=== PATIENT | male | born 1980 | race Caucasian/White ===

== ENCOUNTER 2022-12-21 13:45 | Outpatient (OUT) | payer OTHER, SELFPAY ==
[2022-12-21 14:22] LABS: Basophils Absolute Auto 0.1 10^3/uL (0.0-0.1); Basophils Percent Auto 1.1 % (0.2-2.0); Eosinophils Absolute Auto 0.6 10^3/uL (0.0-0.7); Eosinophils Percent Auto 7.3 % (0.9-7.0); Hematocrit 41.2 % (42.0-54.0); Hemoglobin 13.6 g/dL (14.0-18.0); Immature Granulocytes Abs Auto 0.02 10^3/uL (0.00-0.03); Immature Granulocytes Pct Auto 0.2 % (0.0-0.5); Lymphocytes Absolute Auto 2.4 10^3/uL (1.2-3.8); Lymphocytes Percent Auto 26.9 % (20.5-60.0); Mean Corpuscular Hemoglobin 27.5 pg (25.9-34.0); Mean Corpuscular Volume 83.2 fL (80.0-94.0); Mean Platelet Volume 10.5 fL (9.5-13.5); Monocytes Absolute Auto 0.7 10^3/uL (0.3-0.8); Monocytes Percent Auto 7.4 % (1.7-12.0); Neutrophils Percent Auto 57.1 % (43.0-75.0); Platelet Count 395 10^3/uL (150-450); Red Blood Count 4.95 10^6/uL (4.70-6.10); Red Cell Distribution Width 13.3 % (11.0-15.0); White Blood Count 8.8 10^3/uL (4.0-11.0)
[2022-12-21 14:32] LABS: Alanine Aminotransferase 27 U/L (16-63); Albumin Globulin Ratio 0.9; Albumin Level 3.8 g/dL (3.4-5.0); Alkaline Phosphatase 152 U/L (46-116); Anion Gap 13.6; Aspartate Amino Transferase 16 U/L (15-37); BUN Creatinine Ratio 35.3; Bilirubin Total 0.1 mg/dL (0.2-1.0); Calcium 8.8 mg/dL (8.5-10.1); Carbon Dioxide 25.6 mmol/L (21.0-32.0); Chloride 101 mmol/L (98-107); Chol HDL Ratio 3.2; Cholesterol 225 mg/dL (<=200); Estimated GFR (African America >60 (>=60); Estimated GFR (Non-African Ame >60 (>=60); Globulin 4.3 g/dL; Glucose 138 mg/dL (74-106); HDL Cholesterol 71 mg/dL (40-60); Potassium 4.2 mmol/L (3.5-5.1); Sodium 136 mmol/L (136-145); Total Protein 8.1 g/dL (6.4-8.2); Triglycerides 127 mg/dL (<=150); VLDL CHOLESTEROL 25.4 mg/dL
== END 2022-12-21 13:46 | disposition home or self-care (01) ==
LOC: LAB 13:51
PROVIDERS: PCP Internal Medicine; Visit Provider Internal Medicine
DX: Z00.00 Encounter for general adult medical examination without abnormal findings (principal)
CPT/HCPCS: 36415; 80053; 80061; 85025

== ENCOUNTER 2023-05-20 12:50 | Outpatient (RCR) | payer OTHER, SELFPAY | END 2023-05-21 15:19 | disposition home or self-care (01) | LOC: PT 12:50 | PROVIDERS: PCP Internal Medicine; Visit Provider Internal Medicine | DX: G80.4 Ataxic cerebral palsy (principal) | CPT/HCPCS: 97162 ==

== ENCOUNTER 2023-06-04 10:03 | Outpatient (OUT) | payer OTHER, SELFPAY ==
--- NOTE | 2023-06-04 | XR_ITS ---
The [address] [address] Patient Name: JIAN MOSCOSO MRN: [id number] date: 1980 Sex: M Assigned Patient Location: Current Patient Location: Accession/Order Number: [id number] Exam Date: 06/04/2023 10:30 Report Date: 06/06/2023 07:04 At the request of: DEBBY PHAM Procedure: XR ankle CALEB min 3V 3 views each of the bilateral feet and ankles INDICATION: Pain COMPARISON: None XR/XR ankle CALEB min 3V IMPRESSION: Slightly gracile appearance of the bones bilaterally. No acute fracture or dislocation of either foot or ankle. Joint spaces are well-maintained bilaterally. The ankle mortise is congruent bilaterally. No erosions are evident bilaterally. No radiographic evidence for inflammatory arthropathy. Soft tissues are grossly unremarkable bilaterally. Electronically authenticated by: SONALI SUGGS Date: 06/06/2023 07:04
--- NOTE | 2023-06-04 | XR_ITS ---
The [address] [address] Patient Name: JIAN MOSCOSO MRN: [id number] date: 1980 Sex: M Assigned Patient Location: Current Patient Location: Accession/Order Number: [id number] Exam Date: 06/04/2023 10:30 Report Date: 06/06/2023 07:04 At the request of: DEBBY PHAM Procedure: XR foot CALEB min 3V 3 views each of the bilateral feet and ankles INDICATION: Pain COMPARISON: None XR/XR foot CALEB min 3V IMPRESSION: Slightly gracile appearance of the bones bilaterally. No acute fracture or dislocation of either foot or ankle. Joint spaces are well-maintained bilaterally. The ankle mortise is congruent bilaterally. No erosions are evident bilaterally. No radiographic evidence for inflammatory arthropathy. Soft tissues are grossly unremarkable bilaterally. Electronically authenticated by: SONALI SUGGS Date: 06/06/2023 07:04
== END 2023-06-04 10:04 | disposition home or self-care (01) ==
LOC: EC 10:03
PROVIDERS: PCP Internal Medicine; Visit Provider Podiatrist Foot & Ankle Surgery
DX: M79.671 Pain in right foot (principal); M79.672 Pain in left foot
CPT/HCPCS: 73610; 73630

== ENCOUNTER 2023-06-14 10:55 | Outpatient (RCR) | payer OTHER, SELFPAY | END 2023-06-15 11:40 | disposition home or self-care (01) | LOC: PT 10:55 | PROVIDERS: PCP Internal Medicine; Visit Provider Podiatrist Foot & Ankle Surgery | DX: M21.171 Varus deformity, not elsewhere classified, right ankle (principal) | CPT/HCPCS: 97163 ==

== ENCOUNTER 2023-12-23 11:36 | Outpatient (OUT) | payer OTHER, SELFPAY ==
[2023-12-23 12:03] LABS: Basophils Absolute Auto 0.1 10^3/uL (0.0-0.1); Basophils Percent Auto 0.8 % (0.2-2.0); Eosinophils Absolute Auto 0.6 10^3/uL (0.0-0.7); Eosinophils Percent Auto 5.9 % (0.9-7.0); Hematocrit 41.9 % (42.0-54.0); Immature Granulocytes Abs Auto 0.03 10^3/uL (0.00-0.03); Immature Granulocytes Pct Auto 0.3 % (0.0-0.5); Lymphocytes Absolute Auto 2.3 10^3/uL (1.2-3.8); Lymphocytes Percent Auto 21.9 % (20.5-60.0); Mean Corpuscular HGB Conc 33.4 g/dL (29.9-35.2); Mean Corpuscular Hemoglobin 27.6 pg (25.9-34.0); Mean Corpuscular Volume 82.5 fL (80.0-94.0); Mean Platelet Volume 10.4 fL (9.5-13.5); Monocytes Absolute Auto 0.8 10^3/uL (0.3-0.8); Monocytes Percent Auto 7.6 % (1.7-12.0); Neutrophils Absolute Auto 6.8 10^3/uL (1.4-6.5); Neutrophils Percent Auto 63.5 % (43.0-75.0); Platelet Count 389 10^3/uL (150-450); Red Blood Count 5.08 10^6/uL (4.70-6.10); Red Cell Distribution Width 12.8 % (11.0-15.0); White Blood Count 10.7 10^3/uL (4.0-11.0)
[2023-12-23 12:18] LABS: Alanine Aminotransferase 25 U/L (16-63); Albumin Level 3.8 g/dL (3.4-5.0); Alkaline Phosphatase 156 U/L (46-116); Aspartate Amino Transferase 14 U/L (15-37); BUN Creatinine Ratio 31.4; Bilirubin Total 0.3 mg/dL (0.2-1.0); Calcium 8.9 mg/dL (8.5-10.1); Carbon Dioxide 29.1 mmol/L (21.0-32.0); Chloride 100 mmol/L (98-107); Estimated GFR (African America >60 (>=60); Estimated GFR (Non-African Ame >60 (>=60); Globulin 3.9 g/dL; Glucose 80 mg/dL (74-106); Potassium 4.1 mmol/L (3.5-5.1); Sodium 138 mmol/L (136-145); Total Protein 7.7 g/dL (6.4-8.2)
== END 2023-12-23 11:37 | disposition home or self-care (01) ==
LOC: LAB 11:37
PROVIDERS: PCP Internal Medicine; Visit Provider Internal Medicine
DX: G80.4 Ataxic cerebral palsy (principal); K21.9 Gastro-esophageal reflux disease without esophagitis; I42.1 Obstructive hypertrophic cardiomyopathy
CPT/HCPCS: 36415; 80053; 85025

== ENCOUNTER 2024-06-28 15:13 | Inpatient (IN) | payer MEDICARE, MEDICAID, SELFPAY ==
[2024-06-28] VITALS (9 sets, daily range): BP systolic 100–115; BP diastolic 62–78; PULSE 79–118; TEMP 36.6–39.6; O2SAT 78–94; BMI 20.8
--- OUTSIDE RECORDS SUMMARY | 2024-06-28 15:25 | XMS_ITS | CCD ---
Author Organization [facility] Care Team Providers Care Associate Financial Representative Name Role Phone CRISPIN MENDEZ Primary Care Physician [phone] DR CRISPIN MENDEZ Admitting Unavailable ANDREA, DR FLETCHER Attending Unavailable ANDREA, DR FLETCHER Primary Care Unavailable ANDREA, DR FLETCHER Consulting Unavailable Crispin Mendez Unavailable CRISPIN MENDEZ Admitting Unavailable CRISPIN MENDEZ Attending Unavailable CRISPIN MENDEZ Referring Unavailable Kirn, Dinesh D Consulting Unavailable Kirnus, Dinesh D Consulting Unavailable Nora, Dinesh D Consulting Unavailable Crispin Mendez DO Primary Care Provider Crispin Mendez DO Unavailable [phone] Crispin Mendez DO Primary Care Provider Justyn Tobar MD Attending Provider Crispin Mendez Primary Care Unavailable Justyn Tobar Attending Justyn Leija Admitting Justyn Leija MD Unavailable [phone] RAVINDER SOLOMON Referring Unavailable CRISPIN MENDEZ Primary Care Unavailable RAVINDER SOLOMON Attending Unavailable CRISPIN MENDEZ Referring Unavailable CRISPIN MENDEZ Primary Care Unavailable RAVINDER SOLOMON Referring Unavailable CRISPIN MENDEZ Primary Care Unavailable RAVINDER SOLOMON Referring Unavailable CRISPIN MENDEZ Primary Care Unavailable RAVINDER SOLOMON Referring Unavailable CRISPIN MENDEZ Primary Care Unavailable Allergies Allergy Classification Reported Allergen(s) Allergy Type Date of Onset Reaction(s) Facility (4 sources) Streptococcus pneumoniae type 1 capsular polysaccharide antigen / Streptococcus pneumoniae type 10A capsular polysaccharide antigen / Streptococcus pneumoniae type 11A capsular polysaccharide antigen / Streptococcus pneumoniae type 12F capsular polysaccharide antigen / Streptococcus pneumoniae type 14 capsular polysaccharide antigen / Streptococcus pneumoniae type 15B capsular polysaccharide antigen / Streptococcus pneumoniae type 17F capsular polysaccharide antigen / Streptococcus pneumoniae type 18C capsular polysaccharide antigen / Streptococcus pneumoniae type 19A capsular polysaccharide antigen / Streptococcus pneumoniae type 19F capsular polysaccharide antigen / Streptococcus pneumoniae type 2 capsular polysaccharide antigen / Streptococcus pneumoniae type 20 capsular polysaccharide antigen / Streptococcus pneumoniae type 22F capsular polysaccharide antigen / Streptococcus pneumoniae type 23F capsular polysaccharide antigen / Streptococcus pneumoniae type 3 capsular polysaccharide antigen / Streptococcus pneumoniae type 33F capsular polysaccharide antigen / Streptococcus pneumoniae type 4 capsular polysaccharide antigen / Streptococcus pneumoniae type 5 capsular polysaccharide antigen / Streptococcus pneumoniae type 6B capsular polysaccharide antigen / Streptococcus pneumoniae type 7F capsular polysaccharide antigen / Streptococcus pneumoniae type 8 capsular polysaccharide antigen / Streptococcus pneumoniae type 9N capsular polysaccharide antigen / Streptococcus pneumoniae type 9V capsular polysaccharide antigen Drug Allergy rash [facility] Other (7 sources) Blueberry; Translations: [BLUEBERRY] Propensity to adverse reactions to food 01-22-20 13 Unknown [facility] (7 sources) Lactose; Translations: [LACTOSE] Drug Allergy 12-07-19 04 [facility] (7 sources) Gluten Flour; Translations: [GLUTEN FLOUR] Propensity to adverse reactions to food 01-22-20 13 Unknown [facility] (1 source) Pneumococcal vaccine Drug Allergy 03-04-20 24 [facility] Medications Current Medications Medication Drug Class(es) Dates Sig (Normalized) Sig (Original) amoxicillin 80 mg/ml oral suspension (5 sources) Penicillin-class Antibacterial Start: 05-21-2024 take 25 mL by mouth every hour amoxicillin (AMOXIL) 400 mg/5 mL suspension TAKE 25ML BY MOUTH FOR PREMED DOSE 1 HOUR PRIOR TO APPOIMTMENT *DISCARD REMAINDER* 05/21/2024 Active Start: 09-07-2017 Amoxicillin 40 0 MG/5ML 2 teaspoonful Orally every 12 hrs for 10 days August, Not-Taking betamethasone 0.5 mg/ml / clotrimazole 10 mg/ml topical cream (4 sources) Azole Antifungal, Corticosteroid Start: 12-13-2023 Clotrimazole-Betamethasone 1-0.05 % cream Active 1 APPLIC TOPICAL Twice daily as needed for rash December 12, 2023 11:00pm Calcium Carbonate (2 sources) Start: 08-10-2021 Maalox Antacid Barrier mg, Chewed, Daily, Refills(s) 0 Start Date: 08/10/21 Status: Ordered CHEWABLE MULTI VITAMIN ORAL (1 source) CHEWABLE MULTI V ITAMIN ORAL Take 1 Tablespoonful by mouth once daily. Active esomeprazole 40 mg granules for oral suspension (1 source) Proton Pump Inhibitor Start: 08-10-2021 Nexium 40 mg oral powder for reconstitution, delayed release 40 mg = 1 EA, Oral, Daily, # 30 packet(s), Refills(s) 3, Pharmacy: [facility]/pharmacy #[id number], 152, cm, 08/10/21 13:17:00 EDT, Height/Length Dosing, 47.7, kg, 08/10/21 13:17:00 EDT, Weight Dosing Start Date: 08/10/21 Status: Ordered metoprolol tartrate 25 mg oral tablet (2 sources) beta-Adrenergic Dena Start: 03-04-2024 take 1 tablet by mouth every twelve hours metoprolol tartrate, short acting, (LOPRESSOR) 25 mg tablet Take 1 tablet by mouth every 12 hours. 03/04/2024 Active Start: 03-04-2024 take 1 tablet by chelle twice daily Metoprolol Tartrate 25 mg tablet Active 25 MG PO Twice daily 180 March 04, 2024 12:00am Marcial-burch button G tube (4 sources) Start: 12-21-2020 Marcial-burch button G tube Marcial-burch button G tube, See Instructions, 1 EA, 0, G-Tube as directed 20 fr. 4 cm, Supply Start Date: 12/21/20 Status: Ordered Start: 12-20-2020 Marcial-burch button G tube Marcial-burch button G tube, See Instructions, 1 EA, 0, G-Tube As Directed 20 fr. 3.5 cm, Supply Start Date: 12/20/20 Status: Ordered MARCIAL-BURCH GASTROSTOMY TUBE (6 sources) Start: 05-25-2016 MARCIAL-BURCH GASTRO STOMY TUBE Indications: Gastrostomy tube dysfunction (HCC) 2.5 cm, 18 Fr 1 Kit 05/25/2016 Active mupirocin 0.02 mg/mg topical ointment (2 sources) RNA Synthetase Inhibitor Antibacterial Start: 01-15-2024 Mupirocin 2 % ointment Active 1 APPLIC TOPICAL Twice daily 22 January 14, 2024 11:00pm Nexium 40 mg oral powder for reconstitution, delayed release (1 source) Start: 08-10-2021 Nexium 40 mg o ral powder for reconstitution, delayed release 40 mg = 1 EA, Oral, Daily, # 30 packet(s), Refills(s) 3, Pharmacy: [facility]/pharmacy #[id number], 152, cm, 08/10/21 13:17:00 EDT, Height/Length Dosing, 47.7, kg, 08/10/21 13:17:00 EDT, Weight Dosing Start Date: 08/10/21 Status: Ordered triamcinolone acetonide 1 mg/ml topical cream (9 sources) Corticosteroid Start: 12-13-2023 Triamcinolone Acetonide 0.1 % cream Active 1 APPLIC TOPICAL Twice daily as needed for rash December 12, 2023 11:00pm Start: 10-23-2022 Triamcinolone Acetonide 0.025 % 1 application Externally twice daily as needed for 14 days Oct, Active Completed/Discontinued Medications Medication Drug Class(es) Dates Sig (Normalized) Sig (Original) albuterol 0.83 mg/ml inhalation solution (4 sources) beta2-Adrenergic Agonist Start: 09-07-2017 Albuterol Sulfate (2.5 MG/3ML) 0.083% 1 dose as directed Inhalation every 6 hrs August, Not-Taking doxycycline hyclate 100 mg oral capsule (2 sources) Tetracycline-class Drug Start: 01-15-2024 End: 03-04-2024 take 1 capsule by mouth twice daily Doxycycline Hyclate 100 mg capsule Discontinued 100 MG PO Twice daily 14 January 14, 2024 11:00pm March 04, 2024 3:21pm LORazepam 0.5 mg oral tablet (5 sources) Benzodiazepine Start: 11-27-2023 End: 12-13-2023 take 1 tablet by mouth once Lorazepam 0.5 mg tablet Discontinued 0.5 MG PO Once 1 November 26, 2023 11:00pm December 13, 2023 9:58am Give 1 hour prior to dentist appt Nebulizer Machine & Supplies (4 sources) Start: 09-07-2017 Nebulizer Machine & Supplies As directed August, Not-Taking omeprazole 40 mg delayed release oral capsule (5 sources) Proton Pump Inhibitor Start: 09-29-2018 End: 05-28-2024 take 1 capsule by mouth twice daily 30 minutes before breakfast Omeprazole 40 mg capsule Take 1 capsule by mouth twice daily. Take 30 minutes before breakfast and dinner 180 capsule 3 09/29/2018 05/28/2024 Discontinued prednisoLONE 3 mg/ml oral solution (4 sources) Corticosteroid Start: 09-07-2017 take 5 mL by mouth once daily at mealtime prednisoLONE Sodium Phosphate 15 MG/5ML 5 ml with food or milk in the morning Orally Once a day for 5 days August, Not-Taking {20 (nirmatrelvir 150 MG Oral Tablet) / 10 (ritonavir 100 MG Oral Tablet) } Pack [Paxlovid 5-Day] (4 sources) Start: 09-20-2022 take 3 tablets by mouth every twelve hours Paxlovid (300/100) 20 x 150 MG & 10 x 100MG 3 tablets Orally Twice a day for 5 days Sep, Not-Taking Problems Active Problems Problem Classification Problem Date Documented Da te Episodic/Chronic Allergic reactions (11 sources) Allergic contact dermatitis due to dyes; Translations: [Eczema] Episodic Cardiac and circulatory congenital anomalies (20 sources) Congenital subaortic stenosis; Translations: [Congenital subaortic stenosis] Onset: 6 Resolved: 0 10-24-2023 Chronic Cardiac dysrhythmias (12 sources) Multiple premature ventricular complexes; Translations: [Ventricular premature depolarization] Onset: 6 02-13-2018 Chronic Complications of surgical procedures or medical care (4 sources) Infection of gastrostomy site; Translations: [Gastrostomy infection] 01-15-2024 Episodic Deficiency and other anemia (4 sources) Anemia; Translations: [Anemia, unspecified] Episodic Developmental disorders (19 sources) Intellectual disability; Translations: [Unspecified intellectual disabilities] Chronic Esophageal disorders (10 sources) Gastroesophageal reflux disease; Translations: [Gastro-esophageal reflux disease without esophagitis] 12-12-2023 Chronic Genitourinary congenital anomalies (5 sources) Testicle in inguinal canal; Translations: [Bilateral inguinal testes] Chronic Genitourinary symptoms and ill-defined conditions (4 sources) Functional urinary incontinence; Translations: [Functional urinary incontinence] Chronic Heart valve disorders (20 sources) Rheumatic mitral valve disease, unspecified; Translations: [Mitral valve disorders] Onset: 6 10-24-2023 Chronic Immunity disorders (4 sources) Combined immunodeficiency disease ; Translations: [Combined immunodeficiency, unspecified] Chronic Mycoses (4 sources) Candidal intertrigo; Translations: [Candidiasis of skin and nail] Episodic Other bone disease and musculoskeletal deformities (4 sources) Idiopathic scoliosis AND/OR kyphoscoliosis; Translations: [Adolescent idiopathic scoliosis, thoracolumbar region] Chronic Other circulatory disease (4 sources) Raynaud's disease; Translations: [Raynaud's syndrome without gangrene] Chronic Other circulatory disease (1 source) Elevated blood-pressure reading, without diagnosis of hypertension; Translations: [Elevated blood pressure reading without diagnosis of hypertension] 03-04-2024 Episodic Other gastrointestinal disorders (1 source) Gastrostomy present; Translations: [Gastrostomy status] Onset: 2 Chronic Other gastrointestinal disorders (3 sources) Heartburn; Translations: [Heartburn] Onset: 2 Episodic Other upper respiratory infections (6 sources) Sinusitis; Translations: [Chronic sinusitis, unspecified] Onset: 0 03-08-2010 Chronic Paralysis (16 sources) Ataxic cerebral palsy; 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 Susu-; endo-; and myocarditis; cardiomyopathy (except that caused by tuberculosis or sexually transmitted disease) (16 sources) Hypertrophic obstructive cardiomyopathy; Translations: [Obstructive hypertrophic cardiomyopathy] Chronic Skin and subcutaneous tissue infections (4 sources) Cellulitis of abdominal wall ; Translations: [Cellulitis of abdominal wall] Episodic Past or Other Problems Problem Classification Problem Date Documented Da te Episodic/Chronic Esophageal disorders (5 sources) Esophageal disorders; Translations: [Gastroesophageal reflux disease with esophagitis without hemorrhage] Results Test Name Value Interpretation Reference Range Facility CBC W Auto Differential pane l (Bld)on 05-28-2024 Basophils (Bld) [#/Vol] 0.07 10*3/uL Normal <0.11 [facility] Comment on above: Order Comment: Speci men Type: BLOOD SPECIMEN Ordering Facility: [facility] Address: [address] [place] [address] Performed By: #### 5 7021-8 #### [facility] CLIA [id number] [address] [place] [address] [place] [address] [place] Basophils/100 WBC (Bld) 0.7 % Normal [facility] Comment on above: Order Comment: Speci men Type: BLOOD SPECIMEN Ordering Facility: [facility] Address: [address] [place] [address] Performed By: #### 5 7021-8 #### [facility] CLIA [id number] [address] [place] [address] [place] Differential cell count method Nom (Bld) Auto Normal [facility] Comment on above: Order Comment: Speci men Type: BLOOD SPECIMEN Ordering Facility: [facility] Address: [address] [place] [address] Performed By: #### 5 7021-8 #### [facility] CLIA [id number] [address] [place] [address] [place] Eosinophils (Bld) [#/Vol] 0.47 10*3/uL High <0.46 [facility] Comment on above: Order Comment: Speci men Type: BLOOD SPECIMEN Ordering Facility: [facility] Address: [address] [place] [address] Performed By: #### 5 7021-8 #### [facility] CLIA [id number] [address] [place] [address] [place] Eosinophils/100 WBC (Bld) 4.8 % Normal [facility] Comment on above: Order Comment: Speci men Type: BLOOD SPECIMEN Ordering Facility: [facility] Address: [address] [place] [address] Performed By: #### 5 7021-8 #### [facility] CLIA [id number] [address] [place] [address] [place] Erythrocyte distribution width (RBC) [Ratio] 13.2 % Normal 11.5-15.0 [facility] Comment on above: Order Comment: Speci men Type: BLOOD SPECIMEN Ordering Facility: [facility] Address: [address] [place] [address] Performed By: #### 5 7021-8 #### [facility] CLIA [id number] [address] [place] [address] [place] Hematocrit (Bld) [Volume fraction] 41.0 % Normal 39.0-51.0 [facility] Comment on above: Order Comment: Speci men Type: BLOOD SPECIMEN Ordering Facility: [facility] Address: [address] [place] [address] Performed By: #### 5 7021-8 #### [facility] CLIA [id number] [address] [place] [address] [place] Hemoglobin (Bld) [Mass/Vol] 13.6 g/dL Normal 13.0-17.0 [facility] Comment on above: Order Comment: Speci men Type: BLOOD SPECIMEN Ordering Facility: [facility] Address: [address] [place] [address] Performed By: #### 5 7021-8 #### [facility] CLIA [id number] [address] [place] [address] [place] Immature granulocytes (Bld) [#/Vol] 0.03 10*3/uL Normal <0.10 [facility] Comment on above: Order Comment: Speci men Type: BLOOD SPECIMEN Ordering Facility: [facility] Address: [address] [place] [address] Performed By: #### 5 7021-8 #### [facility] CLIA [id number] [address] [place] [address] [place] Immature granulocytes/100 WBC (Bld) 0.3 % Normal [facility] Comment on above: Order Comment: Speci men Type: BLOOD SPECIMEN Ordering Facility: [facility] Address: [address] [place] [address] Performed By: #### 5 7021-8 #### [facility] CLIA [id number] [address] [place] [address] [place] Lymphocytes (Bld) [#/Vol] 1.87 10*3/uL Normal 1.00-4.00 [facility] Comment on above: Order Comment: Speci men Type: BLOOD SPECIMEN Ordering Facility: [facility] Address: [address] [place] [address] Performed By: #### 5 7021-8 #### [facility] CLIA [id number] [address] [place] [address] [place] Lymphocytes/100 WBC (Bld) 18.9 % Normal [facility] Comment on above: Order Comment: Speci men Type: BLOOD SPECIMEN Ordering Facility: [facility] Address: [address] [place] [address] Performed By: #### 5 7021-8 #### [facility] CLIA [id number] [address] [place] [address] [place] MCH (RBC) [Entitic mass] 27.0 pg Normal 26.0-34.0 [facility] Comment on above: Order Comment: Speci men Type: BLOOD SPECIMEN Ordering Facility: [facility] Address: [address] [place] [address] Performed By: #### 5 7021-8 #### [facility] CLIA [id number] [address] [place] [address] [place] MCHC (RBC) [Mass/Vol] 33.2 g/dL Normal 30.5-36.0 [facility] Comment on above: Order Comment: Speci men Type: BLOOD SPECIMEN Ordering Facility: [facility] Address: [address] [place] [address] Performed By: #### 5 7021-8 #### [facility] CLIA [id number] [address] [place] [address] [place] MCV (RBC) [Entitic vol] 81.5 fL Normal 80.0-100.0 [facility] Comment on above: Order Comment: Speci men Type: BLOOD SPECIMEN Ordering Facility: [facility] Address: [address] [place] [address] Performed By: #### 5 7021-8 #### [facility] CLIA [id number] [address] [place] [address] [place] Monocytes (Bld) [#/Vol] 0.71 10*3/uL Normal <0.87 [facility] Comment on above: Order Comment: Speci men Type: BLOOD SPECIMEN Ordering Facility: [facility] Address: [address] [place] [address] Performed By: #### 5 7021-8 #### [facility] CLIA [id number] [address] [place] [address] [place] Monocytes/100 WBC (Bld) 7.2 % Normal [facility] Comment on above: Order Comment: Speci men Type: BLOOD SPECIMEN Ordering Facility: [facility] Address: [address] [place] [address] Performed By: #### 5 7021-8 #### [facility] CLIA [id number] [address] [place] [address] [place] Neutrophils (Bld) [#/Vol] 6.72 10*3/uL Normal 1.45-7.50 [facility] Comment on above: Order Comment: Speci men Type: BLOOD SPECIMEN Ordering Facility: [facility] Address: [address] [place] [address] Performed By: #### 5 7021-8 #### [facility] CLIA [id number] [address] [place] [address] [place] Neutrophils/100 WBC (Bld) 68.1 % Normal [facility] Comment on above: Order Comment: Speci men Type: BLOOD SPECIMEN Ordering Facility: [facility] Address: [address] [place] [address] Performed By: #### 5 7021-8 #### [facility] CLIA [id number] [address] [place] [address] [place] Nucleated RBC (Bld) [#/Vol] 10*3/uL Normal <0.01 [facility] Comment on above: Order Comment: Speci men Type: BLOOD SPECIMEN Ordering Facility: [facility] Address: [address] [place] [address] Performed By: #### 5 7021-8 #### [facility] CLIA [id number] [address] [place] [address] [place] Nucleated RBC/100 WBC (Bld) [Ratio] 0.0 /100 WBC Normal [facility] Comment on above: Order Comment: Speci men Type: BLOOD SPECIMEN Ordering Facility: [facility] Address: [address] [place] [address] Performed By: #### 5 7021-8 #### [facility] CLIA [id number] [address] [place] [address] [place] Platelet mean volume (Bld) [Entitic vol] 10.8 fL Normal 9.0-12.7 [facility] Comment on above: Order Comment: Speci men Type: BLOOD SPECIMEN Ordering Facility: [facility] Address: [address] [place] [address] Performed By: #### 5 7021-8 #### [facility] CLIA [id number] [address] [place] [address] [place] Platelets (Bld) [#/Vol] 418 10*3/uL High 150-400 [facility] Comment on above: Order Comment: Speci men Type: BLOOD SPECIMEN Ordering Facility: [facility] Address: [address] [place] [address] Performed By: #### 5 7021-8 #### [facility] CLIA [id number] [address] [place] [address] [place] RBC (Bld) [#/Vol] 5.03 10*6/uL Normal 4.20-6.00 [facility] Comment on above: Order Comment: Speci men Type: BLOOD SPECIMEN Ordering Facility: [facility] Address: [address] [place] [address] Performed By: #### 5 7021-8 #### [facility] CLIA [id number] [address] [place] [address] [place] WBC (Bld) [#/Vol] 9.87 10*3/uL Normal 3.70-11.00 [facility] Comment on above: Order Comment: Speci men Type: BLOOD SPECIMEN Ordering Facility: [facility] Address: [address] [place], [place] [address] [address] Performed By: #### 5 7021-8 #### [facility] CLIA [id number] [address] [place] [address] [place] CNOVon 05-28-2024 CNOV Office Visit (CARCMN ) JIAN MOSCOSO ([id number]) 1980 M [place] Date Time Provider Department 05/28/24 1:15 PM RAVINDER SOLOMON During your visit today, we recorded the following information about you: Pulse Blood pressure Weight Height 112/minute 148/97 47.6 kg 1.499 m Ravinder Solomon MD 05/29/2024 3:56 PM [facility] [place] [facility] OUTPATIENT VISIT DATE May 28, 2024 OUTPATIENT VISIT TYPE NEW PRIMARY CARE PHYSICIAN: Crispin Mendez (Stephanie) [address] [place] [address] REFERRING PHYSICIAN: Crispin Mccoy) [address] [facility] [address] Tobar for cardiology CHIEF COMPLAINT: Bicuspid AV (LCC/NCC), subaortic membrane, supravalvular stenosis CONGENITAL CARDIAC HISTORY: Shone complex: subaortic membrane, bicuspid aortic valve, and ?cleft mitral valve 1993 - subaortic membrane resection (Dr. Herring, [facility]) 09/05/1999 - excision of supravalvar aortic scar, transaortic membrane resection and removal of deep muscle wedge (Drs. Herring AND Anoop, [facility]) Developmental delay, non-verbal INTERVAL HISTORY: Mr. Moscoso is a 43 year old male from [facility] here today for cardiovascular evaluation related to congenital stenosis of aortic valve. Jian has a significant medical history of developmental delay (nonverbal), cerebral palsy, GERD, hiatal hernia, scoliosis, vitiligo. He was last saw [facility] cardiology (Dr Toribio Ortega) in late 2017. At that time he was doing well without acute complaints. Annual TTE was recommended to follow AV pathology. In late 2023, outside echo was concerning for severe AV or supravalvular stenosis with calculated ROSALIND ~0.75, indexed ROSALIND 0.46, mean gradient 35 mmHg. Historically his cardiac symptoms have included anorexia, chest clutching, sully extremities and pulmonary edema. He has never had ankle swelling. It is unclear if he has ever had sacral edema, has significant scoliosis. His mother reports that since the last visit he has had a slight weight decrease after intentionally cutting back on feeding tubes due to weight gain. She does not progressive increase in episodic heavy breathing over the past two years, particularly with eating. They have not seen any evidence of anorexia, pulmonary edema or other findings from prior HF decompensation. He was started on metoprolol a few weeks ago due to diastolic hypertension. His mom reports that after first dose his SBP dropped to 98. Occupation: n/a Diet: TF Exercise: wheelchair bound PAST MEDICAL HISTORY Diagnosis Date Aortic stenosis Developmental delay disorder PVC (premature ventricular contraction) PAST SURGICAL HISTORY Procedure Laterality Date ANES HRT PERICRD SACANDGRT VSLS W/ACCOUNT CONTACT ASSOCIATE OXTJ >1MO PO UNLISTED STOMACH SURGERY Social History Tobacco Use Smoking status: Never Smokeless tobacco: Never Vaping Use Vaping status: Never Used Substance Use Topics Alcohol use: No Drug use: No FAMILY HISTORY Problem Relation Age of Onset Cervical Cancer Mother Hypertension Mother Hyperlipidemia Mother Hyperlipidemia Father Hypertension Father Breast Cancer Maternal Grandmother Breast Cancer Maternal Aunt ALLERGIES Allergen Reactions Blueberry Unknown Gluten Flour Unknown Lactose MEDICATIONS: metoprolol tartrate, short acting, (LOPRESSOR) 25 mg tablet Take 1 tablet by mouth every 12 hours. (Patient taking differently: Take 12.5 mg by mouth every 12 hours.) amoxicillin (AMOXIL) 400 mg/5 mL suspension TAKE 25ML BY MOUTH FOR PREMED DOSE 1 HOUR PRIOR TO APPOIMTMENT *DISCARD REMAINDER* CHEWABLE MULTI VITAMIN ORAL Take 1 Tablespoonful by mouth once daily. MARCIAL-BURCH GASTROSTOMY TUBE 2.5 cm, 18 Fr REVIEW OF SYSTEMS: unable to provide directly (nonverbal), reviewed with caregiver, pertinent responses as noted above PHYSICAL EXAMINATION: BP 148/97 (BP Site: Left Arm) Pulse 112 Ht 149.9 cm (4' 11 ) Wt 47.6 kg (105 lb) SpO2 95% BMI 21.21 kg/m? General: Well appearing, in no acute distress. Syndromic facies. Skin: No clubbing, no cyanosis. Eyes: Extra ocular movements intact Neck: No jugular venous distention, carotids have a normal upstroke. Lungs: Clear to auscultation bilaterally, no wheezing or rhonchi. Severe scoliosis Heart: Regular rhythm, PMI not displaced, S1, S2 normal, no S3, no S4, no heaves, no rub. Harsh, mid-peaking 3/6 systolic murmur radiating to bilateral subclavians. Preserved A2. Abdomen: Soft, nontender. Extremities: No peripheral edema . Grade 2/4 distal pulses bilaterally. Neuro: Oriented to person, place and time, alert, cooperative, gait coordinated. CARDIOVASCULAR MEDICINE TESTING: ECG 05/28/24: I have personally reviewed the Electrocardiogram, Chest X-ray, Laboratory Testing, and Echocardio (more content not included)... Normal [facility] Comprehensive metabolic 2000 panelon 05-28-2024 Albumin [Mass/Vol] 4.5 g/dL Normal 3.9-4.9 [facility] Comment on above: Order Comment: Speci men Type: BLOOD SPECIMEN Ordering Facility: [facility] Address: [address] [place] [address] Performed By: #### 3 3762-6, 60142-5, 65699-9 #### [facility] CLIA [id number] [address] [place] [address] [place] [address] [place] ALP [Catalytic activity/Vol] 158 U/L High 38-113 [facility] Comment on above: Order Comment: Speci men Type: BLOOD SPECIMEN Ordering Facility: [facility] Address: [address] [place] [address] Performed By: #### 3 3762-6, 54604-0, 55704-3 #### [facility] CLIA [id number] [address] [place] [address] [place] ALT [Catalytic activity/Vol] 22 U/L Normal 10-54 [facility] Comment on above: Order Comment: Speci men Type: BLOOD SPECIMEN Ordering Facility: [facility] Address: [address] [place] [address] Performed By: #### 3 3762-6, 85286-5, 16294-5 #### [facility] CLIA [id number] [address] [place] [address] [place] Anion gap [Moles/Vol] 16 mmol/L High 8-15 [facility] Comment on above: Order Comment: Speci men Type: BLOOD SPECIMEN Ordering Facility: [facility] Address: [address] [place] [address] Performed By: #### 3 3762-6, 07793-3, 81070-4 #### [facility] CLIA [id number] [address] [place] [address] [place] AST [Catalytic activity/Vol] 24 U/L Normal 14-40 [facility] Comment on above: Order Comment: Speci men Type: BLOOD SPECIMEN Ordering Facility: [facility] Address: [address] [place] [address] Performed By: #### 3 3762-6, 23730-0, 90089-0 #### [facility] CLIA [id number] [address] [place] [address] [place] Bilirubin [Mass/Vol] 0.3 mg/dL Normal 0.2-1.3 [facility] Comment on above: Order Comment: Speci men Type: BLOOD SPECIMEN Ordering Facility: [facility] Address: [address] [place], [place] [address] Performed By: #### 3 3762-6, 03440-1, 47443-3 #### [facility] CLIA [id number] [address] [place], [place] [address] [place] Calcium [Mass/Vol] 9.8 mg/dL Normal 8.5-10.2 [facility] Comment on above: Order Comment: Speci men Type: BLOOD SPECIMEN Ordering Facility: [facility] Address: [address] [place] [address] Performed By: #### 3 3762-6, 08538-3, 51900-7 #### [facility] CLIA [id number] [address] [place] [address] [place] Chloride [Moles/Vol] 100 mmol/L Normal 98-107 [facility] Comment on above: Order Comment: Speci men Type: BLOOD SPECIMEN Ordering Facility: [facility] Address: [address] [place] [address] Performed By: #### 3 3762-6, 16826-9, 38483-1 #### [facility] CLIA [id number] [address] [place] [address] [place] CO2 [Moles/Vol] 22 mmol/L Normal 22-30 [facility] Comment on above: Order Comment: Speci men Type: BLOOD SPECIMEN Ordering Facility: [facility] Address: [address] [place] [address] Performed By: #### 3 3762-6, 42100-3, 96655-0 #### [facility] CLIA [id number] [address] [place] [address] [place] Creatinine [Mass/Vol] 0.48 mg/dL Low 0.73-1.22 [facility] Comment on above: Order Comment: Speci men Type: BLOOD SPECIMEN Ordering Facility: [facility] Address: [address] [place], [place] [address] Performed By: #### 3 3762-6, 52740-1, 94339-5 #### [facility] CLIA [id number] [address] [place] [address] [place] Creatinine and Glomerular filtration rate.predicted panel (S/P/Bld) 132 mL/min/1.73m??? Normal >=60 [facility] Comment on above: Order Comment: Ammy prasad Type: BLOOD SPECIMEN Ordering Facility: [facility] Address: [address] [place] [address] Result Comment: Zari mated Glomerular Filtration Rate (eGFR) is calculated using the 2020 CKD-EPI creatinine equation. This equation utilizes serum creatinine, sex, and age as parameters. The creatinine assay has traceable calibration to isotope dilution-mass spectrometry. Refer to KDIGO guidelines for clinical interpretation. In patients with unstable renal function, e.g. those with acute kidney injury, the eGFR may not accurately reflect actual GFR. Performed By: #### 3 3762-6, 05184-9, 27372-5 #### [facility] CLIA [id number] [address] [place] [address] [place] Glucose [Mass/Vol] 104 mg/dL High 74-99 [facility] Comment on above: Order Comment: Ammy prasad Type: BLOOD SPECIMEN Ordering Facility: [facility] Address: [address] [place] [address] Result Comment: The [place] Diabetes Association (ADA) provides guidance for cutoff values for fasting glucose and random glucose. The ADA defines fasting as no caloric intake for at least 8 hours. Fasting plasma glucose results between 100 to 125 mg/dL indicate increased risk for diabetes (prediabetes). Fasting plasma glucose results greater than or equal to 126 mg/dL meet the criteria for diagnosis of diabetes. In the absence of unequivocal hyperglycemia, results should be confirmed by repeat testing. In a patient with classic symptoms of hyperglycemia or hyperglycemic crisis, random plasma glucose results greater than or equal to 200 mg/dL meet the criteria for diagnosis of diabetes. Reference: Standards of Medical Care in Diabetes 2016, [place] Diabetes Association. Diabetes Care. 2016.39(Suppl 1). Performed By: #### 3 3762-6, 22944-5, 43572-7 #### [facility] CLIA [id number] [address] [place] [address] [place] Potassium [Moles/Vol] 4.0 mmol/L Normal 3.7-5.1 [facility] Comment on above: Order Comment: Speci men Type: BLOOD SPECIMEN Ordering Facility: [facility] Address: [address] [place] [address] Performed By: #### 3 3762-6, 04632-8, 49964-5 #### [facility] CLIA [id number] [address] [place] [address] [place] Protein [Mass/Vol] 7.9 g/dL Normal 6.3-8.0 [facility] Comment on above: Order Comment: Speci men Type: BLOOD SPECIMEN Ordering Facility: [facility] Address: [address] [place] [address] Performed By: #### 3 3762-6, 52542-0, 85620-4 #### [facility] CLIA [id number] [address] [place] [address] [place] Sodium [Moles/Vol] 138 mmol/L Normal 136-144 [facility] Comment on above: Order Comment: Speci men Type: BLOOD SPECIMEN Ordering Facility: [facility] Address: [address] [place] [address] Performed By: #### 3 3762-6, 72663-5, 84585-0 #### [facility] CLIA [id number] [address] [place], [place] [address] [place] Urea nitrogen [Mass/Vol] 15 mg/dL Normal 9-24 [facility] Comment on above: Order Comment: Speci men Type: BLOOD SPECIMEN Ordering Facility: [facility] Address: [address] [place] [address] Performed By: #### 3 3762-6, 31031-7, 08353-2 #### [facility] CLIA [id number] [address] [place] [address] [place] ECG COMPLETEon 05-28-2024 ECG COMPLETE Ventricular Rate : 1 04 BPM Atrial Rate : 104 BPM P-R Interval : 128 ms QRS Duration : 86 ms Q-T Interval : 362 ms QTC Calculation(Bazett) : 476 ms Calculated P [place] : 28 degrees Calculated R [place] : -31 degrees Calculated T [place] : 96 degrees SINUS TACHYCARDIA WITH FREQUENT PREMATURE VENTRICULAR COMPLEXES LEFT AXIS DEVIATION LEFT VENTRICULAR HYPERTROPHY WITH REPOLARIZATION ABNORMALITY ABNORMAL ECG Confirmed by MD JACKSON, PhD, IRA ([id number]) on 06/13/2024 9:08:03 AM NAME : JIAN MOSCOSO PID : [id number] : 1980 Gender : Male Race : ORD : [id number] Procedure Date : May 28 2024 09:30:50 Edit Date : Jun 13 2024 09:08:04 Diagnosis: SINUS TACHYCARDIA WITH FREQUENT PREMATURE VENTRICULAR COMPLEXES LEFT AXIS DEVIATION LEFT VENTRICULAR HYPERTROPHY WITH REPOLARIZATION ABNORMALITY ABNORMAL ECG Confirmed by MD JACKSON, PhD, IRA ([id number]) on 06/13/2024 9:08:03 AM Test Reason : best poss Location : 314 : J14 02 Overread By : MD JACKSON, PhD,IRA Edited By : MD JACKSON, PhD,IRA Referred By : RAVINDER SOLOMON Acquired by : BHAVESH MARCELINO [facility] ECHO SPECIALIST COMPLEX ADUL T CONGENITALon 05-28-2024 ECHO SPECIALIST COMPLEX ADULT CONGENITAL Echocardiography Report: [facility] NAMRATA-2 Date of service: 05/28/2024 11:49:45 AM WORKER Ordering physician: RAVINDER SOLOMON Indication: Subaortic memebrance resection, Bicuspid AV, Cleft MV. Technologist: Estefany Kelly Interpreting physician: Alicia Del Castillo MD PATIENT: Name: MR. JIAN MOSCOSO : 1980 Age: 43 years Gender: M History of congenital heart disease. Primary rhythm: sinus. Secondary rhythm: PVC. Height: 152.40 cm BSA: 1.32 m Weight: 40.91 kg BMI: 17.6 kg/m Heart rate 101 bpm Technically difficult exam due to suboptimal positioning and non-verbal, suboptimal acoustic windows. Color Doppler was utilized to interrogate the cardiac valves assessed and spectral Doppler was utilized to determine the flow velocities and pressure gradients reported in this exam. MEASUREMENTS: Value Indexed Normal Max aortic dimension 3.3 cm Ao < 3.8 Left atrial volume 22 ml (4ch A-L) 17 ml/m Melissa <= 34 LV ID (diastole) 4.0 cm (2D) 3.04 cm/m LV ID (systole) 2.8 cm (2D) 2.13 cm/m IVS, leaflet tips 0.7 cm (2D) Posterior wall thickness 0.8 cm (2D) Left ventricular mass 86 g (2D) 65 g/m LVOT stroke volume 71 ml 54 ml/m Ejection Fraction 55 % (visual est.) EF > 52 FINDINGS: LEFT VENTRICLE The left ventricle is normal in size. Left ventricular systolic function is normal. Left ventricular diastolic function was not evaluated due to CHD. Mitral annular lateral E/e': 15.4. Mitral annular septal E/e': 24.8. RIGHT VENTRICLE The right ventricle is normal in size. Right ventricular systolic function is normal. Estimated right ventricular systolic pressure is not reported due to an insufficient tricuspid regurgitation signal. Estimated right atrial pressure is 3 mmHg based on IVC assessment. LEFT ATRIUM The left atrial cavity is normal in size. RIGHT ATRIUM The right atrial cavity is normal in size. Inferior Vena Cava: The inferior vena cava appears normal measuring 1.4 cm. The vessel decreases greater than 50 percent with inspiration. MITRAL VALVE There moderate mitral valve stenosis caused by restricted opening. There is mild (1+) mitral valve regurgitation. There is mild thickening. The peak valve gradient is 14 mmHg. The mean valve gradient is 7 mmHg. The pressure half time is 47 msec. The peak mitral E/A ratio is 0.86. The average mitral E/e' ratio is 20.1. The mitral flow deceleration time is 161 msec. TRICUSPID VALVE The hepatic venous pattern showed normal systolic flow. AORTIC VALVE There is aortic valve stenosis. There is mild (1+) aortic valve regurgitation. Bicuspid aortic valve. There is mild thickening. There is mild calcification. The peak gradient is 60 mmHg (peak velocity = 387.0 cm/s). The mean gradient is 32 mmHg. The LVOT mean velocity is 93.3 cm/s. The LVOT diameter is 2.0 cm. The aortic VTI is 71.3 cm. The mean velocity in the aortic valve is 271.0 cm/s. The dimensionless valve index is 0.32. AV area is 1.00 cm (0.76 cm /m ) by continuity, VTI. The LVOT stroke volume index is 54 ml/m . PULMONIC VALVE The pulmonic valve cusps are structurally normal. There is trace pulmonic valve regurgitation. AORTA The visualized aorta is normal in size. Measurements - Sinus: 3.2 cm. Sinotubular junction 3.3 cm. Mid ascending aorta 2.7 cm. PULMONARY ARTERIES The right pulmonary artery diameter is 1.6 cm (diastolic). The left pulmonary artery diameter is 1.6 cm (diastolic). INTERATRIAL SEPTUM There is no evidence of intracardiac shunting as detected by Doppler. INTERVENTRICULAR SEPTUM There is abnormal motion of the interventricular septum secondary to prior cardiac surgery. There is no flow through the interventricular septum as detected by Doppler. PERICARDIUM There is no pericardial effusion. There is an epicardial fat pad. CONCLUSIONS: - Technically difficult exam due to suboptimal positioning and non-verbal, suboptimal acoustic windows. - Exam indication: Subaortic memebrance resection, Bicuspid AV, Cleft MV. - Shone complex: subaortic membrane, bicuspid aortic valve, and cleft mitral valve. s/p subaortic resection (1993), s/p redo with excision of supravalvar aortic scar, transaortic membrane resection and removal of deep muscle wedge (09/05/1999, [facility]). - The left ventricle is normal in size. Left ventricular systolic function is normal. EF = 55 5% (visual est.) - The right ventricle is normal in size. Right ventricular systolic function is normal. - There is moderate mitral valve stenosis caused by restricted opening. The peak gradient is 14 mmHg and the mean gradient is 7 mmHg. Today's gradients obtained at a HR of 101bpm. - Bicuspid aortic valve. There is mild (1+) aortic valve regurgitation. There is moderate LVOT stenosis. AV area is 1.00 cm (0.76 cm /m ) by continuity, VTI. The peak gradient is 60 mmHg, the mean gradient is 32 mmHg and the dimensionless valve index is 0.32. no evidence of (more content not included)... Normal [facility] Lipid 1996 panelon 5 Cholesterol [Mass/Vol] 234 mg/dL High <200 [facility] Comment on above: Order Comment: [place] men Type: BLOOD SPECIMEN Ordering Facility: [facility] Address: [address] [place] [address] Result Comment: <200 mg/dL, Desirable 200-239 mg/dL, Borderline high >239 mg/dL, High Performed By: #### 3 3762-6, 38316-7, 65866-4 #### [facility] CLIA [id number] [address] [place] [address] [place] Cholesterol in HDL [Mass/Vol] 71 mg/dL Normal >39 [facility] Comment on above: Order Comment: Ammy prasad Type: BLOOD SPECIMEN Ordering Facility: [facility] Address: [address] [place] [address] Result Comment: 40-5 9 mg/dL, Acceptable >59 mg/dL, High: Negative risk factor for coronary heart disease <40 mg/dL, Low: Positive risk factor for coronary heart disease Performed By: #### 3 3762-6, 37286-1, 40986-9 #### [facility] CLIA [id number] [address] [place] [address] [place] Cholesterol in LDL [Mass/Vol] 145 mg/dL High <100 [facility] Comment on above: Order Comment: Ammy prasad Type: BLOOD SPECIMEN Ordering Facility: [facility] Address: [address] [place] [address] Result Comment: <100 mg/dL, Optimal 100-129 mg/dL, Near optimal/above optimal 130-159 mg/dL, Borderline high 160-189 mg/dL, High >189 mg/dL, Very high Secondary prevention optimal LDL Cholesterol levels are recommended to be < 70 mg/dL Performed By: #### 3 3762-6, 70993-6, 37397-4 #### [facility] CLIA [id number] [address] [place] [address] [place] Cholesterol in LDL/Cholesterol in HDL [Mass ratio] 2.04 {ratio} Normal <2.54 [facility] Comment on above: Order Comment: Ammy osmar Type: BLOOD SPECIMEN Ordering Facility: [facility] Address: [address] [place] [address] Result Comment: Esme lara: 1. National Cholesterol Education Program ATP III Guideline At-A-Glance Quick Desk Reference: National Heart, Lung, and Blood [place]. National Institutes of Health. 2001: NIH Publication No. 01-3305. 2. An International Atherosclerosis Society position paper: global recommendations for the management of dyslipidemia: executive summary, Atherosclerosis. 2014: 232(2):410-413. Performed By: #### 3 3762-6, 79151-3, 39863-2 #### [facility] CLIA [id number] [address] [place] [address] [place] Cholesterol in VLDL [Mass/Vol] 18 mg/dL Normal <30 [facility] Comment on above: Order Comment: Ammy osmar Type: BLOOD SPECIMEN Ordering Facility: [facility] Address: [address] [place] [address] Performed By: #### 3 3762-6, 04749-1, 79537-8 #### [facility] CLIA [id number] [address] [place] [address] [place] Cholesterol non HDL [Mass/Vol] 163 mg/dL High <130 [facility] Comment on above: Order Comment: Ammy osmar Type: BLOOD SPECIMEN Ordering Facility: [facility] Address: [address] [place] [address] Result Comment: <130 mg/dL, Optimal 130-159 mg/dL, Near optimal/above optimal 160-189 mg/dL, Borderline high 190-219 mg/dL, High >219 mg/dL, Very high Secondary prevention optimal non HDL Cholesterol levels are recommended to be <100 mg/dL Performed By: #### 3 3762-6, 09925-5, 53890-4 #### [facility] CLIA [id number] [address] [place] [address] [place] Cholesterol.total/Ch olesterol in HDL [Mass ratio] 3.30 {ratio} Normal <5.10 [facility] Comment on above: Order Comment: Speci men Type: BLOOD SPECIMEN Ordering Facility: [facility] Address: [address] [place] [address] Performed By: #### 3 3762-6, 63608-8, 21069-0 #### [facility] CLIA [id number] [address] [place] [address] [place] FASTING TIME 14 hrs Normal [facility] Comment on above: Order Comment: Speci men Type: BLOOD SPECIMEN Ordering Facility: [facility] Address: [address] [place] [address] Performed By: #### 3 3762-6, 26777-7, 45490-1 #### [facility] CLIA [id number] [address] [place] [address] [place] Triglyceride [Mass/Vol] 91 mg/dL Normal <150 [facility] Comment on above: Order Comment: Speci men Type: BLOOD SPECIMEN Ordering Facility: [facility] Address: [address] [place] [address] Result Comment: <150 mg/dL, Normal 150-199 mg/dL, Borderline high 200-499 mg/dL, High >499 mg/dL, Very high Performed By: #### 3 3762-6, 62953-9, 89378-6 #### [facility] CLIA [id number] [address] [place] [address] [place] NT-proBNP [facility] 05-28 Natriuretic peptide.B prohormone N-Terminal [Mass/Vol] 245 pg/mL High <125 [facility] Comment on above: Order Comment: Speci men Type: BLOOD SPECIMEN Ordering Facility: [facility] Address: [address] [place] [address] Performed By: #### 3 3762-6, 15876-3, 19184-0 #### [facility] CLIA [id number] [address] [facility] [address] [address] [place] [facility] XR CHEST 2V FRONTAL/LATon XR CHEST 2V FRONTAL/LAT * * *Final Report* * * DATE OF EXAM: May 28 2024 9:49AM JIX [id number] - XR CHEST 2V FRONTAL/LAT / PROCEDURE REASON: Congenital cardiovascular disorder * * * * Physician Interpretation * * * * EXAMINATION: CHEST RADIOGRAPH (2 VIEW FRONTAL and LATERAL) CLINICAL HISTORY: Congenital cardiovascular disorder MQ: XC2_6 EXAM DATE/TIME: 05/28/2024 9:49 AM COMPARISON: No relevant prior studies available. RESULT: Lines, tubes, and devices: None. Lungs and pleura: No focal consolidation. No pleural effusion. No pneumothorax. Cardiomediastinal silhouette: Mildly enlarged cardiomediastinal silhouette. Bones and soft tissues: Status post median sternotomy with normally aligned sternal wires. Scoliotic curvature. Gaseous colonic distention. IMPRESSION: No acute radiographic abnormality. [employer] Supervisor: [facility] Transcribe Date/Time: May 28 2024 10:25A Dictated by : DON WATERMAN MD This examination was interpreted and the report reviewed and electronically signed by: BARBARA SALINAS MD on May 28 2024 11:17AM EST [id number] Normal [facility] XR Chest PA and Lateralon IMPRESSION: No acute radiographic abnormality. [employer] Supervisor: [facility] Transcribe Date/Time: May 28 2024 10:25A Dictated by : DON WATERMAN MD This examination was interpreted and the report reviewed and electronically signed by: BARBARA SALINAS MD on May 28 2024 11:17AM EST DIVISION OF RADIOLOGY * * *Final Report* * * DATE OF EXAM: May 28 2024 9:49AM JIX [id number] - XR CHEST 2V FRONTAL/LAT / PROCEDURE REASON: Congenital cardiovascular disorder * * * * Physician Interpretation * * * * EXAMINATION: CHEST RADIOGRAPH (2 VIEW FRONTAL & LATERAL) CLINICAL HISTORY: Congenital cardiovascular disorder MQ: XC2_6 EXAM DATE/TIME: 05/28/2024 9:49 AM COMPARISON: No relevant prior studies available. RESULT: Lines, tubes, and devices: None. Lungs and pleura: No focal consolidation. No pleural effusion. No pneumothorax. Cardiomediastinal silhouette: Mildly enlarged cardiomediastinal silhouette. Bones and soft tissues: Status post median sternotomy with normally aligned sternal wires. Scoliotic curvature. Gaseous colonic distention. DIVISION OF RADIOLOGY Provider, Jennifer Bustos [facility] - 05/28/2024 * * *Final Report* * * DATE OF EXAM: May 28 2024 9:49AM JIX [id number] - XR CHEST 2V FRONTAL/LAT / PROCEDURE REASON: Congenital cardiovascular disorder * * * * Physician Interpretation * * * * EXAMINATION: CHEST RADIOGRAPH (2 VIEW FRONTAL & LATERAL) CLINICAL HISTORY: Congenital cardiovascular disorder MQ: [id number] EXAM DATE/TIME: 05/28/2024 9:49 AM COMPARISON: No relevant prior studies available. RESULT: Lines, tubes, and devices: None. Lungs and pleura: No focal consolidation. No pleural effusion. No pneumothorax. Cardiomediastinal silhouette: Mildly enlarged cardiomediastinal silhouette. Bones and soft tissues: Status post median sternotomy with normally aligned sternal wires. Scoliotic curvature. Gaseous colonic distention. IMPRESSION IMPRESSION: No acute radiographic abnormality. [employer] Supervisor: PSCB Transcribe Date/Time: May 28 2024 10:25A Dictated by : DON WATERMAN MD This examination was interpreted and the report reviewed and electronically signed by: BARBARA SALINAS MD on May 28 2024 11:17AM EST [facility] Radiology Study observation (narrative) [facility] XR Chest PA and LateralOrder ed By: [facility] Provider on 05-28-2024 [facility] Juan 04-01-2024 CNPN Telephone (CARCMN) JIAN MOSCOSO ([id number]) 1980 M U[place] Date Time Provider Department 04/01/24 [facility] PROVIDER CARCMN During your visit today, we recorded the following information about you: Beata Ho 04/01/2024 3:51 PM Signed Received outside echo report has been uploaded in [facility] Beata Ho April 01, 2024 3:51 PM Allergies As of Date: 04/01/2024 Noted Allergy Reaction BLUEBERRY 01/21/2013 16 - Unknown GLUTEN FLOUR 01/21/2013 16 - Unknown LACTOSE 12/07/2003 Date Reviewed: 09/29/2018 Reviewed by: Sabrina Storm ([facility])CHRIST - Fully Assessed Reason for Visit: Received Outside Medical Records [[id number]] Prescriptions as of 04/01/2024 - Omeprazole 40 mg capsule Take 1 capsule by mouth twice daily. 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 03/01/2010 MITRAL VALVE DISORDER [I05.9] 09/06/2005 CONGEN SUBAORTIC STENOSIS [Q24.4] 09/06/2005 PVC's (premature ventricular contractions) [I49*09/06/2005 Sinusitis [J32.9] 03/08/2010 Bicuspid aortic valve [Q23.81] 02/13/2018 Nonrheumatic aortic valve stenosis, mild [I35.0]02/13/2018 Nonrheumatic aortic valve insufficiency, mild [*02/13/2018 Non-rheumatic mitral regurgitation, mild [I34.0]02/13/2018 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 Ventricular bigeminy [I49.8] 02/13/2018 Encounter Status:Closed by BEATA HO on 04/01/24 Normal [facility] FPG ECG *CARDIOLOGY ONLY*on 03-04-2024 FPG ECG *CARDIOLOGY ONLY* [facility] Main [place] [address] [place], [place] [id number] Electrocardiograph Report Signed Patient: Jian Moscoso MR#: [id number] : 1980 Acct:[id number] Age/Sex: 43 / M ADM Date: 03/04/24 Loc: EKGCARDIO Room: Type: REG CLI Attending Dr: Justyn Tobar MD Ordering Provider: Justyn Tobar MD Date of Service: 03/04/24 ECG/FPG ECG *CARDIOLOGY ONLY*: Q23.0 - Congenital stenosis of aortic valve Copies to: Test Reason : Blood Pressure : */* mmHG Vent. Rate : 99 BPM Atrial Rate : 99 BPM P-R Int : 108 ms QRS Dur : 86 ms QT Int : 360 ms P-R-T Axes : 29 -24 70 degrees QTcB Int : 462 ms Sinus rhythm with short [place] Left ventricular hypertrophy with repolarization abnormality ( R in aVL , Moises product , Romhilt- Rodriguez ) Prolonged QT Abnormal ECG No previous ECGs available Confirmed by Justyn Tobar ([id number]) on 03/04/2024 11:45:37 PM Referred By: Electronically Signed By: Justyn Tobar Transcribed By: MUS Signed By Justyn Tobar MD 03/04/24 3243 Normal [facility] CNCOon 01-14-2024 CNCO Letter Text Normal [facility] CNPNon 01-14-2024 CNPN Telephone (CACOMN) JIAN MOSCOSO ([id number]) 1980 Date Time Provider Department 01/14/24 RAVINDER SOLOMON During your visit today, we recorded the following information about you: Antwan Saba 01/14/2024 3:29 PM Signed New patient letter sent via mail with appt details Allergies As of Date: 01/14/2024 Noted Allergy Reaction BLUEBERRY 01/21/2013 16 - Unknown GLUTEN FLOUR 01/21/2013 16 - Unknown LACTOSE 12/07/2003 Date Reviewed: 09/29/2018 Reviewed by: Sabrina Storm ([facility])CHRIST - Fully Assessed Reason for Visit: Appointment [186] Prescriptions as of 01/14/2024 - Omeprazole 40 mg capsule Take 1 capsule by mouth twice daily. 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 03/01/2010 MITRAL VALVE DISORDER [I05.9] 09/06/2005 CONGEN SUBAORTIC STENOSIS [Q24.4] 09/06/2005 PVC's (premature ventricular contractions) [I49*09/06/2005 Sinusitis [J32.9] 03/08/2010 Bicuspid aortic valve [Q23.81] 02/13/2018 Nonrheumatic aortic valve stenosis, mild [I35.0]02/13/2018 Nonrheumatic aortic valve insufficiency, mild [*02/13/2018 Non-rheumatic mitral regurgitation, mild [I34.0]02/13/2018 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 Ventricular bigeminy [I49.8] 02/13/2018 Encounter Status:Closed by ANTWAN SABA on 01/14/24 Normal [facility] Telephone (REFPHY) JIAN MOSCOSO ([id number]) 1980 Date Time Provider Department 01/14/24 NO ONE (HISTORICAL) REFPHY During your visit today, we recorded the following information about you: Estefany Garcia 01/14/2024 2:03 PM Signed Patient: Jian Moscoso Date of : 1980 Patient phone number: [phone] Referring Provider for the encounter: JAIME Requesting Provider: CRISPIN MENDEZ Reason for requesting visit (RFV/signs and symptoms/diagnosis): Congenital clinic-Congenital stenosis of aortic valve, congential insufficiency of aortic valve Person calling: self Return call to: self Medical Records/Insurance Card scanned into [employer]: Yes Comments: Via [facility] fax Allergies As of Date: 01/14/2024 Noted Allergy Reaction BLUEBERRY 01/21/2013 16 - Unknown GLUTEN FLOUR 01/21/2013 16 - Unknown LACTOSE 12/07/2003 Date Reviewed: 09/29/2018 Reviewed by: Sabrina Storm ([facility])CHRIST - Fully Assessed Reason for Visit: External Referrals/resources [909] Prescriptions as of 01/14/2024 - Omeprazole 40 mg capsule Take 1 capsule by mouth twice daily. 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 03/01/2010 MITRAL VALVE DISORDER [I05.9] 09/06/2005 CONGEN SUBAORTIC STENOSIS [Q24.4] 09/06/2005 PVC's (premature ventricular contractions) [I49*09/06/2005 Sinusitis [J32.9] 03/08/2010 Bicuspid aortic valve [Q23.81] 02/13/2018 Nonrheumatic aortic valve stenosis, mild [I35.0]02/13/2018 Nonrheumatic aortic valve insufficiency, mild [*02/13/2018 Non-rheumatic mitral regurgitation, mild [I34.0]02/13/2018 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 Ventricular bigeminy [I49.8] 02/13/2018 Encounter Status:Closed by ESTEFANY GARCIA on 01/14/24 Normal [facility] Basophils Auto (Bld) [#/Vol] on 12-23-2023 Basophils (Bld) [#/Vol] 0.1 10 3/uL 0.0-0.1 [facility] Basophils (Bld) [#/Vol] Automated basophil count 0.0-0.1 [facility] Basophils/100 WBC Auto (Bld) on 12-23-2023 Basophils/100 WBC (Bld) 0.8 % 0.2-2.0 [facility] Basophils/100 WBC (Bld) Automated basophil % 0.2-2.0 [facility] Eosinophils/100 WBC Auto (Bl d)on 12-23-2023 Eosinophils/100 WBC (Bld) 5.9 % 0.9-7.0 [facility] Eosinophils/100 WBC (Bld) Automated eosinophil % 0.9-7.0 [facility] Erythrocyte distribution wid th Auto (RBC) [Ratio]on 12-23-2023 Erythrocyte distribution width (RBC) [Ratio] 12.8 % 11.0-15.0 [facility] Erythrocyte distribution width (RBC) [Ratio] Erythrocyte distribution width [Ratio] by Automated count 11.0-15.0 [facility] Estimated glomerular filtrat ion rate (GFR) non- Americanon 12-23-2023 GFR/1.73 sq M.predicted among non-blacks MDRD (S/P/Bld) [Vol rate/Area] mL/min/{1.73_m2} >=60 [facility] GFR/1.73 sq M.predicted among non-blacks MDRD (S/P/Bld) [Vol rate/Area] Estimated glomerular filtration rate (GFR) non- >=60 [facility] Globulin Calc (S) [Mass/Vol] on 12-23-2023 Globulin (S) [Mass/Vol] 3.9 g/dL [facility] Globulin (S) [Mass/Vol] Serum globulin measurement by calculation (mass/volume) [facility] Hematocrit Auto (Bld) [Volum e fraction]on 12-23-2023 Hematocrit (Bld) [Volume fraction] 41.9 % Low 42.0-54.0 [facility] Hematocrit (Bld) [Volume fraction] Hematocrit [Volume Fraction] of Blood by Automated count Low 42.0-54.0 [facility] Hemoglobin [Mass/volume] in Bloodon 12-23-2023 Hemoglobin (Bld) [Mass/Vol] 14.0 g/dL 14.0-18.0 [facility] Hemoglobin (Bld) [Mass/Vol] Hemoglobin [Mass/volume] in Blood 14.0-18.0 [facility] Laboratory - Chemistry and C hemistry - challengeon 12-23-2023 Albumin [Mass/Vol] 3.8 g/dL 3.4-5.0 [facility] ALP [Catalytic activity/Vol] 156 U/L High 46-116 [facility] ALT [Catalytic activity/Vol] 25 U/L 16-63 [facility] AST [Catalytic activity/Vol] 14 U/L Low 15-37 [facility] Bilirubin [Mass/Vol] 0.3 mg/dL 0.2-1.0 [facility] Calcium [Mass/Vol] 8.9 mg/dL 8.5-10.1 [facility] Chloride [Moles/Vol] 100 mmol/L 98-107 [facility] CO2 [Moles/Vol] 29.1 mmol/L 21.0-32.0 [facility] Creatinine [Mass/Vol] 0.51 mg/dL Low 0.70-1.30 [facility] GFR/1.73 sq M.predicted MDRD (S/P/Bld) [Vol rate/Area] mL/min/{1.73_m2} >=60 [facility] Glucose [Mass/Vol] 80 mg/dL 74-106 [facility] Potassium [Moles/Vol] 4.1 mmol/L 3.5-5.1 [facility] Protein [Mass/Vol] 7.7 g/dL 6.4-8.2 [facility] Sodium [Moles/Vol] 138 mmol/L 136-145 [facility] Urea nitrogen [Mass/Vol] 16.0 mg/dL 7.0-18.0 [facility] Urea nitrogen/Creatinine [Mass ratio] 31.4 mg/mg [facility] Laboratory - Hematology and Cell countson 12-23-2023 Immature granulocytes/100 WBC (Bld) 0.3 % 0.0-0.5 [facility] Leukocytes [#/volume] correc yolie for nucleated erythrocytes in Blood by Automated counon 12-23-2023 WBC corrected for nucl RBC Auto (Bld) [#/Vol] 10.7 10 3/uL 4.0-11.0 [facility] WBC corrected for nucl RBC Auto (Bld) [#/Vol] Leukocytes [#/volume] corrected for nucleated erythrocytes in Blood by Automated coun .0-11.0 [facility] Lymphocytes Auto (Bld) [#/Vo l]on 12-23-2023 Lymphocytes (Bld) [#/Vol] 2.3 10 3/uL 1.2-3.8 [facility] Lymphocytes (Bld) [#/Vol] Lymphocytes [#/volume] in Blood by Automated count 1.2-3.8 [facility] Lymphocytes/100 WBC Auto (Bl d)on 12-23-2023 Lymphocytes/100 WBC (Bld) 21.9 % 20.5-60.0 [facility] Lymphocytes/100 WBC (Bld) Lymphocytes/100 leukocytes in Blood by Automated count 20.5-60.0 [facility] MCH Auto (RBC) [Entitic mass ]on 12-23-2023 MCH (RBC) [Entitic mass] 27.6 pg 25.9-34.0 [facility] MCH (RBC) [Entitic mass] MCH [Entitic mass] by Automated count 25.9-34.0 [facility] MCHC Auto (RBC) [Mass/Vol]on 12-23-2023 MCHC (RBC) [Mass/Vol] 33.4 g/dL 29.9-35.2 [facility] MCHC (RBC) [Mass/Vol] MCHC [Mass/volume] by Automated count 29.9-35.2 [facility] MCV Auto (RBC) [Entitic vol] on 12-23-2023 MCV (RBC) [Entitic vol] 82.5 fL 80.0-94.0 [facility] MCV (RBC) [Entitic vol] MCV [Entitic volume] by Automated count 80.0-94.0 [facility] Monocytes Auto (Bld) [#/Vol] on 12-23-2023 Monocytes (Bld) [#/Vol] 0.8 10 3/uL 0.3-0.8 [facility] Monocytes (Bld) [#/Vol] Automated blood monocyte count 0.3-0.8 [facility] Monocytes/100 WBC Auto (Bld) on 12-23-2023 Monocytes/100 WBC (Bld) 7.6 % 1.7-12.0 [facility] Monocytes/100 WBC (Bld) Automated monocyte % 1.7-12.0 [facility] Neutrophils Auto (Bld) [#/Vo l]on 12-23-2023 Neutrophils (Bld) [#/Vol] 6.8 10 3/uL High 1.4-6.5 [facility] Neutrophils (Bld) [#/Vol] Neutrophils [#/volume] in Blood by Automated count High 1.4-6.5 [facility] Neutrophils/100 WBC Auto (Bl d)on 12-23-2023 Neutrophils/100 WBC (Bld) 63.5 % 43.0-75.0 [facility] Neutrophils/100 WBC (Bld) Automated neutrophil % 43.0-75.0 [facility] No Panel Informationon 12-22 Eosinophils # (Auto) 0.6 10 3/uL 0.0-0.7 [facility] Immature Granulocyte # (Auto) 0.03 10 3/uL 0.00-0.03 [facility] Platelet mean volume Auto (B ld) [Entitic vol]on 12-23-2023 Platelet mean volume (Bld) [Entitic vol] 10.4 fL 9.5-13.5 [facility] Platelet mean volume (Bld) [Entitic vol] Platelet mean volume [Entitic volume] in Blood by Automated count 9.5-13.5 [facility] Platelets Auto (Bld) [#/Vol] on 12-23-2023 Platelets (Bld) [#/Vol] 389 10 3/uL 150-450 [facility] Platelets (Bld) [#/Vol] Platelets [#/volume] in Blood by Automated count 150-450 [facility] RBC Auto (Bld) [#/Vol]on RBC (Bld) [#/Vol] 5.08 10 6/uL 4.70-6.10 [facility] RBC (Bld) [#/Vol] Erythrocytes [#/volume] in Blood by Automated count 4.70-6.10 [facility] Serum or plasma albumin/glob ulin mass ratioon 12-23-2023 Albumin/Globulin [Mass ratio] 1.0 {ratio} [facility] Albumin/Globulin [Mass ratio] Serum or plasma albumin/globulin mass ratio [facility] Serum or plasma anion gap de terminationon 12-23-2023 Anion gap [Moles/Vol] 13.0 mmol/L [facility] Anion gap [Moles/Vol] Serum or plasma anion gap determination [facility] CBC AUTO DIFFon 12-15-2021 BASO # 0.1 103/ul Normal 0.0-0.1 [facility] Comment on above: Performed By: #### C BC #### [facility] [address] [address] [address] Merna Borja Basophils/100 WBC (Bld) 0.8 % Normal 0.2-2.0 [facility] Comment on above: Performed By: #### C BC #### [facility] [address] [place] [address] Dr. Merna Borja EO # 0.5 103/ul Normal 0.0-0.7 [facility] Comment on above: Performed By: #### C BC #### [facility] [address] [address] [address] Merna Borja Eosinophils/100 WBC (Bld) 5.9 % Normal 0.9-7.0 [facility] Comment on above: Performed By: #### C BC #### [facility] [address] [place] [address] Dr. Merna Borja Erythrocyte distribution width (RBC) [Ratio] 13.2 % Normal 11.0-15.0 [facility] Comment on above: Performed By: #### C BC #### [facility] [address] [place] [address] Dr. Merna Borja Hematocrit (Bld) [Volume fraction] 41.7 % Critically low 42.0-54.0 [facility] Comment on above: Performed By: #### C BC #### [facility] [address] [place] [address] Dr. Merna Borja Hemoglobin (Bld) [Mass/Vol] 13.7 g/dL Critically low 14.0-18.0 [facility] Comment on above: Performed By: #### C BC #### [facility] [address] [place] [address] Dr. Merna Borja IG # 0.02 10e3/ul Normal 0.00-0.03 [facility] Comment on above: Performed By: #### C BC #### [facility] [address] [place] [address] Dr. Merna Borja IG % 0.2 % Normal 0.0-0.5 [facility] Comment on above: Performed By: #### C BC #### [facility] [address] [place] [address] Dr. Merna Borja LYMPH # 1.7 103/ul Normal 1.2-3.8 [facility] Comment on above: Performed By: #### C BC #### [facility] [address] [place] [address] Dr. Merna Borja Lymphocytes/100 WBC (Bld) 19.0 % Critically low 20.5-60.0 [facility] Comment on above: Performed By: #### C BC #### [facility] [address] [place] [address] Dr. Merna Borja MANUAL DIFF REQ NO Normal [facility] Comment on above: Performed By: #### C BC #### [facility] [address] [place] [address] Dr. Merna Borja MCH (RBC) [Entitic mass] 27.2 pg Normal 25.9-34.0 [facility] Comment on above: Performed By: #### C BC #### [facility] [address] [place] [address] Dr. Merna Borja MCHC (RBC) [Mass/Vol] 32.9 g/dL Normal 29.9-35.2 [facility] Comment on above: Performed By: #### C BC #### [facility] [address] [place] [address] Dr. Merna Borja MCV (RBC) [Entitic vol] 82.9 fL Normal 80.0-94.0 [facility] Comment on above: Performed By: #### C BC #### [facility] [address] [place] [address] Dr. Merna Borja MONO # 0.6 103/ul Normal 0.3-0.8 [facility] Comment on above: Performed By: #### C BC #### [facility] [address] [place] [address] Dr. Merna Borja Monocytes/100 WBC (Bld) 6.6 % Normal 1.7-12.0 [facility] Comment on above: Performed By: #### C BC #### [facility] [address] [place] [address] Dr. Merna Borja NEUT # 5.9 103/ul Normal 1.4-6.5 [facility] Comment on above: Performed By: #### C BC #### [facility] [address] [place] [address] Dr. Merna Borja Neutrophils/100 WBC (Bld) 67.5 % Normal 43.0-75.0 [facility] Comment on above: Performed By: #### C BC #### [facility] [address] [place] [address] Dr. Merna Borja Platelet mean volume (Bld) [Entitic vol] 10.2 fL Normal 9.5-13.5 [facility] Comment on above: Performed By: #### C BC #### [facility] [address] [place] [address] Dr. Merna Borja PLT 370 103/ul Normal 150-450 [facility] Comment on above: Performed By: #### C BC #### [facility] [address] [place] [address] Dr. Merna Borja RBC 5.03 106/ul Normal 4.70-6.10 [facility] Comment on above: Performed By: #### C BC #### [facility] [address] [place] [address] Dr. Merna Borja WBC 8.8 103/ul Normal 4.0-11.0 [facility] Comment on above: Performed By: #### C BC #### [facility] [address] [place] [address] Dr. Merna Borja FERRITINon 12-15-2021 Ferritin [Mass/Vol] 76.0 ng/mL Normal 26.0-388.0 [facility] Comment on above: Performed By: #### V ITB12, FERR #### [facility] [address] [address] [address] Merna Borja LIPID PROFILEon 12-15-2021 CHOL-HDL RATIO NORM SEE BELOW Normal [facility] Comment on above: Result Comment: 3.3 - 4.4 LOW RISK 4.4 - 7.1 AVERAGE RISK 7.1 - 11.0 MODERATE RISK >11.0 HIGH RISK Performed By: #### L IPID, CMP #### [facility] [address] [address] [address] Merna Borja Cholesterol [Mass/Vol] 218 mg/dL Critically high <=200 [facility] Comment on above: Performed By: #### L IPID, CMP #### [facility] [address] [address] [address] Merna Borja Cholesterol in HDL [Mass/Vol] 69 mg/dL Critically high 40-60 [facility] Comment on above: Performed By: #### L IPID, CMP #### [facility] [address] [address] [address] Merna Borja Cholesterol in LDL [Mass/Vol] 129.4 mg/dL Normal [facility] Comment on above: Performed By: #### L IPID, CMP #### [facility] [address] [address] [address] Merna Borja Cholesterol.total/Ch olesterol in HDL [Mass ratio] 3.2 {ratio} Normal [facility] Comment on above: Performed By: #### L IPID, CMP #### [facility] [address] [address] [address] Merna Borja HDL NORMAL > or = 60 mg/dl - LO W CARDIOVASCULAR RISK <40 mg/dl - HIGH CARDIOVASCULAR RISK Normal [facility] Comment on above: Performed By: #### L IPID, CMP #### [facility] [address] [address] [address] Merna Borja LDL CALC NORMAL SEE BELOW Normal [facility] Comment on above: Result Comment: <100 mg/dl OPTIMAL 100 - 129 mg/dl NEAR OR ABOVE OPTIMAL 130 - 159 mg/dl BORDERLINE HIGH 160 - 189 mg/dl HIGH >190 mg/dl VERY HIGH Performed By: #### L IPID, CMP #### [facility] [address] [place] [address] Dr. Merna Borja Triglyceride [Mass/Vol] 98 mg/dL Normal <=150 [facility] Comment on above: Performed By: #### L IPID, CMP #### [facility] [address] [place] [address] Dr. Merna Borja VLDL CALC 19.6 mg/dL Normal [facility] Comment on above: Performed By: #### L IPID, CMP #### [facility] [address] [place] [address] Dr. Merna Borja PROF 14(COMP METB)on 022 Albumin [Mass/Vol] 3.8 g/dL Normal 3.4-5.0 [facility] Comment on above: Performed By: #### L IPID, CMP #### [facility] [address] [place] [address] Dr. Merna Borja Albumin/Globulin [Mass ratio] 0.9 {ratio} Normal [facility] Comment on above: Performed By: #### L IPID, CMP #### [facility] [address] [place] [address] Dr. Merna Borja ALP [Catalytic activity/Vol] 155 U/L Critically high 46-116 [facility] [facility] Comment on above: Performed By: #### L IPID, CMP #### [facility] [address] [place] [address] Dr. Merna Borja ALT [Catalytic activity/Vol] 27 U/L Normal 16-63 [facility] Comment on above: Performed By: #### L IPID, CMP #### [facility] [address] [place] [address] Dr. Merna Borja Anion gap [Moles/Vol] 13.9 mmol/L Normal [facility] Comment on above: Performed By: #### L IPID, CMP #### [facility] [address] [place] [address] Dr. Merna Borja AST [Catalytic activity/Vol] 13 U/L Critically low 15-37 [facility] Comment on above: Performed By: #### L IPID, CMP #### [facility] [address] [address] [address] Merna Borja Bilirubin [Mass/Vol] 0.4 mg/dL Normal 0.2-1.0 [facility] Comment on above: Performed By: #### L IPID, CMP #### [facility] [address] [place] [address] Dr. Merna Borja Calcium [Mass/Vol] 8.9 mg/dL Normal 8.5-10.1 [facility] Comment on above: Performed By: #### L IPID, CMP #### [facility] [address] [place] [address] Dr. Merna Borja Chloride [Moles/Vol] 100 mmol/L Normal 98-107 [facility] Comment on above: Performed By: #### L IPID, CMP #### [facility] [address] [place] [address] Dr. Merna Borja CO2 [Moles/Vol] 27.9 mmol/L Normal 21.0-32.0 [facility] Comment on above: Performed By: #### L IPID, CMP #### [facility] [address] [place] [address] Dr. Merna Borja Creatinine [Mass/Vol] 0.56 mg/dL Critically low 0.70-1.30 [facility] Comment on above: Performed By: #### L IPID, CMP #### [facility] [address] [place] [address] Dr. Merna Borja EGFR-AF IRAQI >60 Normal >=60 [facility] Comment on above: Performed By: #### L IPID, CMP #### [facility] [address] [place] [address] Dr. Merna Borja EGFR-NON AF IRAQI >60 Normal >=60 [facility] Comment on above: Performed By: #### L IPID, CMP #### [facility] [address] [place] [address] Dr. Merna Borja Globulin (S) [Mass/Vol] 4.0 g/dL Normal [facility] Comment on above: Performed By: #### L IPID, CMP #### [facility] [address] [place] [address] Dr. Merna Borja Glucose [Mass/Vol] 107 mg/dL Critically high 74-106 [facility] Comment on above: Performed By: #### L IPID, CMP #### [facility] [address] [place] [address] Dr. Merna Borja Potassium [Moles/Vol] 3.8 mmol/L Normal 3.5-5.1 [facility] Comment on above: Performed By: #### L IPID, CMP #### [facility] [address] [place] [address] Dr. Merna Borja Protein [Mass/Vol] 7.8 g/dL Normal 6.4-8.2 [facility] Comment on above: Performed By: #### L IPID, CMP #### [facility] [address] [place] [address] Dr. Merna Borja Sodium [Moles/Vol] 138 mmol/L Normal 136-145 [facility] Comment on above: Performed By: #### L IPID, CMP #### [facility] [address] [place] [address] Dr. Merna Borja Urea nitrogen [Mass/Vol] 15.0 mg/dL Normal 7.0-18.0 [facility] Comment on above: Performed By: #### L IPID, CMP #### [facility] [address] [place] [address] Dr. Merna Borja Urea nitrogen/Creatinine [Mass ratio] 26.8 mg/mg Normal [facility] Comment on above: Performed By: #### L IPID, CMP #### [facility] [address] [place] [address] Dr. Merna Borja VITAMIN B12on 12-15-2021 Cobalamin (Vitamin B12) [Mass/Vol] 580.0 pg/mL Normal 193.0-986.0 [facility] Comment on above: Performed By: #### V ITB12, FERR #### [facility] [address] [address] [address] Merna Borja Vital Signs Date Time Vital Sign Value Performing Clinician Facility 05-28-2024 13:46-0500 Body height 149.9 cm Ravinder Solomon MD Work Phone: [facility] 05-28-2024 13:46-0500 Body mass index (BMI) [Ratio] 21.21 kg/m2 Ravinder Solomon MD Work Phone: [facility] 05-28-2024 13:46-0500 Body weight 47.63 kg Ravinder Solomon MD Work Phone: [facility] 05-28-2024 13:46-0500 Diastolic blood pressure 97 mm[Hg] Ravinder Solomon MD Work Phone: [facility] 05-28-2024 13:46-0500 Heart rate 112 /min Ravinder Solomon MD Work Phone: [facility] 05-28-2024 13:46-0500 SaO2% (BldA) [Mass fraction] 95 % Ravinder Solomon MD Work Phone: [facility] 05-28-2024 13:46-0500 Systolic blood pressure 148 mm[Hg] Ravinder Solomon MD Work Phone: [facility] 03-04-2024 15:18-0500 Diastolic blood pressure 100 mm[Hg] Crispin Ball DO Work Phone: [facility] 03-04-2024 15:18-0500 Heart rate 106 /min Crispin Ball DO Work Phone: [facility] 03-04-2024 15:18-0500 Respiratory rate 16 /min Crispin Ball DO Work Phone: [facility] 03-04-2024 15:18-0500 SaO2% (BldA) [Mass fraction] 97 % Crispin Ball DO Work Phone: [facility] 03-04-2024 15:18-0500 Systolic blood pressure 144 mm[Hg] Crispin Mendez DO Work Phone: [facility] 01-15-2024 11:47-0400 Body height 152.4 cm [facility] 01-15-2024 11:47-0400 Body mass index (BMI) [Ratio] 20 kg/m2 [facility] 01-15-2024 11:47-0400 Body weight 46.52 kg [facility] 01-15-2024 11:47-0400 Diastolic blood pressure 94 mm[Hg] [facility] 01-15-2024 11:47-0400 Heart rate 96 /min [facility] 01-15-2024 11:47-0400 Respiratory rate 12 /min [facility] 01-15-2024 11:47-0400 Systolic blood pressure 142 mm[Hg] [facility] 12-13-2023 10:58-0400 Body height 152.4 cm [facility] 12-13-2023 10:58-0400 Body mass index (BMI) [Ratio] 20.1 kg/m2 [facility] 12-13-2023 10:58-0400 Body weight 46.72 kg [facility] 12-13-2023 10:58-0400 Diastolic blood pressure 93 mm[Hg] [facility] 12-13-2023 10:58-0400 Heart rate 101 /min [facility] 12-13-2023 10:58-0400 Respiratory rate 16 /min [facility] 12-13-2023 10:58-0400 Systolic blood pressure 135 mm[Hg] [facility] 12-10-2022 10:30-0400 Body height 152.4 cm Crispin Ball Other [facility] Other 12-10-2022 10:30-0400 Body mass index (BMI) [Ratio] 20.31 kg/m2 Crispin Ball Other [facility] Other 12-10-2022 10:30-0400 Body weight 47.17 kg Crispin Ball Other [facility] Other 12-10-2022 10:30-0400 Diastolic blood pressure 84 mm[Hg] Crispin Ball Other [facility] Other 12-10-2022 10:30-0400 Respiratory rate 12 /min Crispin Ball Other [facility] Other 12-10-2022 10:30-0400 Systolic blood pressure 122 mm[Hg] Crispin Ball Other [facility] Other 10-23-2022 11:45-0400 Body height 152.4 cm Crispin Ball Other [facility] Other 10-23-2022 11:45-0400 Body mass index (BMI) [Ratio] 19.53 kg/m2 Crispin Ball Other [facility] Other 10-23-2022 11:45-0400 Body weight 45.36 kg Crispin Ball Other [facility] Other 10-23-2022 11:45-0400 Diastolic blood pressure 82 mm[Hg] Crispin Ball Other [facility] Other 10-23-2022 11:45-0400 Systolic blood pressure 118 mm[Hg] Crispin Ball Other [facility] Other 08-10-2021 13:13-0400 Blood Pressure Location Gonzalez SALAM [facility] 08-10-2021 13:13-0400 Diastolic blood pressure 82 mm[Hg] Gonzalez SALAM [facility] 08-10-2021 13:13-0400 Heart rate 68 /min Gonzalez SALAM [facility] 08-10-2021 13:13-0400 Respiratory rate 16 /min Gonzalez SALAM [facility] 08-10-2021 13:13-0400 Systolic blood pressure 134 mm[Hg] Gonzalez SALAM [facility] Encounters Encounter Date Encounter Type Care Provider Facility Start: 05-28-2024 End: 05-28-2024 [facility] Facility:[facility] Start: 05-28-2024 End: 05-28-2024 Patient encounter procedure Ravinder Solomon MD Work Phone: Cardiology Comment on above: Bicuspid aortic valv e (Primary Dx); Congenital subaortic stenosis; Nonrheumatic aortic valve stenosis, mild; Mitral valve stenosis, non-rheumatic Start: 05-28-2024 End: 05-28-2024 ambulatory [facility] Facility:[facility] Start: 05-28-2024 End: 05-28-2024 [facility] Facility:[facility] Start: 05-28-2024 End: 05-28-2024 Subsequent hospital visit by physician Xr Chest Main J1 Work Phone: Radiology Comment on above: Congenital cardiovas cular disorder [Q28.9] Start: 05-28-2024 End: [facility] Start: 04-01-2024 End: 04-01-2024 Telephone encounter [facility] Provider Cardiology Comment on above: Received Outside Med ical Records Start: 03-04-2024 End: 03-04-2024 ambulatory Crispin Andrea DO Work Phone: [facility] Work Phone: Start: 03-04-2024 End: 03-04-2024 Patient encounter procedure Crispin Mendez DO Work Phone: [facility] Cardiology Work Phone: Start: 01-15-2024 End: 01-15-2024 ambulatory [facility] Work Phone: Start: 01-15-2024 End: 01-15-2024 Patient encounter procedure [facility] Work Phone: Start: 01-14-2024 End: 01-14-2024 Telephone encounter No One (Historical) Referring Physician Comment on above: External Referrals/r esources Appointment Congenital cardiovas cular disorder (Primary Dx) Start: 01-06-2024 End: 01-06-2024 ambulatory CRISPIN MENDEZ Facility:[facility] Start: 01-06-2024 End: 01-06-2024 Patient encounter procedure CRISPIN MENDEZ [facility] Start: 12-23-2023 End: 12-23-2023 ambulatory [facility] Work Phone: Start: 12-23-2023 End: 12-23-2023 Patient encounter procedure [facility] Work Phone: Start: 12-13-2023 Patient encounter status [facility] Start: 12-13-2023 End: 12-13-2023 ambulatory [facility] Work Phone: Start: 12-13-2023 End: 12-13-2023 Encounter for general adult medical examination without abnormal findings [facility] Start: 12-13-2023 End: 12-13-2023 Patient encounter procedure [facility] Work Phone: Start: 12-24-2022 End: 12-24-2022 ambulatory Crispin Mendez Other [facility] [employer] Other Start: 12-24-2022 Telephone encounter Crispin Mendez [facility] Start: 12-21-2022 End: 12-21-2022 ambulatory Crispin Mendez Other [facility] Other Start: 12-21-2022 Nursing evaluation o f patient and report Crispin Mendez [facility] Start: 12-10-2022 End: 12-10-2022 ambulatory Crispin Mendez Other [facility] Other Start: 12-10-2022 Encounter for genera l adult medical examination without abnormal findings Crispin Mendez [facility] Start: 12-10-2022 Periodic preventive med est patient 40-64yrs Crispin Mendez [facility] Start: 10-23-2022 End: 10-23-2022 ambulatory Crispin Mendez Other [facility] Other Start: 10-23-2022 Office outpatient vi sit 15 minutes Crispin Mendez [facility] Start: 12-19-2021 Encounter for genera l adult medical examination without abnormal findings DR CRISPIN MENDEZ [facility] Start: 12-15-2021 End: 12-16-[address] CRISPIN MENDEZ Facility:[facility] Start: 12-15-2021 End: 12-16-2021 Encounter for general adult medical examination without abnormal findings DR CRISPIN MENDEZ Facility:[facility] Start: 08-10-2021 End: 08-10-2021 Patient encounter procedure Carlos SWARTZ [facility] Procedures Date Procedure Procedure Detail Performing Clinician Start: 05-28-2024 Radiologic exam chest 2 views Ravinder Solomon MD Work Phone: Start: 05-28-2024 Lipid 1996 panel - Serum or Plasma Xr J1 Work Phone: H/O: gastrostomy S/P percutaneou s endoscopic gastrostomy (PEG) tube placement( Confirmed ) Carlos SWARTZ PEG tube Carlos SWARTZ Plan of Treatment Date Care Activity Detail Author Start: 05-28-2029 Lipid panel Lipid Screening [facility] Start: 05-29-2025 End: 08-28-2025 CBC panel - Blood by Automated count COMPLETE BLOOD COUNT Lab Routine Bicuspid aortic valve Congenital subaortic stenosis Expected: 05/29/2025, Expires: 08/28/2025 [facility] Comment on above: Expected: 05/29/2025 , Expires: 08/28/2025 Start: 05-29-2025 End: 08-28-2025 Comprehensive metabolic 2000 panel - Serum or Plasma COMPREHENSIVE METABOLIC PANEL Lab Routine Bicuspid aortic valve Congenital subaortic stenosis Expected: 05/29/2025, Expires: 08/28/2025 [facility] Comment on above: Expected: 05/29/2025 , Expires: 08/28/2025 Start: 05-29-2025 End: 08-28-2025 Lipid 1996 panel - Serum or Plasma LIPID PANEL BASIC Lab Routine Bicuspid aortic valve Congenital subaortic stenosis Expected: 05/29/2025, Expires: 08/28/2025 [facility] Comment on above: Expected: 05/29/2025 , Expires: 08/28/2025 Start: 05-29-2025 End: 08-28-2025 Natriuretic peptide.B prohormone N-Terminal [Mass/volume] in Serum or Plasma NT PRO BNP Lab Routine Bicuspid aortic valve Congenital subaortic stenosis Expected: 05/29/2025, Expires: 08/28/2025 [facility] Comment on above: Expected: 05/29/2025 , Expires: 08/28/2025 Start: 05-28-2025 End: 05-28-2025 ECHO SPECIALIST COMPLEX ADULT CONGENITAL ECHO SPECIALIST COMPLEX ADULT CONGENITAL Cardiology Routine Bicuspid aortic valve Expected: 05/28/2025, Expires: 05/28/2025 [facility] Work Phone: Comment on above: Expected: 05/28/2025 , Expires: 05/28/2025 Start: 07-01-2024 End: 07-01-2024 Patient encounter procedure 07/01/2024 2:45 PM EDT Office Visit Cardiology [address] [id number] Ravinder Solomon MD [address] [place] [address] Dx: Congenital stenosis of aortic valve, congential insufficiency of aortic valve Cardiology Comment on above: Dx: Congenital steno sis of aortic valve, congential insufficiency of aortic valve Start: 07-01-2024 End: 07-01-2024 Patient encounter procedure Radiology Comment on above: Dx: Congenital steno sis of aortic valve, congential insufficiency of aortic valve Start: 07-01-2024 End: 07-01-2024 amb[address] [place] Comment on above: Dx: Congenital steno sis of aortic valve, congential insufficiency of aortic valve Start: 07-01-2024 End: 07-01-2024 Patient encounter procedure 07/01/2024 11:15 AM EDT Office Visit Cardiology [address] [place] [address] Dx: Congenital stenosis of aortic valve, congential insufficiency of aortic valve Cardiology Comment on above: Dx: Congenital steno sis of aortic valve, congential insufficiency of aortic valve Start: 06-25-2024 End: 06-25-2024 ambulatory Cardiology Comment on above: Dx: Congenital steno sis of aortic valve, congential insufficiency of aortic valve Start: 06-25-2024 End: 06-25-2024 Patient encounter procedure Cardiology Comment on above: Dx: Congenital steno sis of aortic valve, congential insufficiency of aortic valve Start: 03-04-2024 [facility] Start: 03-04-2024 [facility] Work Phone: Start: 01-14-2024 End: 07-13-2024 CBC W Auto Differential panel - Blood COMPLETE BLOOD COUNT AND DIFFERENTIAL Lab Routine Congenital cardiovascular disorder Expected: 01/14/2024, Expires: 07/13/2024 [facility] Comment on above: Expected: 01/14/2024 , Expires: 07/13/2024 Start: 01-14-2024 End: 07-13-2024 Comprehensive metabolic 2000 panel - Serum or Plasma COMPREHENSIVE METABOLIC PANEL Lab Routine Congenital cardiovascular disorder Expected: 01/14/2024, Expires: 07/13/2024 [facility] Comment on above: Expected: 01/14/2024 , Expires: 07/13/2024 Start: 01-14-2024 End: 07-13-2024 Lipid 1996 panel - Serum or Plasma LIPID PANEL BASIC Lab Routine Congenital cardiovascular disorder Expected: 01/14/2024, Expires: 07/13/2024 [facility] Comment on above: Expected: 01/14/2024 , Expires: 07/13/2024 Start: 01-14-2024 End: 07-13-2024 Natriuretic peptide.B prohormone N-Terminal [Mass/volume] in Serum or Plasma NT PRO BNP Lab Routine Congenital cardiovascular disorder Expected: 01/14/2024, Expires: 07/13/2024 [facility] Comment on above: Expected: 01/14/2024 , Expires: 07/13/2024 Start: 12-15-2023 Covid-19 Vaccine () Covid-19 Vaccine () [facility] Start: 12-15-2023 Covid-19 Vaccine ( season) Covid-19 Vaccine () [facility] Start: 12-15-2023 Influenza vaccination Influenza Vacc ine (#1) [facility] Start: 2016 Lipid panel Lipid Screening [facility] Start: 10-27-2004 Hepatitis B Vaccine (3 of 3 - 19+ 3-dose series) Hepatitis B Vaccine (3 of 3 - 19+ 3-dose series) [facility] Start: 2000 Hepatitis B Vaccine (1 of 3 - 19+ 3-dose series) Hepatitis B Vaccine (1 of 3 - 19+ 3-dose series) [facility] Start: 2000 Urine microalbumin profile DTaP,Tdap,Td Vaccine (1 - Tdap) [facility] Start: 11-14-1999 Anxiety Screening Anxiety Screening [facility] Start: 11-14-1999 Depression Screening Depression Scre ening [facility] Start: 11-14-1999 Hepatitis C screening Hepatitis C Sc reening [facility] Start: 11-14-1999 HIV screening HIV Screening [facility] Comprehensive metabo lic 2000 panel - Serum or Plasma [facility] End: 01-13-2025 ECG COMPLETE ECG COMPLETE ECG Routine Congenital cardiovascular disorder 1 Occurrences starting 01/14/2024 until 01/13/2025 [facility] Work Phone: Comment on above: 1 Occurrences starti ng 01/14/2024 until 01/13/2025 End: 05-29-2025 ECG COMPLETE ECG COMPLETE ECG Routine Bicuspid aortic valve Congenital subaortic stenosis 1 Occurrences starting 05/29/2024 until 05/29/2025 [facility] Comment on above: 1 Occurrences starti ng 05/29/2024 until 05/29/2025 End: 01-13-2025 ECHO SPECIALIST COMPLEX ADULT CONGENITAL ECHO SPECIALIST COMPLEX ADULT CONGENITAL Cardiology Routine Congenital cardiovascular disorder 1 Occurrences starting 01/14/2024 until 01/13/2025 [facility] Comment on above: 1 Occurrences starti ng 01/14/2024 until 01/13/2025 End: 05-29-2025 ECHO SPECIALIST COMPLEX ADULT CONGENITAL ECHO SPECIALIST COMPLEX ADULT CONGENITAL Cardiology Routine Bicuspid aortic valve Congenital subaortic stenosis 1 Occurrences starting 05/29/2024 until 05/29/2025 [facility] Comment on above: 1 Occurrences starti ng 05/29/2024 until 05/29/2025 Patient referral [facility] Work Phone: [facility] End: 02-12-2025 XR Chest PA and Lateral XR CHEST 2V FRONTAL/LAT Radiology Routine Congenital cardiovascular disorder 1 Occurrences starting 01/14/2024 until 02/12/2025 [facility] Comment on above: 1 Occurrences starti ng 01/14/2024 until 02/12/2025 [facility] Immunizations Immunization Date Immunization Notes Care Provider Fa [email or web address] 12-23-2023 influenza, seasonal, injectable, preservative free [facility] 12-21-2022 influenza, injectabl e, quadrivalent, preservative free Crispin Mendez Other [facility] 01-19-2022 influenza virus vaccine, split virus (incl. purified surface antigen) Crispin Mendez Other [facility] Other 01-19-2022 influenza virus vaccine, unspecified formulation [facility] 12-28-2020 influenza virus vaccine, split virus (incl. purified surface antigen) Crispin Mendez Other [facility] Other 12-28-2020 influenza virus vaccine, unspecified formulation [facility] 12-14-2020 influenza virus vaccine, unspecified formulation Gonzalez SALAM [facility] 01-01-2020 pneumococcal polysaccharide vaccine, 23 valent Crispin Mendez Other [facility] 09-15-2019 pneumococcal conjuga te vaccine, 13 valent Crispin Mendez Other [facility] 12-22-2018 influenza virus vaccine, split virus (incl. purified surface antigen) Crispin Mendez Other [employer] [facility] [employer] Other 12-22-2018 influenza virus vaccine, unspecified formulation [facility] 01-03-2018 influenza virus vaccine, split virus (incl. purified surface antigen) Crispin Mendez Other [employer] [facility] [employer] Other 01-03-2018 influenza virus vaccine, unspecified formulation [facility] 01-17-2015 tetanus and diphther ia toxoids, adsorbed, preservative free, for adult use (5 Lf of tetanus toxoid and 2 Lf of diphtheria toxoid) Crispin Mendez Other [facility] 01-13-2013 tetanus and diphther ia toxoids, adsorbed, preservative free, for adult use (5 Lf of tetanus toxoid and 2 Lf of diphtheria toxoid) Crispin Mendez Other [facility] Payers Date Payer Category Payer Medicare (Managed Care) [facility] DUAL COMPLETE HMO POS SNP [id number] 2024 Unknown [id number] 2024 Self-pay 2023 Medicaid [id number] 2021 Medicaid [employer] [id number] 2021-Present [phone] [address] [place] [address] Medicaid [id number] 1981 Unknown [id number] 1962 Unknown [id number] 1959 Unknown [id number] Unknown O [id number] Unknown Regular Insurance [id number] Unknown [id number] Social History Date Type Detail Facility Start: 02-13-2018 End: 08-10-2021 Tobacco smoking status Never smoked tobacco (finding) [facility] Tobacco smoking status Never [facility] Start: 09-29-2018 End: 05-28-2024 Sex Assigned At Male [facility] Start: 1980 Sex Assigned At Male [facility] [place] Start: 02-13-2018 Tobacco use and exposure Smokeless tobacco non-user [facility] Start: 09-29-2018 End: 05-28-2024 Alcoholic beverage intake Current non-drinker of alcohol (finding) [facility] Start: 09-29-2018 End: 05-28-2024 History of Social function [facility] Start: 1980 Sex assigned at Not on file [facility] Start: 03-04-2024 End: 03-05-2024 Sex Male (finding) [facility] Goals Date Patient Goal Desired Activity /State Personal health goal Clinical Notes 10-23-2022 to 05-28-2024 Patient InstructionsRavinder Solomon MD - 05/28/2024 1:15 PM ESTBrJada hayes RT(R) - 05/28/2024 11:00 AM ESTTelephone Encounter - Beata Ho - 04/01/2024 3:50 PM EST Note Date & Type Note Facility 05-28-2024 Instructions Moose Madrigal MD - 05/28/2024 3:00 PM EST Today's Instructions It was a pleasure seeing you today in cardiology clinic. Overall things seem to be going fairly well in terms of your heart health. We think the aortic valve will probably need replacing eventually but not in the foreseeable future. We agree with using medication to control high blood pressure. Feel free to continue 12.5 mg metoprolol twice daily as this appears to be working well for you. If there are any issues with this, please contact us and we can prescribe a different medication. I would like to see you back in the office again in approximately 12 months. Please do not hesitate to reach out sooner if we can be of assistance. documented in this encounter [facility] 05-28-2024 History of Presen t illness Narrative Images from the original note were not included. 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 Herring, [facility]) 09/05/1999 - excision of supravalvar aortic scar, transaortic membrane resection and removal of deep muscle wedge (Drs. Herring & Anoop, [facility]) Developmental delay, non-verbal INTERVAL HISTORY: Mr. Moscoso is a 43 year old male from [facility] here today for cardiovascular evaluation related to congenital stenosis of aortic valve. Jian has a significant medical history of developmental delay (nonverbal), cerebral palsy, GERD, hiatal hernia, scoliosis, vitiligo. He was last saw [facility] cardiology (Dr Toribio Ortega) in late 2017. At that time he was doing well without acute complaints. Annual TTE was recommended to follow AV pathology. In late 2023, outside echo was concerning for severe AV or supravalvular stenosis with calculated ROSALIND ~0.75, indexed ROSALIND 0.46, mean gradient 35 mmHg. Historically his cardiac symptoms have included anorexia, chest clutching, sully extremities and pulmonary edema. He has never had ankle swelling. It is unclear if he has ever had sacral edema, has significant scoliosis. His mother reports that since the last visit he has had a slight weight decrease after intentionally cutting back on feeding tubes due to weight gain. She does not progressive increase in episodic heavy breathing over the past two years, particularly with eating. They have not seen any evidence of anorexia, pulmonary edema or other findings from prior HF decompensation. He was started on metoprolol a few weeks ago due to diastolic hypertension. His mom reports that after first dose his SBP dropped to 98. Occupation: n/a Diet: TF Exercise: wheelchair bound PAST MEDICAL HISTORY Diagnosis Date Aortic stenosis Developmental delay disorder PVC (premature ventricular contraction) PAST SURGICAL HISTORY Procedure Laterality Date ANES HRT PERICRD SAC&GRT VSLS W/ACCOUNT CONTACT ASSOCIATE OXTJ >1MO PO UNLISTED STOMACH SURGERY Social History Tobacco Use Smoking status: Never Smokeless tobacco: Never Vaping Use Vaping status: Never Used Substance Use Topics Alcohol use: No Drug use: No FAMILY HISTORY Problem Relation Age of Onset Cervical Cancer Mother Hypertension Mother Hyperlipidemia Mother Hyperlipidemia Father Hypertension Father Breast Cancer Maternal Grandmother Breast Cancer Maternal Aunt ALLERGIES Allergen Reactions Blueberry Unknown Gluten Flour Unknown Lactose MEDICATIONS: metoprolol tartrate, short acting, (LOPRESSOR) 25 mg tablet Take 1 tablet by mouth every 12 hours. (Patient taking differently: Take 12.5 mg by mouth every 12 hours.) amoxicillin (AMOXIL) 400 mg/5 mL suspension TAKE 25ML BY MOUTH FOR PREMED DOSE 1 HOUR PRIOR TO APPOIMTMENT *DISCARD REMAINDER* CHEWABLE MULTI VITAMIN ORAL Take 1 Tablespoonful by mouth once daily. MARCIAL-BURCH GASTROSTOMY TUBE 2.5 cm, 18 Fr REVIEW OF SYSTEMS: unable to provide directly (nonverbal), reviewed with caregiver, pertinent responses as noted above PHYSICAL EXAMINATION: BP 148/97 (BP Site: Left Arm) Pulse 112 Ht 149.9 cm (4' 11 ) Wt 47.6 kg (105 lb) SpO2 95% BMI 21.21 kg/m General: Well appearing, in no acute distress. Syndromic facies. Skin: No clubbing, no cyanosis. Eyes: Extra ocular movements intact Neck: No jugular venous distention, carotids have a normal upstroke. Lungs: Clear to auscultation bilaterally, no wheezing or rhonchi. Severe scoliosis Heart: Regular rhythm, PMI not displaced, S1, S2 normal, no S3, no S4, no heaves, no rub. Harsh, mid-peaking 3/6 systolic murmur radiating to bilateral subclavians. Preserved A2. Abdomen: Soft, nontender. Extremities: No peripheral edema . Grade 2/4 distal pulses bilaterally. Neuro: Oriented to person, place and time, alert, cooperative, gait coordinated. CARDIOVASCULAR MEDICINE TESTING: ECG 05/28/24: I have personally reviewed the Electrocardiogram, Chest X-ray, Laboratory Testing, and Echocardiogram. Outside TTE 01/06/2024 LABS: Reviewed. 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 His TTE findings and physical exam are concerning for consistent with moderate . Per his parents, prior symptoms of decompensated HF (chest clutching, pulmonary edema, dusky extremities) have not recurred since last surgery. He will likely need AVR eventually. However this would ideally be delayed as much as possible given his comorbidities and history of two prior sternotomies. At the moment he is well compensated and reasonable to defer AV intervention for the time being. PLAN: -Agree with pharmacotherapy for HTN. Reasonable to continue metoprolol 12.5 mg BID as he appears to have sufficient BP control and there may be potential benefit with comorbid MS -Defer referral for surgical evaluation, ideally would delay so long as well complicated and no severe obstruction -Continue annual TTE to monitor AV pathology -Encouraged to contact us if evidence of HF develops, particularly given inability to report early symptoms (nonverbal) Gene Madrigal MD [facility] STAFF PHYSICIAN NOTE OF PERSONAL INVOLVEMENT IN CARE IMPRESSION/PLAN: I have reviewed the documentation obtained and documented by the Fellow and I have personally performed a [id number] assessment of the patient and have participated in the burch components of the visit, which includes the medical decision making. I have discussed the case and management of the patient's care. 43 year old with Shone complex, required two subAS resections in childhood and lately followed locally outside of [place], [place]. Developmental delay, non-verbal, and mostly non-ambulatory at this point per his mom (both parents accompany today, they are not , Jian mainly lives with his mom). There was concern based on a local echo that Jian had severe and so he was referred back to [facility]. By exam and echo today, I think the is moderate, perhaps moderate +, but not severe. He has not exhibited any symptoms to suggest he feels unwell (his parents recall how he looked/acted prior to his childhood heart surgeries and haven't seen anything resembling that). He is G tube fed at night but takes purees during the day and appetite is at baseline. Would continue metoprolol (BP lower at home) and recommend annual ACHD follow up at [facility]. The family agrees. I spent a total of 70 minutes on the date of the service which included preparing to see the patient, [id number] patient care, completing clinical documentation, obtaining and/or reviewing separately obtained history, performing a medically appropriate examination, counseling and educating the patient/family/caregiver, ordering medications, tests, or procedures, communicating with other HCPs (not separately reported), independently interpreting results (not separately reported), and care coordination (not separately reported). STAFF PHYSICIAN: Ravinder Solomon MD Adult Congenital Heart Disease [facility] [place] [facility] Desk J2-4 Cell/Pager: [phone] Appointments: [phone] documented in this encounter [facility] 05-28-2024 Note HNO ID: [id number] Author: RAVINDER SOLOMON MD Service: ? 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 Herring, [facility]) 09/05/1999 - excision of supravalvar aortic scar, transaortic membrane resection and removal of deep muscle wedge (Drs. Herring AND Anoop, [facility]) Developmental delay, non-verbal INTERVAL HISTORY: Mr. Moscoso is a 43 year old male from [facility] here today for cardiovascular evaluation related to congenital stenosis of aortic valve. Jian has a significant medical history of developmental delay (nonverbal), cerebral palsy, GERD, hiatal hernia, scoliosis, vitiligo. He was last saw [facility] cardiology (Dr Toribio Ortega) in late 2017. At that time he was doing well without acute complaints. Annual TTE was recommended to follow AV pathology. In late 2023, outside echo was concerning for severe AV or supravalvular stenosis with calculated ROSALIND ~0.75, indexed ROSALIND 0.46, mean gradient 35 mmHg. Historically his cardiac symptoms have included anorexia, chest clutching, sully extremities and pulmonary edema. He has never had ankle swelling. It is unclear if he has ever had sacral edema, has significant scoliosis. His mother reports that since the last visit he has had a slight weight decrease after intentionally cutting back on feeding tubes due to weight gain. She does not progressive increase in episodic heavy breathing over the past two years, particularly with eating. They have not seen any evidence of anorexia, pulmonary edema or other findings from prior HF decompensation. He was started on metoprolol a few weeks ago due to diastolic hypertension. His mom reports that after first dose his SBP dropped to 98. Occupation: n/a Diet: TF Exercise: wheelchair bound PAST MEDICAL HISTORY Diagnosis Date Aortic stenosis Developmental delay disorder PVC (premature ventricular contraction) PAST SURGICAL HISTORY Procedure Laterality Date ANES HRT PERICRD SACANDGRT VSLS W/ACCOUNT CONTACT ASSOCIATE OXTJ >1MO PO UNLISTED STOMACH SURGERY Social History Tobacco Use Smoking status: Never Smokeless tobacco: Never Vaping Use Vaping status: Never Used Substance Use Topics Alcohol use: No Drug use: No FAMILY HISTORY Problem Relation Age of Onset Cervical Cancer Mother Hypertension Mother Hyperlipidemia Mother Hyperlipidemia Father Hypertension Father Breast Cancer Maternal Grandmother Breast Cancer Maternal Aunt ALLERGIES Allergen Reactions Blueberry Unknown Gluten Flour Unknown Lactose MEDICATIONS: metoprolol tartrate, short acting, (LOPRESSOR) 25 mg tablet Take 1 tablet by mouth every 12 hours. (Patient taking differently: Take 12.5 mg by mouth every 12 hours.) amoxicillin (AMOXIL) 400 mg/5 mL suspension TAKE 25ML BY MOUTH FOR PREMED DOSE 1 HOUR PRIOR TO APPOIMTMENT *DISCARD REMAINDER* CHEWABLE MULTI VITAMIN ORAL Take 1 Tablespoonful by mouth once daily. MARCIAL-BURCH GASTROSTOMY TUBE 2.5 cm, 18 Fr REVIEW OF SYSTEMS: unable to provide directly (nonverbal), reviewed with caregiver, pertinent responses as noted above PHYSICAL EXAMINATION: BP 148/97 (BP Site: Left Arm) Pulse 112 Ht 149.9 cm (4' 11 ) Wt 47.6 kg (105 lb) SpO2 95% BMI 21.21 kg/m? General: Well appearing, in no acute distress. Syndromic facies. Skin: No clubbing, no cyanosis. Eyes: Extra ocular movements intact Neck: No jugular venous distention, carotids have a normal upstroke. Lungs: Clear to auscultation bilaterally, no wheezing or rhonchi. Severe scoliosis Heart: Regular rhythm, PMI not displaced, S1, S2 normal, no S3, no S4, no heaves, no rub. Harsh, mid-peaking 3/6 systolic murmur radiating to bilateral subclavians. Preserved A2. Abdomen: Soft, nontender. Extremities: No peripheral edema . Grade 2/4 distal pulses bilaterally. Neuro: Oriented to person, place and time, alert, cooperative, gait coordinated. CARDIOVASCULAR MEDICINE TESTING: ECG 05/28/24: I have personally reviewed the Electrocardiogram, Chest X-ray, Laboratory Testing, and Echocardiogram. Outside TTE 01/06/2024 LABS: Reviewed. 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 [facility] 05-28-2024 History of Presen t illness Narrative Radiology Service Progress Note PATIENT NAME: Jian Moscoso DATE OF SERVICE: May 28, 2024 TIME: 9:50 AM PATIENT IDENTITY VERIFICATION COMPLETED USING TWO (2) IDENTIFIERS: Name and Date of obtained from a relative, guardian or prior caregiver.. FALL SCREENING: Has the patient had 2 falls in the last year or 1 fall with injury or currently using an Ambulatory Assistive Device (Walker, Cane, Wheelchair, Crutches, etc.)? No PATIENT GENDER DATA: Assigned male at PATIENT RELEVANT IMPLANT DATA REVIEWED: Not Applicable PATIENT PRESENTS WITH AN IMPLANTABLE OR ATTACHED COUNSELOR AID: No RADIOLOGY DEPARTMENT: General X-ray: Exam(s) Completed: Chest X-Ray PERIPHERAL IV DATA: Not applicable SIGNED BY: RT Jason(R) May 28, 2024 9:50 AM documented in this encounter [facility] 05-28-2024 Note HNO ID: [id number] Author: JADA ZAMARRIPA RT(R) Service: Radiology Author Type: Technologist Type: Progress Notes Filed: 05/28/2024 09:50 Note Text: Radiology Service Progress Note PATIENT NAME: Jian Moscoso DATE OF SERVICE: May 28, 2024 TIME: 9:50 AM PATIENT IDENTITY VERIFICATION COMPLETED USING TWO (2) IDENTIFIERS: Name and Date of obtained from a relative, guardian or prior caregiver.. FALL SCREENING: Has the patient had 2 falls in the last year or 1 fall with injury or currently using an Ambulatory Assistive Device (Walker, Cane, Wheelchair, Crutches, etc.)? No PATIENT GENDER DATA: Assigned male at PATIENT RELEVANT IMPLANT DATA REVIEWED: Not Applicable PATIENT PRESENTS WITH AN IMPLANTABLE OR ATTACHED COUNSELOR AID: No RADIOLOGY DEPARTMENT: General X-ray: Exam(s) Completed: Chest X-Ray PERIPHERAL IV DATA: Not applicable SIGNED BY: RT Jason(R) May 28, 2024 9:50 AM [facility] 04-01-2024 Telephone encounter Note Received outside echo report has been uploaded in [employer] April 01, 2024 3:51 PM [facility] 04-01-2024 Miscellaneous Notes Received outside echo report has been uploaded in [employer] April 01, 2024 3:51 PM documented in this encounter [facility] 01-14-2024 Telephone encounter Note New patient letter sent via mail with appt details [facility] 01-14-2024 Miscellaneous Notes New patient letter sent via mail with appt details documented in this encounter [facility] 01-14-2024 Telephone encounter Note Patient: Jian Moscoso Date of : 1980 Patient phone number: [phone] Referring Provider for the encounter: NA Requesting Provider: CRISPIN MENDEZ Reason for requesting visit (RFV/signs and symptoms/diagnosis): Congenital clinic-Congenital stenosis of aortic valve, congential insufficiency of aortic valve Person calling: self Return call to: self Medical Records/Insurance Card scanned into Epic: Yes Comments: Via [facility] fax [facility] 01-14-2024 Miscellaneous Notes Patient: Jian Moscoso Date of : 1980 Patient phone number: [phone] Referring Provider for the encounter: NA Requesting Provider: CRISPIN MENDEZ Reason for requesting visit (RFV/signs and symptoms/diagnosis): Congenital clinic-Congenital stenosis of aortic valve, congential insufficiency of aortic valve Person calling: self Return call to: self Medical Records/Insurance Card scanned into Epic: Yes Comments: Via [employer] fax documented in this encounter [facility] 01-06-2024 Note Echocardiology Procedure Exam Date/Time Accession # Ordering Dr. 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 Ejection Fraction = 55-60%. The aortic valve is bicuspid Mild aortic regurgitation. Probably severe valvular or supravalvular aortic stenosis. Indexed ROSALIND 0.46 AV mean gradient is 35 mmHg. There is mild mitral valve prolapse. There is mild mitral regurgitation. There is mild tricuspid regurgitation. There is mild pulmonary hypertension. Estimated RVSP is 40 mmHg. There is no pericardial effusion. Procedure Echocardiology Report A complete two-dimensional transthoracic echocardiogram was performed (2D, M-mode, spectral and color flow Doppler). Left Ventricle The left ventricle is normal in size. Left ventricular systolic function is normal. Ejection Fraction = 55-60%. The left ventricular wall motion is normal. Normal diastolic function. Left Atrium The left atrium is grossly normal. There is no atrial septal defect. Right Atrium The right atrium is grossly normal. Right Ventricle The right ventricular systolic function is borderline reduced. The right ventricle is normal size. Aortic Valve The aortic valve is bicuspid. Mild aortic regurgitation. Probably severe valvular or supravalvular aortic stenosis. Indexed ROSALIND 0.46. AV mean gradient is 35 mmHg. Mitral Valve There is mild mitral regurgitation. No mitral valve stenosis. There is mild mitral valve prolapse. Tricuspid Valve The tricuspid valve is grossly normal. There is mild tricuspid regurgitation. Estimated RVSP is 40 mmHg. There is mild pulmonary hypertension. No evidence of tricuspid stenosis. Pulmonic Valve The pulmonic valve is normal. There is no pulmonic valve regurgitation. No evidence of stenosis. Arteries The aortic root is normal in size. Effusion There is no pericardial effusion. MMode/2D Measurements & Calculations RVDd: 1.6 cm LVIDd: 4.0 cm FS: 34.5 % Ao root diam: 3.0 cm IVSd: 0.86 cm LVIDs: 2.6 cm EDV(Teich): 68.8 ml Ao root area: 6.9 cm2 LVPWd: 0.88 cm ESV(Teich): 24.7 ml LA dimension: 2.8 cm EF(Teich): 64.1 % LVOT diam: 2.0 cm LVLd ap4: 7.2 cm EDV(MOD-sp2): 64.5 ml SV(MOD-sp4): 38.4 ml LVOT area: 3.0 cm2 EDV(MOD-sp4): 60.7 ml ESV(MOD-sp2): 34.1 ml LVLs ap4: 5.7 cm EF(MOD-sp2): 47.1 % ESV(MOD-sp4): 22.3 ml EF(MOD-sp4): 63.3 % TAPSE: 1.4 cm RVIDd/LVIDd: 0.40 LA Vol Index: 29.8 ml/m2 Doppler Measurements & Calculations Echocardiology Report MV E max jamie: 133.0 cm/sec MV V2 max: 156.4 cm/sec MV P1/2t max jamie: 156.9 cm/sec Ao V2 max: 391.0 cm/sec MV A max jamie: 144.0 cm/sec MV max P.8 mmHg MV P1/2t: 57.1 msec Ao max P.2 mmHg MV E/A: 0.92 MV V2 mean: 86.5 cm/sec Ao V2 mean: 274.6 cm/sec Lat Peak E' Jamie: 12.2 cm/sec MV mean P.6 mmHg MVA(P1/2t): 3.9 cm2 Ao mean P.3 mmHg E/E' Lat: 10.9 MV V2 VTI: 44.1 cm MV dec slope: 805.5 cm/sec2 Ao V2 VTI: 80.5 cm Med Peak E' Jamie: 5.2 cm/sec MV dec time: 0.29 sec E/E' Med: 25.5 MVA(VTI): 1.3 cm2 ROSALIND(I,D): 0.71 cm2 ROSALIND(V,D): 0.75 cm2 LV V1 max P.8 mmHg SV(LVOT): 57.3 ml TR max jamie: 287.2 cm/sec RAP systole: 3.0 mmHg LV V1 mean P.0 mmHg TR max P.0 mmHg LV V1 max: 97.9 cm/sec RVSP(TR): 36.0 mmHg LV V1 mean: 62.9 cm/sec LV V1 VTI: 19.1 cm AV VR: 0.25 MV P1/2t-pr_phl: 57.1 msec ROSALIND(VTI)/BSA_phl: 0.53 FINAL REPORT Dictated: 01/06/2024 2:08 pm Dinesh Melendez MD Signed (Electronic Signature): 01/06/2024 4:31 pm Signed by: Dinesh Melendez MD Transcribed by: FAINA Trinh (more content not included)... [facility] 12-13-2023 Evaluation note Diagnosis Onset Date Resolution Ataxic cerebral palsy acute Nov 10:25am Eczema acute December 12, 2 024 10:25am GERD (gastroesophageal reflux disease) acute December 12 10:25am IHSS (idiopathic hypertrophic subaortic stenosis) acute December 12 10:25am Moderate intellectual disabilities acute December 12 10:25am Wellness examination acute 2023 10:25am Aortic stenosis due to bicuspid aortic valve acute January 11:35am Cellulitis at gastrostomy tube site acute January 11:35am [facility] Work Phone: 1(267) 868-849408-30-2024 Evaluation note* Diagnosis Onset Date Resolution Status Admit Date Ataxic cerebral palsy acute Nov 10:25am Eczema acute December 12, 024 10:25am GERD (gastroesophageal reflux disease) acute December 12 10:25am IHSS (idiopathic hypertrophic subaortic stenosis) acute December 12 10:25am Moderate intellectual disabilities acute December 12 10:25am Wellness examination acute 2023 10:25am Aortic stenosis due to bicuspid aortic valve acute January 11:35am Cellulitis at gastrostomy tube site acute January 14 11:35am Aortic stenosis due to bicuspid aortic valve acute February 142023 3:36pm Ataxic cerebral palsy acute Feb 3:36pm IHSS (idiopathic hypertrophic subaortic stenosis) acute March 04 2 024 3:36pm Elevated blood pressure reading in office without diagnosis of hypertension noneactive [facility] 2023 3:36pm [facility] Work Phone: 1(472) 143-157908-28-2023 Evaluation note* Encounter Date Diagnosis Assessment Notes Treatment Notes Treatment Clinical Notes Nov, Wellness examination (ICD-10 - Z00.00) Healthy diet and exercise. Reviewed age-appropriate preventive testing recommended. Nov, IHSS (idiopathic hypertrophic subaortic stenosis) (ICD-10 - I42.1) Stable w/o s/s CHF. No recent hx of tachycardia or syncope Overdue for Echocardiogram and Cardiology appt. Nov, Gastroesophageal reflux disease with esophagitis without hemorrhage (ICD-10 - K21.00) Stable w/o medications Soft diet to protect against aspiration, choking. 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 Requires one person assistance w/ ADL Nov, Moderate intellectua l disabilities (ICD-10 - F71) Requires mothers assistance w/ all ADL/IADL [employer] Other 07-11-2023 Evaluation note* Encounter Date Diagnosis Assessment Notes Treatment Notes Treatment Clinical Notes Oct, Allergic contact dermatitis due to dyes (ICD-10 - L23.4) Keep clean and dry Stop ELIANE use. 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 s/p Orchiopexy but unable to palpate testes in either scrotum Referral to Urology? [facility] Other Evaluation + Plan note No data available for this section [facility] Evaluation noteNo InformationNort [employer] Other Evaluation note* Diagnosis Onset Date Resolution Status Ataxic cerebral palsy acute Eczema acute GERD (gastroesophageal reflux disease) acute IHSS (idiopathic hypertrophic subaortic stenosis) acute Moderate intellectual disabilities acute Wellness examination acute [facility] Work Phone: Evaluation note* Diagnosis Congenital cardiovascular disorder- Primary Unspecified congenital anomaly of heart documented in this encounter [facility] note* Diagnosis Congenital cardiovascular disorder Unspecified congenital anomaly of heart [facility] Bicuspid aortic valve- Primary Congenital insufficiency of aortic valve Congenital subaortic stenosis Nonrheumatic aortic valve stenosis, mild Aortic valve disorders Mitral valve stenosis, non-rheumatic Mitral valve disorders documented in this encounter [facility] general Narrative - Reported* Type Description Date Medical History aortic stenosis Medical History feeding tube Medical History mentally disabled Medical History semi paralysis of th eface Medical History IHSS (idiopathic hypertrophic cardenas baortic stenosis) Medical History Gastroesophageal ref lux disease with esophagitis without hemorrhage Medical History Ataxic cerebral palsy Medical History Adolescent idiopathic scoliosis of thoracolumbar region Medical History Raynaud''s phenomenon without ga ngrene Medical History Anemia Medical History Combined immunodeficiency, unspe cified Medical History Cellulitis of abdominal wall Medical History Candidal intertrigo Medical History Moderate intellectual disabiliti es Medical History Intellectual disability Medical History Functional urinary incontinence Surgical History 2 open heart surgery Surgical History hernia repair Surgical History tonsillectomy and adenoidectomy Hospitalization History SEE SURGICAL HX [facility] Other Hospital Discharge instructions No data available for this section [facility] Discharge instructionsAmbulatory Orders* Referral to Cardiology Location: None [facility] Work Phone: Progress note No data available for this section [facility] Reason for referral (narrative)* Outpatient Procedure (Routine) - Pending Review Specialty Diagnoses / Procedures Referred By Contac t Referred To Contact [facility] [place] Diagnoses Congenital cardiovascular disorder Procedures ECHO SPECIALIST COMPLEX ADULT CONGENITAL ECHO TTHRC R-T 2D W/WOM-MODE COMPL SPEC&COLR D Ravinder Solomon MD [address] [place] [address] [facility] [address] [place] [address] Referral ID Status Reason Start Date Expiration Date Visits Requested Visits Authorized [id number] Pending Review Auto-Generat ed Referral 01/14/2024 01/13/2025 1 1 * Outpatient Procedure (Routine) - Authorized Specialty Diagnoses / Procedures Referred By Debra ramirez Referred To [facility] Diagnoses Congenital cardiovascular disorder Procedures ECG COMPLETE ECG ROUTINE ECG W/LEAST 12 LDS W/I&R Ravinder Solomon MD [address] [place] [address] [facility] [place] [address] [place] [address] Referral ID Status Reason Start Date Expiration Date Visits Requested Visits Authorized [id number] Authorized Auto-Generat ed Referral 01/14/2024 01/13/2025 1 1 [facility] Summary Purpose Family History No Family History Records Found No data available for this section No Family History Records FoundNo Family History Records FoundNo Family History Records Found Advance Directives No Advanced Directives Records Found Advance Directive Response Recorded Date/ Time Advance Directives Yes November 28, 2023 11:57am Advance Directive Response Recorded Date/ Time Advance Directives Yes November 28, 2023 10:57am Chief Complaint and Reason for Visit Chief Complaint wellness Reason for Visit Ataxic cerebral pals y Eczema GERD (gastroesophageal reflux disease) IHSS (idiopathic hypertrophic subaortic stenosis) Moderate intellectual disabilities Wellness examination Chief Complaint wellness flu shot Reason for Visit Ataxic cerebral pals y Eczema GERD (gastroesophageal reflux disease) IHSS (idiopathic hypertrophic subaortic stenosis) Moderate intellectual disabilities Wellness examination Chief Complaint wellness flu shot red around feeding tube Reason for Visit Ataxic cerebral pals y Eczema GERD (gastroesophageal reflux disease) IHSS (idiopathic hypertrophic subaortic stenosis) Moderate intellectual disabilities Wellness examination Chief Complaint Admit Date wellness December 13, 2023 10 :25am flu shot December 23, 2023 11:59am red around feeding tube January 14 11:35am Congenital stenosis/ insufficiency of ao rtic valve March 04, 2024 3:36pm Reason for Visit Admit Date Ataxic cerebral palsy December 13, 2023 10:25am Eczema December 13, 2023 10 :25am GERD (gastroesophageal reflux disease) A ugust 2023 10:25am IHSS (idiopathic hypertrophic subaortic stenosis) December 13, 2023 10:25am Moderate intellectual disabilities Augus t 2023 10:25am Wellness examination December 13, 2023 1 0:25am Aortic stenosis due to bicuspid aortic v alve January 15, 2024 11:35am Cellulitis at gastrostomy tube site Jano 2023 11:35am Reason for Visit Admit Date Ataxic cerebral palsy December 13, 2023 10:25am Eczema December 13, 2023 10 :25am GERD (gastroesophageal reflux disease) A ugust 2023 10:25am IHSS (idiopathic hypertrophic subaortic stenosis) December 13, 2023 10:25am Moderate intellectual disabilities Augus t 2023 10:25am Wellness examination December 13, 2023 1 0:25am Aortic stenosis due to bicuspid aortic v alve January 15, 2024 11:35am Cellulitis at gastrostomy tube site Jano 2023 11:35am Aortic stenosis due to bicuspid aortic v alve March 04, 2024 3:36pm Ataxic cerebral palsy March 04 3:36pm IHSS (idiopathic hypertrophic subaortic stenosis) March 04, 2024 3:36pm Elevated blood pressure read ing in office without diagnosis of hypertension March 04, 2024 3:36pm Additional Source Comments (unrecognized sect ion and content) No Status Records FoundNo Status Records FoundNo Status Records FoundNo Status Records Found INFORMATION SOURCE (unrecogn ized section and content) DATE CREATED AUTHOR 12/19/2021 [facility] DATE CREATED AUTHOR AUTHOR'S ORGANIZ ATION 01/12/2024 [facility] DATE CREATED AUTHOR AUTHOR'S ORGANIZ ATION 03/07/2024 [facility] DATE CREATED AUTHOR AUTHOR'S ORGANIZ ATION 06/14/2024 [facility] REASON FOR VISIT (unrecogniz ed section and content) Reason Comments External Referrals/resources Reason Comments Appointment Reason Comments Received Outside Medical Records Reason Comments [facility] Main J1 Care Teams (unrecognized sec tion and content) Team Status: Active Member Role Status Dates Crispin Mendez DO Primary Care Provider Active Team Status: Inactive Member Role Status Dates Crispin Mendez DO Primary Care Provide r, Attending Provider Active Start: December 13, 2023 End: December 13, 2023 Team Status: Inactive Member Role Status Dates Crispin Mendez DO Primary Care Provide r, Attending Provider Active Start: December 23, 2023 End: December 23, 2023 Associate Financial Representative Relationship Specialty Start Date End Date Crispin Mendez DO [address] [place] [facility] [place] [place] [address] PCP - General 07/26/00 Crispin Mendez DO [address] [place] [facility] [place] [address] Referring Internal Medicine 01/14/24 Associate Financial Representative Relationship Specialty Start Date End Date Crispin Mendez DO [address] [place] [facility] [place] [place] [address] PCP - General 07/26/00 Crispin Mendez DO [address] [place] [facility] [place] [place] [address] Referring Internal Medicine 01/14/24 Team Status: Inactive Member Role Status Dates Crispin Mendez DO Primary Care Provide r, Attending Provider Active Start: January 15, 2024 End: January 15, 2024 Team Status: Active Member Role Status Dates Crispin Mendez DO Primary Care Provider Active Start: March 04, 2024 Justyn Tobar MD Attending Provider Activ e Start: March 04, 2024 Team Status: Inactive Member Role Status Dates Crispin Mendez DO Primary Care Provide r, Referring Provider Active Start: March 04, 2024 End: March 04, 2024 Justyn Tobar MD Attending Provider Active Start: February End: March 04, 2024 Team Status: Inactive Member Role Status Dates Crispin Mendez DO Primary Care Provider Active Start: March 04, 2024 End: March 04, 2024 Justyn Tobar MD Attending Provider Activ e Start: March 04, 2024 End: March 04, 2024 Associate Financial Representative Relationship Specialty Start Date End Date Crispin Mendez DO [address] [place] [facility] [place] [address] PCP - General 07/26/00 Crispin Mendez DO [address] [place] [address] Referring Internal Medicine 01/14/24 Justyn Tobar MD [address] [place] [phone] Referring Cardiovascular Surgery 03/10/24 Associate Financial Representative Relationship Specialty Start Date End Date Crispin Mendez DO [address] [place] [address] PCP - General 07/26/00 Crispin Mendez DO [address] [place] [facility] [place] [place] [address] Referring Internal Medicine 01/14/24 Justyn Tobar MD [address] [place] [phone] Referring Cardiovascular Surgery 03/10/24 Associate Financial Representative Relationship Specialty Start Date End Date Crispin Mendez DO [address] [place] [facility] [place] [place] [address] PCP - General 07/26/00 Crispin Mendez DO [address] [place] [facility] [place] [facility] [address] Referring Internal Medicine 01/14/24 Justyn Tobar MD [address] [place] [phone] Referring Cardiovascular Surgery 03/10/24 Goals (unrecognized section and content) Goals may be documented in a n alternate section Source Comments (unrecognize d section and content) In the event this informatio n is protected by the Federal Confidentiality of Alcohol and Drug Abuse Patient Records regulations: The Federal rules restrict any use of the information to criminally investigate or prosecute any alcohol or drug abuse patient.[facility] the event this information is protected by the Federal Confidentiality of Alcohol and Drug Abuse Patient Records regulations: The Federal rules restrict any use of the information to criminally investigate or prosecute any alcohol or drug abuse patient.[facility] the event this information is protected by the Federal Confidentiality of Alcohol and Drug Abuse Patient Records regulations: The Federal rules restrict any use of the information to criminally investigate or prosecute any alcohol or drug abuse patient.[facility] the event this information is protected by the Federal Confidentiality of Alcohol and Drug Abuse Patient Records regulations: The Federal rules restrict any use of the information to criminally investigate or prosecute any alcohol or drug abuse patient.[facility] Hospital[facility] the event this information is protected by the Federal Confidentiality of Alcohol and Drug Abuse Patient Records regulations: The Federal rules restrict any use of the information to criminally investigate or prosecute any alcohol or drug abuse patient.[facility] the event this information is protected by the Federal Confidentiality of Alcohol and Drug Abuse Patient Records regulations: The Federal rules restrict any use of the information to criminally investigate or prosecute any alcohol or drug abuse patient.[facility] FOR RECORDS PERTAINING TO PATIENTS WHO ARE OR HAVE BEEN ENROLLED IN A CHEMICAL DEPENDENCY/SUBSTANCEABUSE PROGRAM, SOME INFORMATION MAY BE OMITTED. This clinical summary was aggregated from multiple sources. Caution should be exercised in using it in the provision of clinical care. This summary normalizes information from multiple sources, and as a consequence, information in this document may materially change the coding, format and clinical context of patient data. In addition, data may be omitted in some cases. CLINICAL DECISIONS SHOULD BE BASED ON THE PRIMARY CLINICAL RECORDS. [facility]. provides no warranty or guarantee of the accuracy or completeness of information in this document.
[2024-06-28] MEDS: 0.9 % SODIUM CHLORIDE 1,000 ML 1000 ML IV ×2 (15:55→17:23)
[2024-06-28] MEDS: ACETAMINOPHEN 160 MG/5 ML ORAL.SUSP 467.2 MG G-TUBE (15:57)
--- NOTE | 2024-06-28 16:07 | ED.GENADUL1 ---
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 But according to the mother because of his developmental delay he does not usually complain of anything. Related Data Home Medications ?Medication ?Instructions ?Recorded ?Confirmed metoprolol tartrate 25 mg tablet 12.5 mg feeding tube DAILY 06/28/24 06/28/24 Allergies Allergy/AdvReac Type Severity Reaction Status Date / Time No Known Drug Allergies Allergy Verified 06/28/24 15:25 Opioid HPI Opioid Management Most Recent Opioid Data: Last MAR Pain Assessment 06/28/24 17:24 Review of Systems ROS Status of ROS 10 or more systems reviewed and unremarkable except as noted in history and below PFSH PFSH Social History Little interest or pleasure in doing things: not at all Feeling down, depressed, or hopeless: not at all Exam Narrative Exam Narrative: Nurses notes and vital signs reviewed and patient is not hypoxic. General: Well-appearing and in no apparent distress. Skin: Warm, dry, no pallor noted. No rash. Head: Normocephalic, atraumatic. Neck: Supple, non-tender. Ears, Nose, Mouth, and Throat: TM are clear, no nasal mucosal hypertrophy. Oral mucosa is moist, no posterior oropharynx erythema, uvula is mid-line Cardiovascular: Regular Rate and Rhythm without murmur, gallop or rub. Respiratory: no wheezing or crackles , good air entry bilaterally Back: No midline thoracic or lumbar vertebral tenderness. No CVA tenderness GI: Abdomen is soft, non-distended. Normal bowel sounds. No masses appreciated. There is a small rash just below the PEG tube and the rash looks like maculopapular mostly secondary to allergy Neurological: awake non-verbal . No cranial nerve dysfunction observed Constitutional Vital Signs, click to edit/add: Last Vital Signs Temp 103.2 F H 03/16/25 17:12 Pulse 116 H 06/28/24 15:17 Resp 28 H 06/28/24 15:17 BP 115/78 06/28/24 15:17 Pulse Ox 94 L 06/28/24 15:17 O2 Del Method Room Air 06/28/24 15:17 Course Vital Signs Vital signs: Vital Signs Temperature 102.6 F H 06/28/24 15:17 Pulse Rate 116 H 06/28/24 15:17 Respiratory Rate 28 H 06/28/24 15:17 Blood Pressure 115/78 06/28/24 15:17 Pulse Oximetry 94 L 06/28/24 15:17 Oxygen Delivery Method Room Air 06/28/24 15:17 Temperature 103.2 F H 06/28/24 17:12 Pulse Rate 116 H 06/28/24 15:17 Respiratory Rate 28 H 06/28/24 15:17 Blood Pressure 115/78 06/28/24 15:17 Pulse Oximetry 94 L 06/28/24 15:17 Oxygen Delivery Method Room Air 06/28/24 15:17 Medical Decision Making MDM Narrative Medical decision making narrative: According to the father the patient was not specified by his inpatient care manager rn for what exactly the developmental delay thought that he have , he had a history of open heart surgery when he was younger The patient workup here in the ER showed flu test that is positive for influenza A----patient was started on Tamiflu Blood workup showed that the patient have lactic acid that is elevated with tachycardia and fever the patient was covered for possible sepsis--------- patient provided the fluid 30 cc/kg The patient also provided with ceftriaxone and azithromycin to cover for underlying possible infection mostly pneumonia The area of redness around the PEG tube is mostly only dermatitis The right now the patient also had a urinalysis that pending I discussed the case with Dr. Luna and she agreed to admit the patient for further evaluation and observation Lab Data Labs: Lab Results 06/28/24 06/28/24 06/28/24 Range/Units 15:46 16:12 16:56 WBC 11.1 H (4.0-11.0) 10^3/uL RBC 4.54 L (4.70-6.10) 10^6/uL Hgb 12.8 L (14.0-18.0) g/dL Hct 38.2 L (42.0-54.0) % MCV 84.1 (80.0-94.0) fL MCH 28.2 (25.9-34.0) pg MCHC 33.5 (29.9-35.2) g/dL RDW 13.5 (11.0-15.0) % Plt Count 190 (150-450) 10^3/uL MPV 10.7 (9.5-13.5) fL Seg Neuts % (Manual) 90.0 H (43.0-75.0) Lymphocytes % (Manual) 6.0 L (20.5-60.0) % Monocytes % (Manual) 4.0 (1.7-12.0) % Eosinophils % (Manual) 0.0 L (0.9-7.0) % Basophils % (Manual) 0.0 L (0.2-2.0) % Neutrophils # (Manual) 9.99 H (1.4-6.5) 10^3/uL Band Neutrophils # 0.7 H (0.0-0.3) 10^3/uL Lymphocytes # (Manual) 0.66 L (1.20-3.80) 10^3/uL Monocytes # (Manual) 0.44 (0.30-0.80) 10^3/uL Eosinophils # (Manual) 0.00 (0.00-0.70) 10^3/uL Basophils # (Manual) 0.00 (0.00-0.10) 10^3/uL Anisocytosis 1+ Sodium 134 L (136-145) mmol/L Potassium 3.9 (3.5-5.1) mmol/L Chloride 96 L (98-107) mmol/L Carbon Dioxide 23.3 (21.0-32.0) mmol/L Anion Gap 18.6 BUN 14.0 (7.0-18.0) mg/dL Creatinine 0.69 L (0.70-1.30) mg/dL Est GFR ( Amer) >60 (>=60 mL/min/1.73m^2) Est GFR (Non-Af Amer) >60 (>=60 mL/min/1.73m^2) BUN/Creatinine Ratio 20.3 Glucose 118 H (74-106) mg/dL Lactate 3.3 H* (0.4-2.0) mmol/L Calcium 8.9 (8.5-10.1) mg/dL Total Bilirubin 0.3 (0.2-1.0) mg/dL AST 33 (15-37) U/L ALT 37 (16-63) U/L Alkaline Phosphatase 133 H (46-116) U/L Total Protein 7.9 (6.4-8.2) g/dL Albumin 3.7 (3.4-5.0) g/dL Globulin 4.2 g/dL Albumin/Globulin Ratio 0.9 Influenza Type A Ag Positive A Influenza Type B Ag Negative SARS-CoV-2 Ag (CV2AG) Negative (NEGATIVE) Streptococcus Screen Negative Discharge Plan Discharge Chief Complaint: Upper Respiratory Infection Clinical Impression: Flu, Sepsis Patient Disposition: Admitted as Observation Time of Disposition Decision: 17:37
[2024-06-28 16:28] LABS: Hematocrit 38.2 % (42.0-54.0); Hemoglobin 12.8 g/dL (14.0-18.0); Mean Corpuscular HGB Conc 33.5 g/dL (29.9-35.2); Mean Corpuscular Hemoglobin 28.2 pg (25.9-34.0); Mean Corpuscular Volume 84.1 fL (80.0-94.0); Mean Platelet Volume 10.7 fL (9.5-13.5); Platelet Count 190 10^3/uL (150-450); Red Blood Count 4.54 10^6/uL (4.70-6.10); Red Cell Distribution Width 13.5 % (11.0-15.0); White Blood Count 11.1 10^3/uL (4.0-11.0)
[2024-06-28 16:37] LABS: Influenza Virus A Antigen Positive; Influenza Virus B Antigen Negative; Internal Control Within Normal Limits; SARS-CoV-2 Ag NEGATIVE (NEGATIVE)
[2024-06-28 16:40] LABS: Band Neutrophils Absolute 0.7 10^3/uL (0.0-0.3); Lymphocytes Absolute Manual 0.66 10^3/uL (1.20-3.80); Monocytes Absolute Manual 0.44 10^3/uL (0.30-0.80); Segmented Neut Absolute Manual 9.99 10^3/uL (1.4-6.5)
[2024-06-28 16:41] LABS: Anisocytosis 1+
[2024-06-28 17:06] LABS: Lactate/Lactic Acid 3.3 mmol/L (0.4-2.0)
[2024-06-28 17:07] LABS: Alanine Aminotransferase 37 U/L (16-63); Albumin Globulin Ratio 0.9; Albumin Level 3.7 g/dL (3.4-5.0); Alkaline Phosphatase 133 U/L (46-116); Anion Gap 18.6; Aspartate Amino Transferase 33 U/L (15-37); BUN Creatinine Ratio 20.3; Bilirubin Total 0.3 mg/dL (0.2-1.0); Calcium 8.9 mg/dL (8.5-10.1); Carbon Dioxide 23.3 mmol/L (21.0-32.0); Chloride 96 mmol/L (98-107); Estimated GFR (African America >60 (>=60 mL/min/1.73m^2); Estimated GFR (Non-African Ame >60 (>=60 mL/min/1.73m^2); Globulin 4.2 g/dL; Glucose 118 mg/dL (74-106); Potassium 3.9 mmol/L (3.5-5.1); Sodium 134 mmol/L (136-145); Total Protein 7.9 g/dL (6.4-8.2)
[2024-06-28 17:09] LABS: Internal Control Within Normal Limits; Strep A Antigen Screen Negative
[2024-06-28] MEDS: IBUPROFEN 200 MG/10 ML ORAL.SUSP 467.2 MG PO (17:24)
[2024-06-28] MEDS: CEFTRIAXONE 1,000 MG in 0.9 % SODIUM CHLORIDE 50 ML 100 MG IV (17:37)
[2024-06-28] MEDS: OSELTAMIVIR PHOSPHATE 75 MG CAPSULE G-TUBE (17:58)
[2024-06-28] MEDS: AZITHROMYCIN 500 MG in 0.9 % SODIUM CHLORIDE 250 ML 250 MG IV (18:20)
[2024-06-28 18:25] LABS: Bilirubin Urine NEGATIVE (NEGATIVE); Blood Urine NEGATIVE (NEGATIVE); Clarity Urine CLEAR (CLEAR); Color Urine YELLOW (YELLOW); Glucose Urine UA NEGATIVE (NEGATIVE); Ketones Urine 40 mg/dL (NEGATIVE); Leukocyte Esterase Urine NEGATIVE (NEGATIVE); Nitrite Urine NEGATIVE (NEGATIVE); Protein Urine 100 mg/dL (NEG/TRACE); Specific Gravity Urine >=1.030 (1.005-1.025)
[2024-06-28 18:28] LABS: Urine Microscopic Indicated YES
[2024-06-28 18:32] LABS: Bacteria Urine TRACE #/HPF (NONE SEEN); Crystals Seen? None Seen #/HPF (None Seen); Mucus Urine MODERATE (NONE SEEN); RBC Urine 0-2 #/HPF (0-2); Squamous Epithelial Cell Urine FEW #/LPF (NONE/RARE); WBC Urine 0-2 #/HPF (NONE SEEN)
[2024-06-28 18:33] LABS: Cast Seen? NONE SEEN #/LPF (NONE SEEN)
--- OUTSIDE RECORDS SUMMARY | 2024-06-28 18:49 | XMS_ITS | CCD ---
Author Organization [facility] Care Team Providers Care Event Set Up Specialist Name Role Phone CRISPIN MENDEZ Primary Care Physician [phone] DR CRISPIN MENDEZ Admitting Unavailable ANDREA, DR FLETCHER Attending Unavailable ANDREA, DR FLETCHER Primary Care Unavailable ANDREA, DR FLETCHER Consulting Unavailable Crispin Mendez Unavailable CRISPIN MENDEZ Admitting Unavailable CRISPIN MENDEZ Attending Unavailable CRISPIN MENDEZ Referring Unavailable Kirn, Dinesh D Consulting Unavailable Kirnus, Dinesh D Consulting Unavailable Nora, Dinesh D Consulting Unavailable Crispin Mendez DO Primary Care Provider Crispin Mendez DO Unavailable [phone] Crispin Mendez DO Primary Care Provider [phone] Justyn Tobar MD Attending Provider Crispin Mendez Primary Care Unavailable Justyn Tobar Attending Justyn Leija Admitting Justyn Leija MD Unavailable [phone] RAVINDER SOLOMON Referring Unavailable CRISPIN MENDEZ Primary [...] 9V capsular polysaccharide antigen Drug Allergy rash Keepy Other (7 sources) Blueberry; Translations: [BLUEBERRY] Propensity to adverse reactions to food 01-22-20 13 Unknown [facility] (7 sources) Lactose; Translations: [LACTOSE] Drug Allergy 12-07-19 04 [facility] (7 sources) Gluten Flour; Translations: [GLUTEN FLOUR] Propensity to adverse reactions to food 01-22-20 13 Unknown [facility] (1 source) Pneumococcal vaccine Drug Allergy 03-04-20 24 [facility] Repository Medications Current Medications Medication Drug Class(es) [...] Daily, # 30 packet(s), Refills(s) 3, Pharmacy: [facility]/pharmacy #[id number], 152, cm, 08/10/21 13:17:00 EDT, Height/Length [...] Daily, # 30 packet(s), Refills(s) 3, Pharmacy: [facility]/pharmacy #[id number], 152, cm, 08/10/21 13:17:00 EDT, Height/Length [...] Basophils (Bld) [#/Vol] 0.07 10*3/uL Normal <0.11 [facility] Comment on above: Order Comment: Speci men Type: BLOOD SPECIMEN Ordering Facility: [facility] Address: [address] [place] [address] Performed By: #### 5 7021-8 #### [facility] CLIA [id number] [address] [place] [address] [place] [address] [place] Basophils/100 WBC (Bld) 0.7 % Normal [facility] Comment on above: Order Comment: Speci men Type: BLOOD SPECIMEN Ordering Facility: [facility] Address: [address] [place] [address] Performed By: #### 5 7021-8 #### [facility] CLIA [id number] [address] [place] [address] [place] Differential cell count method Nom (Bld) Auto Normal [facility] Comment on above: Order Comment: Speci men Type: BLOOD SPECIMEN Ordering Facility: [facility] Address: [address] [place] [address] Performed By: #### 5 7021-8 #### [facility] CLIA [id number] [address] [place] [address] [place] Eosinophils (Bld) [#/Vol] 0.47 10*3/uL High <0.46 [facility] Comment on above: Order Comment: Speci men Type: BLOOD SPECIMEN Ordering Facility: [facility] Address: [address] [place] [address] Performed By: #### 5 7021-8 #### [facility] CLIA [id number] [address] [place] [address] [place] Eosinophils/100 WBC (Bld) 4.8 % Normal [facility] Comment on above: Order Comment: Speci men Type: BLOOD SPECIMEN Ordering Facility: [facility] Address: [address] [place] [address] Performed By: #### 5 7021-8 #### [facility] CLIA [id number] [address] [place] [address] [place] Erythrocyte distribution width (RBC) [Ratio] 13.2 % Normal 11.5-15.0 [facility] Comment on above: Order Comment: Speci men Type: BLOOD SPECIMEN Ordering Facility: [facility] Address: [address] [place] [address] Performed By: #### 5 7021-8 #### [facility] CLIA [id number] [address] [place] [address] [place] Hematocrit (Bld) [Volume fraction] 41.0 % Normal 39.0-51.0 [facility] Comment on above: Order Comment: Speci men Type: BLOOD SPECIMEN Ordering Facility: [facility] Address: [address] [place] [address] Performed By: #### 5 7021-8 #### [facility] CLIA [id number] [address] [place] [address] [place] Hemoglobin (Bld) [Mass/Vol] 13.6 g/dL Normal 13.0-17.0 [facility] Comment on above: Order Comment: Speci men Type: BLOOD SPECIMEN Ordering Facility: [facility] Address: [address] [place] [address] Performed By: #### 5 7021-8 #### [facility] CLIA [id number] [address] [place] [address] [place] Immature granulocytes (Bld) [#/Vol] 0.03 10*3/uL Normal <0.10 [facility] Comment on above: Order Comment: Speci men Type: BLOOD SPECIMEN Ordering Facility: [facility] Address: [address] [place] [address] Performed By: #### 5 7021-8 #### [facility] CLIA [id number] [address] [place] [address] [place] Immature granulocytes/100 WBC (Bld) 0.3 % Normal [facility] Comment on above: Order Comment: Speci men Type: BLOOD SPECIMEN Ordering Facility: [facility] Address: [address] [place] [address] Performed By: #### 5 7021-8 #### [facility] CLIA [id number] [address] [place] [address] [place] Lymphocytes (Bld) [#/Vol] 1.87 10*3/uL Normal 1.00-4.00 [facility] Comment on above: Order Comment: Speci men Type: BLOOD SPECIMEN Ordering Facility: [facility] Address: [address] [place] [address] Performed By: #### 5 7021-8 #### [facility] CLIA [id number] [address] [place] [address] [place] Lymphocytes/100 WBC (Bld) 18.9 % Normal [facility] Comment on above: Order Comment: Speci men Type: BLOOD SPECIMEN Ordering Facility: [facility] Address: [address] [place] [address] Performed By: #### 5 7021-8 #### [facility] CLIA [id number] [address] [place] [address] [place] MCH (RBC) [Entitic mass] 27.0 pg Normal 26.0-34.0 [facility] Comment on above: Order Comment: Speci men Type: BLOOD SPECIMEN Ordering Facility: [facility] Address: [address] [place] [address] Performed By: #### 5 7021-8 #### [facility] CLIA [id number] [address] [place] [address] [place] MCHC (RBC) [Mass/Vol] 33.2 g/dL Normal 30.5-36.0 [facility] Comment on above: Order Comment: Speci men Type: BLOOD SPECIMEN Ordering Facility: [facility] Address: [address] [place] [address] Performed By: #### 5 7021-8 #### [facility] CLIA [id number] [address] [place] [address] [place] MCV (RBC) [Entitic vol] 81.5 fL Normal 80.0-100.0 [facility] Comment on above: Order Comment: Speci men Type: BLOOD SPECIMEN Ordering Facility: [facility] Address: [address] [place] [address] Performed By: #### 5 7021-8 #### [facility] CLIA [id number] [address] [place] [address] [place] Monocytes (Bld) [#/Vol] 0.71 10*3/uL Normal <0.87 [facility] Comment on above: Order Comment: Speci men Type: BLOOD SPECIMEN Ordering Facility: [facility] Address: [address] [place] [address] Performed By: #### 5 7021-8 #### [facility] CLIA [id number] [address] [place] [address] [place] Monocytes/100 WBC (Bld) 7.2 % Normal [facility] Comment on above: Order Comment: Speci men Type: BLOOD SPECIMEN Ordering Facility: [facility] Address: [address] [place] [address] Performed By: #### 5 7021-8 #### [facility] CLIA [id number] [address] [place] [address] [place] Neutrophils (Bld) [#/Vol] 6.72 10*3/uL Normal 1.45-7.50 [facility] Comment on above: Order Comment: Speci men Type: BLOOD SPECIMEN Ordering Facility: [facility] Address: [address] [place] [address] Performed By: #### 5 7021-8 #### [facility] CLIA [id number] [address] [place] [address] [place] Neutrophils/100 WBC (Bld) 68.1 % Normal [facility] Comment on above: Order Comment: Speci men Type: BLOOD SPECIMEN Ordering Facility: [facility] Address: [address] [place] [address] Performed By: #### 5 7021-8 #### [facility] CLIA [id number] [address] [place] [address] [place] Nucleated RBC (Bld) [#/Vol] 10*3/uL Normal <0.01 [facility] Comment on above: Order Comment: Speci men Type: BLOOD SPECIMEN Ordering Facility: [facility] Address: [address] [place] [address] Performed By: #### 5 7021-8 #### [facility] CLIA [id number] [address] [place] [address] [place] Nucleated RBC/100 WBC (Bld) [Ratio] 0.0 /100 WBC Normal [facility] Comment on above: Order Comment: Speci men Type: BLOOD SPECIMEN Ordering Facility: [facility] Address: [address] [place] [address] Performed By: #### 5 7021-8 #### [facility] CLIA [id number] [address] [place] [address] [place] Platelet mean volume (Bld) [Entitic vol] 10.8 fL Normal 9.0-12.7 [facility] Comment on above: Order Comment: Speci men Type: BLOOD SPECIMEN Ordering Facility: [facility] Address: [address] [place] [address] Performed By: #### 5 7021-8 #### [facility] CLIA [id number] [address] [place] [address] [place] Platelets (Bld) [#/Vol] 418 10*3/uL High 150-400 [facility] Comment on above: Order Comment: Speci men Type: BLOOD SPECIMEN Ordering Facility: [facility] Address: [address] [place] [address] Performed By: #### 5 7021-8 #### [facility] CLIA [id number] [address] [place] [address] [place] RBC (Bld) [#/Vol] 5.03 10*6/uL Normal 4.20-6.00 [facility] Comment on above: Order Comment: Speci men Type: BLOOD SPECIMEN Ordering Facility: [facility] Address: [address] [place] [address] Performed By: #### 5 7021-8 #### [facility] CLIA [id number] [address] [place] [address] [place] WBC (Bld) [#/Vol] 9.87 10*3/uL Normal 3.70-11.00 [facility] Comment on above: Order Comment: Speci men Type: BLOOD SPECIMEN Ordering Facility: [facility] Address: [address] [place], [place] [address] [address] Performed By: #### 5 7021-8 #### [facility] CLIA [id number] [address] [place] [address] [place] CNOVon 05-28-2024 CNOV Office Visit (CARCMN ) JIAN MOSCOSO ([id number]) 1980 M U[place] Date Time Provider Department 05/28/24 1:15 PM RAVINDER SOLOMON During your visit today, we recorded the following information about you: Pulse Blood pressure Weight Height 112/minute 148/97 47.6 kg 1.499 m Ravinder Solomon MD 05/29/2024 3:56 PM [facility] [place] [facility] OUTPATIENT VISIT DATE May 28, 2024 OUTPATIENT VISIT TYPE NEW PRIMARY CARE PHYSICIAN: Crispin Mendez (Stephanie) [address] [place] [address] REFERRING PHYSICIAN: Crispin Mccoy) [address] [facility] [address] Tobar for cardiology CHIEF COMPLAINT: Bicuspid AV (LCC/NCC), subaortic membrane, supravalvular stenosis CONGENITAL CARDIAC HISTORY: Shone complex: subaortic membrane, bicuspid aortic valve, and ?cleft mitral valve 1993 - subaortic membrane resection (Dr. Herring, [facility]) 09/05/1999 - excision of supravalvar aortic scar, transaortic membrane resection and removal of deep muscle wedge (Drs. Herring AND Anoop, [facility]) Developmental delay, non-verbal INTERVAL HISTORY: Mr. Moscoso is a 43 year old male from [facility] here today for cardiovascular evaluation related to congenital stenosis of aortic valve. Jian has a significant medical history of developmental delay (nonverbal), cerebral palsy, GERD, hiatal hernia, scoliosis, vitiligo. He was last saw [facility] cardiology (Dr Toribio Ortega) in late 2017. [...] Laterality Date ANES HRT PERICRD SACANDGRT VSLS W/ASSOCIATE CIVIL ENGINEER OXTJ >1MO PO UNLISTED STOMACH SURGERY Social [...] and Echocardio (more content not included)... Normal [facility] Comprehensive metabolic 2000 panelon 05-28-2024 Albumin [Mass/Vol] 4.5 g/dL Normal 3.9-4.9 [facility] Comment on above: Order Comment: Speci men Type: BLOOD SPECIMEN Ordering Facility: [facility] Address: [address] [place] [address] Performed By: #### 3 3762-6, 83824-0, 59527-4 #### [facility] CLIA [id number] [address] [place] [address] [place] [address] [place] ALP [Catalytic activity/Vol] 158 U/L High 38-113 [facility] Comment on above: Order Comment: Speci men Type: BLOOD SPECIMEN Ordering Facility: [facility] Address: [address] [place] [address] Performed By: #### 3 3762-6, 55808-0, 02167-4 #### [facility] CLIA [id number] [address] [place] [address] [place] ALT [Catalytic activity/Vol] 22 U/L Normal 10-54 [facility] Comment on above: Order Comment: Speci men Type: BLOOD SPECIMEN Ordering Facility: [facility] Address: [address] [place] [address] Performed By: #### 3 3762-6, 85207-3, 58358-1 #### [facility] CLIA [id number] [address] [place] [address] [place] Anion gap [Moles/Vol] 16 mmol/L High 8-15 [facility] Comment on above: Order Comment: Speci men Type: BLOOD SPECIMEN Ordering Facility: [facility] Address: [address] [place] [address] Performed By: #### 3 3762-6, 73726-3, 64951-9 #### [facility] CLIA [id number] [address] [place] [address] [place] AST [Catalytic activity/Vol] 24 U/L Normal 14-40 [facility] Comment on above: Order Comment: Speci men Type: BLOOD SPECIMEN Ordering Facility: [facility] Address: [address] [place] [address] Performed By: #### 3 3762-6, 09298-8, 41185-1 #### [facility] CLIA [id number] [address] [place] [address] [place] Bilirubin [Mass/Vol] 0.3 mg/dL Normal 0.2-1.3 [facility] Comment on above: Order Comment: Speci men Type: BLOOD SPECIMEN Ordering Facility: [facility] Address: [address] [place], [place] [address] Performed By: #### 3 3762-6, 11005-5, 87995-4 #### [facility] CLIA [id number] [address] [place], [place] [address] [place] Calcium [Mass/Vol] 9.8 mg/dL Normal 8.5-10.2 [facility] Comment on above: Order Comment: Speci men Type: BLOOD SPECIMEN Ordering Facility: [facility] Address: [address] [place] [address] Performed By: #### 3 3762-6, 50092-7, 60788-8 #### [facility] CLIA [id number] [address] [place] [address] [place] Chloride [Moles/Vol] 100 mmol/L Normal 98-107 [facility] Comment on above: Order Comment: Speci men Type: BLOOD SPECIMEN Ordering Facility: [facility] Address: [address] [place] [address] Performed By: #### 3 3762-6, 80888-9, 48391-2 #### [facility] CLIA [id number] [address] [place] [address] [place] CO2 [Moles/Vol] 22 mmol/L Normal 22-30 [facility] Comment on above: Order Comment: Speci men Type: BLOOD SPECIMEN Ordering Facility: [facility] Address: [address] [place] [address] Performed By: #### 3 3762-6, 54680-9, 03930-2 #### [facility] CLIA [id number] [address] [place] [address] [place] Creatinine [Mass/Vol] 0.48 mg/dL Low 0.73-1.22 [facility] Comment on above: Order Comment: Speci men Type: BLOOD SPECIMEN Ordering Facility: [facility] Address: [address] [place], [place] [address] Performed By: #### 3 3762-6, 31118-9, 10935-7 #### [facility] CLIA [id number] [address] [place] [address] [place] Creatinine and Glomerular filtration rate.predicted panel (S/P/Bld) 132 mL/min/1.73m??? Normal >=60 [facility] Comment on above: Order Comment: Ammy prasad Type: BLOOD SPECIMEN Ordering Facility: [facility] Address: [address] [place] [address] Result Comment: Zari mated Glomerular Filtration Rate [...] actual GFR. Performed By: #### 3 3762-6, 79221-3, 39283-2 #### [facility] CLIA [id number] [address] [place] [address] [place] Glucose [Mass/Vol] 104 mg/dL High 74-99 [facility] Comment on above: Order Comment: Ammy prasad Type: BLOOD SPECIMEN Ordering Facility: [facility] Address: [address] [place] [address] Result Comment: The [place] Diabetes [employer] (ADA) provides guidance for cutoff [...] Standards of Medical Care in Diabetes 2016, [place] [employer]. Diabetes Care. 2016.39(Suppl 1). Performed By: #### 3 3762-6, 17431-8, 61278-4 #### [facility] CLIA [id number] [address] [place] [address] [place] Potassium [Moles/Vol] 4.0 mmol/L Normal 3.7-5.1 [facility] Comment on above: Order Comment: Speci men Type: BLOOD SPECIMEN Ordering Facility: [facility] Address: [address] [place] [address] Performed By: #### 3 3762-6, 33668-6, 99528-7 #### [facility] CLIA [id number] [address] [place] [address] [place] Protein [Mass/Vol] 7.9 g/dL Normal 6.3-8.0 [facility] Comment on above: Order Comment: Speci men Type: BLOOD SPECIMEN Ordering Facility: [facility] Address: [address] [place] [address] Performed By: #### 3 3762-6, 90399-1, 83661-8 #### [facility] CLIA [id number] [address] [place] [address] [place] Sodium [Moles/Vol] 138 mmol/L Normal 136-144 [facility] Comment on above: Order Comment: Speci men Type: BLOOD SPECIMEN Ordering Facility: [facility] Address: [address] [place] [address] Performed By: #### 3 3762-6, 01101-8, 98660-0 #### [facility] CLIA [id number] [address] [place], [place] [address] [place] Urea nitrogen [Mass/Vol] 15 mg/dL Normal 9-24 [facility] Comment on above: Order Comment: Speci men Type: BLOOD SPECIMEN Ordering Facility: [facility] Address: [address] [place] [address] Performed By: #### 3 3762-6, 93524-2, 04219-8 #### [facility] CLIA [id number] [address] [place] [address] [place] ECG COMPLETEon 05-28-2024 ECG COMPLETE Ventricular Rate : 1 04 BPM Atrial Rate : 104 BPM P-R Interval : 128 ms QRS Duration : 86 ms Q-T Interval : 362 ms QTC Calculation(Bazett) : 476 ms Calculated P [place] : 28 degrees Calculated R [place] : -31 degrees Calculated T [place] : 96 degrees SINUS TACHYCARDIA WITH FREQUENT PREMATURE VENTRICULAR COMPLEXES LEFT AXIS DEVIATION LEFT VENTRICULAR HYPERTROPHY WITH REPOLARIZATION ABNORMALITY ABNORMAL ECG Confirmed by MD JACKSON, PhD, IRA ([id number]) on 06/13/2024 9:08:03 AM NAME : JIAN MOSCOSO PID : [id number] : 1980 Gender : Male Race : ORD : [id number] Procedure Date : May 28 2024 09:30:50 [...] RAVINDER SOLOMON Acquired by : BHAVESH MARCELINO [facility] ECHO SPECIALIST COMPLEX ADUL T CONGENITALon 05-28-2024 ECHO SPECIALIST COMPLEX ADULT CONGENITAL Echocardiography Report: [facility] NAMRATA-2 Date of service: 05/28/2024 11:49:45 AM PROGRAM OFFICER Ordering physician: RAVINDER SOLOMON Indication: Subaortic memebrance [...] and removal of deep muscle wedge (09/05/1999, [facility]). - The left ventricle is normal [...] evidence of (more content not included)... Normal [facility] Lipid 1996 panelon 5 Cholesterol [Mass/Vol] 234 mg/dL High <200 [facility] Comment on above: Order Comment: [place] men Type: BLOOD SPECIMEN Ordering Facility: [facility] Address: [address] [place] [address] Result Comment: <200 mg/dL, Desirable 200-239 mg/dL, Borderline high >239 mg/dL, High Performed By: #### 3 3762-6, 55790-5, 37995-3 #### [facility] CLIA [id number] [address] [place] [address] [place] Cholesterol in HDL [Mass/Vol] 71 mg/dL Normal >39 [facility] Comment on above: Order Comment: Ammy prasad Type: BLOOD SPECIMEN Ordering Facility: [facility] Address: [address] [place] [address] Result Comment: 40-5 9 mg/dL, Acceptable >59 mg/dL, High: Negative risk factor for coronary heart disease <40 mg/dL, Low: Positive risk factor for coronary heart disease Performed By: #### 3 3762-6, 67873-1, 89713-0 #### [facility] CLIA [id number] [address] [place] [address] [place] Cholesterol in LDL [Mass/Vol] 145 mg/dL High <100 [facility] Comment on above: Order Comment: Ammy prasad Type: BLOOD SPECIMEN Ordering Facility: [facility] Address: [address] [place] [address] Result Comment: <100 mg/dL, Optimal 100-129 mg/dL, Near optimal/above optimal 130-159 mg/dL, Borderline high 160-189 mg/dL, High >189 mg/dL, Very high Secondary prevention optimal LDL Cholesterol levels are recommended to be < 70 mg/dL Performed By: #### 3 3762-6, 78303-5, 51870-1 #### [facility] CLIA [id number] [address] [place] [address] [place] Cholesterol in LDL/Cholesterol in HDL [Mass ratio] 2.04 {ratio} Normal <2.54 [facility] Comment on above: Order Comment: Ammy osmar Type: BLOOD SPECIMEN Ordering Facility: [facility] Address: [address] [place] [address] Result Comment: Esme lara: 1. National Cholesterol Education Program ATP III Guideline At-A-Glance Quick Desk Reference: National Heart, Lung, and Blood [place]. National Institutes of Health. 2001: NIH Publication No. 01-3305. 2. An International Atherosclerosis Society position paper: global recommendations for the management of dyslipidemia: executive summary, Atherosclerosis. 2014: 232(2):410-413. Performed By: #### 3 3762-6, 90278-3, 83587-0 #### [facility] CLIA [id number] [address] [place] [address] [place] Cholesterol in VLDL [Mass/Vol] 18 mg/dL Normal <30 [facility] [facility] Comment on above: Order Comment: Ammy osmar Type: BLOOD SPECIMEN Ordering Facility: [facility] Address: [address] [place] [address] Performed By: #### 3 3762-6, 66063-8, 11262-3 #### [facility] CLIA [id number] [address] [place] [address] [place] Cholesterol non HDL [Mass/Vol] 163 mg/dL High <130 [facility] Comment on above: Order Comment: Ammy osmar Type: BLOOD SPECIMEN Ordering Facility: [facility] Address: [address] [place] [address] Result Comment: <130 mg/dL, Optimal 130-159 mg/dL, Near optimal/above optimal 160-189 mg/dL, Borderline high 190-219 mg/dL, High >219 mg/dL, Very high Secondary prevention optimal non HDL Cholesterol levels are recommended to be <100 mg/dL Performed By: #### 3 3762-6, 90556-6, 39831-5 #### [facility] CLIA [id number] [address] [place] [address] [place] Cholesterol.total/Ch olesterol in HDL [Mass ratio] 3.30 {ratio} Normal <5.10 [facility] Comment on above: Order Comment: Speci men Type: BLOOD SPECIMEN Ordering Facility: [facility] Address: [address] [place] [address] Performed By: #### 3 3762-6, 19417-6, 22876-0 #### [facility] CLIA [id number] [address] [place] [address] [place] FASTING TIME 14 hrs Normal [facility] Comment on above: Order Comment: Speci men Type: BLOOD SPECIMEN Ordering Facility: [facility] Address: [address] [place] [address] Performed By: #### 3 3762-6, 14917-3, 92200-6 #### [facility] CLIA [id number] [address] [place] [address] [place] Triglyceride [Mass/Vol] 91 mg/dL Normal <150 [facility] Comment on above: Order Comment: Speci men Type: BLOOD SPECIMEN Ordering Facility: [facility] Address: [address] [place] [address] Result Comment: <150 mg/dL, Normal 150-199 mg/dL, Borderline high 200-499 mg/dL, High >499 mg/dL, Very high Performed By: #### 3 3762-6, 62638-0, 10771-7 #### [facility] CLIA [id number] [address] [place] [address] [place] NT-proBNP [facility] 05-28 Natriuretic peptide.B prohormone N-Terminal [Mass/Vol] 245 pg/mL High <125 [facility] Comment on above: Order Comment: Speci men Type: BLOOD SPECIMEN Ordering Facility: [facility] Address: [address] [place] [address] Performed By: #### 3 3762-6, 46247-4, 47017-1 #### [facility] CLIA [id number] [address] [facility] [address] [address] [place] [facility] XR CHEST 2V FRONTAL/LATon XR CHEST 2V [...] colonic distention. IMPRESSION: No acute radiographic abnormality. Sternman: [facility] Transcribe Date/Time: May 28 2024 10:25A Dictated by : DON WATERMAN MD This examination was interpreted and the report reviewed and electronically signed by: BARBARA SALINAS MD on May 28 2024 11:17AM EST [id number] Normal [facility] XR Chest PA and Lateralon IMPRESSION: No acute radiographic abnormality. Sternman: [facility] Transcribe Date/Time: May 28 2024 10:25A [...] distention. DIVISION OF RADIOLOGY Provider, Jennifer Bustos [facility] - 05/28/2024 * * *Final Report* [...] distention. IMPRESSION IMPRESSION: No acute radiographic abnormality. Sternman: [facility] Transcribe Date/Time: May 28 2024 10:25A Dictated by : DON WATERMAN MD This examination was interpreted and the report reviewed and electronically signed by: BARBARA SALINAS MD on May 28 2024 11:17AM EST [facility] Radiology Study observation (narrative) [facility] XR Chest PA and LateralOrder ed By: [facility] Provider on 05-28-2024 [facility] Juan 04-01-2024 CNPN Telephone (CARCMN) JIAN MOSCOSO ([id number]) 1980 M [place] Date Time Provider Department 04/01/24 [facility] PROVIDER CARCMN During your visit today, we recorded the following information about you: Beata Ho 04/01/2024 3:51 PM Signed Received outside echo report has been uploaded in [facility] Beata Ho April 01, 2024 3:51 PM Allergies As of Date: 04/01/2024 Noted Allergy Reaction BLUEBERRY 01/21/2013 16 - Unknown GLUTEN FLOUR 01/21/2013 16 - Unknown LACTOSE 12/07/2003 Date Reviewed: 09/29/2018 Reviewed by: Sabrina Storm ([facility])CHRIST - Fully Assessed Reason for Visit: Received [...] Status:Closed by BEATA HO on 04/01/24 Normal [facility] FPG ECG *CARDIOLOGY ONLY*on 03-04-2024 FPG ECG *CARDIOLOGY ONLY* [facility] Main [place] [address] [place], [place] [id number] Electrocardiograph Report Signed Patient: Jian Moscoso MR#: [id number] : 1980 Acct:[id number] Age/Sex: 43 / M ADM Date: 03/04/24 [...] : 462 ms Sinus rhythm with short SD Left ventricular hypertrophy with repolarization abnormality ( R in aVL , Moises product , Romhilt- Rodriguez ) Prolonged QT Abnormal ECG No previous ECGs available Confirmed by Justyn Tobar ([id number]) on 03/04/2024 11:45:37 PM Referred By: Electronically Signed By: Justyn Tobar Transcribed By: MUS Signed By Justyn Tobar MD 03/04/24 9201 Normal [facility] CNCOon 01-14-2024 CNCO Letter Text Normal [facility] CNPNon 01-14-2024 CNPN Telephone (CACOMN) JIAN MOSCOSO ([id number]) 1980 Date Time Provider Department 01/14/24 RAVINDER [...] Status:Closed by ANTWAN SABA on 01/14/24 Normal [facility] Telephone (REFPHY) JIAN MOSCOSO ([id number]) 1980 Date Time Provider Department 01/14/24 NO ONE (HISTORICAL) REFPHY During your visit today, we recorded the following information about you: Estefany Garcia 01/14/2024 2:03 PM Signed Patient: Jian Moscoso Date of : 1980 Patient phone number: [phone] Referring Provider for the encounter: JAIME Requesting Provider: CRISPIN MENDEZ Reason for requesting visit (RFV/signs and symptoms/diagnosis): Congenital clinic-Congenital stenosis of aortic valve, congential insufficiency of aortic valve Person calling: self Return call to: self Medical Records/Insurance Card scanned into [employer]: Yes Comments: Via [facility] fax Allergies As of Date: 01/14/2024 Noted Allergy Reaction BLUEBERRY 01/21/2013 16 - Unknown GLUTEN FLOUR 01/21/2013 16 - Unknown LACTOSE 12/07/2003 Date Reviewed: 09/29/2018 Reviewed by: Sabrina Storm ([facility])CHRIST - Fully Assessed Reason for Visit: External [...] Status:Closed by ESTEFANY GARCIA on 01/14/24 Normal [facility] Basophils Auto (Bld) [#/Vol] on 12-23-2023 Basophils (Bld) [#/Vol] 0.1 10 3/uL 0.0-0.1 [facility] Basophils (Bld) [#/Vol] Automated basophil count 0.0-0.1 [facility] Basophils/100 WBC Auto (Bld) on 12-23-2023 Basophils/100 WBC (Bld) 0.8 % 0.2-2.0 [facility] Basophils/100 WBC (Bld) Automated basophil % 0.2-2.0 [facility] Eosinophils/100 WBC Auto (Bl d)on 12-23-2023 Eosinophils/100 WBC (Bld) 5.9 % 0.9-7.0 [facility] Eosinophils/100 WBC (Bld) Automated eosinophil % 0.9-7.0 [facility] Erythrocyte distribution wid th Auto (RBC) [Ratio]on 12-23-2023 Erythrocyte distribution width (RBC) [Ratio] 12.8 % 11.0-15.0 [facility] Erythrocyte distribution width (RBC) [Ratio] Erythrocyte distribution width [Ratio] by Automated count 11.0-15.0 [facility] Estimated glomerular filtrat ion rate (GFR) non- Americanon 12-23-2023 GFR/1.73 sq M.predicted among non-blacks MDRD (S/P/Bld) [Vol rate/Area] mL/min/{1.73_m2} >=60 [facility] GFR/1.73 sq M.predicted among non-blacks MDRD (S/P/Bld) [Vol rate/Area] Estimated glomerular filtration rate (GFR) non- >=60 [facility] Globulin Calc (S) [Mass/Vol] on 12-23-2023 Globulin (S) [Mass/Vol] 3.9 g/dL [facility] Globulin (S) [Mass/Vol] Serum globulin measurement by calculation (mass/volume) [facility] Hematocrit Auto (Bld) [Volum e fraction]on 12-23-2023 Hematocrit (Bld) [Volume fraction] 41.9 % Low 42.0-54.0 [facility] Hematocrit (Bld) [Volume fraction] Hematocrit [Volume Fraction] of Blood by Automated count Low 42.0-54.0 [facility] Hemoglobin [Mass/volume] in Bloodon 12-23-2023 Hemoglobin (Bld) [Mass/Vol] 14.0 g/dL 14.0-18.0 [facility] Hemoglobin (Bld) [Mass/Vol] Hemoglobin [Mass/volume] in Blood 14.0-18.0 [facility] Laboratory - Chemistry and C hemistry - challengeon 12-23-2023 Albumin [Mass/Vol] 3.8 g/dL 3.4-5.0 [facility] ALP [Catalytic activity/Vol] 156 U/L High 46-116 [facility] ALT [Catalytic activity/Vol] 25 U/L 16-63 [facility] AST [Catalytic activity/Vol] 14 U/L Low 15-37 [facility] Bilirubin [Mass/Vol] 0.3 mg/dL 0.2-1.0 [facility] Calcium [Mass/Vol] 8.9 mg/dL 8.5-10.1 [facility] Chloride [Moles/Vol] 100 mmol/L 98-107 [facility] CO2 [Moles/Vol] 29.1 mmol/L 21.0-32.0 [facility] Creatinine [Mass/Vol] 0.51 mg/dL Low 0.70-1.30 [facility] GFR/1.73 sq M.predicted MDRD (S/P/Bld) [Vol rate/Area] mL/min/{1.73_m2} >=60 [facility] Glucose [Mass/Vol] 80 mg/dL 74-106 [facility] Potassium [Moles/Vol] 4.1 mmol/L 3.5-5.1 [facility] Protein [Mass/Vol] 7.7 g/dL 6.4-8.2 [facility] Sodium [Moles/Vol] 138 mmol/L 136-145 [facility] Urea nitrogen [Mass/Vol] 16.0 mg/dL 7.0-18.0 [facility] Urea nitrogen/Creatinine [Mass ratio] 31.4 mg/mg [facility] Laboratory - Hematology and Cell countson 12-23-2023 Immature granulocytes/100 WBC (Bld) 0.3 % 0.0-0.5 [facility] Leukocytes [#/volume] correc yolie for nucleated erythrocytes in Blood by Automated counon 12-23-2023 WBC corrected for nucl RBC Auto (Bld) [#/Vol] 10.7 10 3/uL 4.0-11.0 [facility] WBC corrected for nucl RBC Auto (Bld) [#/Vol] Leukocytes [#/volume] corrected for nucleated erythrocytes in Blood by Automated coun .0-11.0 [facility] Lymphocytes Auto (Bld) [#/Vo l]on 12-23-2023 Lymphocytes (Bld) [#/Vol] 2.3 10 3/uL 1.2-3.8 [facility] Lymphocytes (Bld) [#/Vol] Lymphocytes [#/volume] in Blood by Automated count 1.2-3.8 [facility] Lymphocytes/100 WBC Auto (Bl d)on 12-23-2023 Lymphocytes/100 WBC (Bld) 21.9 % 20.5-60.0 [facility] Lymphocytes/100 WBC (Bld) Lymphocytes/100 leukocytes in Blood by Automated count 20.5-60.0 [facility] MCH Auto (RBC) [Entitic mass ]on 12-23-2023 MCH (RBC) [Entitic mass] 27.6 pg 25.9-34.0 [facility] MCH (RBC) [Entitic mass] MCH [Entitic mass] by Automated count 25.9-34.0 [facility] MCHC Auto (RBC) [Mass/Vol]on 12-23-2023 MCHC (RBC) [Mass/Vol] 33.4 g/dL 29.9-35.2 [facility] MCHC (RBC) [Mass/Vol] MCHC [Mass/volume] by Automated count 29.9-35.2 [facility] MCV Auto (RBC) [Entitic vol] on 12-23-2023 MCV (RBC) [Entitic vol] 82.5 fL 80.0-94.0 [facility] MCV (RBC) [Entitic vol] MCV [Entitic volume] by Automated count 80.0-94.0 [facility] Monocytes Auto (Bld) [#/Vol] on 12-23-2023 Monocytes (Bld) [#/Vol] 0.8 10 3/uL 0.3-0.8 [facility] Monocytes (Bld) [#/Vol] Automated blood monocyte count 0.3-0.8 [facility] Monocytes/100 WBC Auto (Bld) on 12-23-2023 Monocytes/100 WBC (Bld) 7.6 % 1.7-12.0 [facility] Monocytes/100 WBC (Bld) Automated monocyte % 1.7-12.0 [facility] Neutrophils Auto (Bld) [#/Vo l]on 12-23-2023 Neutrophils (Bld) [#/Vol] 6.8 10 3/uL High 1.4-6.5 [facility] Neutrophils (Bld) [#/Vol] Neutrophils [#/volume] in Blood by Automated count High 1.4-6.5 [facility] Neutrophils/100 WBC Auto (Bl d)on 12-23-2023 Neutrophils/100 WBC (Bld) 63.5 % 43.0-75.0 [facility] Neutrophils/100 WBC (Bld) Automated neutrophil % 43.0-75.0 [facility] No Panel Informationon 12-22 Eosinophils # (Auto) 0.6 10 3/uL 0.0-0.7 [facility] Immature Granulocyte # (Auto) 0.03 10 3/uL 0.00-0.03 [facility] Platelet mean volume Auto (B ld) [Entitic vol]on 12-23-2023 Platelet mean volume (Bld) [Entitic vol] 10.4 fL 9.5-13.5 [facility] Platelet mean volume (Bld) [Entitic vol] Platelet mean volume [Entitic volume] in Blood by Automated count 9.5-13.5 [facility] Platelets Auto (Bld) [#/Vol] on 12-23-2023 Platelets (Bld) [#/Vol] 389 10 3/uL 150-450 [facility] Platelets (Bld) [#/Vol] Platelets [#/volume] in Blood by Automated count 150-450 [facility] RBC Auto (Bld) [#/Vol]on RBC (Bld) [#/Vol] 5.08 10 6/uL 4.70-6.10 [facility] RBC (Bld) [#/Vol] Erythrocytes [#/volume] in Blood by Automated count 4.70-6.10 [facility] Serum or plasma albumin/glob ulin mass ratioon 12-23-2023 Albumin/Globulin [Mass ratio] 1.0 {ratio} [facility] Albumin/Globulin [Mass ratio] Serum or plasma albumin/globulin mass ratio [facility] Serum or plasma anion gap de terminationon 12-23-2023 Anion gap [Moles/Vol] 13.0 mmol/L [facility] Anion gap [Moles/Vol] Serum or plasma anion gap determination [facility] CBC AUTO DIFFon 12-15-2021 BASO # 0.1 103/ul Normal 0.0-0.1 [facility] Comment on above: Performed By: #### C BC #### [facility] [address] [address] [address] Merna Borja Basophils/100 WBC (Bld) 0.8 % Normal 0.2-2.0 [facility] Comment on above: Performed By: #### C BC #### [facility] [address] [place] [address] Dr. Merna Borja EO # 0.5 103/ul Normal 0.0-0.7 [facility] Comment on above: Performed By: #### C BC #### [facility] [address] [address] [address] Meran Borja Eosinophils/100 WBC (Bld) 5.9 % Normal 0.9-7.0 [facility] Comment on above: Performed By: #### C BC #### [facility] [address] [place] [address] Dr. Merna Borja Erythrocyte distribution width (RBC) [Ratio] 13.2 % Normal 11.0-15.0 [facility] Comment on above: Performed By: #### C BC #### [facility] [address] [place] [address] Dr. Merna Borja Hematocrit (Bld) [Volume fraction] 41.7 % Critically low 42.0-54.0 [facility] Comment on above: Performed By: #### C BC #### [facility] [address] [place] [address] Dr. Merna Borja Hemoglobin (Bld) [Mass/Vol] 13.7 g/dL Critically low 14.0-18.0 [facility] Comment on above: Performed By: #### C BC #### [facility] [address] [place] [address] Dr. Merna Borja IG # 0.02 10e3/ul Normal 0.00-0.03 [facility] Comment on above: Performed By: #### C BC #### [facility] [address] [place] [address] Dr. Merna Borja IG % 0.2 % Normal 0.0-0.5 [facility] Comment on above: Performed By: #### C BC #### [facility] [address] [place] [address] Dr. Merna Borja LYMPH # 1.7 103/ul Normal 1.2-3.8 [facility] Comment on above: Performed By: #### C BC #### [facility] [address] [place] [address] Dr. Merna Borja Lymphocytes/100 WBC (Bld) 19.0 % Critically low 20.5-60.0 [facility] Comment on above: Performed By: #### C BC #### [facility] [address] [place] [address] Dr. Merna Borja MANUAL DIFF REQ NO Normal [facility] Comment on above: Performed By: #### C BC #### [facility] [address] [place] [address] Dr. Merna Borja MCH (RBC) [Entitic mass] 27.2 pg Normal 25.9-34.0 [facility] Comment on above: Performed By: #### C BC #### [facility] [address] [place] [address] Dr. Merna Borja MCHC (RBC) [Mass/Vol] 32.9 g/dL Normal 29.9-35.2 [facility] Comment on above: Performed By: #### C BC #### [facility] [address] [place] [address] Dr. Merna Borja MCV (RBC) [Entitic vol] 82.9 fL Normal 80.0-94.0 [facility] Comment on above: Performed By: #### C BC #### [facility] [address] [place] [address] Dr. Merna Borja MONO # 0.6 103/ul Normal 0.3-0.8 [facility] Comment on above: Performed By: #### C BC #### [facility] [address] [place] [address] Dr. Merna Borja Monocytes/100 WBC (Bld) 6.6 % Normal 1.7-12.0 [facility] Comment on above: Performed By: #### C BC #### [facility] [address] [place] [address] Dr. Merna Borja NEUT # 5.9 103/ul Normal 1.4-6.5 [facility] Comment on above: Performed By: #### C BC #### [facility] [address] [place] [address] Dr. Merna Borja Neutrophils/100 WBC (Bld) 67.5 % Normal 43.0-75.0 [facility] Comment on above: Performed By: #### C BC #### [facility] [address] [place] [address] Dr. Merna Borja Platelet mean volume (Bld) [Entitic vol] 10.2 fL Normal 9.5-13.5 [facility] Comment on above: Performed By: #### C BC #### [facility] [address] [place] [address] Dr. Merna Borja PLT 370 103/ul Normal 150-450 [facility] Comment on above: Performed By: #### C BC #### [facility] [address] [place] [address] Dr. Merna Borja RBC 5.03 106/ul Normal 4.70-6.10 [facility] Comment on above: Performed By: #### C BC #### [facility] [address] [place] [address] Dr. Merna Borja WBC 8.8 103/ul Normal 4.0-11.0 [facility] Comment on above: Performed By: #### C BC #### [facility] [address] [place] [address] Dr. Merna Borja FERRITINon 12-15-2021 Ferritin [Mass/Vol] 76.0 ng/mL Normal 26.0-388.0 [facility] Comment on above: Performed By: #### V ITB12, FERR #### [facility] [address] [address] [address] Merna Borja LIPID PROFILEon 12-15-2021 CHOL-HDL RATIO NORM SEE BELOW Normal [facility] Comment on above: Result Comment: 3.3 - 4.4 LOW RISK 4.4 - 7.1 AVERAGE RISK 7.1 - 11.0 MODERATE RISK >11.0 HIGH RISK Performed By: #### L IPID, CMP #### [facility] [address] [address] [address] Merna Borja Cholesterol [Mass/Vol] 218 mg/dL Critically high <=200 [facility] Comment on above: Performed By: #### L IPID, CMP #### [facility] [address] [address] [address] Merna Borja Cholesterol in HDL [Mass/Vol] 69 mg/dL Critically high 40-60 [facility] Comment on above: Performed By: #### L IPID, CMP #### [facility] [address] [address] [address] Merna Borja Cholesterol in LDL [Mass/Vol] 129.4 mg/dL Normal [facility] Comment on above: Performed By: #### L IPID, CMP #### [facility] [address] [address] [address] Merna Borja Cholesterol.total/Ch olesterol in HDL [Mass ratio] 3.2 {ratio} Normal [facility] Comment on above: Performed By: #### L IPID, CMP #### [facility] [address] [address] [address] Merna Borja HDL NORMAL > or = 60 mg/dl - LO W CARDIOVASCULAR RISK <40 mg/dl - HIGH CARDIOVASCULAR RISK Normal [facility] Comment on above: Performed By: #### L IPID, CMP #### [facility] [address] [address] [address] Merna Borja LDL CALC NORMAL SEE BELOW Normal [facility] Comment on above: Result Comment: <100 mg/dl OPTIMAL 100 - 129 mg/dl NEAR OR ABOVE OPTIMAL 130 - 159 mg/dl BORDERLINE HIGH 160 - 189 mg/dl HIGH >190 mg/dl VERY HIGH Performed By: #### L IPID, CMP #### [facility] [address] [place] [address] Dr. Merna Borja Triglyceride [Mass/Vol] 98 mg/dL Normal <=150 [facility] Comment on above: Performed By: #### L IPID, CMP #### [facility] [address] [place] [address] Dr. Merna Borja VLDL CALC 19.6 mg/dL Normal [facility] Comment on above: Performed By: #### L IPID, CMP #### [facility] [address] [place] [address] Dr. Merna Borja PROF 14(COMP METB)on 022 Albumin [Mass/Vol] 3.8 g/dL Normal 3.4-5.0 [facility] Comment on above: Performed By: #### L IPID, CMP #### [facility] [address] [place] [address] Dr. Merna Borja Albumin/Globulin [Mass ratio] 0.9 {ratio} Normal [facility] Comment on above: Performed By: #### L IPID, CMP #### [facility] [address] [place] [address] Dr. Merna Borja ALP [Catalytic activity/Vol] 155 U/L Critically high 46-116 [facility] Comment on above: Performed By: #### L IPID, CMP #### [facility] [address] [place] [address] Dr. Merna Borja ALT [Catalytic activity/Vol] 27 U/L Normal 16-63 [facility] Comment on above: Performed By: #### L IPID, CMP #### [facility] [address] [place] [address] Dr. Merna Borja Anion gap [Moles/Vol] 13.9 mmol/L Normal [facility] Comment on above: Performed By: #### L IPID, CMP #### [facility] [address] [place] [address] Dr. Merna Borja AST [Catalytic activity/Vol] 13 U/L Critically low 15-37 [facility] Comment on above: Performed By: #### L IPID, CMP #### [facility] [address] [address] [address] Merna Borja Bilirubin [Mass/Vol] 0.4 mg/dL Normal 0.2-1.0 [facility] Comment on above: Performed By: #### L IPID, CMP #### [facility] [address] [place] [address] Dr. Merna Borja Calcium [Mass/Vol] 8.9 mg/dL Normal 8.5-10.1 [facility] Comment on above: Performed By: #### L IPID, CMP #### [facility] [address] [place] [address] Dr. Merna Borja Chloride [Moles/Vol] 100 mmol/L Normal 98-107 [facility] Comment on above: Performed By: #### L IPID, CMP #### [facility] [address] [place] [address] Dr. Merna Borja CO2 [Moles/Vol] 27.9 mmol/L Normal 21.0-32.0 [facility] Comment on above: Performed By: #### L IPID, CMP #### [facility] [address] [place] [address] Dr. Merna Borja Creatinine [Mass/Vol] 0.56 mg/dL Critically low 0.70-1.30 [facility] Comment on above: Performed By: #### L IPID, CMP #### [facility] [address] [place] [address] Dr. Merna Borja EGFR-AF BRAZILIAN >60 Normal >=60 [facility] Comment on above: Performed By: #### L IPID, CMP #### [facility] [address] [place] [address] Dr. Merna Borja EGFR-NON AF BRAZILIAN >60 Normal >=60 [facility] Comment on above: Performed By: #### L IPID, CMP #### [facility] [address] [place] [address] Dr. Merna Borja Globulin (S) [Mass/Vol] 4.0 g/dL Normal [facility] Comment on above: Performed By: #### L IPID, CMP #### [facility] [address] [place] [address] Dr. Merna Borja Glucose [Mass/Vol] 107 mg/dL Critically high 74-106 T [facility] Comment on above: Performed By: #### L IPID, CMP #### [facility] [address] [place] [address] Dr. Merna Borja Potassium [Moles/Vol] 3.8 mmol/L Normal 3.5-5.1 [facility] Comment on above: Performed By: #### L IPID, CMP #### [facility] [address] [place] [address] Dr. Merna Borja Protein [Mass/Vol] 7.8 g/dL Normal 6.4-8.2 [facility] Comment on above: Performed By: #### L IPID, CMP #### [facility] [address] [place] [address] Dr. Merna Borja Sodium [Moles/Vol] 138 mmol/L Normal 136-145 [facility] Comment on above: Performed By: #### L IPID, CMP #### [facility] [address] [place] [address] Dr. Merna Borja Urea nitrogen [Mass/Vol] 15.0 mg/dL Normal 7.0-18.0 [facility] Comment on above: Performed By: #### L IPID, CMP #### [facility] [address] [place] [address] Dr. Merna Borja Urea nitrogen/Creatinine [Mass ratio] 26.8 mg/mg Normal [facility] Comment on above: Performed By: #### L IPID, CMP #### [facility] [address] [place] [address] Dr. Mrena Borja VITAMIN B12on 12-15-2021 Cobalamin (Vitamin B12) [Mass/Vol] 580.0 pg/mL Normal 193.0-986.0 [facility] Comment on above: Performed By: #### V ITB12, FERR #### [facility] [address] [address] [address] Merna Borja Vital Signs Date Time Vital Sign Value Performing Clinician Facility 05-28-2024 13:46-0500 Body height 149.9 cm Ravinder Solomon MD Work Phone: [facility] 05-28-2024 13:46-0500 Body mass index (BMI) [Ratio] 21.21 kg/m2 Ravinder Solomon MD Work Phone: [facility] 05-28-2024 13:46-0500 Body weight 47.63 kg Ravinder Solomon MD Work Phone: [facility] 05-28-2024 13:46-0500 Diastolic blood pressure 97 mm[Hg] Ravinder Solomon MD Work Phone: [facility] 05-28-2024 13:46-0500 Heart rate 112 /min Ravinder Solomon MD Work Phone: [facility] 05-28-2024 13:46-0500 SaO2% (BldA) [Mass fraction] 95 % Ravinder Solomon MD Work Phone: [facility] 05-28-2024 13:46-0500 Systolic blood pressure 148 mm[Hg] Ravinder Solomon MD Work Phone: [facility] 03-04-2024 15:18-0500 Diastolic blood pressure 100 mm[Hg] Crispin Ball DO Work Phone: [facility] 03-04-2024 15:18-0500 Heart rate 106 /min Crispin Ball DO Work Phone: [facility] 03-04-2024 15:18-0500 Respiratory rate 16 /min Crispin Ball DO Work Phone: [facility] 03-04-2024 15:18-0500 SaO2% (BldA) [Mass fraction] 97 % Crispin Ball DO Work Phone: [facility] 03-04-2024 15:18-0500 Systolic blood pressure 144 mm[Hg] Crispin Mendez DO Work Phone: [facility] 01-15-2024 11:47-0400 Body height 152.4 cm [facility] 01-15-2024 11:47-0400 Body mass index (BMI) [Ratio] 20 kg/m2 [facility] 01-15-2024 11:47-0400 Body weight 46.52 kg [facility] 01-15-2024 11:47-0400 Diastolic blood pressure 94 mm[Hg] [facility] 01-15-2024 11:47-0400 Heart rate 96 /min [facility] 01-15-2024 11:47-0400 Respiratory rate 12 /min [facility] 01-15-2024 11:47-0400 Systolic blood pressure 142 mm[Hg] [facility] 12-13-2023 10:58-0400 Body height 152.4 cm [facility] 12-13-2023 10:58-0400 Body mass index (BMI) [Ratio] 20.1 kg/m2 [facility] 12-13-2023 10:58-0400 Body weight 46.72 kg [facility] 12-13-2023 10:58-0400 Diastolic blood pressure 93 mm[Hg] [facility] 12-13-2023 10:58-0400 Heart rate 101 /min [facility] 12-13-2023 10:58-0400 Respiratory rate 16 /min [facility] 12-13-2023 10:58-0400 Systolic blood pressure 135 mm[Hg] [facility] 12-10-2022 10:30-0400 Body height 152.4 cm Crispin Ball Other [facility] 12-10-2022 10:30-0400 Body mass index (BMI) [Ratio] 20.31 kg/m2 Crispin Ball Other [facility] Other 12-10-2022 10:30-0400 Body weight 47.17 kg Crispin Ball Other [facility] Other 12-10-2022 10:30-0400 Diastolic blood pressure 84 mm[Hg] Crispin Ball Other [facility] 12-10-2022 10:30-0400 Respiratory rate 12 /min Crispin Ball Other [facility] Other 12-10-2022 10:30-0400 Systolic blood pressure 122 mm[Hg] Crispin Ball Other [facility] 10-23-2022 11:45-0400 Body height 152.4 cm Crispin Ball Other [facility] 10-23-2022 11:45-0400 Body mass index (BMI) [Ratio] 19.53 kg/m2 Crispin Ball Other [facility] Other 10-23-2022 11:45-0400 Body weight 45.36 kg Crispin Ball Other [facility] Other 10-23-2022 11:45-0400 Diastolic blood pressure 82 mm[Hg] Crispin Ball Other [facility] Other 10-23-2022 11:45-0400 Systolic blood pressure 118 mm[Hg] Crispin Ball Other [facility] Other 08-10-2021 13:13-0400 Blood Pressure Location Gonzalez SALAM [facility] 08-10-2021 13:13-0400 Diastolic blood pressure 82 mm[Hg] Gonzalez SALAM [facility] 08-10-2021 13:13-0400 Heart rate 68 /min Gonzalez SALAM [facility] 08-10-2021 13:13-0400 Respiratory rate 16 /min Gonzalez SALAM [facility] 08-10-2021 13:13-0400 Systolic blood pressure 134 mm[Hg] Gonzalez SALAM [facility] Encounters Encounter Date Encounter Type Care Provider Facility Start: 05-28-2024 End: 05-28-2024 [facility] Start: 05-28-2024 End: 05-28-2024 Patient encounter procedure Ravinder Solomon MD Work Phone: Cardiology Comment on above: Bicuspid aortic valv e (Primary Dx); Congenital subaortic stenosis; Nonrheumatic aortic valve stenosis, mild; Mitral valve stenosis, non-rheumatic Start: 05-28-2024 End: 05-28-[address] [facility] Start: 05-28-2024 End: 05-28-2024 [facility] Start: 05-28-2024 End: 05-28-2024 Subsequent hospital visit by physician Xr Chest Main J1 Work Phone: Radiology Comment on above: Congenital cardiovas cular disorder [Q28.9] Start: 05-28-2024 End: [facility] Start: 04-01-2024 End: 04-01-2024 Telephone encounter [facility] Provider Cardiology Comment on above: Received Outside Med ical Records Start: 03-04-2024 End: 03-04-2024 ambulatory Crispin Andrea DO Work Phone: [facility] Work Phone: Start: 03-04-2024 End: 03-04-2024 Patient encounter procedure Crispin Mendez DO Work Phone: [facility] Cardiology Work Phone: Start: 01-15-2024 End: 01-15-2024 ambulatory [facility] Work Phone: Start: 01-15-2024 End: 01-15-2024 Patient encounter procedure [facility] Work Phone: Start: 01-14-2024 End: 01-14-2024 Telephone encounter No One (Historical) Referring Physician Comment on above: External Referrals/r esources Appointment Congenital cardiovas cular disorder (Primary Dx) Start: 01-06-2024 End: 01-06-2024 ambulatory CRISPIN MENDEZ Facility:[facility] Start: 01-06-2024 End: 01-06-2024 Patient encounter procedure CRISPIN MENDEZ [facility] Start: 12-23-2023 End: 12-23-2023 ambulatory [facility] Work Phone: Start: 12-23-2023 End: 12-23-2023 Patient encounter procedure [facility] Work Phone: Start: 12-13-2023 Patient encounter status [facility] Start: 12-13-2023 End: 12-13-2023 ambulatory [facility] Work Phone: Start: 12-13-2023 End: 12-13-2023 Encounter for general adult medical examination without abnormal findings [facility] Start: 12-13-2023 End: 12-13-2023 Patient encounter procedure [facility] Work Phone: Start: 12-24-2022 End: 12-24-2022 ambulatory Crispin Mendez Other [facility] Other Start: 12-24-2022 Telephone encounter Crispin Mendez [facility] Start: 12-21-2022 End: 12-21-2022 ambulatory Crispin Mendez Other [facility] Other Start: 12-21-2022 Nursing evaluation o f patient and report Crispin Mendez [facility] Start: 12-10-2022 End: 12-10-2022 ambulatory Crispin Mendez Other [facility] Other Start: 12-10-2022 Encounter for genera l adult medical examination without abnormal findings Crispin Mendez [facility] Start: 12-10-2022 Periodic preventive med est patient 40-64yrs Crispin Mendez [facility] Start: 10-23-2022 End: 10-23-2022 ambulatory Crispin Mendez Other [facility] Other Start: 10-23-2022 Office outpatient vi sit 15 minutes Crispin Mendez [facility] Start: 12-19-2021 Encounter for genera l adult medical examination without abnormal findings DR CRISPIN MENDEZ [facility] Start: 12-15-2021 End: 12-16-[address] CRISPIN MENDEZ Facility:[facility] Start: 12-15-2021 End: 12-16-2021 Encounter for general adult medical examination without abnormal findings DR CRISPIN MENDEZ Facility:[facility] Start: 08-10-2021 End: 08-10-2021 Patient encounter procedure Carlos SWARTZ [facility] Procedures Date Procedure Procedure Detail [...] Author Start: 05-28-2029 Lipid panel Lipid Screening [facility] Start: 05-29-2025 End: 08-28-2025 CBC panel - Blood by Automated count COMPLETE BLOOD COUNT Lab Routine Bicuspid aortic valve Congenital subaortic stenosis Expected: 05/29/2025, Expires: 08/28/2025 [facility] Comment on above: Expected: 05/29/2025 , Expires: 08/28/2025 Start: 05-29-2025 End: 08-28-2025 Comprehensive metabolic 2000 panel - Serum or Plasma COMPREHENSIVE METABOLIC PANEL Lab Routine Bicuspid aortic valve Congenital subaortic stenosis Expected: 05/29/2025, Expires: 08/28/2025 [facility] Comment on above: Expected: 05/29/2025 , Expires: 08/28/2025 Start: 05-29-2025 End: 08-28-2025 Lipid 1996 panel - Serum or Plasma LIPID PANEL BASIC Lab Routine Bicuspid aortic valve Congenital subaortic stenosis Expected: 05/29/2025, Expires: 08/28/2025 [facility] Comment on above: Expected: 05/29/2025 , Expires: 08/28/2025 Start: 05-29-2025 End: 08-28-2025 Natriuretic peptide.B prohormone N-Terminal [Mass/volume] in Serum or Plasma NT PRO BNP Lab Routine Bicuspid aortic valve Congenital subaortic stenosis Expected: 05/29/2025, Expires: 08/28/2025 [facility] Comment on above: Expected: 05/29/2025 , Expires: 08/28/2025 Start: 05-28-2025 End: 05-28-2025 ECHO SPECIALIST COMPLEX ADULT CONGENITAL ECHO SPECIALIST COMPLEX ADULT CONGENITAL Cardiology Routine Bicuspid aortic valve Expected: 05/28/2025, Expires: 05/28/[address] [facility] Work Phone: Comment on above: Expected: 05/28/2025 , Expires: 05/28/2025 Start: 07-01-2024 End: 07-01-2024 Patient encounter procedure 07/01/2024 2:45 PM EDT Office Visit Cardiology [address] [id number] Ravinder Solomon MD [address] [place] [address] Dx: Congenital stenosis of aortic valve, congential insufficiency of aortic valve Cardiology Comment on above: Dx: Congenital steno sis of aortic valve, congential insufficiency of aortic valve Start: 07-01-2024 End: 07-01-2024 Patient encounter procedure Radiology Comment on above: Dx: Congenital steno sis of aortic valve, congential insufficiency of aortic valve Start: 07-01-2024 End: 07-01-2024 [address] [place] Comment on above: Dx: Congenital steno sis of aortic valve, congential insufficiency of aortic valve Start: 07-01-2024 End: 07-01-2024 Patient encounter procedure 07/01/2024 11:15 AM EDT Office Visit Cardiology [address] [place] [address] Dx: Congenital stenosis of aortic valve, congential [...] congential insufficiency of aortic valve Start: 03-04-2024 [facility] Start: 03-04-2024 Patient referral [facility] Work Phone: Start: 01-14-2024 End: 07-13-2024 CBC W Auto Differential panel - Blood COMPLETE BLOOD COUNT AND DIFFERENTIAL Lab Routine Congenital cardiovascular disorder Expected: 01/14/2024, Expires: 07/13/2024 [facility] Comment on above: Expected: 01/14/2024 , Expires: 07/13/2024 Start: 01-14-2024 End: 07-13-2024 Comprehensive metabolic 2000 panel - Serum or Plasma COMPREHENSIVE METABOLIC PANEL Lab Routine Congenital cardiovascular disorder Expected: 01/14/2024, Expires: 07/13/2024 [facility] Comment on above: Expected: 01/14/2024 , Expires: 07/13/2024 Start: 01-14-2024 End: 07-13-2024 Lipid 1996 panel - Serum or Plasma LIPID PANEL BASIC Lab Routine Congenital cardiovascular disorder Expected: 01/14/2024, Expires: 07/13/2024 [facility] Comment on above: Expected: 01/14/2024 , Expires: 07/13/2024 Start: 01-14-2024 End: 07-13-2024 Natriuretic peptide.B prohormone N-Terminal [Mass/volume] in Serum or Plasma NT PRO BNP Lab Routine Congenital cardiovascular disorder Expected: 01/14/2024, Expires: 07/13/2024 [facility] Comment on above: Expected: 01/14/2024 , Expires: 07/13/2024 Start: 12-15-2023 Covid-19 Vaccine () Covid-19 Vaccine () [facility] Start: 12-15-2023 Covid-19 Vaccine ( season) Covid-19 Vaccine () [facility] Start: 12-15-2023 Influenza vaccination Influenza Vacc ine (#1) [facility] Start: 2016 Lipid panel Lipid Screening [facility] Start: 10-27-2004 Hepatitis B Vaccine (3 of 3 - 19+ 3-dose series) Hepatitis B Vaccine (3 of 3 - 19+ 3-dose series) [facility] Start: 2000 Hepatitis B Vaccine (1 of 3 - 19+ 3-dose series) Hepatitis B Vaccine (1 of 3 - 19+ 3-dose series) [facility] Start: 2000 Urine microalbumin profile DTaP,Tdap,Td Vaccine (1 - Tdap) [facility] Start: 11-14-1999 Anxiety Screening Anxiety Screening [facility] Start: 11-14-1999 Depression Screening Depression Scre ening [facility] Start: 11-14-1999 Hepatitis C screening Hepatitis C Sc reening [facility] Start: 11-14-1999 HIV screening HIV Screening [facility] Comprehensive metabo lic 2000 panel - Serum or Plasma [facility] End: 01-13-2025 ECG COMPLETE ECG COMPLETE ECG Routine Congenital cardiovascular disorder 1 Occurrences starting 01/14/2024 until 01/13/[address] [facility] Work Phone: Comment on above: 1 Occurrences starti ng 01/14/2024 until 01/13/2025 End: 05-29-2025 ECG COMPLETE ECG COMPLETE ECG Routine Bicuspid aortic valve Congenital subaortic stenosis 1 Occurrences starting 05/29/2024 until 05/29/2025 [facility] Comment on above: 1 Occurrences starti ng 05/29/2024 until 05/29/2025 End: 01-13-2025 ECHO SPECIALIST COMPLEX ADULT CONGENITAL ECHO SPECIALIST COMPLEX ADULT CONGENITAL Cardiology Routine Congenital cardiovascular disorder 1 Occurrences starting 01/14/2024 until 01/13/2025 [facility] Comment on above: 1 Occurrences starti ng 01/14/2024 until 01/13/2025 End: 05-29-2025 ECHO SPECIALIST COMPLEX ADULT CONGENITAL ECHO SPECIALIST COMPLEX ADULT CONGENITAL Cardiology Routine Bicuspid aortic valve Congenital subaortic stenosis 1 Occurrences starting 05/29/2024 until 05/29/2025 [facility] Comment on above: 1 Occurrences starti ng 05/29/2024 until 05/29/2025 Patient referral [facility] Work Phone: [facility] End: 02-12-2025 XR Chest PA and Lateral XR CHEST 2V FRONTAL/LAT Radiology Routine Congenital cardiovascular disorder 1 Occurrences starting 01/14/2024 until 02/12/2025 [facility] Comment on above: 1 Occurrences starti ng 01/14/2024 until 02/12/2025 [facility] Immunizations Immunization Date Immunization Notes Care Provider Fa cilidanielito 12-23-2023 influenza, seasonal, injectable, preservative free [facility] 12-21-2022 influenza, injectabl e, quadrivalent, preservative free Crispin Mendez Other [facility] 01-19-2022 influenza virus vaccine, split virus (incl. purified surface antigen) Crispin Mendez Other [facility] Other 01-19-2022 influenza virus vaccine, unspecified formulation [facility] 12-28-2020 influenza virus vaccine, split virus (incl. purified surface antigen) Crispin Mendez Other [facility] Other 12-28-2020 influenza virus vaccine, unspecified formulation [facility] 12-14-2020 influenza virus vaccine, unspecified formulation Gonzalez SALAM [facility] 01-01-2020 pneumococcal polysaccharide vaccine, 23 valent Crispin Mendez Other [facility] 09-15-2019 pneumococcal conjuga te vaccine, 13 valent Crispin Mendez Other [facility] 12-22-2018 influenza virus vaccine, split virus (incl. purified surface antigen) Crispin Mendez Other [facility] [employer] Other 12-22-2018 influenza virus vaccine, unspecified formulation [facility] 01-03-2018 influenza virus vaccine, split virus (incl. purified surface antigen) Crispin Mnedez Other [facility] [facility] [employer] Other 01-03-2018 influenza virus vaccine, unspecified formulation [facility] 01-17-2015 tetanus and diphther ia toxoids, adsorbed, preservative free, for adult use (5 Lf of tetanus toxoid and 2 Lf of diphtheria toxoid) Crispin Mendez Other [facility] 01-13-2013 tetanus and diphther ia toxoids, adsorbed, preservative free, for adult use (5 Lf of tetanus toxoid and 2 Lf of diphtheria toxoid) Crispin Mendez Other [facility] Payers Date Payer Category Payer Medicare (Managed Care) [facility] DUAL COMPLETE HMO POS SNP [id number] 2024 Unknown [id number] 2024 Self-pay 2023 Medicaid [id number] 2021 Medicaid [employer] [id number] 2021-Present [phone] [address] [place] [address] Medicaid [id number] 1981 Unknown [id number] 1962 Unknown [id number] 1959 Unknown [id number] Unknown O [id number] Unknown Regular Insurance [id number] Unknown [id number] Social History Date Type Detail Facility Start: 02-13-2018 End: 08-10-2021 Tobacco smoking status Never smoked tobacco (finding) [facility] Tobacco smoking status Never [facility] Start: 09-29-2018 End: 05-28-2024 Sex Assigned At Male [facility] Start: 1980 Sex Assigned At Male F [facility] Start: 02-13-2018 Tobacco use and exposure Smokeless tobacco non-user [facility] Start: 09-29-2018 End: 05-28-2024 Alcoholic beverage intake Current non-drinker of alcohol (finding) [facility] Start: 09-29-2018 End: 05-28-2024 History of Social function [facility] Start: 1980 Sex assigned at Not on file C [facility] Start: 03-04-2024 End: 03-05-2024 Sex Male (finding) [facility] Goals Date Patient Goal Desired Activity /State [...] be of assistance. documented in this encounter [facility] 05-28-2024 History of Presen t illness Narrative Images from the original note were not included. [facility] CON[facility] DISE[facility] OUTPATIENT VISIT DATE May 28, 2024 OUTPATIENT VISIT TYPE NEW PRIMARY CARE PHYSICIAN: Crispin Mccoy) [address] [place] [address] REFERRING PHYSICIAN: Crispin Mccoy) [address] [facility] [address] Tobar for cardiology CHIEF COMPLAINT: [...] is a 43 year old male from [facility] here today for cardiovascular evaluation related to congenital stenosis of aortic valve. Jian has a significant medical history of developmental delay (nonverbal), cerebral palsy, GERD, hiatal hernia, scoliosis, vitiligo. He was last saw [facility] cardiology (Dr Toribio Ortega) in late 2017. [...] Laterality Date ANES HRT PERICRD SAC&GRT VSLS W/ASSOCIATE CIVIL ENGINEER OXTJ >1MO PO UNLISTED STOMACH SURGERY Social [...] Fellow and I have personally performed a [id number] assessment of the patient and have participated in the burch components of the visit, which includes the medical decision making. I have discussed the case and management of the patient's care. 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 Developmental delay, non-verbal, and mostly non-ambulatory at this point per his mom (both parents accompany today, they are not , Jian mainly lives with his mom). There was concern based on a local echo that Jian had severe and so he was referred back to [facility]. By exam and echo today, I [...] and recommend annual ACHD follow up at [facility]. The family agrees. I spent a total of 70 minutes on the date of the service which included preparing to see the patient, [id number] patient care, completing clinical documentation, obtaining and/or reviewing separately obtained history, performing a medically appropriate examination, counseling and educating the patient/family/caregiver, ordering medications, tests, or procedures, communicating with other HCPs (not separately reported), independently interpreting results (not separately reported), and care coordination (not separately reported). STAFF PHYSICIAN: Ravinder Solomon MD Adult Congenital Heart Disease [facility] Desk [id number] Cell/Pager: [phone] Appointments: [phone] documented in this encounter [facility] 05-28-2024 Note HNO ID: [id number] Author: RAVINDER SOLOMON MD Service: ? Author Type: Physician Type: Progress Notes Filed: 05/29/2024 15:56 Note Text: [facility] CONGENITAL HE[facility] DISE[facility] OUTPATIENT VISIT DATE May 28, 2024 OUTPATIENT VISIT TYPE NEW PRIMARY CARE PHYSICIAN: Crispin Mendez () [address] [place] [address] REFERRING PHYSICIAN: Crispin Mendez (Stephanie) [address] [place] Tobar for cardiology CHIEF COMPLAINT: [...] is a 43 year old male from [facility] here today for cardiovascular evaluation related to congenital stenosis of aortic valve. Jian has a significant medical history of developmental delay (nonverbal), cerebral palsy, GERD, hiatal hernia, scoliosis, vitiligo. He was last saw [facility] cardiology (Dr Toribio Ortega) in late 2017. [...] Laterality Date ANES HRT PERICRD SACANDGRT VSLS W/ASSOCIATE CIVIL ENGINEER OXTJ >1MO PO UNLISTED STOMACH SURGERY Social [...] Take 1 Tablespoonful by mouth once daily. MARCIAL-UBRCH GASTROSTOMY TUBE 2.5 cm, 18 Fr REVIEW [...] palsy, hiatal h (more content not included)... [facility] 05-28-2024 History of Presen t illness [...] PATIENT PRESENTS WITH AN IMPLANTABLE OR ATTACHED SHREDDER OPERATOR: No RADIOLOGY DEPARTMENT: General X-ray: Exam(s) Completed: Chest X-Ray PERIPHERAL IV DATA: Not applicable SIGNED BY: RT Jason(R) May 28, 2024 9:50 AM documented in this encounter [facility] 05-28-2024 Note HNO ID: [id number] Author: JADA ZAMARRIPA RT(R) Service: Radiology Author [...] PATIENT PRESENTS WITH AN IMPLANTABLE OR ATTACHED SHREDDER OPERATOR: No RADIOLOGY DEPARTMENT: General X-ray: Exam(s) Completed: Chest X-Ray PERIPHERAL IV DATA: Not applicable SIGNED BY: RT Jason(R) May 28, 2024 9:50 AM [facility] 04-01-2024 Telephone encounter Note Received outside echo report has been uploaded in [employer] April 01, 2024 3:51 PM [facility] 04-01-2024 Miscellaneous Notes Received outside echo report has been uploaded in [employer] April 01, 2024 3:51 PM documented in this encounter [facility] 01-14-2024 Telephone encounter Note New patient letter sent via mail with appt details [facility] 01-14-2024 Miscellaneous Notes New patient letter sent via mail with appt details documented in this encounter [facility] 01-14-2024 Telephone encounter Note Patient: Jian Moscoso Date of : 1980 Patient phone number: [phone] Referring Provider for the encounter: NA Requesting Provider: CRISPIN MENDEZ Reason for requesting visit (RFV/signs and symptoms/diagnosis): Congenital clinic-Congenital stenosis of aortic valve, congential insufficiency of aortic valve Person calling: self Return call to: self Medical Records/Insurance Card scanned into Epic: Yes Comments: Via PRC fax [facility] 01-14-2024 Miscellaneous Notes Patient: Jian Moscoso Date of : 1980 Patient phone number: [phone] Referring Provider for the encounter: NA Requesting Provider: CRISPIN MENDEZ Reason for requesting visit (RFV/signs and symptoms/diagnosis): Congenital clinic-Congenital stenosis of aortic valve, congential insufficiency of aortic valve Person calling: self Return call to: self Medical Records/Insurance Card scanned into Epic: Yes Comments: Via PRC fax documented in this encounter [facility] 01-06-2024 Note Echocardiology Procedure Exam Date/Time Accession # Ordering Dr. 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 [facility] 12-13-2023 Evaluation note Diagnosis Onset Date Resolution [...] at gastrostomy tube site acute January 11:35am [facility] Work Phone: 1(882) 835-381308-30-2024 Evaluation note* Diagnosis Onset Date Resolution Status [...] in office without diagnosis of hypertension noneactive [facility] er 2023 3:36pm [facility] Work Phone: 1(923) 152-971708-28-2023 Evaluation note* Encounter Date Diagnosis Assessment Notes [...] F71) Requires mothers assistance w/ all ADL/IADL [facility] [employer] Other 07-11-2023 Evaluation note* Encounter Date Diagnosis [...] testes in either scrotum Referral to Urology? [facility] Other Evaluation + Plan note No data available for this section [facility] Evaluation noteNo InformationNort [employer] Other Evaluation note* Diagnosis Onset Date Resolution Status Ataxic cerebral palsy acute Eczema acute GERD (gastroesophageal reflux disease) acute IHSS (idiopathic hypertrophic subaortic stenosis) acute Moderate intellectual disabilities acute Wellness examination acute [facility] Work Phone: Evaluation note* Diagnosis Congenital cardiovascular disorder- Primary Unspecified congenital anomaly of heart documented in this encounter [facility] note* Diagnosis Congenital cardiovascular disorder Unspecified congenital anomaly of heart [facility] Bicuspid aortic valve- Primary Congenital insufficiency of aortic valve Congenital subaortic stenosis Nonrheumatic aortic valve stenosis, mild Aortic valve disorders Mitral valve stenosis, non-rheumatic Mitral valve disorders documented in this encounter [facility] general Narrative - Reported* Type Description [...] and adenoidectomy Hospitalization History SEE SURGICAL HX [facility] Other Hospital Discharge instructions No data available for this section [facility] Discharge instructionsAmbulatory Orders* Referral to Cardiology Location: None [facility] Work Phone: Progress note No data available for this section [facility] Reason for referral (narrative)* Outpatient Procedure (Routine) - Pending Review Specialty Diagnoses / Procedures Referred By Contac t Referred To Contact [facility] Diagnoses Congenital cardiovascular disorder Procedures ECHO SPECIALIST COMPLEX ADULT CONGENITAL ECHO TTHRC R-T 2D W/WOM-MODE COMPL SPEC&COLR D Ravinder Solomon MD [address] [place] [address] [facility] [address] [place] [address] Referral ID Status Reason Start Date Expiration Date Visits Requested Visits Authorized [id number] Pending Review Auto-Generat ed Referral 01/14/2024 01/13/2025 1 1 * Outpatient Procedure (Routine) - Authorized Specialty Diagnoses / Procedures Referred By Debra ramirez Ref[facility] Diagnoses Congenital cardiovascular disorder Procedures ECG COMPLETE ECG ROUTINE ECG W/LEAST 12 LDS W/I&R Ravinder Solomon MD [address] [place] [address] [facility] [address] [place] [address] Referral ID Status Reason Start Date Expiration Date Visits Requested Visits Authorized [id number] Authorized Auto-Generat ed Referral 01/14/2024 01/13/2025 1 1 [facility] Summary Purpose Family History No Family [...] DATE CREATED AUTHOR 12/19/2021 [facility] DATE CREATED AUTHOR AUTHOR'S ORGANIZ ATION 01/12/2024 [facility] DATE CREATED AUTHOR AUTHOR'S ORGANIZ ATION 03/07/2024 [facility] DATE CREATED AUTHOR AUTHOR'S ORGANIZ ATION 06/14/2024 [facility] REASON FOR VISIT (unrecogniz ed section and [...] December 23, 2023 End: December 23, 2023 Event Set Up Specialist Relationship Specialty Start Date End Date Crispin Mendez DO [address] [facility] [place] [address] PCP - General 07/26/00 Crispin Mendez DO [address] [facility] [place] [address] Referring Internal Medicine 01/14/24 Event Set Up Specialist Relationship Specialty Start Date End Date Crispin Mendez DO [address] [facility] [place] [address] PCP - General 07/26/00 Crispin Mendez DO [address] [facility] [place] [address] Referring Internal Medicine 01/14/24 Team Status: Inactive [...] March 04, 2024 End: March 04, 2024 Event Set Up Specialist Relationship Specialty Start Date End Date Crispin Mendez DO [address] [facility] [place] [address] PCP - General 07/26/00 Crispin Mendez DO [address] [facility] [place] [address] Referring Internal Medicine 01/14/24 Justyn Tobar MD [address] [place] [phone] Referring Cardiovascular Surgery 03/10/24 Event Set Up Specialist Relationship Specialty Start Date End Date Crispin Mendez DO [address] [facility] [place] [address] PCP - General 07/26/00 Crispin Mendez DO [address] [facility] [place] [address] Referring Internal Medicine 01/14/24 Jusytn Tobar MD [address] [place] [phone] Referring Cardiovascular Surgery 03/10/24 Event Set Up Specialist Relationship Specialty Start Date End Date Crispin Mendez DO [address] [facility] [place] [address] PCP - General 07/26/00 Crispin Mendez DO [address] [facility] [place] [address] Referring Internal Medicine 01/14/24 Justyn Tobar MD [address] [place] [phone] Referring Cardiovascular Surgery 03/10/24 Goals (unrecognized section [...] or prosecute any alcohol or drug abuse patient.[facility] the event this information is protected by the Federal Confidentiality of Alcohol and Drug Abuse Patient Records regulations: The Federal rules restrict any use of the information to criminally investigate or prosecute any alcohol or drug abuse patient.[facility] the event this information is protected by the Federal Confidentiality of Alcohol and Drug Abuse Patient Records regulations: The Federal rules restrict any use of the information to criminally investigate or prosecute any alcohol or drug abuse patient.[facility] the event this information is protected by the Federal Confidentiality of Alcohol and Drug Abuse Patient Records regulations: The Federal rules restrict any use of the information to criminally investigate or prosecute any alcohol or drug abuse patient.[facility] the event this information is protected by the Federal Confidentiality of Alcohol and Drug Abuse Patient Records regulations: The Federal rules restrict any use of the information to criminally investigate or prosecute any alcohol or drug abuse patient.[facility] the event this information is protected by the Federal Confidentiality of Alcohol and Drug Abuse Patient Records regulations: The Federal rules restrict any use of the information to criminally investigate or prosecute any alcohol or drug abuse patient.[facility] FOR RECORDS PERTAINING TO PATIENTS WHO [...] BE BASED ON THE PRIMARY CLINICAL RECORDS. [facility] [employer] [facility]. provides no warranty or guarantee of the accuracy or completeness of information in this document.
[2024-06-28 18:52] LABS: C Reactive Protein 15.99 mg/dL (<=0.50)
[2024-06-28] MEDS: ENOXAPARIN SODIUM 40 MG/0.4 ML SYRINGE SUBQ (19:47)
[2024-06-28] MEDS: POTASSIUM CHLORIDE/D5-0.9%NACL 1,000 ML 125 ML IV (19:48)
[2024-06-28] MEDS: LORAZEPAM 0.5 MG TABLET G-TUBE (20:50)
[2024-06-28] MEDS: ACETAMINOPHEN 325 MG TABLET 650 MG PO (20:51)
[2024-06-28] MEDS: IPRATROPIUM/ALBUTEROL SULFATE 3 ML AMPUL.NEB IH (21:47)
[2024-06-29] VITALS (25 sets, daily range): BP systolic 109–126; BP diastolic 61–87; PULSE 66–136; TEMP 36.3–38.7; O2SAT 86–97
[2024-06-29] MEDS: ACETAMINOPHEN 325 MG TABLET 650 MG PO (01:59)
[2024-06-29] MEDS: IPRATROPIUM/ALBUTEROL SULFATE 3 ML AMPUL.NEB IH ×2 (02:02→19:30)
[2024-06-29] MEDS: POTASSIUM CHLORIDE/D5-0.9%NACL 1,000 ML 125 ML IV ×2 (03:54→12:59)
[2024-06-29 04:34] LABS: Basophils Percent Auto 0.1 % (0.2-2.0); Hematocrit 32.9 % (42.0-54.0); Immature Granulocytes Abs Auto 0.01 10^3/uL (0.00-0.03); Immature Granulocytes Pct Auto 0.1 % (0.0-0.5); Lymphocytes Absolute Auto 0.4 10^3/uL (1.2-3.8); Lymphocytes Percent Auto 4.8 % (20.5-60.0); Mean Corpuscular HGB Conc 33.4 g/dL (29.9-35.2); Mean Corpuscular Hemoglobin 27.9 pg (25.9-34.0); Mean Corpuscular Volume 83.5 fL (80.0-94.0); Mean Platelet Volume 10.6 fL (9.5-13.5); Monocytes Absolute Auto 0.3 10^3/uL (0.3-0.8); Monocytes Percent Auto 3.8 % (1.7-12.0); Neutrophils Absolute Auto 6.6 10^3/uL (1.4-6.5); Neutrophils Percent Auto 91.2 % (43.0-75.0); Platelet Count 185 10^3/uL (150-450); Red Blood Count 3.94 10^6/uL (4.70-6.10); Red Cell Distribution Width 13.9 % (11.0-15.0); White Blood Count 7.3 10^3/uL (4.0-11.0)
[2024-06-29] MEDS: IBUPROFEN 200 MG/10 ML ORAL.SUSP 600 MG G-TUBE (04:37)
[2024-06-29] MEDS: LACTATED RINGER'S SOLUTION 1,000 ML 500 ML IV (04:37)
[2024-06-29 04:48] LABS: Alanine Aminotransferase 55 U/L (16-63); Albumin Globulin Ratio 0.8; Albumin Level 2.4 g/dL (3.4-5.0); Alkaline Phosphatase 102 U/L (46-116); Aspartate Amino Transferase 39 U/L (15-37); BUN Creatinine Ratio 13.2; Bilirubin Total 0.2 mg/dL (0.2-1.0); Calcium 7.5 mg/dL (8.5-10.1); Carbon Dioxide 22.6 mmol/L (21.0-32.0); Chloride 107 mmol/L (98-107); Estimated GFR (African America >60 (>=60 mL/min/1.73m^2); Estimated GFR (Non-African Ame >60 (>=60 mL/min/1.73m^2); Globulin 3.2 g/dL; Glucose 181 mg/dL (74-106); Magnesium 1.3 mg/dL (1.8-2.4); Potassium 3.6 mmol/L (3.5-5.1); Sodium 141 mmol/L (136-145); Total Protein 5.6 g/dL (6.4-8.2)
[2024-06-29 04:50] LABS: Lactate/Lactic Acid 1.9 mmol/L (0.4-2.0)
--- OUTSIDE RECORDS SUMMARY | 2024-06-29 06:06 | XMS_ITS | CCD ---
Author Organization [facility] Care Team Providers Care Teacher'S Aide Name Role Phone CRISPIN MENDEZ Primary Care Physician DR CRISPIN MENDEZ Admitting Unavailable ANDREA, DR FLETCHER Attending Unavailable ANDREA, DR FLETCHER Primary Care Unavailable ANDREA, DR FLETCHER Consulting Unavailable Crispin Mendez Unavailable CRISPIN MENDEZ Admitting Unavailable CRISPIN MENDEZ Attending Unavailable CRISPIN MENDEZ Referring Unavailable Kirn, Dinesh Bertram Consulting Unavailable Kirnus, Dinesh D Consulting Unavailable Nora, Dinesh D Consulting Unavailable Crispin Mendez DO Primary Care Provider Crispin Mendez DO Unavailable Crispin Mendez DO Primary Care Provider [phone] Justyn Tobar MD Attending Provider Crispin Mnedez Primary Care Unavailable Justyn Tobar Attending Justyn Leija Admitting Justyn Leija MD Unavailable [phone] RAVINDER SOLOMON Referring Unavailable CRISPIN MENDEZ Primary [...] 9V capsular polysaccharide antigen Drug Allergy rash Peek Other (7 sources) Blueberry; Translations: [BLUEBERRY] Propensity to adverse reactions to food 01-22-20 13 Unknown [facility] (7 sources) Lactose; Translations: [LACTOSE] Drug Allergy 12-07-19 04 [facility] (7 sources) Gluten Flour; Translations: [GLUTEN FLOUR] Propensity to adverse reactions to food 01-22-20 13 Unknown [facility] (1 source) Pneumococcal vaccine Drug Allergy 03-04-20 24 [facility] Repository Medications Current Medications Medication Drug [...] Daily, # 30 packet(s), Refills(s) 3, Pharmacy: [facility]/pharmacy #[id number], 152, cm, 08/10/21 13:17:00 EDT, Height/Length [...] Daily, # 30 packet(s), Refills(s) 3, Pharmacy: [facility]/pharmacy #[id number], 152, cm, 08/10/21 13:17:00 EDT, Height/Length [...] Basophils (Bld) [#/Vol] 0.07 10*3/uL Normal <0.11 [facility] Comment on above: Order Comment: Speci men Type: BLOOD SPECIMEN Ordering Facility: [facility] Address: [address] [place] [address] Performed By: #### 5 7021-8 #### [facility] CLIA [id number] [address] [place] [address] [place] [address] [place] Basophils/100 WBC (Bld) 0.7 % Normal [facility] Comment on above: Order Comment: Speci men Type: BLOOD SPECIMEN Ordering Facility: [facility] Address: [address] [place] [address] Performed By: #### 5 7021-8 #### [facility] CLIA [id number] [address] [place] [address] [place] Differential cell count method Nom (Bld) Auto Normal [facility] Comment on above: Order Comment: Speci men Type: BLOOD SPECIMEN Ordering Facility: [facility] Address: [address] [place] [address] Performed By: #### 5 7021-8 #### [facility] CLIA [id number] [address] [place] [address] [place] Eosinophils (Bld) [#/Vol] 0.47 10*3/uL High <0.46 [facility] Comment on above: Order Comment: Speci men Type: BLOOD SPECIMEN Ordering Facility: [facility] Address: [address] [place] [address] Performed By: #### 5 7021-8 #### [facility] CLIA [id number] [address] [place] [address] [place] Eosinophils/100 WBC (Bld) 4.8 % Normal [facility] Comment on above: Order Comment: Speci men Type: BLOOD SPECIMEN Ordering Facility: [facility] Address: [address] [place] [address] Performed By: #### 5 7021-8 #### [facility] CLIA [id number] [address] [place] [address] [place] Erythrocyte distribution width (RBC) [Ratio] 13.2 % Normal 11.5-15.0 [facility] Comment on above: Order Comment: Speci men Type: BLOOD SPECIMEN Ordering Facility: [facility] Address: [address] [place] [address] Performed By: #### 5 7021-8 #### [facility] CLIA [id number] [address] [place] [address] [place] Hematocrit (Bld) [Volume fraction] 41.0 % Normal 39.0-51.0 [facility] Comment on above: Order Comment: Speci men Type: BLOOD SPECIMEN Ordering Facility: [facility] Address: [address] [place] [address] Performed By: #### 5 7021-8 #### [facility] CLIA [id number] [address] [place] [address] [place] Hemoglobin (Bld) [Mass/Vol] 13.6 g/dL Normal 13.0-17.0 [facility] Comment on above: Order Comment: Speci men Type: BLOOD SPECIMEN Ordering Facility: [facility] Address: [address] [place] [address] Performed By: #### 5 7021-8 #### [facility] CLIA [id number] [address] [place] [address] [place] Immature granulocytes (Bld) [#/Vol] 0.03 10*3/uL Normal <0.10 [facility] Comment on above: Order Comment: Speci men Type: BLOOD SPECIMEN Ordering Facility: [facility] Address: [address] [place] [address] Performed By: #### 5 7021-8 #### [facility] CLIA [id number] [address] [place] [address] [place] Immature granulocytes/100 WBC (Bld) 0.3 % Normal [facility] Comment on above: Order Comment: Speci men Type: BLOOD SPECIMEN Ordering Facility: [facility] Address: [address] [place] [address] Performed By: #### 5 7021-8 #### [facility] CLIA [id number] [address] [place] [address] [place] Lymphocytes (Bld) [#/Vol] 1.87 10*3/uL Normal 1.00-4.00 [facility] Comment on above: Order Comment: Speci men Type: BLOOD SPECIMEN Ordering Facility: [facility] Address: [address] [place] [address] Performed By: #### 5 7021-8 #### [facility] CLIA [id number] [address] [place] [address] [place] Lymphocytes/100 WBC (Bld) 18.9 % Normal [facility] Comment on above: Order Comment: Speci men Type: BLOOD SPECIMEN Ordering Facility: [facility] Address: [address] [place] [address] Performed By: #### 5 7021-8 #### [facility] CLIA [id number] [address] [place] [address] [place] MCH (RBC) [Entitic mass] 27.0 pg Normal 26.0-34.0 [facility] Comment on above: Order Comment: Speci men Type: BLOOD SPECIMEN Ordering Facility: [facility] Address: [address] [place] [address] Performed By: #### 5 7021-8 #### [facility] CLIA [id number] [address] [place] [address] [place] MCHC (RBC) [Mass/Vol] 33.2 g/dL Normal 30.5-36.0 [facility] Comment on above: Order Comment: Speci men Type: BLOOD SPECIMEN Ordering Facility: [facility] Address: [address] [place] [address] Performed By: #### 5 7021-8 #### [facility] CLIA [id number] [address] [place] [address] [place] MCV (RBC) [Entitic vol] 81.5 fL Normal 80.0-100.0 [facility] Comment on above: Order Comment: Speci men Type: BLOOD SPECIMEN Ordering Facility: [facility] Address: [address] [place] [address] Performed By: #### 5 7021-8 #### [facility] CLIA [id number] [address] [place] [address] [place] Monocytes (Bld) [#/Vol] 0.71 10*3/uL Normal <0.87 [facility] Comment on above: Order Comment: Speci men Type: BLOOD SPECIMEN Ordering Facility: [facility] Address: [address] [place] [address] Performed By: #### 5 7021-8 #### [facility] CLIA [id number] [address] [place] [address] [place] Monocytes/100 WBC (Bld) 7.2 % Normal [facility] Comment on above: Order Comment: Speci men Type: BLOOD SPECIMEN Ordering Facility: [facility] Address: [address] [place] [address] Performed By: #### 5 7021-8 #### [facility] CLIA [id number] [address] [place] [address] [place] Neutrophils (Bld) [#/Vol] 6.72 10*3/uL Normal 1.45-7.50 [facility] Comment on above: Order Comment: Speci men Type: BLOOD SPECIMEN Ordering Facility: [facility] Address: [address] [place] [address] Performed By: #### 5 7021-8 #### [facility] CLIA [id number] [address] [place] [address] [place] Neutrophils/100 WBC (Bld) 68.1 % Normal [facility] Comment on above: Order Comment: Speci men Type: BLOOD SPECIMEN Ordering Facility: [facility] Address: [address] [place] [address] Performed By: #### 5 7021-8 #### [facility] CLIA [id number] [address] [place] [address] [place] Nucleated RBC (Bld) [#/Vol] 10*3/uL Normal <0.01 [facility] Comment on above: Order Comment: Speci men Type: BLOOD SPECIMEN Ordering Facility: [facility] Address: [address] [place] [address] Performed By: #### 5 7021-8 #### [facility] CLIA [id number] [address] [place] [address] [place] Nucleated RBC/100 WBC (Bld) [Ratio] 0.0 /[address] [facility] Comment on above: Order Comment: Speci men Type: BLOOD SPECIMEN Ordering Facility: [facility] Address: [address] [place] [address] Performed By: #### 5 7021-8 #### [facility] CLIA [id number] [address] [place] [address] [place] Platelet mean volume (Bld) [Entitic vol] 10.8 fL Normal 9.0-12.7 [facility] Comment on above: Order Comment: Speci men Type: BLOOD SPECIMEN Ordering Facility: [facility] Address: [address] [place] [address] Performed By: #### 5 7021-8 #### [facility] CLIA [id number] [address] [place] [address] [place] Platelets (Bld) [#/Vol] 418 10*3/uL High 150-400 [facility] Comment on above: Order Comment: Speci men Type: BLOOD SPECIMEN Ordering Facility: [facility] Address: [address] [place] [address] Performed By: #### 5 7021-8 #### [facility] CLIA [id number] [address] [place] [address] [place] RBC (Bld) [#/Vol] 5.03 10*6/uL Normal 4.20-6.00 [facility] Comment on above: Order Comment: Speci men Type: BLOOD SPECIMEN Ordering Facility: [facility] Address: [address] [place] [address] Performed By: #### 5 7021-8 #### [facility] CLIA [id number] [address] [place] [address] [place] WBC (Bld) [#/Vol] 9.87 10*3/uL Normal 3.70-11.00 [facility] Comment on above: Order Comment: Speci men Type: BLOOD SPECIMEN Ordering Facility: [facility] Address: [address] [place], [place] [address] [address] Performed By: #### 5 7021-8 #### [facility] CLIA [id number] [address] [place] [address] [place] CNOVon 05-28-2024 CNOV Office Visit (CARCMN ) JIAN MOSCOSO ([id number]) 1980 M [place] Date Time Provider Department 05/28/24 1:15 PM RAVINDER SOLOMON During your visit today, we recorded the following information about you: Pulse Blood pressure Weight Height 112/minute 148/97 47.6 kg 1.499 m Ravinder Solomon MD 05/29/2024 3:56 PM [facility] [place] ADULT CONGENITAL HEART DISEASE [facility] OUTPATIENT VISIT DATE May 28, 2024 OUTPATIENT VISIT TYPE NEW PRIMARY CARE PHYSICIAN: Crispin Mendez (Stephanie) [address] [place] [address] REFERRING PHYSICIAN: Crispin Mccoy) [address] [facility] [address] Tobar for cardiology CHIEF COMPLAINT: Bicuspid AV (LCC/NCC), subaortic membrane, supravalvular stenosis CONGENITAL CARDIAC HISTORY: Shone complex: subaortic membrane, bicuspid aortic valve, and ?cleft mitral valve 1993 - subaortic membrane resection (Dr. Herring, [facility]) 09/05/1999 - excision of supravalvar aortic scar, transaortic membrane resection and removal of deep muscle wedge (Drs. Herring AND Anoop, [facility]) Developmental delay, non-verbal INTERVAL HISTORY: Mr. Moscoso is a 43 year old male from [facility] here today for cardiovascular evaluation related to congenital stenosis of aortic valve. Jian has a significant medical history of developmental delay (nonverbal), cerebral palsy, GERD, hiatal hernia, scoliosis, vitiligo. He was last saw [facility] cardiology (Dr Toribio Ortega) in [...] Laterality Date ANES HRT PERICRD SACANDGRT VSLS W/AGRICULTURAL EQUIPMENT TEST ENGINEER OXTJ >1MO PO UNLISTED STOMACH SURGERY [...] and Echocardio (more content not included)... Normal [facility] Comprehensive metabolic 2000 panelon 05-28-2024 Albumin [Mass/Vol] 4.5 g/dL Normal 3.9-4.9 [facility] Comment on above: Order Comment: Speci men Type: BLOOD SPECIMEN Ordering Facility: [facility] Address: [address] [place] [address] Performed By: #### 3 3762-6, 73067-2, 29660-5 #### [facility] CLIA [id number] [address] [place] [address] [place] [address] [place] ALP [Catalytic activity/Vol] 158 U/L High 38-113 [facility] Comment on above: Order Comment: Speci men Type: BLOOD SPECIMEN Ordering Facility: [facility] Address: [address] [place] [address] Performed By: #### 3 3762-6, 35430-9, 61623-3 #### [facility] CLIA [id number] [address] [place] [address] [place] ALT [Catalytic activity/Vol] 22 U/L Normal 10-54 [facility] Comment on above: Order Comment: Speci men Type: BLOOD SPECIMEN Ordering Facility: [facility] Address: [address] [place] [address] Performed By: #### 3 3762-6, 90953-8, 67349-2 #### [facility] CLIA [id number] [address] [place] [address] [place] Anion gap [Moles/Vol] 16 mmol/L High 8-15 [facility] Comment on above: Order Comment: Speci men Type: BLOOD SPECIMEN Ordering Facility: [facility] Address: [address] [place] [address] Performed By: #### 3 3762-6, 49067-5, 92917-3 #### [facility] CLIA [id number] [address] [place] [address] [place] AST [Catalytic activity/Vol] 24 U/L Normal 14-40 [facility] Comment on above: Order Comment: Speci men Type: BLOOD SPECIMEN Ordering Facility: [facility] Address: [address] [place] [address] Performed By: #### 3 3762-6, 84865-1, 54146-1 #### [facility] CLIA [id number] [address] [place] [address] [place] Bilirubin [Mass/Vol] 0.3 mg/dL Normal 0.2-1.[address] [facility] Comment on above: Order Comment: Speci men Type: BLOOD SPECIMEN Ordering Facility: [facility] Address: [address] [place], [place] [address] Performed By: #### 3 3762-6, 99453-0, 22395-5 #### [facility] CLIA [id number] [address] [place], [place] [address] [place] Calcium [Mass/Vol] 9.8 mg/dL Normal 8.5-10.2 [facility] Comment on above: Order Comment: Speci men Type: BLOOD SPECIMEN Ordering Facility: [facility] Address: [address] [place] [address] Performed By: #### 3 3762-6, 39733-8, 92229-4 #### [facility] CLIA [id number] [address] [place] [address] [place] Chloride [Moles/Vol] 100 mmol/L Normal 98-[address] [facility] Comment on above: Order Comment: Speci men Type: BLOOD SPECIMEN Ordering Facility: [facility] Address: [address] [place] [address] Performed By: #### 3 3762-6, 69220-3, 77538-2 #### [facility] CLIA [id number] [address] [place] [address] [place] CO2 [Moles/Vol] 22 mmol/L Normal 22-30 [facility] Comment on above: Order Comment: Speci men Type: BLOOD SPECIMEN Ordering Facility: [facility] Address: [address] [place] [address] Performed By: #### 3 3762-6, 69332-4, 45385-4 #### [facility] CLIA [id number] [address] [place] [address] [place] Creatinine [Mass/Vol] 0.48 mg/dL Low 0.73-1.22 [facility] Comment on above: Order Comment: Speci men Type: BLOOD SPECIMEN Ordering Facility: [facility] Address: [address] [place], [place] [address] Performed By: #### 3 3762-6, 94979-0, 04520-5 #### [facility] CLIA [id number] [address] [place] [address] [place] Creatinine and Glomerular filtration rate.predicted panel (S/P/Bld) 132 mL/min/1.73m??? Normal >=60 [facility] Comment on above: Order Comment: Ammy prasad Type: BLOOD SPECIMEN Ordering Facility: [facility] Address: [address] [place] [address] Result Comment: Zari mated Glomerular Filtration Rate [...] actual GFR. Performed By: #### 3 3762-6, 36859-8, 54303-6 #### [facility] CLIA [id number] [address] [place] [address] [place] Glucose [Mass/Vol] 104 mg/dL High 74-99 [facility] Comment on above: Order Comment: Ammy prasad Type: BLOOD SPECIMEN Ordering Facility: [facility] Address: [address] [place] [address] Result Comment: The [place] Diabetes Association (ADA) provides guidance for cutoff [...] Standards of Medical Care in Diabetes 2016, [place] [employer]. Diabetes Care. 2016.39(Suppl 1). Performed By: #### 3 3762-6, 77980-7, 43981-9 #### [facility] CLIA [id number] [address] [place] [address] [place] Potassium [Moles/Vol] 4.0 mmol/L Normal 3.7-5.1 [facility] Comment on above: Order Comment: Speci men Type: BLOOD SPECIMEN Ordering Facility: [facility] Address: [address] [place] [address] Performed By: #### 3 3762-6, 11598-7, 01276-1 #### [facility] CLIA [id number] [address] [place] [address] [place] Protein [Mass/Vol] 7.9 g/dL Normal 6.3-8.0 [facility] Comment on above: Order Comment: Speci men Type: BLOOD SPECIMEN Ordering Facility: [facility] Address: [address] [place] [address] Performed By: #### 3 3762-6, 42527-0, 76106-8 #### [facility] CLIA [id number] [address] [place] [address] [place] Sodium [Moles/Vol] 138 mmol/L Normal 136-144 [facility] Comment on above: Order Comment: Speci men Type: BLOOD SPECIMEN Ordering Facility: [facility] Address: [address] [place] [address] Performed By: #### 3 3762-6, 94724-2, 79821-7 #### [facility] CLIA [id number] [address] [place], [place] [address] [place] Urea nitrogen [Mass/Vol] 15 mg/dL Normal 9-24 [facility] Comment on above: Order Comment: Speci men Type: BLOOD SPECIMEN Ordering Facility: [facility] Address: [address] [place] [address] Performed By: #### 3 3762-6, 93234-1, 52143-4 #### [facility] CLIA [id number] [address] [place] [address] [place] ECG COMPLETEon 05-28-2024 ECG COMPLETE Ventricular Rate : 1 04 BPM Atrial Rate : 104 BPM P-R Interval : 128 ms QRS Duration : 86 ms Q-T Interval : 362 ms QTC Calculation(Bazett) : 476 ms Calculated P [place] : 28 degrees Calculated R [place] : -31 degrees Calculated T [place] : 96 degrees SINUS TACHYCARDIA WITH FREQUENT PREMATURE VENTRICULAR COMPLEXES LEFT AXIS DEVIATION LEFT VENTRICULAR HYPERTROPHY WITH REPOLARIZATION ABNORMALITY ABNORMAL ECG Confirmed by MD JACKSON, PhD, IRA ([id number]) on 06/13/2024 9:08:03 AM NAME : JIAN MOSCOSO PID : [id number] : 1980 Gender : Male Race : ORD : [id number] Procedure Date : May 28 2024 09:30:50 [...] RAVINDER SOLOMON Acquired by : BHAVESH MARCELINO [facility] ECHO SPECIALIST COMPLEX ADUL T CONGENITALon 05-28-2024 ECHO SPECIALIST COMPLEX ADULT CONGENITAL Echocardiography Report: [facility] NAMRATA-2 Date of service: 05/28/2024 11:49:45 AM TECHNICIAN Ordering physician: RAVINDER SOLOMON Indication: Subaortic memebrance [...] and removal of deep muscle wedge (09/05/1999, [facility]). - The left ventricle is normal in [...] evidence of (more content not included)... Normal [facility] Lipid 1996 panelon 5 Cholesterol [Mass/Vol] 234 mg/dL High <200 [facility] Comment on above: Order Comment: [place] men Type: BLOOD SPECIMEN Ordering Facility: [facility] Address: [address] [place] [address] Result Comment: <200 mg/dL, Desirable 200-239 mg/dL, Borderline high >239 mg/dL, High Performed By: #### 3 3762-6, 60025-7, 17221-8 #### [facility] CLIA [id number] [address] [place] [address] [place] Cholesterol in HDL [Mass/Vol] 71 mg/dL Normal >39 [facility] Comment on above: Order Comment: Ammy prasad Type: BLOOD SPECIMEN Ordering Facility: [facility] Address: [address] [place] [address] Result Comment: 40-5 9 mg/dL, Acceptable >59 mg/dL, High: Negative risk factor for coronary heart disease <40 mg/dL, Low: Positive risk factor for coronary heart disease Performed By: #### 3 3762-6, 54115-6, 98733-5 #### [facility] CLIA [id number] [address] [place] [address] [place] Cholesterol in LDL [Mass/Vol] 145 mg/dL High <100 [facility] Comment on above: Order Comment: Ammy prasad Type: BLOOD SPECIMEN Ordering Facility: [facility] Address: [address] [place] [address] Result Comment: <100 mg/dL, Optimal 100-129 mg/dL, Near optimal/above optimal 130-159 mg/dL, Borderline high 160-189 mg/dL, High >189 mg/dL, Very high Secondary prevention optimal LDL Cholesterol levels are recommended to be < 70 mg/dL Performed By: #### 3 3762-6, 98830-8, 46152-6 #### [facility] CLIA [id number] [address] [place] [address] [place] Cholesterol in LDL/Cholesterol in HDL [Mass ratio] 2.04 {ratio} Normal <2.54 [facility] Comment on above: Order Comment: Ammy osmar Type: BLOOD SPECIMEN Ordering Facility: [facility] Address: [address] [place] [address] Result Comment: Esme lara: 1. National Cholesterol Education Program ATP III Guideline At-A-Glance Quick Desk Reference: National Heart, Lung, and Blood [place]. National Institutes of Health. 2001: NIH Publication No. 01-3305. 2. An International Atherosclerosis Society position paper: global recommendations for the management of dyslipidemia: executive summary, Atherosclerosis. 2014: 232(2):410-413. Performed By: #### 3 3762-6, 59812-8, 26389-7 #### [facility] CLIA [id number] [address] [place] [address] [place] Cholesterol in VLDL [Mass/Vol] 18 mg/dL Normal <30 [facility] Comment on above: Order Comment: Ammy osmar Type: BLOOD SPECIMEN Ordering Facility: [facility] Address: [address] [place] [address] Performed By: #### 3 3762-6, 56835-6, 67676-1 #### [facility] CLIA [id number] [address] [place] [address] [place] Cholesterol non HDL [Mass/Vol] 163 mg/dL High <130 [facility] Comment on above: Order Comment: Ammy osmar Type: BLOOD SPECIMEN Ordering Facility: [facility] Address: [address] [place] [address] Result Comment: <130 mg/dL, Optimal 130-159 mg/dL, Near optimal/above optimal 160-189 mg/dL, Borderline high 190-219 mg/dL, High >219 mg/dL, Very high Secondary prevention optimal non HDL Cholesterol levels are recommended to be <100 mg/dL Performed By: #### 3 3762-6, 36100-5, 15121-1 #### [facility] CLIA [id number] [address] [place] [address] [place] Cholesterol.total/Ch olesterol in HDL [Mass ratio] 3.30 {ratio} Normal <5.10 [facility] Comment on above: Order Comment: Speci men Type: BLOOD SPECIMEN Ordering Facility: [facility] Address: [address] [place] [address] Performed By: #### 3 3762-6, 80124-4, 63309-7 #### [facility] CLIA [id number] [address] [place] [address] [place] FASTING TIME [address] [facility] Comment on above: Order Comment: Speci men Type: BLOOD SPECIMEN Ordering Facility: [facility] Address: [address] [place] [address] Performed By: #### 3 3762-6, 60317-1, 04895-5 #### [facility] CLIA [id number] [address] [place] [address] [place] Triglyceride [Mass/Vol] 91 mg/dL Normal <150 [facility] Comment on above: Order Comment: Speci men Type: BLOOD SPECIMEN Ordering Facility: [facility] Address: [address] [place] [address] Result Comment: <150 mg/dL, Normal 150-199 mg/dL, Borderline high 200-499 mg/dL, High >499 mg/dL, Very high Performed By: #### 3 3762-6, 39313-0, 81934-8 #### [facility] CLIA [id number] [address] [place] [address] [place] NT-proBNP [facility] 05-28 Natriuretic peptide.B prohormone N-Terminal [Mass/Vol] 245 pg/mL High <125 [facility] Comment on above: Order Comment: Speci men Type: BLOOD SPECIMEN Ordering Facility: [facility] Address: [address] [place] [address] Performed By: #### 3 3762-6, 16033-1, 98591-1 #### [facility] CLIA [id number] 95[address] [facility] [address] [address] [place] [facility] XR CHEST 2V FRONTAL/LATon XR CHEST [...] colonic distention. IMPRESSION: No acute radiographic abnormality. Auto Leasing Manager: [facility] Transcribe Date/Time: May 28 2024 10:25A Dictated by : DON WATERMAN MD This examination was interpreted and the report reviewed and electronically signed by: BARBARA SALINAS MD on May 28 2024 11:17AM EST [id number] Normal [facility] XR Chest PA and Lateralon IMPRESSION: No acute radiographic abnormality. Auto Leasing Manager: [facility] Transcribe Date/Time: May 28 2024 10:25A [...] distention. DIVISION OF RADIOLOGY Provider, [facility] - 05/28/2024 * * *Final Report* * [...] distention. IMPRESSION IMPRESSION: No acute radiographic abnormality. Auto Leasing Manager: [employer] Transcribe Date/Time: May 28 2024 10:25A Dictated by : DON WATERMAN MD This examination was interpreted and the report reviewed and electronically signed by: BARBARA SALINAS MD on May 28 2024 11:17AM EST [facility] Radiology Study observation (narrative) [facility] XR Chest PA and LateralOrder ed By: [facility] Provider on 05-28-2024 [facility] Juan 04-01-2024 CNPN Telephone (CARCMN) JIAN MOSCOSO ([id number]) 1980 M [place] Date Time Provider Department 04/01/24 [facility] PROVIDER CARCMN During your visit today, we recorded the following information about you: Beata Ho 04/01/2024 3:51 PM Signed Received outside echo report has been uploaded in [facility] Beata Ho April 01, 2024 3:51 PM Allergies As of Date: 04/01/2024 Noted Allergy Reaction BLUEBERRY 01/21/2013 16 - Unknown GLUTEN FLOUR 01/21/2013 16 - Unknown LACTOSE 12/07/2003 Date Reviewed: 09/29/2018 Reviewed by: Sabrina Storm ([facility])CHRIST - Fully Assessed Reason for Visit: Received [...] Status:Closed by BEATA HO on 04/01/[address] [facility] FPG ECG *CARDIOLOGY ONLY*on 03-04-2024 FPG ECG *CARDIOLOGY ONLY* [facility] Main [place] [address] [place], [place] [id number] Electrocardiograph Report Signed Patient: Jian Moscoso MR#: [id number] : 1980 Acct:[id number] Age/Sex: 43 / M ADM Date: 03/04/24 [...] : 462 ms Sinus rhythm with short AL Left ventricular hypertrophy with repolarization abnormality ( R in aVL , Moises product , Romhilt- Rodriguez ) Prolonged QT Abnormal ECG No previous ECGs available Confirmed by Justyn Tobar ([id number]) on 03/04/2024 11:45:37 PM Referred By: Electronically Signed By: Justyn Tobar Transcribed By: MUS Signed By Justyn Tobar MD 03/04/24 0918 Normal [facility] CNCOon 01-14-[address] [facility] CNPNon 01-14-2024 CNPN Telephone (CACOMN) JIAN MOSCOSO ([id number]) 1980 Date Time Provider Department 01/14/24 RAVINDER [...] Status:Closed by ANTWAN SABA on 01/14/24 Normal [facility] Telephone (REFPHY) JIAN MOSCOSO ([id number]) 1980 Date Time Provider Department 01/14/24 NO ONE (HISTORICAL) REFPHY During your visit today, we recorded the following information about you: Estefany Garcia 01/14/2024 2:03 PM Signed Patient: Jian Moscoso Date of : 1980 Patient phone number: [phone] Referring Provider for the encounter: JAIME Requesting Provider: CRISPIN MENDEZ Reason for requesting visit (RFV/signs and symptoms/diagnosis): Congenital clinic-Congenital stenosis of aortic valve, congential insufficiency of aortic valve Person calling: self Return call to: self Medical Records/Insurance Card scanned into fabrooms: Yes Comments: Via [facility] fax Allergies As of Date: 01/14/2024 Noted Allergy Reaction BLUEBERRY 01/21/2013 16 - Unknown GLUTEN FLOUR 01/21/2013 16 - Unknown LACTOSE 12/07/2003 Date Reviewed: 09/29/2018 Reviewed by: Sabrina Storm ([facility])CHRIST - Fully Assessed Reason for Visit: External [...] Status:Closed by ESTEFANY GARCIA on 01/14/[address] [facility] Basophils Auto (Bld) [#/Vol] on 12-23-2023 Basophils (Bld) [#/Vol] 0.1 10 3/uL 0.0-0.1 [facility] Basophils (Bld) [#/Vol] Automated basophil count 0.0-0.1 [facility] Basophils/100 WBC Auto (Bld) on 12-23-2023 Basophils/100 WBC (Bld) 0.8 % 0.2-2.0 [facility] Basophils/100 WBC (Bld) Automated basophil % 0.2-2.0 [facility] Eosinophils/100 WBC Auto (Bl d)on 12-23-2023 Eosinophils/100 WBC (Bld) 5.9 % 0.9-7.0 [facility] Eosinophils/100 WBC (Bld) Automated eosinophil % 0.9-7.0 [facility] Erythrocyte distribution wid th Auto (RBC) [Ratio]on 12-23-2023 Erythrocyte distribution width (RBC) [Ratio] 12.8 % 11.0-15.0 [facility] Erythrocyte distribution width (RBC) [Ratio] Erythrocyte distribution width [Ratio] by Automated count 11.0-15.0 [facility] Estimated glomerular filtrat ion rate (GFR) non- Americanon 12-23-2023 GFR/1.73 sq M.predicted among non-blacks MDRD (S/P/Bld) [Vol rate/Area] mL/min/{1.73_m2} >=60 [facility] GFR/1.73 sq M.predicted among non-blacks MDRD (S/P/Bld) [Vol rate/Area] Estimated glomerular filtration rate (GFR) non- >=60 [facility] Globulin Calc (S) [Mass/Vol] on 12-23-2023 Globulin (S) [Mass/Vol] 3.9 g/dL [facility] Globulin (S) [Mass/Vol] Serum globulin measurement by calculation (mass/volume) [facility] Hematocrit Auto (Bld) [Volum e fraction]on 12-23-2023 Hematocrit (Bld) [Volume fraction] 41.9 % Low 42.0-54.0 [facility] Hematocrit (Bld) [Volume fraction] Hematocrit [Volume Fraction] of Blood by Automated count Low 42.0-54.0 [facility] Hemoglobin [Mass/volume] in Bloodon 12-23-2023 Hemoglobin (Bld) [Mass/Vol] 14.0 g/dL 14.0-18.0 [facility] Hemoglobin (Bld) [Mass/Vol] Hemoglobin [Mass/volume] in Blood 14.0-18.0 [facility] Laboratory - Chemistry and C hemistry - challengeon 12-23-2023 Albumin [Mass/Vol] 3.8 g/dL 3.4-5.0 [facility] ALP [Catalytic activity/Vol] 156 U/L High 46-116 [facility] ALT [Catalytic activity/Vol] 25 U/L 16-63 [facility] AST [Catalytic activity/Vol] 14 U/L Low 15-37 [facility] Bilirubin [Mass/Vol] 0.3 mg/dL 0.2-1.0 [facility] Calcium [Mass/Vol] 8.9 mg/dL 8.5-10.1 [facility] Chloride [Moles/Vol] 100 mmol/L 98-107 [facility] CO2 [Moles/Vol] 29.1 mmol/L 21.0-32.0 [facility] Creatinine [Mass/Vol] 0.51 mg/dL Low 0.70-1.30 [facility] GFR/1.73 sq M.predicted MDRD (S/P/Bld) [Vol rate/Area] mL/min/{1.73_m2} >=60 [facility] Glucose [Mass/Vol] 80 mg/dL 74-106 [facility] Potassium [Moles/Vol] 4.1 mmol/L 3.5-5.1 [facility] Protein [Mass/Vol] 7.7 g/dL 6.4-8.2 [facility] Sodium [Moles/Vol] 138 mmol/L 136-145 [facility] Urea nitrogen [Mass/Vol] 16.0 mg/dL 7.0-18.0 [facility] Urea nitrogen/Creatinine [Mass ratio] 31.4 mg/mg [facility] Laboratory - Hematology and Cell countson 12-23-2023 Immature granulocytes/100 WBC (Bld) 0.3 % 0.0-0.5 [facility] Leukocytes [#/volume] correc yolie for nucleated erythrocytes in Blood by Automated counon 12-23-2023 WBC corrected for nucl RBC Auto (Bld) [#/Vol] 10.7 10 3/uL 4.0-11.0 [facility] WBC corrected for nucl RBC Auto (Bld) [#/Vol] Leukocytes [#/volume] corrected for nucleated erythrocytes in Blood by Automated coun .0-11.0 [facility] Lymphocytes Auto (Bld) [#/Vo l]on 12-23-2023 Lymphocytes (Bld) [#/Vol] 2.3 10 3/uL 1.2-3.8 [facility] Lymphocytes (Bld) [#/Vol] Lymphocytes [#/volume] in Blood by Automated count 1.2-3.8 [facility] Lymphocytes/100 WBC Auto (Bl d)on 12-23-2023 Lymphocytes/100 WBC (Bld) 21.9 % 20.5-60.0 [facility] Lymphocytes/100 WBC (Bld) Lymphocytes/100 leukocytes in Blood by Automated count 20.5-60.0 [facility] MCH Auto (RBC) [Entitic mass ]on 12-23-2023 MCH (RBC) [Entitic mass] 27.6 pg 25.9-34.0 [facility] MCH (RBC) [Entitic mass] MCH [Entitic mass] by Automated count 25.9-34.0 [facility] MCHC Auto (RBC) [Mass/Vol]on 12-23-2023 MCHC (RBC) [Mass/Vol] 33.4 g/dL 29.9-35.2 [facility] MCHC (RBC) [Mass/Vol] MCHC [Mass/volume] by Automated count 29.9-35.2 [facility] MCV Auto (RBC) [Entitic vol] on 12-23-2023 MCV (RBC) [Entitic vol] 82.5 fL 80.0-94.0 [facility] MCV (RBC) [Entitic vol] MCV [Entitic volume] by Automated count 80.0-94.0 [facility] Monocytes Auto (Bld) [#/Vol] on 12-23-2023 Monocytes (Bld) [#/Vol] 0.8 10 3/uL 0.3-0.8 [facility] Monocytes (Bld) [#/Vol] Automated blood monocyte count 0.3-0.8 [facility] Monocytes/100 WBC Auto (Bld) on 12-23-2023 Monocytes/100 WBC (Bld) 7.6 % 1.7-12.0 [facility] Monocytes/100 WBC (Bld) Automated monocyte % 1.7-12.0 [facility] Neutrophils Auto (Bld) [#/Vo l]on 12-23-2023 Neutrophils (Bld) [#/Vol] 6.8 10 3/uL High 1.4-6.5 [facility] Neutrophils (Bld) [#/Vol] Neutrophils [#/volume] in Blood by Automated count High 1.4-6.5 [facility] Neutrophils/100 WBC Auto (Bl d)on 12-23-2023 Neutrophils/100 WBC (Bld) 63.5 % 43.0-75.0 [facility] Neutrophils/100 WBC (Bld) Automated neutrophil % 43.0-75.0 [facility] No Panel Informationon 12-22 Eosinophils # (Auto) 0.6 10 3/uL 0.0-0.7 [facility] Immature Granulocyte # (Auto) 0.03 10 3/uL 0.00-0.03 [facility] Platelet mean volume Auto (B ld) [Entitic vol]on 12-23-2023 Platelet mean volume (Bld) [Entitic vol] 10.4 fL 9.5-13.5 [facility] Platelet mean volume (Bld) [Entitic vol] Platelet mean volume [Entitic volume] in Blood by Automated count 9.5-13.5 [facility] Platelets Auto (Bld) [#/Vol] on 12-23-2023 Platelets (Bld) [#/Vol] 389 10 3/uL 150-450 [facility] Platelets (Bld) [#/Vol] Platelets [#/volume] in Blood by Automated count 150-450 [facility] RBC Auto (Bld) [#/Vol]on RBC (Bld) [#/Vol] 5.08 10 6/uL 4.70-6.10 [facility] RBC (Bld) [#/Vol] Erythrocytes [#/volume] in Blood by Automated count 4.70-6.10 [facility] Serum or plasma albumin/glob ulin mass ratioon 12-23-2023 Albumin/Globulin [Mass ratio] 1.0 {ratio} [facility] Albumin/Globulin [Mass ratio] Serum or plasma albumin/globulin mass ratio [facility] Serum or plasma anion gap de terminationon 12-23-2023 Anion gap [Moles/Vol] 13.0 mmol/L [facility] Anion gap [Moles/Vol] Serum or plasma anion gap determination [facility] CBC AUTO DIFFon 12-15-2021 BASO # 0.1 103/ul Normal 0.0-0.1 [facility] Comment on above: Performed By: #### C BC #### [facility] [address] [address] [address] Merna Borja Basophils/100 WBC (Bld) 0.8 % Normal 0.2-2.0 [facility] Comment on above: Performed By: #### C BC #### [facility] [address] [place] [address] Dr. Merna Borja EO # 0.5 103/ul Normal 0.0-0.7 [facility] Comment on above: Performed By: #### C BC #### [facility] [address] [address] [address] Merna Borja Eosinophils/100 WBC (Bld) 5.9 % Normal 0.9-7.0 [facility] Comment on above: Performed By: #### C BC #### [facility] [address] [place] [address] Dr. Merna Borja Erythrocyte distribution width (RBC) [Ratio] 13.2 % Normal 11.0-15.0 [facility] Comment on above: Performed By: #### C BC #### [facility] [address] [place] [address] Dr. Merna Borja Hematocrit (Bld) [Volume fraction] 41.7 % Critically low 42.0-54.0 [facility] Comment on above: Performed By: #### C BC #### [facility] [address] [place] [address] Dr. Merna Borja Hemoglobin (Bld) [Mass/Vol] 13.7 g/dL Critically low 14.0-18.0 [facility] Comment on above: Performed By: #### C BC #### [facility] [address] [place] [address] Dr. eMrna Borja IG # 0.02 10e3/ul Normal 0.00-0.03 [facility] Comment on above: Performed By: #### C BC #### [facility] [address] [place] [address] Dr. Merna Borja IG % 0.2 % Normal 0.0-0.5 [facility] Comment on above: Performed By: #### C BC #### [facility] [address] [place] [address] Dr. Merna Borja LYMPH # 1.7 103/ul Normal 1.2-3.8 [facility] Comment on above: Performed By: #### C BC #### [facility] [address] [place] [address] Dr. Merna Borja Lymphocytes/100 WBC (Bld) 19.0 % Critically low 20.5-60.0 [facility] Comment on above: Performed By: #### C BC #### [facility] [address] [place] [address] Dr. Merna Borja MANUAL DIFF REQ NO Normal [facility] Comment on above: Performed By: #### C BC #### [facility] [address] [place] [address] Dr. Merna Borja MCH (RBC) [Entitic mass] 27.2 pg Normal 25.9-34.0 [facility] Comment on above: Performed By: #### C BC #### [facility] [address] [place] [address] Dr. Merna Borja MCHC (RBC) [Mass/Vol] 32.9 g/dL Normal 29.9-35.2 [facility] Comment on above: Performed By: #### C BC #### [facility] [address] [place] [address] Dr. Merna Borja MCV (RBC) [Entitic vol] 82.9 fL Normal 80.0-94.0 [facility] Comment on above: Performed By: #### C BC #### [facility] [address] [place] [address] Dr. Merna Borja MONO # 0.6 103/ul Normal 0.3-0.8 [facility] Comment on above: Performed By: #### C BC #### [facility] [address] [place] [address] Dr. Merna Borja Monocytes/100 WBC (Bld) 6.6 % Normal 1.7-12.0 [facility] Comment on above: Performed By: #### C BC #### [facility] [address] [place] [address] Dr. Merna Borja NEUT # 5.9 103/ul Normal 1.4-6.5 [facility] Comment on above: Performed By: #### C BC #### [facility] [address] [place] [address] Dr. Merna Borja Neutrophils/100 WBC (Bld) 67.5 % Normal 43.0-75.0 [facility] Comment on above: Performed By: #### C BC #### [facility] [address] [place] [address] Dr. Merna Borja Platelet mean volume (Bld) [Entitic vol] 10.2 fL Normal 9.5-13.5 [facility] Comment on above: Performed By: #### C BC #### [facility] [address] [place] [address] Dr. Merna Borja PLT 370 103/ul Normal 150-450 [facility] Comment on above: Performed By: #### C BC #### [facility] [address] [place] [address] Dr. Merna Borja RBC 5.03 106/ul Normal 4.70-6.10 [facility] Comment on above: Performed By: #### C BC #### [facility] [address] [place] [address] Dr. Merna Borja WBC 8.8 103/ul Normal 4.0-11.0 [facility] Comment on above: Performed By: #### C BC #### [facility] [address] [place] [address] Dr. Merna Borja FERRITINon 12-15-2021 Ferritin [Mass/Vol] 76.0 ng/mL Normal 26.0-388.0 [facility] Comment on above: Performed By: #### V ITB12, FERR #### [facility] [address] [address] [address] Merna Borja LIPID PROFILEon 12-15-2021 CHOL-HDL RATIO NORM SEE BELOW Normal [facility] Comment on above: Result Comment: 3.3 - 4.4 LOW RISK 4.4 - 7.1 AVERAGE RISK 7.1 - 11.0 MODERATE RISK >11.0 HIGH RISK Performed By: #### L IPID, CMP #### [facility] [address] [address] [address] Merna Borja Cholesterol [Mass/Vol] 218 mg/dL Critically high <=200 [facility] Comment on above: Performed By: #### L IPID, CMP #### [facility] [address] [address] [address] Merna Borja Cholesterol in HDL [Mass/Vol] 69 mg/dL Critically high 40-60 [facility] Comment on above: Performed By: #### L IPID, CMP #### [facility] [address] [address] [address] Merna Borja Cholesterol in LDL [Mass/Vol] 129.4 mg/dL Normal [facility] Comment on above: Performed By: #### L IPID, CMP #### [facility] [address] [address] [address] Merna Borja Cholesterol.total/Ch olesterol in HDL [Mass ratio] 3.2 {ratio} Normal [facility] Comment on above: Performed By: #### L IPID, CMP #### [facility] [address] [address] [address] Merna Borja HDL NORMAL > or = 60 mg/dl - LO W CARDIOVASCULAR RISK <40 mg/dl - HIGH CARDIOVASCULAR RISK Normal [facility] Comment on above: Performed By: #### L IPID, CMP #### [facility] [address] [address] [address] Merna Borja LDL CALC NORMAL SEE BELOW Normal [facility] Comment on above: Result Comment: <100 mg/dl OPTIMAL 100 - 129 mg/dl NEAR OR ABOVE OPTIMAL 130 - 159 mg/dl BORDERLINE HIGH 160 - 189 mg/dl HIGH >190 mg/dl VERY HIGH Performed By: #### L IPID, CMP #### [facility] [address] [place] [address] Dr. Merna Borja Triglyceride [Mass/Vol] 98 mg/dL Normal <=150 [facility] Comment on above: Performed By: #### L IPID, CMP #### [facility] [address] [place] [address] Dr. Merna Borja VLDL CALC 19.6 mg/dL Normal [facility] Comment on above: Performed By: #### L IPID, CMP #### [facility] [address] [place] [address] Dr. Merna Borja PROF 14(COMP METB)on 022 Albumin [Mass/Vol] 3.8 g/dL Normal 3.4-5.0 [facility] Comment on above: Performed By: #### L IPID, CMP #### [facility] [address] [place] [address] Dr. Merna Borja Albumin/Globulin [Mass ratio] 0.9 {ratio} Normal [facility] Comment on above: Performed By: #### L IPID, CMP #### [facility] [address] [place] [address] Dr. Merna Borja ALP [Catalytic activity/Vol] 155 U/L Critically high 46-116 [facility] Comment on above: Performed By: #### L IPID, CMP #### [facility] [address] [place] [address] Dr. Merna Borja ALT [Catalytic activity/Vol] 27 U/L Normal 16-63 [facility] Comment on above: Performed By: #### L IPID, CMP #### [facility] [address] [place] [address] Dr. Merna Borja Anion gap [Moles/Vol] 13.9 mmol/L Normal [facility] Comment on above: Performed By: #### L IPID, CMP #### [facility] [address] [place] [address] Dr. Merna Borja AST [Catalytic activity/Vol] 13 U/L Critically low 15-37 [facility] Comment on above: Performed By: #### L IPID, CMP #### [facility] [address] [address] [address] Merna Borja Bilirubin [Mass/Vol] 0.4 mg/dL Normal 0.2-1.0 [facility] Comment on above: Performed By: #### L IPID, CMP #### [facility] [address] [place] [address] Dr. Merna Borja Calcium [Mass/Vol] 8.9 mg/dL Normal 8.5-10.1 [facility] Comment on above: Performed By: #### L IPID, CMP #### [facility] [address] [place] [address] Dr. Merna Borja Chloride [Moles/Vol] 100 mmol/L Normal 98-107 [facility] Comment on above: Performed By: #### L IPID, CMP #### [facility] [address] [place] [address] Dr. Merna Borja CO2 [Moles/Vol] 27.9 mmol/L Normal 21.0-32.0 [facility] Comment on above: Performed By: #### L IPID, CMP #### [facility] [address] [place] [address] Dr. Merna Borja Creatinine [Mass/Vol] 0.56 mg/dL Critically low 0.70-1.30 [facility] Comment on above: Performed By: #### L IPID, CMP #### [facility] [address] [place] [address] Dr. Merna Borja EGFR-AF CHILEAN >60 Normal >=60 [facility] Comment on above: Performed By: #### L IPID, CMP #### [facility] [address] [place] [address] Dr. Merna Borja EGFR-NON AF CHILEAN >60 Normal >=60 [facility] Comment on above: Performed By: #### L IPID, CMP #### [facility] [address] [place] [address] Dr. Merna Borja Globulin (S) [Mass/Vol] 4.0 g/dL Normal [facility] Comment on above: Performed By: #### L IPID, CMP #### [facility] [address] [place] [address] Dr. Merna Borja Glucose [Mass/Vol] 107 mg/dL Critically high 74-106 [facility] Comment on above: Performed By: #### L IPID, CMP #### [facility] [address] [place] [address] Dr. Merna Borja Potassium [Moles/Vol] 3.8 mmol/L Normal 3.5-5.1 [facility] Comment on above: Performed By: #### L IPID, CMP #### [facility] [address] [place] [address] Dr. Merna Borja Protein [Mass/Vol] 7.8 g/dL Normal 6.4-8.2 [facility] Comment on above: Performed By: #### L IPID, CMP #### [facility] [address] [place] [address] Dr. Merna Borja Sodium [Moles/Vol] 138 mmol/L Normal 136-145 [facility] Comment on above: Performed By: #### L IPID, CMP #### [facility] [address] [place] [address] Dr. Merna Borja Urea nitrogen [Mass/Vol] 15.0 mg/dL Normal 7.0-18.0 [facility] Comment on above: Performed By: #### L IPID, CMP #### [facility] [address] [place] [address] Dr. Merna Borja Urea nitrogen/Creatinine [Mass ratio] 26.8 mg/mg Normal [facility] Comment on above: Performed By: #### L IPID, CMP #### [facility] [address] [place] [address] Dr. Merna Borja VITAMIN B12on 12-15-2021 Cobalamin (Vitamin B12) [Mass/Vol] 580.0 pg/mL Normal 193.0-986.0 [facility] Comment on above: Performed By: #### V ITB12, FERR #### [facility] [address] [address] [address] Merna Borja Vital Signs Date Time Vital Sign Value Performing Clinician Facility 05-28-2024 13:46-0500 Body height 149.9 cm Ravinder Solomon MD Work Phone: [facility] 05-28-2024 13:46-0500 Body mass index (BMI) [Ratio] 21.21 kg/m2 Ravinder Solomon MD Work Phone: [facility] 05-28-2024 13:46-0500 Body weight 47.63 kg Ravinder Solomon MD Work Phone: [facility] 05-28-2024 13:46-0500 Diastolic blood pressure 97 mm[Hg] Ravinder Solomon MD Work Phone: [facility] 05-28-2024 13:46-0500 Heart rate 112 /min Ravinder Solomon MD Work Phone: [facility] 05-28-2024 13:46-0500 SaO2% (BldA) [Mass fraction] 95 % Ravinder Solomon MD Work Phone: [facility] 05-28-2024 13:46-0500 Systolic blood pressure 148 mm[Hg] Ravinder Solomon MD Work Phone: [facility] 03-04-2024 15:18-0500 Diastolic blood pressure 100 mm[Hg] Crispin Ball DO Work Phone: [facility] 03-04-2024 15:18-0500 Heart rate 106 /min Crispin Ball DO Work Phone: [facility] 03-04-2024 15:18-0500 Respiratory rate 16 /min Crispin Ball DO Work Phone: [facility] 03-04-2024 15:18-0500 SaO2% (BldA) [Mass fraction] 97 % Crispin Ball DO Work Phone: [facility] 03-04-2024 15:18-0500 Systolic blood pressure 144 mm[Hg] Crispin Mendez DO Work Phone: [facility] 01-15-2024 11:47-0400 Body height 152.4 cm [facility] 01-15-2024 11:47-0400 Body mass index (BMI) [Ratio] 20 kg/m2 [facility] 01-15-2024 11:47-0400 Body weight 46.52 kg [facility] 01-15-2024 11:47-0400 Diastolic blood pressure 94 mm[Hg] [facility] 01-15-2024 11:47-0400 Heart rate 96 /min [facility] 01-15-2024 11:47-0400 Respiratory rate 12 /min [facility] 01-15-2024 11:47-0400 Systolic blood pressure 142 mm[Hg] [facility] 12-13-2023 10:58-0400 Body height 152.4 cm [facility] 12-13-2023 10:58-0400 Body mass index (BMI) [Ratio] 20.1 kg/m2 [facility] 12-13-2023 10:58-0400 Body weight 46.72 kg [facility] 12-13-2023 10:58-0400 Diastolic blood pressure 93 mm[Hg] [facility] 12-13-2023 10:58-0400 Heart rate 101 /min [facility] 12-13-2023 10:58-0400 Respiratory rate 16 /min [facility] 12-13-2023 10:58-0400 Systolic blood pressure 135 mm[Hg] [facility] 12-10-2022 10:30-0400 Body height 152.4 cm Crispin Ball Other [facility] 12-10-2022 10:30-0400 Body mass index (BMI) [Ratio] 20.31 kg/m2 Crispin Ball Other [facility] 12-10-2022 10:30-0400 Body weight 47.17 kg Crispin Ball Other [facility] 12-10-2022 10:30-0400 Diastolic blood pressure 84 mm[Hg] Crispin Ball Other [facility] 12-10-2022 10:30-0400 Respiratory rate 12 /min Crispin Ball Other [facility] 12-10-2022 10:30-0400 Systolic blood pressure 122 mm[Hg] Crispin Ball Other [facility] 10-23-2022 11:45-0400 Body height 152.4 cm Crispin Ball Other [facility] 10-23-2022 11:45-0400 Body mass index (BMI) [Ratio] 19.53 kg/m2 Crispin Ball Other [facility] Other 10-23-2022 11:45-0400 Body weight 45.36 kg Crispin Ball Other [facility] Other 10-23-2022 11:45-0400 Diastolic blood pressure 82 mm[Hg] Crispin Ball Other [facility] Other 10-23-2022 11:45-0400 Systolic blood pressure 118 mm[Hg] Crispin Ball Other [facility] Other 08-10-2021 13:13-0400 Blood Pressure Location Gonzalez SALAM [facility] 08-10-2021 13:13-0400 Diastolic blood pressure 82 mm[Hg] Gonzalez SALAM [facility] 08-10-2021 13:13-0400 Heart rate 68 /min Gonzalez SALAM [facility] 08-10-2021 13:13-0400 Respiratory rate 16 /min Gonzalez SALAM [facility] 08-10-2021 13:13-0400 Systolic blood pressure 134 mm[Hg] Gonzalez SALAM [facility] Encounters Encounter Date Encounter Type Care Provider Facility Start: 05-28-2024 End: 05-28-2024 [facility] Facility:[facility] Start: 05-28-2024 End: 05-28-2024 Patient encounter procedure Ravinder Solomon MD Work Phone: Cardiology Comment on above: Bicuspid aortic valv e (Primary Dx); Congenital subaortic stenosis; Nonrheumatic aortic valve stenosis, mild; Mitral valve stenosis, non-rheumatic Start: 05-28-2024 End: 05-28-2024 ambulatory RAVINDER MUSCOGEENANO Facility:[facility] Start: 05-28-2024 End: 05-28-2024 [facility] Facility:[facility] Start: 05-28-2024 End: 05-28-2024 Subsequent hospital visit by physician Xr Chest Main J1 Work Phone: Radiology Comment on above: Congenital cardiovas cular disorder [Q28.9] Start: 05-28-2024 End: [facility] Start: 04-01-2024 End: 04-01-2024 Telephone encounter [facility] Provider Cardiology Comment on above: Received Outside Med ical Records Start: 03-04-2024 End: 03-04-2024 ambulatory Crispin Andrea DO Work Phone: [facility] Work Phone: Start: 03-04-2024 End: 03-04-2024 Patient encounter procedure Crispin Mendez DO Work Phone: [facility] Cardiology Work Phone: Start: 01-15-2024 End: 01-15-2024 ambulatory [facility] Work Phone: Start: 01-15-2024 End: 01-15-2024 Patient encounter procedure [facility] Work Phone: Start: 01-14-2024 End: 01-14-2024 Telephone encounter No One (Historical) Referring Physician Comment on above: External Referrals/r esources Appointment Congenital cardiovas cular disorder (Primary Dx) Start: 01-06-2024 End: 01-06-2024 ambulatory CRISPIN MENDEZ Facility:[facility] Start: 01-06-2024 End: 01-06-2024 Patient encounter procedure CRISPIN MENDEZ [facility] Start: 12-23-2023 End: 12-23-2023 ambulatory [facility] Work Phone: Start: 12-23-2023 End: 12-23-2023 Patient encounter procedure [facility] Work Phone: Start: 12-13-2023 Patient encounter status [facility] Start: 12-13-2023 End: 12-13-2023 ambulatory [facility] Work Phone: Start: 12-13-2023 End: 12-13-2023 Encounter for general adult medical examination without abnormal findings [facility] Start: 12-13-2023 End: 12-13-2023 Patient encounter procedure [facility] Work Phone: Start: 12-24-2022 End: 12-24-2022 ambulatory Crispin Mendez Other [facility] [employer] Other Start: 12-24-2022 Telephone encounter Crispin Mendez [facility] Start: 12-21-2022 End: 12-21-2022 ambulatory Crispin Mendez Other [facility] Other Start: 12-21-2022 Nursing evaluation o f patient and report Crispin Mendez [facility] Start: 12-10-2022 End: 12-10-2022 ambulatory Crispin Mendez Other [facility] Other Start: 12-10-2022 Encounter for genera l adult medical examination without abnormal findings Crispin Mendez [facility] Start: 12-10-2022 Periodic preventive med est patient 40-64yrs Crispin Mendez [facility] Start: 10-23-2022 End: 10-23-2022 ambulatory Crispin Mendez Other [facility] Other Start: 10-23-2022 Office outpatient vi sit 15 minutes Crispin Mendez [facility] Start: 12-19-2021 Encounter for genera l adult medical examination without abnormal findings DR CRISPIN MENDEZ [facility] Start: 12-15-2021 End: 12-16-[address] CRISPIN MENDEZ Facility:[facility] Start: 12-15-2021 End: 12-16-2021 Encounter for general adult medical examination without abnormal findings DR CRISPIN MENDEZ Facility:[facility] Start: 08-10-2021 End: 08-10-2021 Patient encounter procedure Carlos SWARTZ [facility] Procedures Date Procedure Procedure Detail [...] Author Start: 05-28-2029 Lipid panel Lipid Screening [facility] Start: 05-29-2025 End: 08-28-2025 CBC panel - Blood by Automated count COMPLETE BLOOD COUNT Lab Routine Bicuspid aortic valve Congenital subaortic stenosis Expected: 05/29/2025, Expires: 08/28/2025 [facility] Comment on above: Expected: 05/29/2025 , Expires: 08/28/2025 Start: 05-29-2025 End: 08-28-2025 Comprehensive metabolic 2000 panel - Serum or Plasma COMPREHENSIVE METABOLIC PANEL Lab Routine Bicuspid aortic valve Congenital subaortic stenosis Expected: 05/29/2025, Expires: 08/28/2025 [facility] Comment on above: Expected: 05/29/2025 , Expires: 08/28/2025 Start: 05-29-2025 End: 08-28-2025 Lipid 1996 panel - Serum or Plasma LIPID PANEL BASIC Lab Routine Bicuspid aortic valve Congenital subaortic stenosis Expected: 05/29/2025, Expires: 08/28/2025 [facility] Comment on above: Expected: 05/29/2025 , Expires: 08/28/2025 Start: 05-29-2025 End: 08-28-2025 Natriuretic peptide.B prohormone N-Terminal [Mass/volume] in Serum or Plasma NT PRO BNP Lab Routine Bicuspid aortic valve Congenital subaortic stenosis Expected: 05/29/2025, Expires: 08/28/2025 [facility] Comment on above: Expected: 05/29/2025 , Expires: 08/28/2025 Start: 05-28-2025 End: 05-28-2025 ECHO SPECIALIST COMPLEX ADULT CONGENITAL ECHO SPECIALIST COMPLEX ADULT CONGENITAL Cardiology Routine Bicuspid aortic valve Expected: 05/28/2025, Expires: 05/28/2025 [facility] Work Phone: Comment on above: Expected: 05/28/2025 , Expires: 05/28/2025 Start: 07-01-2024 End: 07-01-2024 Patient encounter procedure 07/01/2024 2:45 PM EDT Office Visit Cardiology [address] [id number] Ravinder Solomon MD [address] [place] [address] Dx: Congenital stenosis of aortic valve, congential insufficiency of aortic valve Cardiology Comment on above: Dx: Congenital steno sis of aortic valve, congential insufficiency of aortic valve Start: 07-01-2024 End: 07-01-2024 Patient encounter procedure Radiology Comment on above: Dx: Congenital steno sis of aortic valve, congential insufficiency of aortic valve Start: 07-01-2024 End: 07-01-[address] [place] Comment on above: Dx: Congenital steno sis of aortic valve, congential insufficiency of aortic valve Start: 07-01-2024 End: 07-01-2024 Patient encounter procedure 07/01/2024 11:15 AM EDT Office Visit Cardiology [address] [place] [address] Dx: Congenital stenosis of aortic valve, congential [...] congential insufficiency of aortic valve Start: 03-04-2024 [facility] Start: 03-04-2024 Patient referral [facility] Work Phone: Start: 01-14-2024 End: 07-13-2024 CBC W Auto Differential panel - Blood COMPLETE BLOOD COUNT AND DIFFERENTIAL Lab Routine Congenital cardiovascular disorder Expected: 01/14/2024, Expires: 07/13/2024 [facility] Comment on above: Expected: 01/14/2024 , Expires: 07/13/2024 Start: 01-14-2024 End: 07-13-2024 Comprehensive metabolic 2000 panel - Serum or Plasma COMPREHENSIVE METABOLIC PANEL Lab Routine Congenital cardiovascular disorder Expected: 01/14/2024, Expires: 07/13/2024 [facility] Comment on above: Expected: 01/14/2024 , Expires: 07/13/2024 Start: 01-14-2024 End: 07-13-2024 Lipid 1996 panel - Serum or Plasma LIPID PANEL BASIC Lab Routine Congenital cardiovascular disorder Expected: 01/14/2024, Expires: 07/13/2024 [facility] Comment on above: Expected: 01/14/2024 , Expires: 07/13/2024 Start: 01-14-2024 End: 07-13-2024 Natriuretic peptide.B prohormone N-Terminal [Mass/volume] in Serum or Plasma NT PRO BNP Lab Routine Congenital cardiovascular disorder Expected: 01/14/2024, Expires: 07/13/2024 [facility] Comment on above: Expected: 01/14/2024 , Expires: 07/13/2024 Start: 12-15-2023 Covid-19 Vaccine () Covid-19 Vaccine () [facility] Start: 12-15-2023 Covid-19 Vaccine ( season) Covid-19 Vaccine () [facility] Start: 12-15-2023 Influenza vaccination Influenza Vacc ine (#1) [facility] Start: 2016 Lipid panel Lipid Screening [facility] Start: 10-27-2004 Hepatitis B Vaccine (3 of 3 - 19+ 3-dose series) Hepatitis B Vaccine (3 of 3 - 19+ 3-dose series) [facility] Start: 2000 Hepatitis B Vaccine (1 of 3 - 19+ 3-dose series) Hepatitis B Vaccine (1 of 3 - 19+ 3-dose series) [facility] Start: 2000 Urine microalbumin profile DTaP,Tdap,Td Vaccine (1 - Tdap) [facility] Start: 11-14-1999 Anxiety Screening Anxiety Screening [facility] Start: 11-14-1999 Depression Screening Depression Scre ening [facility] Start: 11-14-1999 Hepatitis C screening Hepatitis C Sc reening [facility] Start: 11-14-1999 HIV screening HIV Screening [facility] Comprehensive metabo lic 2000 panel - Serum or Plasma [facility] End: 01-13-2025 ECG COMPLETE ECG COMPLETE ECG Routine Congenital cardiovascular disorder 1 Occurrences starting 01/14/2024 until 01/13/2025 [facility] Work Phone: Comment on above: 1 Occurrences starti ng 01/14/2024 until 01/13/2025 End: 05-29-2025 ECG COMPLETE ECG COMPLETE ECG Routine Bicuspid aortic valve Congenital subaortic stenosis 1 Occurrences starting 05/29/2024 until 05/29/2025 [facility] Comment on above: 1 Occurrences starti ng 05/29/2024 until 05/29/2025 End: 01-13-2025 ECHO SPECIALIST COMPLEX ADULT CONGENITAL ECHO SPECIALIST COMPLEX ADULT CONGENITAL Cardiology Routine Congenital cardiovascular disorder 1 Occurrences starting 01/14/2024 until 01/13/2025 [facility] Comment on above: 1 Occurrences starti ng 01/14/2024 until 01/13/2025 End: 05-29-2025 ECHO SPECIALIST COMPLEX ADULT CONGENITAL ECHO SPECIALIST COMPLEX ADULT CONGENITAL Cardiology Routine Bicuspid aortic valve Congenital subaortic stenosis 1 Occurrences starting 05/29/2024 until 05/29/2025 [facility] Comment on above: 1 Occurrences starti ng 05/29/2024 until 05/29/2025 Patient referral [facility] Work Phone: Heart Transthoracic [facility] End: 02-12-2025 XR Chest PA and Lateral XR CHEST 2V FRONTAL/LAT Radiology Routine Congenital cardiovascular disorder 1 Occurrences starting 01/14/2024 until 02/12/2025 [facility] Comment on above: 1 Occurrences starti ng 01/14/2024 until 02/12/2025 [facility] Immunizations Immunization Date Immunization Notes Care Provider Fa cilidanielito 12-23-2023 influenza, seasonal, injectable, preservative free [facility] 12-21-2022 influenza, injectabl e, quadrivalent, preservative free Crispin Mendez Other [facility] 01-19-2022 influenza virus vaccine, split virus (incl. purified surface antigen) Crispin Mendez Other [facility] Other 01-19-2022 influenza virus vaccine, unspecified formulation [facility] 12-28-2020 influenza virus vaccine, split virus (incl. purified surface antigen) Crispin Mendez Other [facility] Other 12-28-2020 influenza virus vaccine, unspecified formulation [facility] 12-14-2020 influenza virus vaccine, unspecified formulation Gonzalez SALAM [facility] 01-01-2020 pneumococcal polysaccharide vaccine, 23 valent Crispin Mendez Other [facility] 09-15-2019 pneumococcal conjuga te vaccine, 13 valent Crispin Mendez Other [facility] 12-22-2018 influenza virus vaccine, split virus (incl. purified surface antigen) Crispin Mendez Other [employer] [facility] [employer] Other 12-22-2018 influenza virus vaccine, unspecified formulation [facility] 01-03-2018 influenza virus vaccine, split virus (incl. purified surface antigen) Crispin Mendez Other [employer] [facility] [employer] Other 01-03-2018 influenza virus vaccine, unspecified formulation [facility] 01-17-2015 tetanus and diphther ia toxoids, adsorbed, preservative free, for adult use (5 Lf of tetanus toxoid and 2 Lf of diphtheria toxoid) Crispin Mendez Other [facility] 01-13-2013 tetanus and diphther ia toxoids, adsorbed, preservative free, for adult use (5 Lf of tetanus toxoid and 2 Lf of diphtheria toxoid) Crispin Mendez Other [facility] Payers Date Payer Category Payer Medicare (Managed Care) [facility] DUAL COMPLETE HMO POS SNP [id number] 2024 Unknown [id number] 2024 Self-pay 2023 Medicaid [id number] 2021 Medicaid [employer] [id number] 2021-Present [phone] [address] [place] [address] Medicaid [id number] 1981 Unknown [id number] 1962 Unknown [id number] 1959 Unknown [id number] Unknown O [id number] Unknown Regular Insurance [id number] Unknown [id number] Unknown [id number] Social History Date Type Detail Facility Start: 02-13-2018 End: 08-10-2021 Tobacco smoking status Never smoked tobacco (finding) [facility] Tobacco smoking status Never [facility] Start: 09-29-2018 End: 05-28-2024 Sex Assigned At Male [facility] Start: 1980 Sex Assigned At Male F [facility] Start: 02-13-2018 Tobacco use and exposure Smokeless tobacco non-user [facility] Start: 09-29-2018 End: 05-28-2024 Alcoholic beverage intake Current non-drinker of alcohol (finding) [facility] Start: 09-29-2018 End: 05-28-2024 History of Social function [facility] Start: 1980 Sex assigned at Not on file [facility] Start: 03-04-2024 End: 03-05-2024 Sex Male (finding) [facility] Goals Date Patient Goal Desired Activity [...] be of assistance. documented in this encounter [facility] 05-28-2024 History of Presen t illness Narrative Images from the original note were not included. [facility] [place] ADULT CONGENITAL [facility] DISEASE [facility] OUTPATIENT VISIT DATE May 28, 2024 OUTPATIENT VISIT TYPE NEW PRIMARY CARE PHYSICIAN: Crispin Mccoy) [address] [place] [address] REFERRING PHYSICIAN: Crispin Mccoy) [address] [facility] [address] Tobar for cardiology CHIEF COMPLAINT: [...] is a 43 year old male from [facility] here today for cardiovascular evaluation related to congenital stenosis of aortic valve. Jian has a significant medical history of developmental delay (nonverbal), cerebral palsy, GERD, hiatal hernia, scoliosis, vitiligo. He was last saw [facility] cardiology (Dr Toribio Ortega) in [...] Laterality Date ANES HRT PERICRD SAC&GRT VSLS W/AGRICULTURAL EQUIPMENT TEST ENGINEER OXTJ >1MO PO UNLISTED STOMACH SURGERY [...] report early symptoms (nonverbal) Gene Madrigal MD [facility] STAFF PHYSICIAN NOTE OF PERSONAL INVOLVEMENT IN CARE IMPRESSION/PLAN: I have reviewed the documentation obtained and documented by the Fellow and I have personally performed a [id number] assessment of the patient and have participated in the burch components of the visit, which includes the medical decision making. I have discussed the case and management of the patient's care. 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 Developmental delay, non-verbal, and mostly non-ambulatory at this point per his mom (both parents accompany today, they are not , Jian mainly lives with his mom). There was concern based on a local echo that Jian had severe and so he was referred back to [facility]. By exam and echo today, I think [...] and recommend annual ACHD follow up at [facility]. The family agrees. I spent a total of 70 minutes on the date of the service which included preparing to see the patient, [id number] patient care, completing clinical documentation, obtaining and/or reviewing separately obtained history, performing a medically appropriate examination, counseling and educating the patient/family/caregiver, ordering medications, tests, or procedures, communicating with other HCPs (not separately reported), independently interpreting results (not separately reported), and care coordination (not separately reported). STAFF PHYSICIAN: Ravinder Solomon MD Adult Congenital Heart Disease [facility] [place] [facility] Desk [id number] Cell/Pager: [phone] Appointments: [phone] documented in this encounter [facility] 05-28-2024 Note HNO ID: [id number] Author: RAVINDER SOLOMON MD Service: ? Author Type: Physician Type: Progress Notes Filed: 05/29/2024 15:56 Note Text: [facility] [place] ADULT CONGENITAL [facility]EASE [facility] OUTPATIENT VISIT DATE May 28, 2024 OUTPATIENT VISIT TYPE NEW PRIMARY CARE PHYSICIAN: Crispin Mendez () [address] [place] [address] REFERRING PHYSICIAN: Crispin Mendez (Stephanie) [address] Tobar for cardiology CHIEF COMPLAINT: [...] is a 43 year old male from [facility] here today for cardiovascular evaluation related to congenital stenosis of aortic valve. Jian has a significant medical history of developmental delay (nonverbal), cerebral palsy, GERD, hiatal hernia, scoliosis, vitiligo. He was last saw [facility] cardiology (Dr Toribio Ortega) in [...] Laterality Date ANES HRT PERICRD SACANDGRT VSLS W/AGRICULTURAL EQUIPMENT TEST ENGINEER OXTJ >1MO PO UNLISTED STOMACH SURGERY [...] palsy, hiatal h (more content not included)... [facility] 05-28-2024 History of Presen t illness [...] PATIENT PRESENTS WITH AN IMPLANTABLE OR ATTACHED MACHINE RIGGER: No RADIOLOGY DEPARTMENT: General X-ray: Exam(s) Completed: Chest X-Ray PERIPHERAL IV DATA: Not applicable SIGNED BY: RT Jason(R) May 28, 2024 9:50 AM documented in this encounter [facility] 05-28-2024 Note HNO ID: [id number] Author: JADA ZAMARRIPA RT(R) Service: Radiology Author [...] PATIENT PRESENTS WITH AN IMPLANTABLE OR ATTACHED MACHINE RIGGER: No RADIOLOGY DEPARTMENT: General X-ray: Exam(s) Completed: Chest X-Ray PERIPHERAL IV DATA: Not applicable SIGNED BY: RT Jason(R) May 28, 2024 9:[address] [facility] 04-01-2024 Telephone encounter Note Received outside echo report has been uploaded in [employer] April 01, 2024 3:51 PM [facility] 04-01-2024 Miscellaneous Notes Received outside echo report has been uploaded in [email or web address] April 01, 2024 3:51 PM documented in this encounter [facility] 01-14-2024 Telephone encounter Note New patient letter sent via mail with appt details [facility] 01-14-2024 Miscellaneous Notes New patient letter sent via mail with appt details [facility] [facility] Telephone encounter Note Patient: Jian Moscoso Date of : 1980 Patient phone number: [phone] Referring Provider for the encounter: NA Requesting Provider: CRISPIN MENDEZ Reason for requesting visit (RFV/signs and symptoms/diagnosis): Congenital clinic-Congenital stenosis of aortic valve, congential insufficiency of aortic valve Person calling: self Return call to: self Medical Records/Insurance Card scanned into Epic: Yes Comments: Via PRC fax [facility] 01-14-2024 Miscellaneous Notes Patient: Jian Moscoso Date of : 1980 Patient phone number: [phone] Referring Provider for the encounter: NA Requesting Provider: CRISPIN MENDEZ Reason for requesting visit (RFV/signs and symptoms/diagnosis): Congenital clinic-Congenital stenosis of aortic valve, congential insufficiency of aortic valve Person calling: self Return call to: self Medical Records/Insurance Card scanned into Epic: Yes Comments: Via PRC fax documented in this encounter [facility] 01-06-2024 Note Echocardiology Procedure Exam Date/Time Accession # Ordering Dr. 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 [facility] 12-13-2023 Evaluation note Diagnosis Onset Date [...] at gastrostomy tube site acute January 11:35am [facility] Work Phone: 1(135) 437-851508-30-2024 Evaluation note* Diagnosis Onset Date Resolution Status [...] in office without diagnosis of hypertension noneactive [facility] er 2023 3:36pm [facility] Work Phone: 1(481) 200-774308-28-2023 Evaluation note* Encounter Date Diagnosis Assessment Notes [...] F71) Requires mothers assistance w/ all ADL/IADL [facility] Other 07-11-2023 Evaluation note* Encounter Date Diagnosis [...] testes in either scrotum Referral to Urology? [facility] Other Evaluation + Plan note No data available for this section [facility] Evaluation noteNo InformationNort [employer] Other Evaluation note* Diagnosis Onset Date Resolution Status Ataxic cerebral palsy acute Eczema acute GERD (gastroesophageal reflux disease) acute IHSS (idiopathic hypertrophic subaortic stenosis) acute Moderate intellectual disabilities acute Wellness examination acute [facility] Work Phone: Evaluation note* Diagnosis Congenital cardiovascular disorder- Primary Unspecified congenital anomaly of heart documented in this encounter [facility] note* Diagnosis Congenital cardiovascular disorder Unspecified congenital anomaly of heart [facility] Bicuspid aortic valve- Primary Congenital insufficiency of aortic valve Congenital subaortic stenosis Nonrheumatic aortic valve stenosis, mild Aortic valve disorders Mitral valve stenosis, non-rheumatic Mitral valve disorders documented in this encounter [facility] general Narrative - Reported* Type Description [...] and adenoidectomy Hospitalization History SEE SURGICAL HX [facility] Other Hospital Discharge instructions No data available for this section [facility] Discharge instructionsAmbulatory Orders* Referral to Cardiology Location: None [facility] Work Phone: Progress note No data available for this section [facility] Reason for referral (narrative)* Outpatient Procedure (Routine) - Pending Review Specialty Diagnoses / Procedures Referred By Contac t Referred To Contact [facility] Diagnoses Congenital cardiovascular disorder Procedures ECHO SPECIALIST COMPLEX ADULT CONGENITAL ECHO TTHRC R-T 2D W/WOM-MODE COMPL SPEC&COLR D Ravinder Solomon MD [address] [place] [address] [facility] [address] [place] [address] Referral ID Status Reason Start Date Expiration Date Visits Requested Visits Authorized [id number] Pending Review Auto-Generat ed Referral 01/14/2024 01/13/2025 1 1 * Outpatient Procedure (Routine) - Authorized Specialty Diagnoses / Procedures Referred By Debra ramirez Ref[facility] Diagnoses Congenital cardiovascular disorder Procedures ECG COMPLETE ECG ROUTINE ECG W/LEAST 12 LDS W/I&R Ravinder Solomon MD [address] [place] [address] [facility] [place] [address] [facility] [place] [address] Referral ID Status Reason Start Date Expiration Date Visits Requested Visits Authorized [id number] Authorized Auto-Generat ed Referral 01/14/2024 01/13/2025 1 1 [facility] Summary Purpose Family History No Family History [...] DATE CREATED AUTHOR 12/19/2021 [facility] DATE CREATED AUTHOR AUTHOR'S ORGANIZ ATION 01/12/2024 [facility] DATE CREATED AUTHOR AUTHOR'S ORGANIZ ATION 03/07/2024 [facility] DATE CREATED AUTHOR AUTHOR'S ORGANIZ ATION 06/14/2024 [facility] REASON FOR VISIT (unrecogniz ed section [...] December 23, 2023 End: December 23, 2023 Teacher'S Aide Relationship Specialty Start Date End Date Crispin Mendez DO [address] [place] [facility] [address] PCP - General 07/26/00 Crispin Mendez DO [address] [place] [facility] [address] Referring Internal Medicine 01/14/24 Teacher'S Aide Relationship Specialty Start Date End Date Crispin Mendez DO [address] [place] [facility] [place] [address] PCP - General 07/26/00 Crispin Mendez DO [address] [place] [facility] [place] [address] Referring Internal Medicine 01/14/24 Team Status: Inactive Member Role Status Dates Crispin Mendez DO Primary Care Provide r, Attending Provider Active Start: January 15, 2024 End: January 15, 2024 Team Status: Active Member Role Status Dates Crispin Menedz DO Primary Care Provider Active Start: March [...] March 04, 2024 End: March 04, 2024 Teacher'S Aide Relationship Specialty Start Date End Date Crispin Mendez DO [address] [place] [address] PCP - General 07/26/00 Crispin Mendez DO [address] [facility] [place] [address] Referring Internal Medicine 01/14/24 Justyn Tobar MD [address] [place] [phone] Referring Cardiovascular Surgery 03/10/24 Teacher'S Aide Relationship Specialty Start Date End Date Crispin Mendez DO [address] [facility] [place] [address] PCP - General 07/26/00 Crispin Mendez DO [address] [place] [facility] [place] [address] Referring Internal Medicine 01/14/24 Justyn Tobar MD [address] [place] [phone] Referring Cardiovascular Surgery 03/10/24 Teacher'S Aide Relationship Specialty Start Date End Date Crispin Mendez DO [address] [place] [place] [address] PCP - General 07/26/00 Crispin Mendez DO [address] [place] [place] [address] Referring Internal Medicine 01/14/24 Justyn Tobar MD [address] [place] [phone] Referring Cardiovascular Surgery 03/10/24 Goals (unrecognized section [...] or prosecute any alcohol or drug abuse patient.[facility] the event this information is protected by the Federal Confidentiality of Alcohol and Drug Abuse Patient Records regulations: The Federal rules restrict any use of the information to criminally investigate or prosecute any alcohol or drug abuse patient.[facility] the event this information is protected by the Federal Confidentiality of Alcohol and Drug Abuse Patient Records regulations: The Federal rules restrict any use of the information to criminally investigate or prosecute any alcohol or drug abuse patient.[facility] the event this information is protected by the Federal Confidentiality of Alcohol and Drug Abuse Patient Records regulations: The Federal rules restrict any use of the information to criminally investigate or prosecute any alcohol or drug abuse patient.[facility] the event this information is protected by the Federal Confidentiality of Alcohol and Drug Abuse Patient Records regulations: The Federal rules restrict any use of the information to criminally investigate or prosecute any alcohol or drug abuse patient.[facility] the event this information is protected by the Federal Confidentiality of Alcohol and Drug Abuse Patient Records regulations: The Federal rules restrict any use of the information to criminally investigate or prosecute any alcohol or drug abuse patient.[facility] FOR RECORDS PERTAINING TO PATIENTS WHO ARE [...] BE BASED ON THE PRIMARY CLINICAL RECORDS. [facility] [facility]. provides no warranty or guarantee of the accuracy or completeness of information in this document.
--- NOTE | 2024-06-29 08:50 | P.HP_ITS ---
HPI H&P: HPI History of Present Illness Chief complaint: FEVER, CONGESTED FLU A SEPSIS Narrative: Patient is a 43 y.o male with history of Cerebral Palsy, is nonverbal and has a PEG tube (Dandy-elkins Button) for nutrition, history of mitral and aortic valve regurgitation, and He came to the ER yesterday evening with a one day history of fever 102, nasal congestion, slight cough. Mom and Dad are primary care givers. He does attend adult day care. Sepsis protocol was initiated with fever 102, Tachycardia >110 HR, and elevated lactate of 3.3. Patient was given IVF. Viral testing was positive for Influenza A and patient was started on Tamiflu. Patient has history of pneumonia so he was also started on Azithromycin and Rocephin to cover superimposed bacterial pneumonia. Patient is normally not on oxygen but became hypoxic overnight at 78% on room air and now is on 5L via [place] oxygen. C hest X-ray did not have findings of acute pneumonia. This morning, Dad is at bedside. Patient seems congested and has productive cough. Per dad, he does pureed foods gluten and lactose free at home by mouth. I will place this for lunch option. He has been afebrile since admission. I discussed with dad, improving lab work. I will add some vest physiotherapy and Mucinex to see if we can help his upper respiratory congestion, which i think in turn will improve his oxygen status. Opioid HPI Opioid Management Most Recent Pain and Opioid Data: Last Pain Assessment 06/29/24 11:47 Last MAR Pain Assessment 06/29/24 05:57 Last ORT Total Score 0 06/28/24 18:57 06/28/24 Last ORT Risk Category Low Risk 06/28/24 18:57 06/28/24 Review of Systems ROS Status of ROS unobtainable due to medical condition [facility] Medical History (Updated 06/29/24 @ 08:58 by Lorraine Luna DO) Aortic stenosis ?I35.0 - Nonrheumatic aortic (valve) stenosis (ICD-10) Gastrointestinal tube present ?Z93.1 - Gastrostomy status (ICD-10) Mitral and aortic regurgitation ?I08.0 - Rheumatic disorders of both mitral and aortic valves (ICD-10) Cerebral palsy ?G80.9 - Cerebral palsy, unspecified (ICD-10) Vitiligo ?L80 - Vitiligo (ICD-10) 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, face and jaw (ICD-10) Surgical History History of Maddie fundoplication ?Z98.890 - Other specified postprocedural states (ICD-10) History of testicular surgery ?Z98.890 - Other specified postprocedural states (ICD-10) H/O hernia repair ?Z98.890 - Other specified postprocedural states (ICD-10) ?Z87.19 - Personal history of other diseases of the digestive system (ICD-10) History of open heart surgery ?Z98.890 - Other specified postprocedural states (ICD-10) Family History Grandmother Family history of COPD (chronic obstructive pulmonary disease) Family history of cancer Sister Family history of COPD (chronic obstructive pulmonary disease) Family history of hypertension Family history of myocardial infarction Sister Family history of COPD (chronic obstructive pulmonary disease) Family history of hypertension Mother Family history of cancer Family history of hypertension Social History Little interest or pleasure in doing things: not at all Feeling down, depressed, or hopeless: not at all Meds Home Medications and Allergies Home Medications ?Medication ?Instructions ?Recorded ?Confirmed ?Type metoprolol tartrate 25 mg tablet 12.5 mg feeding tube DAILY 06/28/24 06/28/24 History Allergies Allergy/AdvReac Type Severity Reaction Status Date / Time No Known Drug Allergies Allergy Verified 06/28/24 15:25 Exam Narrative Exam Narrative: General: Patient is alert with normal affect, proper hygiene Skin: some erythema noted around His Dandy-Elkins button. Head: atraumatic, acephalic Eyes: PERRLA, no nystagmus present, conjunctiva clear, no scleral icterus Neck: no masses palpated, normal thyroid Heart: Normal rate and rhythm, no murmurs/rubs/gallops Lungs: upper respiratory wheezes, normal breath sounds all lung bowen Abdomen: Normal audible bowel sounds, no distension, No palpable masses, no organomegaly, no rebound/guarding/ or rigidity Musculoskeletal: no swelling bilateral lower extremities Neuro: CN II-X grossly intact Constitutional Vital Signs, click to edit/add: Last Vital Signs Temp 98.1 F 06/29/24 07:36 Pulse 116 H 06/29/24 08:03 Resp 24 H 06/29/24 07:36 BP 120/61 06/29/24 07:36 Pulse Ox 94 L 06/29/24 08:03 O2 Del Method Nasal Cannula 06/29/24 07:53 O2 Flow Rate 5 06/29/24 07:53 Results Labs Labs: Short CBC 06/28/24 06/29/24 Range/Units 16:12 04:25 WBC 11.1 H 7.3 (4.0-11.0) 10^3/uL Hgb 12.8 L 11.0 L (14.0-18.0) g/dL Hct 38.2 L 32.9 L (42.0-54.0) % Plt Count 190 185 (150-450) 10^3/uL BMP 06/28/24 06/29/24 16:12 04:25 Sodium 134 L 141 Potassium 3.9 3.6 Chloride 96 L 107 Carbon Dioxide 23.3 22.6 BUN 14.0 9.0 Creatinine 0.69 L 0.68 L Glucose 118 H 181 H Calcium 8.9 7.5 L Liver Function 06/28/24 06/29/24 Range/Units 16:12 04:25 Total Bilirubin 0.3 0.2 (0.2-1.0) mg/dL AST 33 39 H (15-37) U/L ALT 37 55 (16-63) U/L Alkaline Phosphatase 133 H 102 (46-116) U/L Albumin 3.7 2.4 L (3.4-5.0) g/dL Urine 06/28/24 Range/Units 18:20 Urine Color Yellow (YELLOW) Urine Clarity Clear (CLEAR) Urine pH 6.0 (5.0-9.0) Ur Specific [place] >=1.030 A (1.005-1.025) Urine Protein 100 A (NEG/TRACE) mg/dL Urine Glucose (UA) Negative (NEGATIVE) mg/dL Assessment and Plan Assessment and Plan (1) Severe sepsis with acute organ dysfunction: Assessment and Plan: lactate has improved from 3.3 to 1.9 this morning. WBC's were 11.1 on admission now 7.3. Temp was 102 but has been afebrile overnight. Patient received IVF bolus along with blood cultures pending. Most likely sepsis secondary to Influenza A (2) Influenza A with pneumonia: Assessment and Plan: Continue Tamiflu and Azith and Rocephin (3) Acute hypoxic respiratory failure: Assessment and Plan: patient dropped to 78% pulse ox on room air. Now requiring NC oxgyen at 5L. Patient has PRN nebulizer treatments will see if this helps, Vest therapy and Mucinex (4) Cerebral palsy: Assessment and Plan: Patient bed bound and needs 24 hour care Qualifiers: Cerebral palsy type: unspecified type Qualified Code(s): G80.9 - Cerebral palsy, unspecified (5) Mitral and aortic regurgitation: Assessment and Plan: chronic, continue metoprolol; follows at [facility] (6) Gastrointestinal tube present: Assessment and Plan: Patient gets all meds through PEG tube. wound consult for skin around peg tube. Plan Patient is a full code Patient is on Lovenox for DVT prophylaxis patient is inpatient status and is expected to stay 2-3 days to treat his Acute Influenza and Hypoxia; plan to consult Pulmonary when he is available. Urinary Catheter Management Urinary Catheter Management Straight: Cath placed during this visit: yes Urethral indwelling: No Insertion date: 06/28/24 Insertion time: 18:27
[2024-06-29] MEDS: METOPROLOL TARTRATE 25 MG TABLET 12.5 MG G-TUBE (08:55)
[2024-06-29] MEDS: OSELTAMIVIR PHOSPHATE 75 MG CAPSULE G-TUBE ×2 (08:55→20:29)
--- NOTE | 2024-06-29 11:52 | CM.NOTE ---
Rounds made with Dr. Luna, pt continues to require oxygen at 5L NC. Pt does not use home oxygen. Dr. Luna discussed with family plan of care, no discharge today.
--- NOTE | 2024-06-29 12:37 | CM.NOTE ---
Important message From Medicare discussed with pt, pt verbalizes understanding and signs paper. Original given to pt and copy placed on pt's chart.
[2024-06-29] MEDS: GUAIFENESIN 200 MG/10 ML LIQUID G-TUBE ×3 (12:58→23:03)
[2024-06-29] MEDS: METHYLPREDNISOLONE SOD SUCC PF 40 MG/ML VIAL IVP ×2 (13:09→21:21)
[2024-06-29] MEDS: ALBUTEROL SULFATE 2.5 MG/3 ML VIAL NEB IH (14:15)
--- NOTE | 2024-06-29 14:21 | PHOTOS ---
peg tube site
--- NOTE | 2024-06-29 14:59 | W.PM.WC ---
Wound Consult Note Assessment and Plan (1) Severe sepsis with acute organ dysfunction: (2) Influenza A with pneumonia: (3) Acute hypoxic respiratory failure: (4) Cerebral palsy: Qualifiers: Cerebral palsy type: unspecified type Qualified Code(s): G80.9 - Cerebral palsy, unspecified (5) Mitral and aortic regurgitation: (6) Gastrointestinal tube present: Reason for Consult: Skin irritation around GI tube site Assessment and Plan: Patient seen today with father at bedside for skin breakdown around tube site. Skin is red, weepy and irritated. Does not appear open. Currently using radha barrier ointment and a drain sponge. No other skin issues noted at this time. Area of redness is irregular and is about 1-2cm around opening. The tube is within a low spot on patient's abdomen. Plan Recommendations: Triad wound paste, thin layer, to red, irritated skin daily and as needed Protect with soft drain sponge. Photos taken and orders in chart. Please call [phone] with any questions. Fawad De Paz RN, CWON
[2024-06-29] MEDS: CEFTRIAXONE 1,000 MG in 0.9 % SODIUM CHLORIDE 50 ML 100 MG IV (16:17)
[2024-06-29] MEDS: AZITHROMYCIN 500 MG in 0.9 % SODIUM CHLORIDE 250 ML 125 MG IV (17:01)
--- NOTE | 2024-06-29 19:15 | PC.NURSE ---
Dad in room with pt. Pt up in chair with assistance of Dad and staff. Pt sits in chair while bed changed. Pt feels warm to touch. Dad states that he feels that the pt needs suctioned. Respiratory contacted. Pt returned to bed. Dad present at cart side. Pulse ox is 98% at this time.
[2024-06-29] MEDS: ENOXAPARIN SODIUM 40 MG/0.4 ML SYRINGE SUBQ (20:29)
[2024-06-30] VITALS (23 sets, daily range): BP systolic 103–152; BP diastolic 67–96; PULSE 85–120; TEMP 35.9–37.9; O2SAT 87–96
[2024-06-30] MEDS: IPRATROPIUM/ALBUTEROL SULFATE 3 ML AMPUL.NEB IH ×2 (01:21→10:50)
[2024-06-30] MEDS: POTASSIUM CHLORIDE/D5-0.9%NACL 1,000 ML 125 ML IV (03:12)
[2024-06-30] MEDS: ACETAMINOPHEN 325 MG TABLET 650 MG PO (03:18)
[2024-06-30] MEDS: METHYLPREDNISOLONE SOD SUCC PF 40 MG/ML VIAL IVP ×2 (05:15→14:42)
[2024-06-30] MEDS: GUAIFENESIN 200 MG/10 ML LIQUID G-TUBE ×3 (05:15→17:41)
[2024-06-30 05:45] LABS: Basophils Percent Auto 0.1 % (0.2-2.0); Eosinophils Percent Auto 0.1 % (0.9-7.0); Hematocrit 31.2 % (42.0-54.0); Hemoglobin 10.5 g/dL (14.0-18.0); Immature Granulocytes Abs Auto 0.03 10^3/uL (0.00-0.03); Immature Granulocytes Pct Auto 0.3 % (0.0-0.5); Lymphocytes Absolute Auto 0.6 10^3/uL (1.2-3.8); Lymphocytes Percent Auto 6.3 % (20.5-60.0); Mean Corpuscular HGB Conc 33.7 g/dL (29.9-35.2); Mean Corpuscular Hemoglobin 27.6 pg (25.9-34.0); Mean Corpuscular Volume 82.1 fL (80.0-94.0); Mean Platelet Volume 10.9 fL (9.5-13.5); Monocytes Absolute Auto 0.3 10^3/uL (0.3-0.8); Monocytes Percent Auto 3.2 % (1.7-12.0); Neutrophils Absolute Auto 7.9 10^3/uL (1.4-6.5); Platelet Count 177 10^3/uL (150-450); Red Cell Distribution Width 13.8 % (11.0-15.0); White Blood Count 8.8 10^3/uL (4.0-11.0)
[2024-06-30 06:03] LABS: Alanine Aminotransferase 50 U/L (16-63); Albumin Globulin Ratio 0.7; Albumin Level 2.5 g/dL (3.4-5.0); Alkaline Phosphatase 107 U/L (46-116); Anion Gap 13.8; Aspartate Amino Transferase 46 U/L (15-37); BUN Creatinine Ratio 14.3; Bilirubin Total 0.3 mg/dL (0.2-1.0); Calcium 8.3 mg/dL (8.5-10.1); Carbon Dioxide 24.9 mmol/L (21.0-32.0); Chloride 102 mmol/L (98-107); Estimated GFR (African America >60 (>=60 mL/min/1.73m^2); Estimated GFR (Non-African Ame >60 (>=60 mL/min/1.73m^2); Globulin 3.5 g/dL; Glucose 237 mg/dL (74-106); Magnesium 1.6 mg/dL (1.8-2.4); Potassium 3.7 mmol/L (3.5-5.1); Sodium 137 mmol/L (136-145)
--- NOTE | 2024-06-30 08:35 | PM.PN ---
Progress Note: Subjective Subjective Interval history: Patient with fever last night. Still requiring 5L of NC oxygen. Started on Vest treatments with neb treatments yesterday. CT of the Chest without contrast did show worsening infiltrates right > left. I started Solu-medrol IV yesterday as well. Pulmonary consulted and will see patient today and appreciate input. Mag low today 1.6, replace IV 2grams now. He appears comfortable, just more upper respiratory secretions and congestions and it's difficult for him to clear. Looking like work of breathing harder today. Still with discharge and excoriation around PEG tube. I discussed case with dad, He is amendable to transfer to higher level of care. I attempted [facility], but GI doctor did not want to accept him as he did not do original surgery and [facility]. I spoke with mom and Dad, and I will attempt transfer to the [facility]. Exam Narrative Exam Narrative: General: Patient is alert with but appears more difficult to breath, increased secretions Skin: some erythema noted around His Dandy-Elkins button with clear drainage Head: atraumatic, acephalic Eyes: PERRLA, no nystagmus present, conjunctiva clear, no scleral icterus Neck: no masses palpated, normal thyroid Heart: Normal rate and rhythm, no murmurs/rubs/gallops Lungs: upper respiratory wheezes with some bilateral rhonchi Abdomen: Normal audible bowel sounds, no distension, No palpable masses, no organomegaly, no rebound/guarding/ or rigidity Musculoskeletal: no swelling bilateral lower extremities Neuro: CN II-X grossly intact Constitutional Vital Signs, click to edit/add: Last Vital Signs Temp 100.3 F 06/30/24 03:22 Pulse 108 H 06/30/24 07:56 Resp 22 H 06/30/24 03:22 BP 103/67 06/30/24 03:22 Pulse Ox 95 06/30/24 07:56 O2 Del Method Nasal Cannula 06/30/24 05:32 O2 Flow Rate 5 06/30/24 05:32 Progress Note: Objective Labs Labs: Short CBC 06/30/24 Range/Units 05:38 WBC 8.8 (4.0-11.0) 10^3/uL Hgb 10.5 L (14.0-18.0) g/dL Hct 31.2 L (42.0-54.0) % Plt Count 177 (150-450) 10^3/uL BMP 06/30/24 05:38 Sodium 137 Potassium 3.7 Chloride 102 Carbon Dioxide 24.9 BUN 9.0 Creatinine 0.63 L Glucose 237 H Calcium 8.3 L Liver Function 06/30/24 Range/Units 05:38 Total Bilirubin 0.3 (0.2-1.0) mg/dL AST 46 H (15-37) U/L ALT 50 (16-63) U/L Alkaline Phosphatase 107 (46-116) U/L Albumin 2.5 L (3.4-5.0) g/dL Progress Note: A&P Assessment and Plan (1) Severe sepsis with acute organ dysfunction: Assessment and Plan: lactate has improved from 3.3 to 1.9. WBC's were 11.1 on admission now 8.8. febrile overnight. blood cultures pending will also send for sputum culture if possible. Most likely sepsis secondary to Influenza A. (2) Influenza A with pneumonia: Assessment and Plan: Continue Tamiflu and Azith and Rocephin, considering changing Azith to Levaquin but will wait to see what pulmonary recs are (3) Acute hypoxic respiratory failure: Assessment and Plan: patient dropped to 78% pulse ox on room air. Now requiring NC oxygen at 5L. Patient has PRN nebulizer treatments will see if this helps, Vest therapy and Mucinex; Solumedrol (4) Hypomagnesemia: Assessment and Plan: 1.6, replaced with IV 2grams x 1 (5) Cerebral palsy: Assessment and Plan: Patient bed bound and needs 24 hour care; difficult for him to expectorate. Qualifiers: Cerebral palsy type: unspecified type Qualified Code(s): G80.9 - Cerebral palsy, unspecified (6) Mitral and aortic regurgitation: Assessment and Plan: chronic, continue metoprolol; [facility] at [facility] (7) Gastrointestinal tube present: Assessment and Plan: Patient gets all meds through PEG tube. wound consult for skin break down around peg tube. Plan Patient is a full code Patient is on Lovenox for DVT prophylaxis due to patient's current respiratory status and need PEG tube needing addressed, I plan to transfer patient to higher level of care. Urinary Catheter Management Urinary Catheter Management Straight: Cath placed during this visit: yes Urethral indwelling: No Insertion date: 06/28/24 Insertion time: 18:27
[2024-06-30] MEDS: METOPROLOL TARTRATE 25 MG TABLET 12.5 MG G-TUBE (09:58)
[2024-06-30] MEDS: MAGNESIUM SULFATE IN WATER 2 GM/50 ML PREMIX IV (09:59)
[2024-06-30] MEDS: OSELTAMIVIR PHOSPHATE 75 MG CAPSULE G-TUBE (09:59)
--- NOTE | 2024-06-30 11:28 | CM.NOTE ---
Rounds made with Dr. Luna, pt having labored respirations and requiring 5L NC. Discussed with pt's father about transfer, father in agreement for transfer to [facility].
--- NOTE | 2024-06-30 12:35 | P.PLCN_ITS ---
History of Present Illness History of Present Illness Consult date: 06/30/24 Requesting physician: Lorraine Luna Reason for consult: pneumonia Chief complaint: . Narrative: This is a 43yo male with cerebral palsy - he does not communicate. Mother is at bedside and is able to provide history. Patient presented with fevers and respiratory distress, found to be influenza A positive. Baseline odxycenation is room air, but he quickly deteriorated, requiring up to 5L/min O2. Chest CT without contrast was done 06/29/2024 - I personally reviewed the imaging. Compared to CXR 06/28/2024, there has been marked progression in infiltrates. The RLL is a near-complete consolidation with only air bronchograms seen. There are smaller consolidations in the RUL, RML, and LLL. There are also small bilateral pleural effusions along with a significant pectus excavatum. There also is lumbar dextroscoliosis. Mother states that the patient has had 2 open heart surgeries in the past to fix the MV and AV, and there are thoughts he will need an AV redo. She states the pectus excavatum is acquired from these surgeries - he originally had a more normal appearing chest prior to this. 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 He has difficulty expectorating d/t his altered chest anatomy. He is already on bronchodilators and vest. He has a PEG which he receives supplementation, but is able to eat a pureed diet. Mother denies that the patient has a history of choking, regurgitation, or aspiration of gastric contents. She states the patient has not had an appetite for days and is only receiving Boost for nutrition via PEG. There are concerns regarding the PEG tube, with plans to transfer the patient for further intervention ([facility] [place] rejected transfer as they would not see him since the procedure was not done there. Hospitalist is working on transfer to a tertiary care center). 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 - Disorders of diaphragm (ICD-10) Acquired pectus excavatum ?M95.4 - Acquired deformity of chest and rib (ICD-10) Aortic stenosis ?I35.0 - Nonrheumatic aortic (valve) stenosis (ICD-10) Gastrointestinal tube present ?Z93.1 - Gastrostomy status (ICD-10) Mitral and aortic regurgitation ?I08.0 - Rheumatic disorders of both mitral and aortic valves (ICD-10) Cerebral palsy ?G80.9 - Cerebral palsy, unspecified (ICD-10) Vitiligo ?L80 - Vitiligo (ICD-10) 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, face and jaw (ICD-10) Surgical History History of Maddie fundoplication ?Z98.890 - Other specified postprocedural states (ICD-10) History of testicular surgery ?Z98.890 - Other specified postprocedural states (ICD-10) H/O hernia repair ?Z98.890 - Other specified postprocedural states (ICD-10) ?Z87.19 - Personal history of other diseases of the digestive system (ICD-10) History of open heart surgery ?Z98.890 - Other specified postprocedural states (ICD-10) Family History Grandmother Family history of COPD (chronic obstructive pulmonary disease) Family history of cancer Sister Family history of COPD (chronic obstructive pulmonary disease) Family history of hypertension Family history of myocardial infarction Sister Family history of COPD (chronic obstructive pulmonary disease) Family history of hypertension Mother Family history of cancer Family history of hypertension Social History Little interest or pleasure in doing things: not at all Feeling down, depressed, or hopeless: not at all Meds Home Medications and Allergies Home Medications ?Medication ?Instructions ?Recorded ?Confirmed ?Type metoprolol tartrate 25 mg tablet 12.5 mg feeding tube DAILY 06/28/24 06/28/24 History Allergies Allergy/AdvReac Type Severity Reaction Status Date / Time No Known Drug Allergies Allergy Verified 06/28/24 15:25 Exam Narrative Exam Narrative: Patient is non-verbal, laying in bed. Wearing nasal cannula. Pectus excavatum with well healed mid-sternal incision. Respirations are shallow. No accessory muscle use. Lungs auscultated with crackles in all lung bowen with exception of RLL, which were bronchial. No wheezes. RRR Extremities have contractures. No edema. Constitutional Vital Signs, click to edit/add: Last Vital Signs Temp 98.8 F 06/30/24 09:50 Pulse 98 H 06/30/24 12:00 Resp 20 06/30/24 09:50 BP 119/81 06/30/24 09:50 Pulse Ox 91 L 06/30/24 12:00 O2 Del Method Nasal Cannula 06/30/24 10:51 O2 Flow Rate 5 06/30/24 10:51 Results Laboratory Findings Abnormal lab findings: Abnormal Labs 06/28/24 06/28/24 06/28/24 15:46 16:12 16:31 WBC 11.1 H RBC 4.54 L Hgb 12.8 L Hct 38.2 L Neut % (Auto) Lymph % (Auto) Eos % (Auto) Baso % (Auto) Neut # (Auto) Lymph # (Auto) Seg Neuts % (Manual) 90.0 H Lymphocytes % (Manual) 6.0 L Eosinophils % (Manual) 0.0 L Basophils % (Manual) 0.0 L Neutrophils # (Manual) 9.99 H Band Neutrophils # 0.7 H Lymphocytes # (Manual) 0.66 L Sodium 134 L Chloride 96 L Creatinine 0.69 L Glucose 118 H Lactate 3.3 H* Calcium Magnesium AST Alkaline Phosphatase 133 H C-Reactive Protein 15.99 H Total Protein Albumin Ur Specific Jayess Urine Protein Urine Ketones Urine WBC Ur Squamous Epith Cells Urine Bacteria Urine Mucus Influenza Type A Ag Positive A 06/28/24 06/29/24 06/30/24 18:20 04:25 05:38 WBC RBC 3.94 L 3.80 L Hgb 11.0 L 10.5 L Hct 32.9 L 31.2 L Neut % (Auto) 91.2 H 90.0 H Lymph % (Auto) 4.8 L 6.3 L Eos % (Auto) 0.0 L 0.1 L Baso % (Auto) 0.1 L 0.1 L Neut # (Auto) 6.6 H 7.9 H Lymph # (Auto) 0.4 L 0.6 L Seg Neuts % (Manual) Lymphocytes % (Manual) Eosinophils % (Manual) Basophils % (Manual) Neutrophils # (Manual) Band Neutrophils # Lymphocytes # (Manual) Sodium Chloride Creatinine 0.68 L 0.63 L Glucose 181 H 237 H Lactate Calcium 7.5 L 8.3 L Magnesium 1.3 L 1.6 L AST 39 H 46 H Alkaline Phosphatase C-Reactive Protein Total Protein 5.6 L 6.0 L Albumin 2.4 L 2.5 L Ur Specific Jayess >=1.030 A Urine Protein 100 A Urine Ketones 40 A Urine WBC 0-2 A Ur Squamous Epith Cells Few A Urine Bacteria Trace A Urine Mucus Moderate A Influenza Type A Ag Assessment and Plan Assessment and Plan (1) Influenza A with pneumonia: Assessment and Plan: 1. Influenza A pneumonia. Significant consolidations (nearly all RLL, and scattered RUL, RML, and LLL). Patient started on Tamiflu. Given severity of illness, cannot R/O secondary bacterial infection - continue antibiotics. Mother denies that the patient has any history of choking or aspiration. 2. Acute hypoxic respiratory failure. Baseline is RA, currently 5L/min. If he worsens, recommend Vapotherm. I would avoid PAP as he lacks both the mental and physical ability to take the mask off in the event of N/V. 3. Acquired right hemidiaphragm paralysis. Occurred after open sternotomy/valve replacement. This is affecting his pulmonary toilet and would explain why the RLL has the most significant consolidation. Discussed with mother importance of pulmonary toilet. The difficulty is that the patient is incapable of assisting with it. Currently using Vest which seems to mobilize some secretions, but patient is unable to expectorate completely. Hypertonic saline and/or Mucomyst can be added to help further break down mucus, but once again there are concerns he would not be able to expectorate. Discussed consideration for bronchoscopy, but many times bronchoscopy does not improve a consolidation such as this - there are no apparent central or segmental/subsegmental mucus plugs. Mother also stated that in the past, there has been great difficulty weaning him off a ventilator. With this information, I would like to avoid a bronchoscopy if possible and continue with an aggressive pulmonary toilet. 4. Acquired pectus excavatum. Mother states this occurred after a sternotomy. This can affect chest wall mechanics. 5. Cerebral palsy. Patient has significant disability from this. Additionally has PEG-tube. Monitor for choking, regurgitation, and aspiration. 6. Severe sepsis. Secondary to #1. Continue supportive care. 7. Hypomagnesemia. Continue replacement - low Mg2+ could affect muscle function/fatigue.
--- NOTE | 2024-06-30 15:25 | PM.DS1 ---
DS: Providers Provider Date of admission: 06/28/24 18:42 Primary care physician: Crispin Mendez DO Attending physician on admission: Lorraine Luna Consults: 06/29/24 Consult to Wound Care Routine Consulting Provider: Fawad De Paz Reason for consultation: G-tube breakdown 06/29/24 12:27 Consult to Pulmonology Routine Consulting Provider: Nirmal Spivey Reason for consultation: Influenza A, Acute respiratory failure with hypoxia Has provider been notified: Yes Discharging clinician: Lorraine Luna DS: Diagnosis Discharge Diagnosis (1) Influenza A with pneumonia: DS: Summary Hospital Course Hospital Course: Please see progress noted dated 06/30/24, patient will be transferred to [facility] for higher level of care with Pulmonary and GI consults. Dr. Sevilla is accepting physician. I have spoke with mom and updated her on the plan of care and she is agreeable for transfer. Status at Discharge Functional status at discharge: bed bound Overall status at discharge: patient is not back to baseline Time Spent with Patient Time attestation: Total time spent providing and/or coordinating discharge services: Time spent: greater than 30 minutes Exam Narrative Exam Narrative: no changes at the time of discharge from progress note dated 06/30/24 Constitutional Vital Signs, click to edit/add: Last Vital Signs Temp 99.3 F 06/30/24 12:33 Pulse 96 H 06/30/24 13:54 Resp 20 06/30/24 12:33 BP 143/90 H 06/30/24 12:33 Pulse Ox 93 L 06/30/24 13:54 O2 Del Method Nasal Cannula 06/30/24 12:33 O2 Flow Rate 5 06/30/24 12:33 DS: Data Data Completed and Pending Labs on day of discharge: Labs from last 24 hours 06/30/24 05:38 WBC 8.8 RBC 3.80 L Hgb 10.5 L Hct 31.2 L MCV 82.1 MCH 27.6 MCHC 33.7 RDW 13.8 Plt Count 177 MPV 10.9 Neut % (Auto) 90.0 H Lymph % (Auto) 6.3 L Steele % (Auto) 3.2 Eos % (Auto) 0.1 L Baso % (Auto) 0.1 L Neut # (Auto) 7.9 H Lymph # (Auto) 0.6 L Steele # (Auto) 0.3 Eos # (Auto) 0.0 Baso # (Auto) 0.0 Abs Immat Gran (auto) 0.03 Imm/Tot Granulo (auto) 0.3 Sodium 137 Potassium 3.7 Chloride 102 Carbon Dioxide 24.9 Anion Gap 13.8 BUN 9.0 Creatinine 0.63 L Est GFR ( Amer) >60 Est GFR (Non-Af Amer) >60 BUN/Creatinine Ratio 14.3 Glucose 237 H Calcium 8.3 L Magnesium 1.6 L Total Bilirubin 0.3 AST 46 H ALT 50 Alkaline Phosphatase 107 Total Protein 6.0 L Albumin 2.5 L Globulin 3.5 Albumin/Globulin Ratio 0.7 Discharge Plan Discharge Disposition: [facility] Discharge location: Transfer to [facility] in [place], Dr. Sevilla accepting
[2024-06-30] MEDS: CEFTRIAXONE 1,000 MG in 0.9 % SODIUM CHLORIDE 50 ML 100 MG IV (16:59)
[2024-06-30] MEDS: ALBUTEROL SULFATE 2.5 MG/3 ML VIAL NEB IH (17:08)
[2024-06-30] MEDS: AZITHROMYCIN 500 MG in 0.9 % SODIUM CHLORIDE 250 ML 250 MG IV (17:39)
== END 2024-06-30 20:26 | disposition short-term general hospital (02) | DRG 871 ==
LOC: ER 17:42 → MS 06-29 06:03
PROVIDERS: Registered Nurse; Admitting Provider Family Medicine; Emergency Provider Emergency Medicine; PCP Internal Medicine; Visit Provider Family Medicine
DX: A41.89 Other specified sepsis (principal); J10.01 Influenza due to other identified influenza virus with the same other identified influenza virus pneumonia; J96.01 Acute respiratory failure with hypoxia; R65.20 Severe sepsis without septic shock; G80.9 Cerebral palsy, unspecified; E83.42 Hypomagnesemia; I08.0 Rheumatic disorders of both mitral and aortic valves; J98.6 Disorders of diaphragm; Q67.4 Other congenital deformities of skull, face and jaw; M95.4 Acquired deformity of chest and rib; K94.29 Other complications of gastrostomy; Y83.8 Other surgical procedures as the cause of abnormal reaction of the patient, or of later complication, without mention of misadventure at the time of the procedure; Z79.899 Other long term (current) drug therapy; Z87.01 Personal history of pneumonia (recurrent)
CPT/HCPCS: 36415; 71045; 71250; 80053; 81001; 83605; 83735; 85007; 85025; 85027; 86140; 87040; 87070; 87205; 87804; 87811; 87880; 94640; 94667; 94668; 94761; 96365; 96368; 99285; J0456; J0696; J1650; J2919; J3475

== ENCOUNTER 2024-09-16 14:26 | Outpatient (OUT) | payer MEDICARE, MEDICAID, SELFPAY ==
--- OUTSIDE RECORDS SUMMARY | 2023-06-04 06:15 | XMS_ITS ---
Author Organization The [facility] in [place] Address [address] [place] [address] Care Team Providers Care Director Of Property Management Name Role Phone Crispin Mendez DO Primary Care Provider Isac Mensah Unavailable [phone] Allergies No Known Allergies Results Component Value Reference Range Notes XR Ankle 3 Views Bilateral Reviewed date:06/06/2023 11:24:10 AM Interpretation: Performing Lab: Notes/Report: XR Foot 3 Views Bilateral Reviewed date:06/06/2023 11:24:34 AM Interpretation: Performing Lab: Notes/Report: Reason For Referral Reason Cerebral Palsy Gai t dysfunction Diagnosis 1 Varus deformity, not elsewhere classified, right ankle (M21.171) Referral Organization [facility] (PODIATRY) Referring Provider First Name Isac Referring Provider Last Name Jonh Referring Provider Speciality Podiatry Referred Provider Specialty Physical The rapist Referral Priority Routine Referral Appointment Date 06/14/2023 Reason Instability Cerebr al palsy Diagnosis 1 Varus deformity, not elsewhere classified, right ankle (M21.171) Referral Organization [facility] (PODIATRY) Referring Provider First Name Isac Referring Provider Last Name Jonh Referring Provider Speciality Podiatry Referred Provider Specialty Other suppli er General Notes Fawad De Paz 08/2023 10:41:06 AM >Referral resent after note completed. Referral Priority Routine REASON FOR VISIT eval patients feet, walks on outside of feet Social History Tobacco Use: Social History Observation Description Date Details (start date - stop date) Never Smoker NA - NA Tobacco Use/Smoking Question Answer Notes Patient is a nonsmoker Problems Problem Type SNOMED Code ICD Code Onset Dates Problem Status W/U Status Risk Notes Problem 781198417574146 Valgus deformity, not elsewhere classified, left ankle (M21.072) Active confirmed Problem 213760297052454 Valgus deformity, not elsewhere classified, 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 Problem 192432836 Varus deformity, not elsewhere classified, 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 Problem 228773318 Varus deformity, not elsewhere classified, left ankle (M21.172) Active confirmed Problem 514559495 Disorder of ligament, left ankle (M24.272) Active confirmed Problem 523368707 Disorder of ligament, right ankle (M24.271) Active confirmed Problem 177886607 Cerebral palsy, unspecified (G80.9) Active confirmed Problem 04360935 Unsteadiness on feet (R26.81) Active confirmed Vital Signs Weight 97 lbs 06/04/2023 Height 60 in 06/04/2023 BMI 18.94 kg/m2 06/04/2023 Encounters Encounter Location Date Provider Diagnosis The [facility] (PODIATRY) [address] [place] [address] [place] [address] 06/04/2023 Isac Borja Right foot pain M79.671 ; Varus deformity, not elsewhere classified, right ankle M21.171 ; Left foot pain M79.672 ; Right ankle pain M25.571 ; Left ankle pain M25.572 ; Valgus deformity, not elsewhere classified, left ankle M21.072 ; Valgus deformity, not elsewhere classified, right ankle M21.071 ; Varus deformity, not elsewhere classified, left ankle M21.172 ; Disorder of ligament, left ankle M24.272 ; Disorder of ligament, right ankle M24.271 ; Cerebral palsy, unspecified G80.9 and Unsteadiness on feet R26.81 Assessments Encounter Date Diagnosis (ICD Code) Assessment Notes Treatment Notes Treatment Clinical Notes Section Notes 06/04/2023 Right foot pain (ICD-10 - M79.671) 06/04/2023 Varus deformity, not elsewhere classified, right ankle (ICD-10 - M21.171) Patient examined and evaluated. All findings discussed with patient's guardian who was present during exam. All questions answered to her satisfaction.Patient is a pleasant 42-year-old male with cerebral palsy and is nonverbal, presents with his guardian today due to concerns of unsteady gait and describing progressive intoeing gait with unsteadiness on his feet and primarily the right foot and ankle seemingly progressively turning inwards more. She states he has never had formal physical therapy nor tried any sort of bracing options.Clinical exam and x-ray findings discussed with patient's guardian.At this point he does have hyperflexibility throughout the subtalar joint seemingly worse on the right compared to the left with a resting inversion contracture which is reducible. Was unable to reproduce gait pattern in the office today, however recommended initially starting with lace up ASO to the right ankle to help provide additional stability. We did recommend custom solid type AFO to be obtained for the bilateral lower extremity, and discussed potential [id number] solid AFO options with the patient's guardian. She states she would attempt to purchase OTC AFO which we showed her several examples of, and suggested that if she has any issues with fitting these that custom devices may be an option for them.Also dispensed order for formal physical therapy for gait reeducation modalities.Would like for them to follow-up in 2 months to evaluate his progress. She may call in the meantime with any questions or concerns. 06/04/2023 Left foot pain (ICD-10 - M79.672) 06/04/2023 Right ankle pain (ICD-10 - M25.571) 06/04/2023 Left ankle pain (ICD-10 - M25.572) 06/04/2023 Valgus deformity, not elsewhere classified, left ankle (ICD-10 - M21.072) 06/04/2023 Valgus deformity, not elsewhere classified, right ankle (ICD-10 - M21.071) 06/04/2023 Varus deformity, not elsewhere classified, left ankle (ICD-10 - M21.172) 06/04/2023 Disorder of ligament, left ankle (ICD-10 - M24.272) 06/04/2023 Disorder of ligament, right ankle (ICD-10 - M24.271) 06/04/2023 Cerebral palsy, unspecified (ICD-10 - G80.9) 06/04/2023 Unsteadiness on feet (ICD-10 - R26.81) Plan Of Treatment Treatment Notes Assessment Notes Varus deformity, not elsewhe re classified, right ankle Patient examined and evaluated. All find ings discussed with patient's guardian who was present during exam. All questions answered to her satisfaction.Patient is a pleasant 42-year-old male with cerebral palsy and is nonverbal, presents with his guardian today due to concerns of unsteady gait and describing progressive intoeing gait with unsteadiness on his feet and primarily the right foot and ankle seemingly progressively turning inwards more. She states he has never had formal physical therapy nor tried any sort of bracing options.Clinical exam and x-ray findings discussed with patient's guardian.At this point he does have hyperflexibility throughout the subtalar joint seemingly worse on the right compared to the left with a resting inversion contracture which is reducible. Was unable to reproduce gait pattern in the office today, however recommended initially starting with lace up ASO to the right ankle to help provide additional stability. We did recommend custom solid type AFO to be obtained for the bilateral lower extremity, and discussed potential [id number]-[id number] solid AFO options with the patient's guardian. She states she would attempt to purchase OTC AFO which we showed her several examples of, and suggested that if she has any issues with fitting these that custom devices may be an option for them.Also dispensed order for formal physical therapy for gait reeducation modalities.Would like for them to follow-up in 2 months to evaluate his progress. She may call in the meantime with any questions or concerns. Referrals Referral Date Details 06/07/2023 06/07/2023, Cerebral Palsy Gait dysfunction 06/07/2023 06/07/2023, Instabil ity Cerebral palsy Progress Notes * Manfred MOSCOSO ADOB:[birth year] (42 yo M)Acc No.[id number]:06/04/2023 New Patient Patient: Manfred Calzada Provider: Emy Borja DPM, :1980 A ge:42 Y S ex:Male Date:06/04/2023 Address:[address] [place], [place] [id number] Pcp:Crispin Mendez, DO Check In:10:00 AM ESTCheck O ut:11:08 AM EST Subjective: * Chief Complaints: * E yany patients feet, walks on outside of feet * HPI: G eneral: He is non verbal with cerebal plasy .Pt is here with guardian and she stated they noticed he has always walked on the sides of his feet. They are trying to have him use a walker, they also do not have pt currently, But she is afraid o do more harm then good with his other health concerns. He does have many under lying health conditions. The guardian states she does try to have him in high top tennis shoes to try and help but the family perfers him to be in hey dudes because they are easier to put on him. * ROS: G eneral/Constitutional: Chills d enies. F ever d enies. W eight gain?denies. W eight loss d enies. S kin: Skin Ulcers d enies. S kin lesion(s) d enies. ? C ardiovascular: Difficulty breathing on exertion d enies. L eg cramps?denies. E dick d enies. C hest pain d enies. R espiratory: Difficulty breathing d enies. D yspnea d enies.?Cough d enies. G astrointestinal: Diarrhea d enies. N ausea d enies. V omiting?denies. M usculoskeletal: Bone/Joint Symptoms d enies. C jail Pain d enies.?Leg cramps d enies. N eurologic: Numbness d enies. T ingling d enies . G ait abnormality d enies. ? H ematology: Anemia D enies. E asy bruising d enies. ? A ll Other Systems: Review of Systems (ROS) S ee HPI for details,All others negative except those mentioned in HPI. * Active Problem List M21.072 Valgus deformity, no t elsewhere classified, left ankle Modified On:06/05/2023W/U Status:confirmed M21.071 Valgus deformity, no t elsewhere classified, right ankle Modified On:06/05/2023/U Status:confirmed M21.171 Varus deformity, not elsewhere classified, right ankle Modified On:06/05/2023/U Status:confirmed M21.172 Varus deformity, not elsewhere classified, left ankle Modified On:06/05/2023/U Status:confirmed M24.272 Disorder of ligament , left ankle Modified On:06/05/2023/U Status:confirmed M24.271 Disorder of ligament , right ankle Modified On:06/05/2023/U Status:confirmed G80.9 Cerebral palsy, unsp ecified Modified On:06/05/2023U Status:confirmed R26.81 Unsteadiness on feet Modified On:06/05/2023U Status:confirmed * Medical History: * Surgical History: g tube 1983open heart * Hospitalization/Major Diagno stic Procedure: s ee above * Family History: F ather: alive. M other: alive. * Social History: T obacco Use: T obacco Use/Smoking P atient is a n onsmoker * Medications: N one * Allergies: N .K.D.A.no[Allergies Verified] Objective: * Vitals: W t:97 lbs, Ht: 60 in, BMI:18.94 Index, Ht-cm: 152.4 cm, Wt-k kg. * Examination: P odiatry Exam: MUSCULOSKELETAL: A ctive firing of lower extremity muscle groups noted. Range of motion full and supple without apparent tenderness. B ilateral ankle appears clinically stable, with hyperflexibility through the subtalar joint. R esting inversion contracture and eversion of the hindfoot and adduction of the forefoot which is reducible. Guardian describes an intoeing gait pattern however unable to replicate on physical exam. Compartment soft compressible.. NEUROLOGICAL: R esponse to stimuli. No apparent hypersensitivity.. VASCULAR: D P and PT pulses nonpalpable. CFT intact. Pedal hair growth noted. No edema erythema or ecchymosis.. DERMATOLOGY N o open lesions or signs of infection.. Diagnostic Testing X -ray:Simulated weightbearing views of the bilateral foot and ankle obtained reviewed in office today. Demonstrates intact mortise bilaterally with Approximately 10 degrees of valgus at the L DTA bilaterally. Weightbearing foot views demonstrate rectus hindfoot on the left with slight varus hindfoot on the right. No acute fractures or dislocations.. Assessment: * Assessment: 1. V arus deformity, not elsewhere classified, right ankle - M21.171 (Primary) 2 . R ight foot pain - M79.671 3 . L eft foot pain - M79.672 4 . R ight ankle pain - M25.571?5. L eft ankle pain - M25.572 6 . V algus deformity, not elsewhere classified, left ankle - M21.072 7 . V algus deformity, not elsewhere classified, right ankle - M21.071?8. V arus deformity, not elsewhere classified, left ankle - M21.172 9 . D isorder of ligament, left ankle - M24.272 1 0. D isorder of ligament, right ankle - M24.271 1 1.?Cerebral palsy, unspecified - G80.9 1 2. U nsteadiness on feet - R26.81 Plan: * Treatment: 2. R ight foot pain I maging: XR Foot 3 Views Bilateral 3. L eft foot pain I maging: XR Foot 3 Views Bilateral 4. R ight ankle pain I maging: XR Ankle 3 Views Bilateral 5. L eft ankle pain I maging: XR Ankle 3 Views Bilateral * Procedure Codes: * * Sign off status: Completed Visit Status: C HK (Check Out) true * Provider: Emy Borja DPM, MS Date: 0 06/04/2023 Generated for Ashlyn gonzalez/Tayler/Lenyitting on: 0 09/16/2024 02:30 PM EDT History and Physical Notes * Examination Category Sub-Category Detail Notes Category Not es Podiatry Exam MUSCULOSKELETAL: Active firing o f lower extremity muscle groups noted. Range of motion full and supple without apparent tenderness. Bilateral ankle appears clinically stable, with hyperflexibility through the subtalar joint. Resting inversion contracture and eversion of the hindfoot and adduction of the forefoot which is reducible. Guardian describes an intoeing gait pattern however unable to replicate on physical exam. Compartment soft compressible. NEUROLOGICAL: Response to stimuli. No apparent hypersensitivity. VASCULAR: DP and PT pulses non palpable. CFT intact. Pedal hair growth noted. No edema erythema or ecchymosis. DERMATOLOGY No open lesions or s igns of infection. Diagnostic Testing X-ray:Simulated weig htbearing views of the bilateral foot and ankle obtained reviewed in office today. Demonstrates intact mortise bilaterally with Approximately 10 degrees of valgus at the L DTA bilaterally. Weightbearing foot views demonstrate rectus hindfoot on the left with slight varus hindfoot on the right. No acute fractures or dislocations. Consultation Request Notes Referral Date Referring Provider Referred Provider Not es 06/07/2023 Isac Borja Cerebral P alsy Gait dysfunction 06/07/2023 Isac Borja , Instabilit y Cerebral palsy
--- OUTSIDE RECORDS SUMMARY | 2023-06-13 04:34 | XMS_ITS ---
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) Diagnosis 2 Varus deformity, not elsewhere classified, left ankle (M21.172) Diagnosis 3 Valgus deformity, no t elsewhere classified, right ankle (M21.071) Referral Organization [facility] (PODIATRY) Referring Provider First Name Isac Referring Provider Last Name Jonh Referring Provider Speciality Podiatry [facility] Referred Provider Specialty Prosthodonti cs General Notes Fawad De Paz 08/2023 11:43:37 AM >First appointment 3.7.2023 Referral Priority Routine Referral Appointment Date 06/20/2023 Encounters Encounter Location Date Provider Diagnosis [facility] (PODIATRY) [address] [place] [address] [place] [address] 06/13/2023 Isac Borja Plan Of Treatment Referrals Referral Date Details 06/13/2023 06/13/2023, referral , [facility] Progress Notes * Manfred MOSCOSO ADOB:[birth year] (42 yo M)Acc No.[id number]:06/13/2023 Patient: Matthew Manfred dinero :1980 A ge:42 Y S ex:Male Address:[address] [place] [phone] Subjective: * Chief Complaints: * * Medical History: * Surgical History: * Hospitalization/Major Diagno stic Procedure: * Medications: Objective: Assessment: Plan: * Treatment: * Procedure Codes: * true * Date: Generated for Printi ng/Nelidag/eTransmitting on: 0 09/16/2024 02:30 PM EDT Consultation Request Notes Referral Date Referring Provider Referred Provider Not es 06/13/[address] [facility]
--- OUTSIDE RECORDS SUMMARY | 2023-08-06 06:15 | XMS_ITS ---
Author Organization The [facility] in [place] Address [address] [place] [address] Care Team Providers Care Truck Sales Representative Name Role Phone Crispin Mendez DO Primary Care Provider Isac Mensah [phone] REASON FOR VISIT 6 week f/u Encounters Encounter Location Date Provider Diagnosis [facility] (PODIATRY) [address] [place] [address] [place] [address] 08/06/2023 Isac Borja Plan Of Treatment No Information Progress Notes * Manfred MOSCOSO ADOB:[birth year] (43 yo M)Acc No.[id number]:08/06/2023 UNLOCKED PROGRESS NOTE Follow Up Patient: Manfred MAC Provider: Emy Borja DPM, MS :1980 A ge:42 Y S ex:Male Date:08/06/2023 Address:[address] [place], [place] [id number] Pcp:Crispin Mendez DO Subjective: * Chief Complaints: * 1 . 6 week f/u. * Medical History: Objective: * Vitals: Assessment: Plan: * Treatment: * * Electronic signature of John Borja DPM on 09/16/2024 at 02:30 PM EDT Sign off status: Pending Visit Status: C ANC (Cancelled) * Provider: Emy Borja DPM MS Date: 0 08/06/2023 Generated for Ashlyn gonzalez/Tayler/Jayleen on: 0 09/16/2024 02:30 PM EDT
--- OUTSIDE RECORDS SUMMARY | 2024-09-16 14:30 | XMS_ITS | Encounter Summary ---
Author Organization [facility] Address [address] [place] [address] Care Team Providers Care Culinary Arts Teacher Name Role Phone Crispin Mendez DO Primary Care Provider [phone] Crispin Mendez DO Unavailable [phone] Justyn Tobar MD Unavailable [phone] Source Comments In the event this information is protected by the Federal Confidentiality of Alcohol and Drug AbusePatient Records regulations: The Federal rules restrict any use of the information to criminally investigate or prosecute any alcohol or drug abuse patient.[facility] Encounter Details Date Type Department Care Team (Late st Contact Info) Description 09/01/2018 Abstract Gastroenterology [address] [id number] Aniceto mAbrosio MD [address] [place] [id number] Social History Tobacco Use Types Packs/Day Years Used Date Smoking Tobacco: Never Smokeless Tobacco: Never Alcohol Use Standard Drinks/Week Comments No 0 (1 standard drink = 0.6 oz pur e alcohol) Sex and Gender Information Value Date Recorded Sex Assigned at Not on file Legal Sex Male 9:01 AM EST Gender Identity Not on file Sexual Orientation Not on file documented as of this encounter Plan of Treatment Not on file documented as of this encounter Visit Diagnoses Not on filedocumented in this encounter Additional Health Concerns Infection Onset Date Last Indicated Resolved Time Influenza Comment:06/28 OSH influenza + 06/28/2024 07/06/2024 07/07/2024 10:32 AM EDT COVID-19 Rule-Out 07/07/2024 07/07/2024 07/07/2024 10:30 AM EDT documented as of this encounter Care Teams Culinary Arts Teacher Relationship Specialty Start Date End Date Crispin Mendez DO [address] [place] [address] PCP - General 07/26/00 Crispin Mendez DO [address] [place] [address] Referring Internal Medicine 01/14/24 Justyn Tobar MD [address] [phone] Referring Cardiovascular Surgery 03/10/24 documented as of this encounter
--- OUTSIDE RECORDS SUMMARY | 2024-09-16 14:30 | XMS_ITS | Encounter Summary ---
Author Organization [facility] Address [address] [place] [address] Care Team Providers Care Histologic Technician Name Role Phone Crispin Mendez DO Primary Care Provider [phone] Crispin Mendez DO Unavailable [phone] Justyn Tobar MD Unavailable + [phone] Source Comments In the event this information is protected by the Federal Confidentiality of Alcohol and Drug AbusePatient Records regulations: The Federal rules restrict any use of the information to criminally investigate or prosecute any alcohol or drug abuse patient.[facility] Encounter Details Date Type Department Care Team (Late st Contact Info) Description 07/09/2024 Ophth Exam Ophthalmology [address] [id number] Greyson Salcedo MD [address] [place] [address] Social History Tobacco Use Types Packs/Day Years Used Date Smoking Tobacco: Never Smokeless Tobacco: Never Alcohol Use Standard Drinks/Week Comments No 0 (1 standard drink = 0.6 oz pur e alcohol) [facility] Utilities Answer Date Recorded In the past 12 months has th e electric, gas, oil, or water company threatened to shut off services in your home? No 07/08/2024 Hunger Vital Sign Answer Date Recorded Within the past 12 months, y ou worried that your food would run out before you got the money to buy more. Never true 07/09/19 25 Within the past 12 months, t he food you bought just didn't last and you didn't have money to get more. Never true 07/08/2024 PRAPARE - Transportation Answer Date Re corded In the past 12 months, has l ack of transportation kept you from medical appointments or from getting medications? No 06/14 In the past 12 months, has l ack of transportation kept you from meetings, work, or from getting things needed for daily living? No 07/08/2024 Housing Stability Vital Sign Answer Goyo e Recorded In the last 12 months, was t here a time when you were not able to pay the mortgage or rent on time? No 07/08/2024 In the past 12 months, how m any times have you moved where you were living? 0 07/08/2024 At any time in the past 12 m [facility], were you homeless or living in a custodial (including now)? No 07/08/2024 Area Deprivation Index Answer Date Brenden rded National Score (1-100), lower number is lower ri sk 80 05/28/2024 State Score (1-10), lower number is lower risk 7 05/28/2024 Data from: https://www.neighborhoodatlas.medicine.[facility].edu/. Last address used for calculation [address] 05/28/2024 Sex and Gender Information Value Date Recorded Sex Assigned at Not on file Legal Sex Male 9:01 AM EST Gender Identity Not on file Sexual Orientation Not on file documented as of this encounter Plan of Treatment Not on file documented as of this encounter Goals Goal Patient Goal Type Associated Problems Recent Progress Patient-Stated? Author Blood Pressure < 140/90 Blood Pressure 147/95( 025 2:10 PM EDT) No Moose Madrigal MD documented as of this encounter Visit Diagnoses Not on filedocumented in this encounter Care Teams Histologic Technician Relationship Specialty Start Date End Date Crispin Mendez DO [address] [place] [address] PCP - General 07/26/00 Crispin Mendez DO [address] [facility] [address] Referring Internal Medicine 01/14/24 Justyn Tobar MD [address] [phone] Referring Cardiovascular Surgery 03/10/24 documented as of this encounter
--- OUTSIDE RECORDS SUMMARY | 2024-09-16 14:30 | XMS_ITS | Patient Health Record ---
Author Organization [facility] [place] Address [address] [place] [address] Care Team Providers Care Structural Metal Worker Name Role Phone Andrea Crispin BAIRES Primary Care Provider Unavaila ble Allergies No Known Allergies Reason For Referral No Information Social History Tobacco Use: Social History Observation Description Date Details (start date - stop date) Never Smoker NA - NA Tobacco Use/Smoking Question Answer Notes Patient is a nonsmoker Problems Problem Type SNOMED Code ICD Code Onset Dates Problem Status W/U Status Risk Notes Problem 771968647 Cerebral palsy, unspecified (G80.9) Active confirmed Problem 622986879799570 Valgus deformity, not elsewhere classified, 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 Problem 081340414033032 Valgus deformity, not elsewhere classified, left ankle (M21.072) Active confirmed Problem 317447997 Varus deformity, not elsewhere classified, 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 Problem 380241756 Varus deformity, not elsewhere classified, left ankle (M21.172) Active confirmed Problem 301241960 Disorder of ligament, right ankle (M24.271) Active confirmed Problem 502531797 Disorder of ligament, left ankle (M24.272) Active confirmed Problem 30686829 Unsteadiness on feet (R26.81) Active confirmed Problem Mitral and aortic regurgitation (564384629) Mitral and aortic regurgitation (I08.0) Active confirmed Problem Cerebral palsy (353507428) Cerebral palsy (G80.9) Active confirmed Plan Of Treatment No Information Insurance Providers Payer Name Payer Address Payer Phone Subscriber Number Group Number Insured Name Patient Relationship to Insured Coverage Start Date Coverage End Date [facility] [address] [address] [place], [place] [id number] [phone] [id number] Manfred Perrin Self - patient is the insured [employer] [place] [employer] [address] [place] [address] [id number] Manfred Perrin Self - patient is the insured [address] [place] [id number] [address] [address] [id number] Manfred Perrin Self - patient is the insured Medical (General) History Medical History History ICD Code heart disease gerd Gtube scoliosis cerebral palsy Surgical History Surgery Date(Month/Year) open heart gtube 1982 Hospitalization History Reason Date(Month/Year) see above
--- OUTSIDE RECORDS SUMMARY | 2024-09-16 14:30 | XMS_ITS | Clinical Summary ---
Author Organization [facility] Address [address] [place] [id number] Care Team Providers Care Icing Machine Operator Name Role Phone Crispin Mendez DO Primary Care Provider [phone] Crispin Mendez DO Unavailable [phone] Justyn Tobar MD Unavailable Allergies Active Allergy Reactions Criticality Noted Date Comments Blueberry Unknown 01/21/2013 Gluten Flour Unknown 01/21/2013 Lactose 12/07/2003 Medications [facility] GASTROSTOMY TUBEIndications :Gastrostomy tube dysfunction (HCC) 2.5 cm, 18 Fr 1 Kit 7 Active CHEWABLE MULTI VITAMIN ORAL Take 1 Tablespoonful by mouth once daily. Active metoprolol tartrate, short acting, (LOPRESSOR) 25 mg tablet Take 1 tablet by mouth every 12 hours. 180 tablet 07/11/2024 1:34 PM EDT 5 025 Active MULTIVITAMIN-FE RROUS FUMARATE-FOLIC ACID 18 MG-400 MCG TABLET Give 1 tablet by ORAL/FEEDING TUBE route once daily. 30 tablet 2 07/11/2024 1:34 PM EDT 5 025 Active pantoprazole oral liquid 2 mg/mL (CPD) Take 20 mL by mouth two times a day. 1200 mL 2 07/11/2024 1:34 PM EDT 5 025 Active [employer] kit 1 each every 4 months. [employer] (AMT) MiniOne low profile balloon button gastrostomy tube with ENFit extension set Size: 20 Fr x 3.0 cm Ref #: [id number] Change tube every 4 months 1 kit 4 5 Active [employer] 1 each one time a week. 60 mL ENFit syringe for use with ENFit gastrostomy feeding tube 1 each 11 5 Active [employer] 1 each every 2 weeks. [employer] (AMT) 12 inch straight angle ENFit feed set connection (for use with low profile gastrostomy button) Ref #: [id number] Change extension set every 2 weeks. 1 each 5 Active Active Problems Patient Care Coordination No te Formatting of this note migh t be different from the original. Indication for MICU Admission: AHRF Significant PMH/PSH: - Intellectual disability - Shone complex; Congenital heart disease s/p subaortic membrane resection, excision of supravalvular aortic scar transaortic membrane resection and muscle wedges 1993 & 1999 - HTN - PEG - Anemia - GERD Hospital Course: This is a 43 yo M with above PMH that initially presented to O[facility] ?06/28/24 for increased WOB x 2. Upon presentation, pt was febrile, tachycardic, with lactic acidosis and leukocytosis. Pt was found to have Flu A with initation of Tamiflu. CT chest with bibasilar consolidation with abx and steroids ?for CAP initiated. OSH course c/b AHRF (RA -> 5L) prompting transfer to [facility] on 06/30/24. Upon arrival to [facility], pt was hypoxic on 5L (85% SpO2) prompting start of HFNC, ultimately requiring intubation 07/03. FiO2 and PEEP weaned at OSH with continuation of treatment for Influenza A, possible bacterial PNA. Transferred to F MICU on 07/05 for further management of AHRF. Upon arrival, awake while intubated on VC 30% PEEP 5, HDS. 07/06 extubated to NC 3 liters. Significant New Events Past 24 hrs: Net negative 1705 ml/24 hours. Today patient is at baseline mentation, on NC 1 liter, in no apparent distress, in ST, BP stable, a-febrile A/P of Major Active Problems: #Anisocoria - noted at OSH - resolved #Intellectual Disability Nonverbal and bed bound at baseline requiring [address] Brain (07/04) unremarkable Plan: - PT/OT, mobilize as tolerated #AHRF 05/17 #Influenza A #C/f Superimposed Bacterial PNA Received ceftriaxone (?06/28-06/30), azithromycin + Tamiflu x 5d, hydrocortisone 100 mg BID (07/01-07/05) ETT (07/03-07/06) OSH CT chest 07/04 with b/l consolidations and GGO, mod b/l pleural effusions OSH blood cx (07/01) neg x 4 days Arrived on VC 35% PEEP 5, peak airway pressures 24, rr 22 Plan: - Supplemental oxygen for goal SpO2 > 90% - Follow up sputum Cx, NTD - SQ heparin for DVT PPx - Mobilize as tolerated #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 Solomon) Echo 05/28/24 LVEF 55%, normal RV, moderate Mitral valve stenosis, bicuspid aortic valve with mild aortic regurgitation, moderate LVOT stenosis Plan: - Restart home metoprolol - OP follow up with Cardiology #C/f Appendicitis #Leaking PEG Tube #GERD #Severe Protein-Calorie Malnutrition OSH CT A/P 07/04 with appendix at uppe rlimits of normal in size with trace fluid adjacent to appendex, in R paracolic gutter with possible periappendiceal inflammation Per OSH speech eval - patient had been taken purees and sips of water at home but high suspicion of aspiration, recommending pt continue NPO status with nutrition via PEG tube as appropriate. Recommend pt completing outpatient MBS prior to resuming PO diet to determine safest diet and rule out aspiration Plan: - Gen Surg signed off, no need for surgical intervention - Consult GI to assess PEG tube if leaking re-occurs - Wound care to assess wound around PEG tube site - Nutrition following - Advancing TF's to goal through PEG tube #Hyperglycemia Plan: - SS 2 insulin #Anemia Documented at OSH without signs of bleeding Plan: - Active type and screen - Daily CBC - Transfuse for HgB < 7 Barriers to transfer out of MICU: Able to transfer to the [facility] today Problem Noted Date Diagnosed Date Congenital stenosis of aortic valve 07/15/2024 Hypertensive heart disease without congestive he art failure 07/15/2024 Gastrostomy status 07/15/2024 Severe malnutrition 07/15/2024 Anemia 07/15/2024 Stress hyperglycemia 07/15/2024 Gastroesophageal reflux disease without esophagi tis 07/15/2024 PEG tube malfunction 07/13/2024 Shingles rash 07/09/2024 Overview (07/09/2024): History of prior shingles Periorbital swelling 07/09/2024 Overview (07/09/2024): Whitish discharge ARDS (adult respiratory distress syndrome) 07/06 Influenza A 07/05/2024 Shone complex 07/05/2024 Lactic acid increased 07/05/2024 Mitral valve stenosis, non-rheumatic 05/29/2024 Bicuspid aortic valve 02/13/2018 Nonrheumatic aortic valve stenosis, mild 018 Nonrheumatic aortic valve insufficiency, mild Non-rheumatic mitral regurgitation, mild 018 Congenital cleft leaflet of mitral valve 018 Ventricular bigeminy 02/13/2018 Sinusitis 03/08/2010 Mitral valve disorders(424.0) 09/06/2005 Congenital subaortic stenosis 09/06/2005 PVC's (premature ventricular contractions) 09/06 Resolved Problems Problem Noted Date Diagnosed Date Resolved Date Acute hypoxemic respiratory failure 07/05/2024 07/11/2024 Congenital atresia and stenosis of aorta 09/06/2005 03/01/2010 Encounters Date Type Department Care Team Description 08/20/2024 2:00 PM EDT Office Visit Cardiology [address] [place], [place] [id number] Alisha Carlson APRN.ANTOINE Congenital subaortic stenosis (HCC) (Primary Dx); Bicuspid aortic valve; Nonrheumatic aortic valve stenosis 08/20/2024 1:30 PM EDT Procedure Cardiology [address] [place], [place] [id number] [phone] 08/20/2024 Travel 07/28/2024 Patient Msg Gastroenterology [address] [id number] Hilda Moon, AIR BAG CURER.GLASS RIBBON MACHINE OPERATOR Feeding tube follow up 07/20/2024 Telephone Gastroenterology [address] [id number] Hilda Moon, AIR BAG CURER.GLASS RIBBON MACHINE OPERATOR Orders 07/16/2024 11:00 AM EDT Office Visit Gastroenterology [address] [id number] Hilda Moon, AIR BAG CURER.GLASS RIBBON MACHINE OPERATOR Complication of feeding tube (HCC) (Primary Dx); PEG (percutaneous endoscopic gastrostomy) adjustment/replacemen t/removal (HCC); Fungal infection 07/16/2024 Travel 07/15/2024 Telephone Cardiology [address] [place], [place] [id number] Provider, [facility] Appointment 07/13/2024 Telephone Gastroenterology [address] [id number] Provider, [facility] 07/10/2024 Orders Only Gastroenterology [address] [place] [id number] Mj Starkey DO Leaking PEG tube (HCC) (Primary Dx) 07/09/2024 Ophth Exam Ophthalmology [address] [place] [id number] Greyson Salcedo MD 07/05/2024 2:39 PM EDT - 07/11/2024 4:11 PM EDT Hospital Encounter [facility] [id number] [address] [place] [address] Ishaan Phipps MD Mireles Cabodevila, Eduardo, MD Krishnan, Sudhir, MD Singhal, Umang, MD Mohan, Maria, MD ARDS, INFLUENZA Discharge Disposition: Home from Last 3 Months Family History Medical History Relation Comments Hyperlipidemia Father Hypertension Father Breast Cancer Maternal Aunt Breast Cancer Maternal Grandmother Cervical Cancer Mother Hyperlipidemia Mother Hypertension Mother Relation Status Comments Father Maternal Aunt Maternal Grandmother Mother Social History Tobacco Use Types Packs/Day Years Used Date Smoking Tobacco: Never Smokeless Tobacco: Never Alcohol Use Standard Drinks/Week Comments No 0 (1 standard drink = 0.6 oz pur e alcohol) [facility] Utilities Answer Date Recorded In the past [...] any time in the past 12 m [facility], were you homeless or living in a long-term (including now)? No 07/08/2024 Area Deprivation Index Answer Date Brenden rded National Score (1-100), lower number is lower ri sk 80 05/28/2024 State Score (1-10), lower number is lower risk 7 05/28/2024 Data from: https://www.neighborhoodatlas.medicine.[facility].edu/. Last address used for calculation [address] [facility] 05/28/2024 Sex and Gender Information Value Date Recorded Sex Assigned at Not on file Legal Sex Male 9:01 AM EST Gender Identity Not on file Sexual Orientation Not on file Last Filed Vital Signs Vital Sign Reading Time Taken Comments Blood Pressure 147/95 08/20/2024 2:10 PM EDT Pulse 98 08/20/2024 2:10 PM EDT Temperature 36.9 C (98.5 F) 07/16/2024 11:09 AM EDT Respiratory Rate 18 08/20/2024 2:10 PM EDT Oxygen Saturation 98% 08/20/2024 2:10 PM EDT Inhaled Oxygen Concentration - - Weight 45.1 kg (99 lb 8 oz) 08/20/2024 2:10 PM E DT Height 149.9 cm (4' 11 ) 07/16/2024 11:09 AM EDT Body Mass Index 20.1 07/16/2024 11:09 AM EDT Plan of Treatment Health Maintenance Due Date Last Done Comments Anxiety Screening 11/14/1999 Depression Screening 11/14/1999 HIV Screening 11/14/1999 Hepatitis C Screening 11/14/1999 Hepatitis B Vaccine (3 of 3 - 19+ 3-dose series) 10/27/2004 09/01/2004, 04/03/2004 DTaP,Tdap,Td Vaccine (1 - Tdap) 01/18/2015 5, 01/13/2013 Covid-19 Vaccine (4 - 2023-2 5 season) 2023 08/18/2021, 06/09/2020, 05/12/2020 Lipid Screening 08/20/2029 08/20/2024, 05/28/2024 Influenza Vaccine Completed 12/23/2023, , 01/19/2022, Additional history exists Goals Goal Patient Goal Type Associated Problems Recent Progress Patient-Stated? Author Blood Pressure < 140/90 Blood Pressure 147/95( 025 2:10 PM EDT) oMose Aquino MD Procedures Procedure Name Priority Date/Time Associated Diagnosis Comments ECG COMPLETE Routine 08/20/2024 1:42 PM EDT Bicuspid aortic valve Congenital subaortic stenosis (HCC) EF-ECHOACHD Routine 08/20/2024 11:45 AM EDT ECHO SPECIALIST COMPLEX ADULT CONGENITAL Routine 08/20/2024 11:45 AM EDT Bicuspid aortic valve Congenital subaortic stenosis (HCC) NT PRO BNP Routine 08/20/2024 11:35 AM EDT Bicuspid aortic valve Congenital subaortic stenosis (HCC) LIPID PANEL, FASTING Routine 08/20/2024 11:35 AM EDT Bicuspid aortic valve Congenital subaortic stenosis (HCC) COMPLETE BLOOD COUNT Routine 08/20/2024 11:35 AM EDT Bicuspid aortic valve Congenital subaortic stenosis (HCC) COMPREHENSIVE METABOLIC PANEL Routine 08/20/2024 11:35 AM EDT Bicuspid aortic valve Congenital subaortic stenosis (HCC) GLUCOSE, BLOOD (POC) Routine 07/11/2024 12:49 PM EDT GLUCOSE, BLOOD (POC) Routine 07/11/2024 8:31 AM EDT XR CHEST 1V FRONTAL PORT Routine 07/11/2024 7:50 AM EDT GLUCOSE, BLOOD (POC) Routine 07/10/2024 5:45 PM EDT GLUCOSE, BLOOD (POC) Routine 07/10/2024 12:32 PM EDT TYPE + SCREEN Routine 07/10/2024 6:36 AM EDT PHOSPHORUS INORGANIC Routine 07/10/2024 6:36 AM EDT MAGNESIUM BLD Routine 07/10/2024 6:36 AM EDT COMPLETE BLOOD COUNT Routine 07/10/2024 6:36 AM EDT BASIC METABOLIC PANEL Routine 07/10/2024 6:36 AM EDT GLUCOSE, BLOOD (POC) Routine 07/10/2024 6:03 AM EDT URINALYSIS (WITH MICROSCOPIC) WITH CULTURE IF INDICATED STAT 07/10/2024 12:41 AM EDT GLUCOSE, BLOOD (POC) Routine 07/10/2024 12:35 AM EDT GLUCOSE, BLOOD (POC) Routine 07/09/2024 5:14 PM EDT GLUCOSE, BLOOD (POC) Routine 07/09/2024 11:[address] ORBITS W IVCON STAT 07/09/2024 11: 40 AM EDT GLUCOSE, BLOOD (POC) Routine 07/09/2024 8:42 AM EDT PHOSPHORUS INORGANIC Routine 07/09/2024 8:12 AM EDT MAGNESIUM BLD Routine 07/09/2024 8:12 AM EDT COMPLETE BLOOD COUNT Routine 07/09/2024 8:12 AM EDT BASIC METABOLIC PANEL Routine 07/09/2024 8:12 AM EDT BACTERIAL CULTURE, BLOOD Routine 07/08/2024 7:37 PM EDT GLUCOSE, BLOOD (POC) Routine 07/08/2024 5:48 PM EDT XR CHEST 1V FRONTAL PORT STAT 07/08/2024 4:[address] ABD/PEL W IVCON STAT 07/08/2024 1: 39 PM EDT GLUCOSE, BLOOD (POC) Routine 07/08/2024 1:00 PM EDT BACTERIAL CULTURE, BLOOD Routine 07/08/2024 10:36 AM EDT CBC + DIFF STAT 07/08/2024 9:42 AM EDT BASIC METABOLIC PANEL STAT 07/08/2024 9:42 AM EDT GLUCOSE, BLOOD (POC) Routine 07/08/2024 9:38 AM EDT PHOSPHORUS INORGANIC Routine 07/08/2024 4:21 AM EDT MAGNESIUM BLD Routine 07/08/2024 4:21 AM EDT COMPLETE BLOOD COUNT Routine 07/08/2024 4:21 AM EDT BASIC METABOLIC PANEL Routine 07/08/2024 4:21 AM EDT GLUCOSE, BLOOD (POC) Routine 07/07/2024 7:47 PM EDT GLUCOSE, BLOOD (POC) Routine 07/07/2024 11:21 AM EDT GLUCOSE, BLOOD (POC) Routine 07/07/2024 5:39 AM EDT TYPE + SCREEN STAT 07/06/2024 11:24 PM EDT RETIC COUNT Add-on 07/06/2024 11:24 PM EDT FERRITIN BLD Add-on 07/06/2024 11:24 PM EDT IRON + TIBC Add-on 07/06/2024 11:24 PM EDT MAGNESIUM BLD STAT 07/06/2024 11:24 PM EDT PHOSPHORUS INORGANIC STAT 07/06/2024 11:24 PM EDT COMPLETE BLOOD COUNT STAT 07/06/2024 11:24 PM EDT BASIC METABOLIC PANEL STAT 07/06/2024 11:24 PM EDT GLUCOSE, BLOOD (POC) Routine 07/06/2024 11:23 PM EDT GLUCOSE, BLOOD (POC) Routine 07/06/2024 6:00 PM EDT VENOUS BLOOD GASES STAT 07/06/2024 2: 36 PM EDT GLUCOSE, BLOOD (POC) Routine 07/06/2024 11:21 AM EDT XR CHEST 1V FRONTAL PORT Routine 07/06/2024 11:02 AM EDT VENOUS BLOOD GASES STAT 07/06/2024 5: 59 AM EDT VENOUS BLOOD GASES STAT 07/06/2024 12 :55 AM EDT GLUCOSE, BLOOD (POC) Routine 07/06/2024 12:29 AM EDT TRIGLYCERIDES BLD STAT 07/05/2024 11: 22 PM EDT MAGNESIUM BLD STAT 07/05/2024 11:22 PM EDT PHOSPHORUS INORGANIC STAT 07/05/2024 11:22 PM EDT COMPLETE BLOOD COUNT STAT 07/05/2024 11:22 PM EDT BASIC METABOLIC PANEL STAT 07/05/2024 11:22 PM EDT PROCALCITONIN (LAB) STAT 07/05/2024 8 :18 PM EDT BACTERIAL CULTURE AND GRAM STAIN, RESPIRATORY, SPUTUM AND TRACHEAL ASPIRATE STAT 07/05/2024 7:34 PM EDT GLUCOSE, BLOOD (POC) Routine 07/05/2024 5:22 PM EDT ARTERIAL BLOOD GASES STAT 07/05/2024 5:01 PM EDT PROTHROMBIN TIME STAT 07/05/2024 4:14 PM EDT XR ABDOMEN 1V SUPINE STAT 07/05/2024 3:57 PM EDT VENOUS BLOOD GASES STAT 07/05/2024 3: 40 PM EDT PROCALCITONIN (LAB) STAT 07/05/2024 3 :39 PM EDT PHOSPHORUS INORGANIC STAT 07/05/2024 3:39 PM EDT MAGNESIUM BLD STAT 07/05/2024 3:39 PM EDT COMPREHENSIVE METABOLIC PANEL STAT 07/05/2024 3:39 PM EDT COMPLETE BLOOD COUNT STAT 07/05/2024 3:39 PM EDT STAPHYLOCOCCUS AUREUS & MRSA SCREEN, PCR, NASAL STAT 07/05/2024 3:38 PM EDT XR CHEST 1V FRONTAL PORT STAT 07/05/2024 3:31 PM EDT GLUCOSE, BLOOD (POC) Routine 07/05/2024 2:[address] OUTSIDE CD DICOM IMPORT 07/04/2024 CT OUTSIDE CD DICOM IMPORT 07/04/2024 XR OUTSIDE CD DICOM IMPORT 07/04/2024 XR OUTSIDE CD DICOM IMPORT 07/03/2024 XR OUTSIDE CD DICOM IMPORT 07/03/2024 XR OUTSIDE CD DICOM IMPORT 07/03/2024 XR OUTSIDE CD DICOM IMPORT 07/02/2024 XR OUTSIDE CD DICOM IMPORT 07/01/2024 from Last 3 Months Results * ECG COMPLETE (08/20/2024 1:42 PM EDT) Ventricular Rate 90 BPM [facility] Atrial Rate 90 BPM [facility] P-R Interval 120 ms [facility] QRS Duration 90 ms [facility] QT Interval 372 ms [facility] QTC Calculation (Bazett) 455 ms [facility] Calculated P [place] 12 degrees [facility] Calculated R [place] -25 degrees [facility] Calculated T [place] 65 degrees [facility] 08/20/2024 1:42 PM EDT Impressions [facility] - 09/15/2024 1:16 PM EDT NORMAL SINUS RHYTHM LEFT VENTRICULAR HYPERTROPHY WITH REPOLARIZATION ABNORMALITY ( R in aVL , [place] product ) ABNORMAL ECG Confirmed by CHEYENNE MEANS MD ([id number]) on 09/15/2024 1:16:57 PM Narrative [facility] - 09/15/2024 1:16 PM EDT NAME : JIAN MOSCOSO PID : [id number] : 1980 Gender : Male Race : ORD : [id number] Procedure Date : Aug 20 2024 13:42:11 Edit Date : Sep 15 2024 13:16:57 Diagnosis: NORMAL SINUS RHYTHM LEFT VENTRICULAR HYPERTROPHY WITH REPOLARIZATION ABNORMALITY ( R in aVL , [place] product ) ABNORMAL ECG Confirmed by CHEYENNE MEANS MD ([id number]) on 09/15/2024 1:16:57 PM Test Reason : BEST POS Location : 314 : J14 Overread By : CHEYENNE MEANS MD Edited By : CHEYENNE MEANS MD Referred By : , Acquired by : SANTOS BENSON Ravinder Solomon MD EKG Final Result [facility] [address] [place] [address] * EF-ECHOACHD (08/20/2024 11:45 AM EDT) LV Ejection Fraction 53 % [facility] Comment: (2D biplane) EF > 52 An LV Ejection Fraction of > 50% is normal 08/20/2024 11:4 5 AM EDT us Ravinder Solomon MD LVEF RESULTS Final Result [facility] [address] [id number] * ECHO SPECIALIST COMPLEX ADULT CONGENITAL (08/20/2024 11:45 AM EDT) 08/20/2024 11:4 5 AM EDT Narrative [facility] - 08/20/2024 7:23 PM EDT Echocardiography Report: [facility] NAMRATA-2 Date of service: 08/20/2024 11:45:59 AM LATHE OPERATOR Ordering physician: RAVINDER SOLOMON Indication: Bicuspid AV, Cleft MV and subaortic membrane resection Technologist: Kristen Madrigal [facility] Interpreting physician: Alicia Del Castillo MD PATIENT: Name: MR. JIAN MOSCOSO : 1980 Age: 43 years Gender: M History of congenital heart disease. Primary rhythm: sinus. Height: 149.90 cm BSA: 1.39 m Weight: 46.40 kg BMI: 20.6 kg/m Heart rate 67 bpm Technically difficult exam due to body habitus and suboptimal positioning. Color Doppler was utilized to interrogate the cardiac valves assessed and spectral Doppler was utilized to determine the flow velocities and pressure gradients reported in this exam. MEASUREMENTS: Value Indexed Normal Max aortic dimension 2.8 cm Ao < 3.8 Left atrial volume 20 ml (4ch A-L) 14 ml/m Melissa <= 34 LV stroke volume 31 ml (2D biplane) LVOT stroke volume 73 ml 53 ml/m LV end diastolic volume 58 ml (2D biplane) 41.5 ml/m 34<=EDVi<75 LV end systolic volume 27 ml (2D biplane) 19.5 ml/m Ejection Fraction 53 % (2D biplane) EF > 52 FINDINGS: LEFT VENTRICLE The left ventricle is normal in size. Left ventricular systolic function is normal. Left ventricular diastolic function was not evaluated due to inconsistent or technically suboptimal data. Wall Motion: All scored segments are normal. RIGHT VENTRICLE The right ventricle is normal in size. Right ventricular systolic function is normal. Estimated right atrial pressure is 8 mmHg based on IVC assessment. LEFT ATRIUM The left atrial cavity is normal in size. RIGHT ATRIUM Unable to reliably measure RA volume due to technical limitations. Inferior Vena Cava: The inferior vena cava appears normal measuring 1.7 cm. The vessel decreases less than 50 percent with inspiration. MITRAL VALVE There no mitral valve stenosis. There is mild (1+) mitral valve regurgitation due to cleft. There is mild thickening. The peak valve gradient is 7 mmHg. The mean valve gradient is 3 mmHg. TRICUSPID VALVE There is trace tricuspid valve regurgitation. There is no thickening. AORTIC VALVE There is moderate aortic valve stenosis. There is mild (1+) aortic valve regurgitation. Bicuspid aortic valve. There is mild thickening. There is mild calcification. The peak gradient is 46 mmHg (peak velocity = 339.0 cm/s). The mean gradient is 25 mmHg. The LVOT mean velocity is 68.2 cm/s. The LVOT diameter is 2.0 cm. The aortic VTI is 79.0 cm. The mean velocity in the aortic valve is 221.0 cm/s. The dimensionless valve index is 0.29. AV area is 0.92 cm (0.66 cm /m ) by continuity, VTI. The LVOT stroke volume index is 53 ml/m . PULMONIC VALVE There is trace pulmonic valve regurgitation. There is no thickening. AORTA The visualized aorta is normal in size. Measurements - Mid arch 2.8 cm. PULMONARY ARTERIES The pulmonary arteries are normal. PERICARDIUM There is an epicardial fat pad. CONCLUSIONS: - Technically difficult exam due to body habitus and suboptimal positioning. - Exam indication: Bicuspid AV, Cleft MV and subaortic membrane resection - Shone complex: subaortic membrane, bicuspid aortic valve, and cleft mitral valve. s/p subaortic resection (1993), s/p redo with excision of supravalvar aortic scar, transaortic membrane resection and removal of deep muscle wedge (09/05/1999, [facility]). - The left ventricle is normal in size. Left ventricular systolic function is normal. EF = 53 5% (2D biplane) - The right ventricle is normal in size. Right ventricular systolic function is normal. - There is mild (1+) mitral valve regurgitation due to cleft. There is mild thickening. The peak valve gradient is 7 mmHg. The mean valve gradient is 3 mmHg. Gradients obtained at a HR of 71 bpm. Previous peak and mean gradients of 14/7 mmHg obtained at a HR of 101 bpm. - Bicuspid aortic valve. There is mild (1+) aortic valve regurgitation. There is moderate aortic valve stenosis. AV area is 0.92 cm (0.66 cm /m ) by continuity VTI. The peak gradient is 46 mmHg, the mean gradient is 25 mmHg and the dimensionless valve index is 0.29. No residual subaortic membrane. - Exam was compared with the prior echocardiographic exam performed on 05/28/2024. lower aortic valve gradients at lower HR Final See Link below for Image us Ravinder Solomon MD ECHO Final Result Performing Organization Address City/[facility]/ZIP Co de Phone Number [facility] [address] [place] [address] * (ABNORMAL) NT PRO BNP (08/20/2024 11:35 AM EDT) NT Pro BNP 207(H) <125 pg/mL 08/20/2024 9:39 PM EDT [facility] Blood BLOOD SPECIMEN / Unknown Venipuncture / Unknown 08/20/2024 11:35 AM EDT 08/20/2024 11:35 AM EDT us Ravinder Solomon MD LABORATORY Final Result Performing Organization Address City/[facility] Co de Phone Number [facility] [address] [place] [address] * (ABNORMAL) LIPID PANEL BASIC (08/20/2024 11:35 AM EDT) Cholesterol, Total 216(H) <200 mg/dL 08/20/2024 8:42 PM EDT [facility] Comment: <200 mg/dL, Desirable 200-239 mg/dL, Borderline high >239 mg/dL, High Triglyceride 163(H) <150 mg/dL 08/20/2024 8:42 PM EDT [facility] Comment: <150 mg/dL, Normal 150-199 mg/dL, Borderline high 200-499 mg/dL, High >499 mg/dL, Very high HDL Cholesterol 61 >39 mg/dL 8:42 PM [facility] Comment: 40-59 mg/dL, Acceptable >59 mg/dL, High: Negative risk factor for coronary heart disease <40 mg/dL, Low: Positive risk factor for coronary heart disease LDL Cholesterol, Calculated 126(H) <100 mg/dL 08/20/2024 8:42 PM [facility] Comment: <100 mg/dL, Optimal 100-129 mg/dL, Near optimal/above optimal 130-159 mg/dL, Borderline high 160-189 mg/dL, High >189 mg/dL, Very high Secondary prevention optimal LDL Cholesterol levels are recommended to be <70 mg/dL LDL cholesterol is calculated using the Sahu-NIH equation. Non HDL Cholesterol 155(H) <130 mg/dL 08/20/2024 8:42 PM [facility] Comment: <130 mg/dL, Optimal 130-159 mg/dL, Near optimal/above optimal 160-189 mg/dL, Borderline high 190-219 mg/dL, High >219 mg/dL, Very high Secondary prevention optimal non HDL Cholesterol levels are recommended to be <100 mg/dL VLDL Cholesterol 29 <30 mg/dL 08/21/19 8:42 PM [facility] TC:HDL Ratio 3.54 <5.10 08/20/2024 8:42 PM [facility] LDL:HDL Ratio 2.07 <2.54 08/20/2024 8:42 PM [facility] Comment: Reference: 1. National Cholesterol Education Program ATP III Guideline At-A-Glance Quick Desk Reference: National Heart, Lung, and Blood [facility]. National Institutes of Health. 2001: NIH Publication No. 01-3305. 2. An International Atherosclerosis Society position paper: global recommendations for the management of dyslipidemia: executive summary, Atherosclerosis. 2014: 232(2):410-413. Fasting Time 12 hrs 08/20/2024 8:42 PM [facility] Blood BLOOD SPECIMEN / Unknown Venipuncture / Unknown 08/20/2024 11:35 AM EDT 08/20/2024 11:35 AM EDT us Ravinder Solomon MD LABORATORY Final Result [facility] [address] [facility] [address] [place] [address], [place] * (ABNORMAL) COMPREHENSIVE METABOLIC PANEL (08/20/2024 11:35 AM EDT) Only the most recent of2 resultswithin the time period is included. Pathologist [facility] Protein, Total 7.8 6.3 - 8.0 g/dL 08/20/2024 8:42 PM EDT [facility] Albumin 4.6 3.9 - 4.9 g/dL 08/20/2024 8:42 PM EDT [facility] Calcium, Total 9.8 8.5 - 10.2 mg/dL 08/20/2024 8:42 PM EDT [facility] Bilirubin, Total 0.3 0.2 - 1.3 mg/dL 08/20/2024 8:42 PM EDT [facility] Alkaline Phosphatase 126(H) 38 - 113 U/L 08/20/2024 8:42 PM EDT [facility] AST 26 14 - 40 U/L 08/20/2024 8:42 PM EDT [facility] ALT 27 10 - 54 U/L 08/20/2024 8:42 PM EDT [facility] Glucose 100(H) 74 - 99 mg/dL 08/20/2024 8:42 PM EDT [facility] Comment: The [place] Diabetes Association (ADA) provides guidance for cutoff [...] Standards of Medical Care in Diabetes 2016, [place] Diabetes Association. Diabetes Care. 2016.39(Suppl 1). BUN 12 9 - 24 mg/dL 08/20/2024 8:42 PM EDT [facility] Creatinine 0.44(L) 0.73 - 1.22 mg/dL 08/20/2024 8:42 PM EDT [facility] Sodium 138 136 - 144 mmol/L 08/20/2024 8:42 PM EDT [facility] Potassium 4.2 3.7 - 5.1 mmol/L 08/20/2024 8:42 PM EDT [facility] Chloride 100 98 - 107 mmol/L 08/20/2024 8:42 PM EDT [facility] CO2 25 22 - 30 mmol/L 08/20/2024 8:42 PM EDT [facility] Anion Gap 13 8 - 15 mmol/L 08/20/2024 8:42 PM EDT [facility] Estimated Glomerular Filtration Rate 136 >=60 mL/min/1. 73m 08/20/2024 8:42 PM EDT [facility] Comment:Estimated Glomerular Filtration Rate (eGFR) is calculated using the 2020 CKD-EPI creatinine equation. This equation utilizes serum creatinine, sex, and age as parameters. The creatinine assay has traceable calibration to isotope dilution- mass spectrometry. Refer to KDIGO guidelines for clinical interpretation. In patients with unstable renal function, e.g. those with acute kidney injury, the eGFR may not accurately reflect actual GFR. Blood BLOOD SPECIMEN / Unknown Venipuncture / Unknown 08/20/2024 11:35 AM EDT 08/20/2024 11:35 AM EDT us Ravinder Solomon MD LABORATORY Final Result [facility] [address] [facility] [address] [address], * (ABNORMAL) COMPLETE BLOOD COUNT (08/20/2024 11:35 AM EDT) Only the most recent of7 resultswithin the time period is included. WBC 9.36 3.70 - 11.00 k/uL 08/20/2024 2:32 PM EDT [facility] RBC 4.80 4.20 - 6.00 m/uL 08/20/2024 2:32 PM EDT [facility] Hemoglobin 13.2 13.0 - 17.0 g/dL 08/20/2024 2:32 PM EDT [facility] Hematocrit 40.2 39.0 - 51.0 % 08/20/2024 2:32 PM EDT [facility] MCV 83.8 80.0 - 100.0 fL 08/20/2024 2:32 PM EDT [facility] MCH 27.5 26.0 - 34.0 pg 08/20/2024 2:32 PM EDT [facility] MCHC 32.8 30.5 - 36.0 g/dL 08/20/2024 2:32 PM EDT [facility] RDW-CV 13.8 11.5 - 15.0 % 08/20/2024 2:32 PM EDT [facility] Platelet Count 407(H) 150 - 400 k/uL 08/20/2024 2:32 PM EDT [facility] MPV 11.3 9.0 - 12.7 fL 08/20/2024 2:32 PM EDT [facility] Absolute nRBC <0.01 <0.01 k/uL 08/20/2024 2:32 PM EDT [facility] Blood BLOOD SPECIMEN / Unknown Venipuncture / Unknown 08/20/2024 11:35 AM EDT 08/20/2024 11:35 AM EDT us Ravinder Solomon MD LABORATORY Final Result [facility] [address] [place] [address], * (ABNORMAL) GLUCOSE, BLOOD (POC) (07/11/2024 12:49 PM EDT) Only the most recent of21 resultswithin the time period is included. [facility] Glucose, Point of Care 119(A) 74 - 99 mg/dL [facility] Comment: Location:[facility], [address] [place] [address], [id number] The Accu-Chek Inform II glucose meter has not been approved for testing on patients receiving intensive medical intervention or therapy and results from this point of care glucose test should not be used for patient management decisions in these cases. Inaccurate results may also occur from other interfering factors, such as N-acetylcysteine (blood concentrations of greater than 5mg/dL), galactose, extremes of hematocrit (<10 or >65), or high doses of ascorbic acid (vitamin C) greater than 3mg/dL. Consider alternate testing mechanisms (e.g. core lab, blood gas instrument) in the above situations. 07/11/2024 12:4 9 PM EDT Luzmaria Astudillo MD POC TESTING Final Result [facility] POINT OF CARE [address] * XR CHEST 1V FRONTAL PORT (07/11/2024 7:50 AM EDT) Anatomical Region Laterality Modality Chest Radiographic Fátima ging 07/11/2024 7:50 AM EDT Impressions 07/11/2024 11:18 AM EDT IMPRESSION: See result. Superintendent Landfill Operations: GRAY Transcribe Date/Time: Jul 11 2024 11:16A Dictated by : ENEIDA BARDALES MD This examination was interpreted and the report reviewed and electronically signed by: ENEIDA BARDALES MD on Jul 11 2024 11:16AM EST Narrative 07/11/2024 11:18 AM EDT * * *Final Report* * * DATE OF EXAM: Jul 11 2024 7:50AM [facility] [id number] - XR CHEST 1V FRONTAL PORT / PROCEDURE REASON: Cough * * * * Physician Interpretation * * * * EXAMINATION: CHEST RADIOGRAPH (PORTABLE SINGLE VIEW AP) Exam Date/Time: 07/11/2024 7:50 AM Clinical History: Cough MQ: XCPMC_6 Comparison: 1 day prior RESULT: Lines, tubes, and devices: The patient is status post median sternotomy. Lungs and pleura: Patchy opacities in mid to lower lungs may be related to inflammatory/infectious bronchiolitis. No new consolidation. No substantial pleural effusions or pneumothorax are noted. Cardiomediastinal silhouette: Stable cardiomediastinal silhouette. Other: Dextroscoliosis of the lumbar spine is noted. Procedure Note Provider, [facility] - 07/11/2024 * * *Final Report* * * DATE OF EXAM: Jul 11 2024 7:50AM [facility] [id number] - XR CHEST 1V FRONTAL PORT / PROCEDURE REASON: Cough * * * * Physician Interpretation * * * * EXAMINATION: CHEST RADIOGRAPH (PORTABLE SINGLE VIEW AP) Exam Date/Time: 07/11/2024 7:50 AM Clinical History: Cough MQ: XCPMC_6 Comparison: 1 day prior RESULT: Lines, tubes, and devices: The patient is status post mediansternotomy. Lungs and pleura: Patchy opacities in mid to lower lungs may be related to inflammatory/infectious bronchiolitis. No new consolidation. No substantial pleural effusions or pneumothorax are noted. Cardiomediastinal silhouette: Stable cardiomediastinal silhouette. Other: Dextroscoliosis of the lumbar spine is noted. IMPRESSION IMPRESSION: See result. Superintendent Landfill Operations: [facility] Transcribe Date/Time: Jul 11 2024 11:16A Dictated by : ENEIDA BARDALES MD This examination was interpreted and the report reviewed and electronically signed by: ENEIDA BARDALES MD on Jul 11 2024 11:16AM EST us Luzmaria Astudillo MD RAD-PAMA Final Result * MAGNESIUM (07/10/2024 6:36 AM EDT) Only the most recent of6 resultswithin the time period is included. Magnesium 2.0 1.7 - 2.3 mg/dL 07/10/2024 8:46 AM EDT [facility] Blood BLOOD SPECIMEN / Unknown Venipuncture / Unknown 07/10/2024 6:36 AM EDT 07/10/2024 7:14 AM EDT us Jon Ceballos AIR BAG CURER.WATER RESOURCE MANAGER LABORATORY Final R esult [facility] [address] [facility] [address] [address], [place] * PHOSPHORUS INORGANIC (07/10/2024 6:36 AM EDT) Only the most recent of6 resultswithin the time period is included. Phosphorus 3.5 2.7 - 4.8 mg/dL 07/10/2024 8:46 AM EDT [facility] Blood BLOOD SPECIMEN / Unknown Venipuncture / Unknown 07/10/2024 6:36 AM EDT 07/10/2024 7:14 AM EDT Jon Ceballos APRN.[facility] Final R esult Performing Organization Address [facility] Co de Phone Number [facility] [address] [facility] [address] [address], [place] * (ABNORMAL) BASIC METABOLIC PANEL (07/10/2024 6:36 AM EDT) Only the most recent of6 resultswithin the time period is included. Glucose 129(H) 74 - 99 mg/dL 07/10/2024 8:46 AM EDT [facility] Comment: The [place] Diabetes Association (ADA) provides guidance for cutoff [...] Standards of Medical Care in Diabetes 2016, [place] Diabetes Association. Diabetes Care. 2016.39(Suppl 1). BUN 14 9 - 24 mg/dL 07/10/2024 8:46 AM EDT [facility] Creatinine 0.42(L) 0.73 - 1.22 mg/dL 07/10/2024 8:46 AM EDT [facility] Sodium 135(L) 136 - 144 mmol/L 07/10/2024 8:46 AM EDT [facility] Potassium 4.1 3.7 - 5.1 mmol/L 07/10/2024 8:46 AM EDT [facility] Chloride 99 98 - 107 mmol/L 07/10/2024 8:46 AM EDT [facility] CO2 24 22 - 30 mmol/L 07/10/2024 8:46 AM EDT [facility] Anion Gap 12 8 - 15 mmol/L 07/10/2024 8:46 AM EDT [facility] Calcium, Total 8.4(L) 8.5 - 10.2 mg/dL 07/10/2024 8:46 AM EDT [facility] Estimated Glomerular Filtration Rate 138 >=60 mL/min/1. 73m 07/10/2024 8:46 AM EDT [facility] Comment:Estimated Glomerular Filtration Rate (eGFR) is calculated using the 2020 CKD-EPI creatinine equation. This equation utilizes serum creatinine, sex, and age as parameters. The creatinine assay has traceable calibration to isotope dilution- mass spectrometry. Refer to KDIGO guidelines for clinical interpretation. In patients with unstable renal function, e.g. those with acute kidney injury, the eGFR may not accurately reflect actual GFR. Blood BLOOD SPECIMEN / Unknown Venipuncture / Unknown 07/10/2024 6:36 AM EDT 07/10/2024 7:14 AM EDT us Jon Ceballos APRN.WATER RESOURCE MANAGER LABORATORY Final R esult [facility] [address] [facility] [place] [address], [place] * TYPE + SCREEN (07/10/2024 6:36 AM EDT) Only the most recent of2 resultswithin the time period is included. ABO O 07/10/2024 8:[address] [facility] Rh(D) Positive 07/10/2024 8:[address] [facility] Antibody Screen Negative 07/10/2024 8:[address] [facility] Type and Screen Expiration 07/13/2024 23:59 07/10/2024 8:[address] [facility] Blood BLOOD SPECIMEN / Unknown Venipuncture / Unknown 07/10/2024 6:36 AM EDT 07/10/2024 7:28 AM EDT us Jon Ceballos APRN.CNP BLOOD BANK Final R esult [facility] [address] [facility] [address] [place] [address], [place] * (ABNORMAL) URINALYSIS (WITH MICROSCOPIC) WITH CULTURE IF INDICATED (07/10/2024 12:41 AM EDT) Color Yellow Yellow 07/10/2024 1:42 AM EDT [facility] Clarity Turbid(A) Clear 07/10/2024 1:42 AM EDT [facility] Glucose, Urine Negative Negative 07/10/2024 1:42 AM EDT [facility] Bilirubin, Urine Negative Negative 07/11/19 25 1:42 AM EDT [facility] Ketones, Urine Negative Negative 07/10/2024 1:42 AM EDT [facility] Specific [place], Ur >1.045(H) 1.005 - 1.030 07/10/2024 1:42 AM EDT [facility] Hemoglobin/Blood ,Ur Negative Negative 07/10/2024 1:42 AM EDT [facility] pH, Urine 8.0 <8.5 07/10/2024 1:42 AM EDT [facility] Protein, Urine 2+(A) Negative 07/10/2024 1:42 AM EDT [facility] Urobilinogen 0.2 EU/dL 0.2-1.0 EU/dL 07/10/2024 1:42 AM EDT [facility] Nitrites Negative Negative 07/10/2024 1:42 AM EDT [facility] Leuk Esterase Negative Negative 07/10/2024 1:42 AM EDT [facility] WBC, Urine 0-5 /HPF 0-5 /HPF 07/10/2024 1:42 AM EDT [facility] RBC, Urine 3-5 /HPF(A) 0-2 /HPF 07/10/2024 1:42 AM EDT [facility] Bacteria Negative Negative /HPF 07/10/2024 1:42 AM EDT [facility] Squamous Epithelial Cells Few /HPF 07/10/2024 1:42 AM EDT [facility] Casts, Hyaline 4-10 /LPF(A) 0 /LPF 07/11/19 1:42 AM EDT [facility] Urine MID-STREAM URINE SPECIMEN / Unknown Non Blood / Unknown 07/10/2024 12:41 AM EDT 07/10/2024 12:53 AM EDT Narrative [facility] - 07/10/2024 1:42 AM EDT Rechecked by light microscopy Result rechecked This test was developed and its performance characteristics determined by [facility] ([facility]). It has not been cleared or approved by the FDA. [facility] is regulated under CLIA as qualified to perform high-complexity testing. This test is used for clinical purposes. It should not be regarded as investigational or for research. us Rome Ji MD LABORATORY Final Result [facility] [address] [address], [place] * CT ORBITS W IVCON (07/09/2024 11:40 AM EDT) Anatomical Region Laterality Modality Skull Computed Tomogra phy 07/09/2024 11:4 0 AM EDT Impressions 07/09/2024 12:34 PM EDT IMPRESSION: No evidence of orbital cellulitis. Superintendent Landfill Operations: GRAY Transcribe Date/Time: Jul 09 2024 11:58A Dictated by : JOANN ZAYAS MD This examination was interpreted and the report reviewed and electronically signed by: WERNER JONES MD on Jul 09 2024 12:32PM EST Narrative 07/09/2024 12:34 PM EDT * * *Final Report* * * DATE OF EXAM: Jul 09 2024 11:40AM [facility] 0014 - CT ORBITS W IVCON / PROCEDURE REASON: Orbital cellulitis suspected * * * * Physician Interpretation * * * * EXAMINATION: CT ORBITS W IVCON CLINICAL HISTORY: Orbital cellulitis evaluation Technique: Spiral high resolution axial contrast enhanced images were obtained through the orbits with coronal reconstructions. MQ: CTORBWO_1 Contrast: IV 100 ml of Omnipaque 350 Dose-Length Product (DLP): 306 mGy*cm. CT Dose Reduction Employed: No dose reduction techniques were required COMPARISON: None. RESULT: Orbits: Unremarkable appearance of the globes, optic nerves, extraocular muscles, intraconal and extraconal retrobulbar fat, lacrimal glands, and preseptal periorbital soft tissues. No evidence of abnormal enhancement to suggest periorbital/preseptal cellulitis or conjunctivitis. Correlate with direct inspection, as conjunctivitis may be below the detection threshold for contrast-enhanced CT.. Other: No lytic or blastic process seen in the facial bones. Unremarkable appearance of the remaining imaged facial soft tissues. No evidence of radiopaque foreign bodies. The paranasal sinuses are clear. The partially imaged portions of the brain appear normal. Brush Cutter (topogram) images: No additional findings. Procedure Note Provider, [facility] - 07/09/2024 * * *Final Report* * * DATE OF EXAM: Jul 09 2024 11:40AM [facility] 0014 - CT ORBITS W IVCON / PROCEDURE REASON: Orbital cellulitis suspected * * * * Physician Interpretation * * * * EXAMINATION: CT ORBITS W IVCON CLINICAL HISTORY: Orbital cellulitis evaluation Technique: Spiral high resolution axial contrast enhanced images were obtained through the orbits with coronal reconstructions. MQ: CTORBWO_1 Contrast: IV 100 ml of Omnipaque 350 Dose-Length Product (DLP): 306 mGy*cm. CT Dose Reduction Employed: No dose reduction techniques were required COMPARISON: None. RESULT: Orbits: Unremarkable appearance of the globes, optic nerves, extraocular muscles, intraconal and extraconal retrobulbar fat, lacrimal glands, and preseptal periorbital soft tissues. No evidence of abnormal enhancement to suggest periorbital/preseptal cellulitis or conjunctivitis. Correlate with direct inspection, as conjunctivitis may be below the detection threshold for contrast-enhanced CT.. Other: No lytic or blastic process seen in the facial bones. Unremarkable appearance of the remaining imaged facial soft tissues. No evidence of radiopaque foreign bodies. The paranasal sinuses are clear. The partially imaged portions of the brain appear normal. Brush Cutter (topogram) images: No additional findings. IMPRESSION IMPRESSION: No evidence of orbital cellulitis. Superintendent Landfill Operations: [facility] Transcribe Date/Time: Jul 09 2024 11:58A Dictated by : JOANN ZAYAS MD This examination was interpreted and the report reviewed and electronically signed by: WERNER JONES MD on Jul 09 2024 12:32PM EST Rome Ji MD CT-PAMA Final Result * BACTERIAL CULTURE, BLOOD (07/08/2024 7:37 PM EDT) Only the most recent of2 resultswithin the time period is included. Culture, Blood No growth 5 days 07/13/2024 10:02 PM EDT [facility] Blood BLOOD SPECIMEN / Unknown Venipuncture / Unknown 07/08/2024 7:37 PM EDT 07/08/2024 7:52 PM EDT Rome Ji MD MICROBIOLOGY Final Result [facility] [address] [address], * XR CHEST 1V FRONTAL PORT (07/08/2024 4:58 PM EDT) Anatomical Region Laterality Modality Chest Radiographic Fátima ging 07/08/2024 4:58 PM EDT Impressions 07/08/2024 5:07 PM EDT IMPRESSION: See result. Superintendent Landfill Operations: [facility] Transcribe Date/Time: Jul 08 2024 5:04P Dictated by : SUSHANT MEREDITH MD This examination was interpreted and the report reviewed and electronically signed by: SUSHANT MEREDITH MD on Jul 08 2024 5:05PM EST Narrative 07/08/2024 5:07 PM EDT * * *Final Report* * * DATE OF EXAM: Jul 08 2024 4:58PM [facility]376 - XR CHEST 1V FRONTAL PORT / PROCEDURE REASON: Abdominal pain * * * * Physician Interpretation * * * * EXAMINATION: CHEST RADIOGRAPH (PORTABLE SINGLE VIEW AP) Exam Date/Time: 07/08/2024 4:58 PM Clinical History: Abdominal pain, Tachycardia, Congenital heart disease MQ: XCPMC_6 Comparison: 2 days prior RESULT: Lines, tubes, and devices: Removal of ET tube and NG tube. Lungs and pleura: Mild improvement of perihilar and basilar opacities suggesting edema or inflammation with superimposed atelectasis. No pleural effusion or pneumothorax. Cardiomediastinal silhouette: Heart upper normal. Thoracic aorta is tortuous. Esophagus is patulous with gas fluid levels suggesting reflux or dysmotility. Other: Median sternotomy. Scoliotic curvature of the spine. Mild generalized osteopenia. Procedure Note Provider, [facility] - 07/08/2024 * * *Final Report* * * DATE OF EXAM: Jul 08 2024 4:58PM [facility] 5376 - XR CHEST 1V FRONTAL PORT / PROCEDURE REASON: Abdominal pain * * * * Physician Interpretation * * * * EXAMINATION: CHEST RADIOGRAPH (PORTABLE SINGLE VIEW AP) Exam Date/Time: 07/08/2024 4:58 PM Clinical History: Abdominal pain, Tachycardia, Congenital heart disease MQ: XCPMC_6 Comparison: 2 days prior RESULT: Lines, tubes, and devices: Removal of ET tube and NG tube. Lungs and pleura: Mild improvement of perihilar and basilar opacities suggesting edema or inflammation with superimposed atelectasis. No pleural effusion or pneumothorax. Cardiomediastinal silhouette: Heart upper normal. Thoracic aorta is tortuous. Esophagus is patulous with gas fluid levels suggesting reflux or dysmotility. Other: Median sternotomy. Scoliotic curvature of the spine. Mild generalized osteopenia. IMPRESSION IMPRESSION: See result. Superintendent Landfill Operations: [facility] Transcribe Date/Time: Jul 08 2024 5:04P Dictated by : SUSHANT MEREDITH MD This examination was interpreted and the report reviewed and electronically signed by: SUSHANT EMREDITH MD on Jul 08 2024 5:05PM EST [facility] RAD-P[facility] Final Result * CT ABD/PEL W IVCON (07/08/2024 1:39 PM EDT) Anatomical Region Laterality Modality Abdomen Computed Tomogra phy 07/08/2024 1:39 PM EDT Impressions 07/08/2024 3:36 PM EDT IMPRESSION: No acute abdominopelvic process. Residual bilateral pleural effusions and consolidative opacities/atelectasis, slightly improved from prior imaging. Superintendent Landfill Operations: [facility] Transcribe Date/Time: Jul 08 2024 1:54P Dictated by : AVE RODRIGUEZ MD This examination was interpreted and the report reviewed and electronically signed by: ADIS BHATIA MD on Jul 08 2024 3:34PM EST Narrative 07/08/2024 3:36 PM EDT * * *Final Report* * * DATE OF EXAM: Jul 08 2024 1:39PM [facility] 0530 - CT ABD/PEL W IVCON / PROCEDURE REASON: Abdominal abscess/infection suspected * * * * Physician Interpretation * * * * EXAMINATION: CT ABDOMEN AND PELVIS WITH IV CONTRAST CLINICAL HISTORY: History of Shone complex (congenital heart disease) presented from MICU status post intubation for acute hypoxemic respiratory failure in setting of pneumonia and influenza. Imaging for abdominal abscess/infection/appendicitis suspected. TECHNIQUE: CT of the abdomen and pelvis was performed using standard technique, scanning from just above the dome of the diaphragm to the symphysis pubis. MQ: CTAP_3 Contrast: IV: 100 ml of Omnipaque 350 CT Radiation dose: Integrated Dose-length product (DLP) for this visit = 163 mGy*cm. CT Dose Reduction Employed: mAs-kVp adjusted based on patient size-age COMPARISON: OSH CT chest abdomen pelvis 07/04/2024. RESULT: Liver: Subcentimeter hypoattenuating lesion within the medial right hepatic lobe (2:31), unchanged compared to prior imaging, too small to further characterize. Biliary: No bile duct dilation. Gallbladder is unremarkable. Spleen: No mass. No splenomegaly. Pancreas: No mass or duct dilation. Adrenals: No mass. Kidneys: No mass, calculus or hydronephrosis. Sequelae of cortical scarring bilaterally. GI tract: No dilation or wall thickening. Gastrostomy tube with inflated balloon within the stomach. Normal diameter appendix measures up 7 mm with minimal prominence of the wall, stable from prior imaging. No periappendiceal inflammatory changes or fluid collection. Lymph nodes: No abdominal or pelvic lymphadenopathy. Mesentery/Peritoneum: No ascites or mass. Retroperitoneum: No mass. Vasculature: - Abdominal aorta and iliac arteries: No aneurysm. Aorta measures approximately 8 mm at the level of the FÁTIMA. - Celiac and SMA: Patent without stenosis. - Portal venous system (SMV, splenic vein, portal vein and branches): Patent. - Hepatic veins: Patent. Pelvis: No mass, ascites or fluid collection. Foci gas within the bladder, likely from prior Kennedy placement. Correlate with history Bones/Soft Tissues: Scoliotic curvature of the visualized thoracolumbar spine. Lower thorax: Bilateral pleural effusions, right greater than left, slightly improved from prior imaging. Right lower lobe improved consolidative opacity with atelectasis and residual groundglass. Residual left lower lobe atelectasis/consolidative opacity. Incompletely imaged prior median sternotomy. Localizer images: No additional findings. Procedure Note Provider, [facility] - 07/08/2024 * * *Final Report* * * DATE OF EXAM: Jul 08 2024 1:39PM [facility] 0530 - CT ABD/PEL W IVCON / PROCEDURE REASON: Abdominal abscess/infection suspected * * * * Physician Interpretation * * * * EXAMINATION: CT ABDOMEN AND PELVIS WITH IV CONTRAST CLINICAL HISTORY: History of Shone complex (congenital heart disease) presented from MICU status post intubation for acute hypoxemic respiratory failure in setting of pneumonia and influenza. Imaging for abdominal abscess/infection/appendicitis suspected. TECHNIQUE: CT of the abdomen and pelvis was performed using standard technique, scanning from just above the dome of the diaphragm to the symphysis pubis. MQ: CTAP_3 Contrast: IV: 100 ml of Omnipaque 350 CT Radiation dose: Integrated Dose-length product (DLP) for this visit = 163 mGy*cm. CT Dose Reduction Employed: mAs-kVp adjusted based on patient size-age COMPARISON: OSH CT chest abdomen pelvis 07/04/2024. RESULT: Liver: Subcentimeter hypoattenuating lesion within the medial right hepatic lobe (2:31), unchanged compared to prior imaging, too small to further characterize. Biliary: No bile duct dilation. Gallbladder is unremarkable. Spleen: No mass. No splenomegaly. Pancreas: No mass or duct dilation. Adrenals: No mass. Kidneys: No mass, calculus or hydronephrosis. Sequelae of cortical scarring bilaterally. GI tract: No dilation or wall thickening. Gastrostomy tube with inflated balloon within the stomach. Normal diameter appendix measures up 7 mm with minimal prominence of the wall, stable from prior imaging. No periappendiceal inflammatory changes or fluid collection. Lymph nodes: No abdominal or pelvic lymphadenopathy. Mesentery/Peritoneum: No ascites or mass. Retroperitoneum: No mass. Vasculature: - Abdominal aorta and iliac arteries: No aneurysm. Aorta measures approximately 8 mm at the level of the FÁTIMA. - Celiac and SMA: Patent without stenosis. - Portal venous system (SMV, splenic vein, portal vein and branches): Patent. - Hepatic veins: Patent. Pelvis: No mass, ascites or fluid collection. Foci gas within the bladder, likely from prior Kennedy placement. Correlate with history Bones/Soft Tissues: Scoliotic curvature of the visualized thoracolumbar spine. Lower thorax: Bilateral pleural effusions, right greater than left, slightly improved from prior imaging. Right lower lobe improved consolidative opacity with atelectasis and residual groundglass. Residual left lower lobe atelectasis/consolidative opacity. Incompletely imaged prior median sternotomy. Localizer images: No additional findings. IMPRESSION IMPRESSION: No acute abdominopelvic process. Residual bilateral pleural effusions and consolidative opacities/atelectasis, slightly improved from prior imaging. Superintendent Landfill Operations: PSCB Transcribe Date/Time: Jul 08 2024 1:54P Dictated by : AVE RODRIGUEZ MD This examination was interpreted and the report reviewed and electronically signed by: ADIS BHATIA MD on Jul 08 2024 3:34PM EST Rome Ji MD CT-PAMA Final Result * (ABNORMAL) COMPLETE BLOOD COUNT AND DIFFERENTIAL (07/08/2024 9:42 AM EDT) WBC 24.56(H) 3.70 - 11.00 k/uL 07/08/2024 10:01 AM [facility] RBC 4.24 4.20 - 6.00 m/uL 07/08/2024 10:01 AM [facility] Hemoglobin 11.3(L) 13.0 - 17.0 g/dL 07/08/2024 10:01 AM [facility] Hematocrit 34.0(L) 39.0 - 51.0 % 07/08/2024 10:01 AM [facility] MCV 80.2 80.0 - 100.0 fL 07/08/2024 10:01 AM [facility] MCH 26.7 26.0 - 34.0 pg 07/08/2024 10:01 AM [facility] MCHC 33.2 30.5 - 36.0 g/dL 07/08/2024 10:01 AM [facility] RDW-CV 13.6 11.5 - 15.0 % 07/08/2024 10:01 AM [facility] Platelet Count 633(H) 150 - 400 k/uL 07/08/2024 10:01 AM [facility] MPV 9.7 9.0 - 12.7 fL 07/08/2024 10:01 AM [facility] Neutrophils % 87.7 % 07/08/2024 10:01 AM [facility] Abs Neut 21.56(H) 1.45 - 7.50 k/uL 07/08/2024 10:01 AM [facility] Lymphocytes % 5.3 % 07/08/2024 10:01 AM [facility] Abs Lymph 1.30 1.00 - 4.00 k/uL 07/08/2024 10:01 AM [facility] Monocytes % 4.4 % 07/08/2024 10:01 AM [facility] Abs Izard 1.08(H) <0.87 k/uL 07/08/2024 10:01 AM [facility] Eosinophils % 1.5 % 07/08/2024 10:01 AM EDT [facility] Abs Eosin 0.37 <0.46 k/uL 07/08/2024 10:01 AM EDT [facility] Basophils % 0.2 % 07/08/2024 10:01 AM EDT [facility] Abs Baso 0.04 <0.11 k/uL 07/08/2024 10:01 AM EDT [facility] Immature Granulocytes % 0.9 % 07/08/2024 10:01 AM EDT [facility] Abs Immature Gran 0.21(H) <0.10 k/uL 07/08/2024 10:01 AM EDT [facility] NRBC 0.0 /100 WBC 07/08/2024 10:01 AM EDT [facility] Absolute nRBC <0.01 <0.01 k/uL 07/08/2024 10:01 AM EDT [facility] Diff Type Auto 07/08/2024 10:01 AM EDT [facility] Blood BLOOD SPECIMEN / Unknown Venipuncture / Unknown 07/08/2024 9:42 AM EDT 07/08/2024 9:48 AM EDT us Rome Ji MD LABORATORY Final Result [facility] [address] [place] [address], * (ABNORMAL) RETICULOCYTE COUNT (07/06/2024 11:24 PM EDT) Retic % 2.2(H) 0.4 - 2.0 % 07/07/2024 5:30 PM EDT [facility] Abs Retic 0.093 0.018 - 0.100 M/uL 07/07/2024 5:30 PM EDT [facility] Blood BLOOD SPECIMEN / Unknown Venipuncture / Unknown 07/06/2024 11:24 PM EDT 07/06/2024 11:39 PM EDT us Rome Ji MD LABORATORY Final Result [facility] [address] [facility] [place] [address], [place] * (ABNORMAL) IRON AND TIBC (07/06/2024 11:24 PM EDT) Pathologist [facility] Iron 29(L) 41 - 186 ug/dL 07/07/2024 6:07 PM EDT [facility] TIBC 235 232 - 386 ug/dL 07/07/2024 6:07 PM EDT [facility] Transferrin Saturation 12.3(L) 15.0 - 57.0 % 07/07/2024 6:07 PM EDT [facility] Blood BLOOD SPECIMEN / Unknown Venipuncture / Unknown 07/06/2024 11:24 PM EDT 07/06/2024 11:39 PM EDT Rome Ji MD LABORATORY Final Result [facility] [address] [place] [id number], [place] * FERRITIN (07/06/2024 11:24 PM EDT) [facility] Ferritin 378.0 30.3 - 565.7 ng/mL 07/07/2024 6:08 PM EDT [facility] Blood BLOOD SPECIMEN / Unknown Venipuncture / Unknown 07/06/2024 11:24 PM EDT 07/06/2024 11:39 PM EDT Rome Ji MD LABORATORY Final Result [facility] [address] [place] [id number], [place] * (ABNORMAL) VENOUS BLOOD GASES (07/06/2024 2:36 PM EDT) Only the most recent of4 resultswithin the time period is included. Pathologist [facility] pH, Venous 7.52(H) 7.32 - 7.42 07/06/2024 2:47 PM T [facility] pH, Temp Corrected, Venous 7.52(H) 7.32 - 7.42 07/06/2024 2:47 PM EDT [facility] pCO2, Venous 37(L) 42 - 55 mmHg 07/06/2024 2:47 PM T [facility] pCO2, Temp Corrected, Venous 37(L) 42 - 55 mmHg 07/06/2024 2:47 PM EDT [facility] pO2, Venous 78(H) 35 - 45 mmHg 07/06/2024 2:47 PM T [facility] pO2, Temp Corrected, Venous 77(H) 35 - 45 mmHg 07/06/2024 2:47 PM T [facility] O2 Saturation, Venous 97(H) 60 - 85 % 07/06/2024 2:47 PM T [facility] Base Excess, Venous 7(H) 0 - 2 mmol/L 07/06/2024 2:47 PM [facility] Bicarbonate, Venous 30(H) 24 - 28 mmol/L 07/06/2024 2:47 PM [facility] Oxyhemoglobin, Venous 95(H) 60 - 85 % 07/06/2024 2:47 PM T [facility] Carboxyhemoglo bin, Venous 1.0 0.0 - 2.0 % 07/06/2024 2:47 PM [facility] Methemoglobin, Venous 0.9 0.0 - 1.5 % 07/06/2024 2:47 PM T [facility] Sodium, Whole Blood 141 136 - 144 mmol/L 07/06/2024 2:47 PM T [facility] Potassium, Whole Blood 3.8 3.5 - 5.0 mmol/L 07/06/2024 2:47 PM T [facility] Calcium Ionized, Whole Blood 1.05(L) 1.08 - 1.30 mmol/L 07/06/2024 2:47 PM T [facility] Calcium Ionized, pH corrected 1.11 1.08 - 1.30 mmol/L 07/06/2024 2:47 PM EDT [facility] Glucose, Whole Blood 150(H) 60 - 105 mg/dL 07/06/2024 2:47 PM EDT [facility] Lactate 1.3 0.5 - 2.2 mmol/L 07/06/2024 2:47 PM EDT [facility] Hemoglobin, Whole Blood 11.9(L) 13.0 - 17.0 g/dL 07/06/2024 2:47 PM EDT [facility] Hematocrit, Whole Blood 36.8(L) 39.0 - 51.0 % 07/06/2024 2:47 PM EDT [facility] Temperature, Body 36.9 C 07/06/2024 2:47 PM EDT [facility] FiO2 30 % 07/06/2024 2:47 PM EDT [facility] O2 Therapy VENT=Venti lator 07/06/2024 2:47 PM EDT [facility] PEEP/CPAP 5 cmH2O 07/06/2024 2:47 PM EDT [facility] Blood, Venous BLOOD SPECIMEN / Unknown Central Line / Unknown 07/06/2024 2:36 PM EDT 07/06/2024 2:40 PM EDT us Elena Rich PA-C BLOOD GASES Final Result Performing Organization Address City/State/[facility] Co de Phone Number [facility] [address] [place] [address], [place] * XR CHEST 1V FRONTAL PORT (07/06/2024 11:02 AM EDT) Anatomical Region Laterality Modality Chest Radiographic Fátima ging 07/06/2024 11:0 2 AM EDT Impressions 07/06/2024 11:05 AM EDT IMPRESSION: See result. Superintendent Landfill Operations: GRAY Transcribe Date/Time: Jul 06 2024 11:02A Dictated by : ENEIDA BARDALES MD This examination was interpreted and the report reviewed and electronically signed by: ENEIDA BARDALES MD on Jul 06 2024 11:03AM EST Narrative 07/06/2024 11:05 AM EDT * * *Final Report* * * DATE OF EXAM: Jul 06 2024 11:02AM [facility] [id number] - XR CHEST 1V FRONTAL PORT / PROCEDURE REASON: Shortness of breath * * * * Physician Interpretation * * * * EXAMINATION: CHEST RADIOGRAPH (PORTABLE SINGLE VIEW AP) Exam Date/Time: 07/06/2024 11:02 AM Clinical History: Shortness of breath, Evaluate tube, line, or lead position MQ: XCPMC_6 Comparison: 1 day prior RESULT: Lines, tubes, and devices: The patient status post median sternotomy. Endotracheal tube and NG/OG tube are in place. Lungs and pleura: Diffuse reticular and airspace opacities in both lungs have increased and may be inflammatory/infectious in nature. Trace bilateral pleural effusions. No pneumothorax. Cardiomediastinal silhouette: Stable cardiomediastinal silhouette. Other: . Procedure Note Provider, [facility] - 07/06/2024 * * *Final Report* * * DATE OF EXAM: Jul 06 2024 11:02AM [facility] [id number] - XR CHEST 1V FRONTAL PORT / PROCEDURE REASON: Shortness of breath * * * * Physician Interpretation * * * * EXAMINATION: CHEST RADIOGRAPH (PORTABLE SINGLE VIEW AP) Exam Date/Time: 07/06/2024 11:02 AM Clinical History: Shortness of breath, Evaluate tube, line, or lead position MQ: XCPMC_6 Comparison: 1 day prior RESULT: Lines, tubes, and devices: The patient status post median sternotomy. Endotracheal tube and NG/OG tube are in place. Lungs and pleura: Diffuse reticular and airspace opacities in both lungs have increased and may be inflammatory/infectious in nature. Trace bilateral pleural effusions. No pneumothorax. Cardiomediastinal silhouette: Stable cardiomediastinal silhouette. Other: . IMPRESSION IMPRESSION: See result. Superintendent Landfill Operations: GRAY Transcribe Date/Time: Jul 06 2024 11:02A Dictated by : ENEIDA BARDALES MD This examination was interpreted and the report reviewed and electronically signed by: ENEIDA BARDALES MD on Jul 06 2024 11:03AM EST us Gurvinder RUBIO [facility] Result * (ABNORMAL) TRIGLYCERIDES (07/05/2024 11:22 PM EDT) Triglyceride 265(H) <150 mg/dL 07/06/2024 12:23 AM EDT [facility] Comment: <150 mg/dL, Normal 150-199 mg/dL, Borderline high 200-499 mg/dL, High >499 mg/dL, Very high Reference: 1. National Cholesterol Education Program ATP III Guideline At-A-Glance Quick Desk Reference: National Heart, Lung, and Blood [facility]. National Institutes of Health. 2001: [facility] Publication No. 01-3305. Fasting Time >24hrs hrs 07/06/2024 12:23 AM EDT [facility] Blood BLOOD SPECIMEN / Unknown Venipuncture / Unknown 07/05/2024 11:22 PM EDT 07/05/2024 11:41 PM EDT Carole Elizondo PA-C LABORATORY Final Result Performing Organization Address [facility]/ZIP Co de Phone Number [facility] [address] * (ABNORMAL) PROCALCITONIN (07/05/2024 8:18 PM EDT) Only the most recent of2 resultswithin the time period is included. Procalcitonin 0.11(H) <0.09 ng/mL 07/05/2024 9:05 PM EDT [facility] Comment:For a guided interpr etation of test results, please visit the Change in Procalcitonin Calculator, [email or web address]. Blood BLOOD SPECIMEN / Unknown Venipuncture / Unknown 07/05/2024 8:18 PM EDT 07/05/2024 8:32 PM EDT Carole Elizondo PA-C LABORATORY Final Result [facility] [address] [facility] [place] [id number], * (ABNORMAL) BACTERIAL CULTURE AND GRAM STAIN, RESPIRATORY, SPUTUM AND TRACHEAL ASPIRATE (07/05/2024 7:34 PM EDT) Culture, Respiratory Few normal respiratory mellissa(A) MINIMUM INHIBITORY CONCENTRATIO N(VITEK) 07/08/2024 10:33 AM EDT [facility] Gram Stain Rare Gram positive cocci(A) 07/08/2024 10:33 AM EDT [facility] Gram Stain Few Polymorphonuclear leukocytes(A) 07/08/2024 10:33 AM EDT [facility] Sputum SPUTUM SPECIMEN / Unknown Non Blood / Unknown 07/05/2024 7:34 PM EDT 07/05/2024 7:58 PM EDT [facility] - 07/08/2024 10:33 AM EDT No Pseudomonas aeruginosa isolated. No Staphylococcus aureus isolated. This test was developed and its performance characteristics determined by the [facility] ([facility]). It has not been cleared or approved by the FDA. -[facility] is regulated under CLIA as qualified to perform high-complexity testing. This test is used for clinical purposes. It should not be regarded as investigational or for research. Carole Elizondo PA-C MICROBIOLOGY Final Result [facility] [place] [phone], * (ABNORMAL) ARTERIAL BLOOD GASES (07/05/2024 5:01 PM EDT) pH, Arterial 7.48(H) 7.35 - 7.45 07/05/2024 5:06 PM EDT [facility] pH, Temp Corrected, Arterial 7.48(H) 7.35 - 7.45 07/05/2024 5:06 PM EDT [facility] pCO2, Arterial 39 36 - 46 mm Hg 07/05/2024 5:06 PM EDT [facility] pCO2, Temp Corrected, Arterial 39 36 - 46 mmHg 07/05/2024 5:06 PM T [facility] pO2, Arterial 102(H) 85 - 95 mm Hg 07/05/2024 5:06 PM T [facility] pO2, Temp Corrected, Arterial 101(H) 85 - 95 mmHg 07/05/2024 5:06 PM T [facility] Bicarbonate, Arterial 29(H) 22 - 26 mmol/L 07/05/2024 5:06 PM T [facility] O2 Saturation, Arterial 98 95 - 98 % 07/05/2024 5:06 PM [facility] Base Excess, Arterial 5(H) 0 - 2 mmol/L 07/05/2024 5:06 PM T [facility] Oxyhemoglobin, Arterial 96 95 - 98 % 07/05/2024 5:06 PM [facility] Carboxyhemoglobi n, Arterial 1.3 0.0 - 2.0 % 07/05/2024 5:06 PM [facility] Comment:Carboxyhemoglobin Re ference Range for Smokers: 2.0-8.0% Methemoglobin, Arterial 0.6 0.0 - 1.5 % 07/05/2024 5:06 PM T [facility] Sodium, Whole Blood 143 136 - 144 mmol/L 07/05/2024 5:06 PM [facility] Potassium, Whole Blood 3.8 3.5 - 5.0 mmol/L 07/05/2024 5:06 PM T [facility] Calcium Ionized, Whole Blood 1.05(L) 1.08 - 1.30 mmol/L 07/05/2024 5:06 PM T [facility] Calcium Ionized, pH corrected 1.09 1.08 - 1.30 mmol/L 07/05/2024 5:06 PM [facility] Glucose, Whole Blood 128(H) 60 - 105 mg/dL 07/05/2024 5:06 PM T [facility] Lactate 3.1(H) 0.5 - 2.2 mmol/L 07/05/2024 5:06 PM EDT [facility] Hemoglobin, Whole Blood 10.8(L) 13.0 - 17.0 g/dL 07/05/2024 5:06 PM EDT [facility] Hematocrit, Whole Blood 33.4(L) 39.0 - 51.0 % 07/05/2024 5:06 PM EDT [facility] Temperature, Body 36.8 C 07/05/2024 5:06 PM EDT [facility] FiO2 30 % 07/05/2024 5:06 PM EDT [facility] O2 Therapy VENT=Venti lator 07/05/2024 5:06 PM EDT [facility] Invasive Ventilator Mode A/C PRVC or VC+ or APVcmv (PC-CMVa) 07/05/2024 5:06 PM EDT [facility] Set Ventilator Respiratory Rate (BPM) 20 BPM 07/05/2024 5:06 PM EDT [facility] Inhaled Tidal Volume (mL) 320 07/05/2024 5:06 PM EDT [facility] PEEP/CPAP 5 cmH2O 07/05/2024 5:06 PM EDT [facility] Minute Ventilation 5 L/min 07/05/2024 5:06 PM EDT [facility] PO2 / FIO2 Ratio 340 >300 mmHg 07/06/19 5:06 PM EDT [facility] Blood, Arterial BLOOD SPECIMEN / Unknown Arterial Puncture / Unknown 07/05/2024 5:01 PM EDT 07/05/2024 5:05 PM EDT us Elena WORKMAN-Zayra BLOOD GASES Final Result [facility] [address] [id number], * PROTHROMBIN TIME (07/05/2024 4:14 PM EDT) PT Sec 11.4 9.7 - 13.0 sec 07/05/2024 4:41 PM EDT [facility] INR 1.1 0.9 - 1.3 07/05/2024 4:41 PM EDT [facility] Comment: Vitamin K Antagonist (VKA) Therapeutic Range: INR 2 to 3 (Target INR of 2.5) Note: For patients treated with VKA drugs, such as warfarin, the [place] [employer] 2012 Guideline recommends a therapeutic INR range of 2 to 3 (target INR of 2.5). This recommendation includes high-risk patients with antiphospholipid syndrome with previous arterial or venous thromboembolism, current-generation mechanical or bioprosthetic aortic heart valve replacement. Note: Patients with mechanical aortic valve replacement and additional risk factors for thromboembolic events (atrial fibrillation, previous thromboembolism, LV dysfunction, hypercoagulable conditions) or an older generation mechanical AVR (i.e., ball in-Cage) or any mechanical MVR should have a INR therapeutic range of 2.5 to 3.5 (target INR of 3). Agueda RIOS, et al. Chest 2012, 141:7S-47S Yamila RA, et al. JAC 2017, 70: 252-289 Blood BLOOD SPECIMEN / Unknown Venipuncture / Unknown 07/05/2024 4:14 PM EDT 07/05/2024 4:20 PM EDT us Carole Elizondo PA-C LABORATORY Final Result [facility] [address] [facility] [address], [place] * XR ABDOMEN 1V SUPINE (07/05/2024 3:57 PM EDT) Anatomical Region Laterality Modality Abdomen Radiographic Fátima ging 07/05/2024 3:57 PM EDT Impressions 07/05/2024 4:06 PM EDT IMPRESSION: PEG tube overlying the gastric body/antrum. Feeding tube with tip in the gastric antrum. No gas-filled, dilated bowel loops. Superintendent Landfill Operations[facility] Transcribe Date/Time: Jul 05 2024 4:03P Dictated by : SHERIE SPENCER MD This examination was interpreted and the report reviewed and electronically signed by: SHERIE SPENCER MD on Jul 05 2024 4:04PM EST Narrative 07/05/2024 4:06 PM EDT * * *Final Report* * * DATE OF EXAM: Jul 05 2024 3:57PM [facility] [id number] - XR ABDOMEN 1V SUPINE / PROCEDURE REASON: Evaluate tube, line or lead position * * * * Physician Interpretation * * * * PLAIN FILM OF THE ABDOMEN CLINICAL INFORMATION: Evaluate tube, line or lead position. DATE: 07/05/2024 TECHNIQUE: Supine abdomen, 1 view(s); 2 images RESULT: see impression. Procedure Note Provider, [facility] - 07/05/2024 * * *Final Report* * * DATE OF EXAM: Jul 05 2024 3:57PM [facility] 5289 - XR ABDOMEN 1V SUPINE / PROCEDURE REASON: Evaluate tube, line or lead position * * * * Physician Interpretation * * * * PLAIN FILM OF THE ABDOMEN CLINICAL INFORMATION: Evaluate tube, line or lead position. DATE: 07/05/2024 TECHNIQUE: Supine abdomen, 1 view(s); 2 images RESULT: see impression. IMPRESSION IMPRESSION: PEG tube overlying the gastric body/antrum. Feeding tube with tip in the gastric antrum. No gas-filled, dilated bowel loops. Superintendent Landfill Operations: PSCB Transcribe Date/Time: Jul 05 2024 4:03P Dictated by : SHERIE SPENCER MD This examination was interpreted and the report reviewed and electronically signed by: SHERIE SPENCER MD on Jul 05 2024 4:04PM EST Carole Elizondo PA-C RAD-PAMA Final Result * STAPHYLOCOCCUS AUREUS & MRSA SCREEN, PCR, NASAL (07/05/2024 3:38 PM EDT) Staphylococcus aureus DNA Not Detected Not Detected CEPHEID GENEXPERT COVID19 07/05/2024 7:28 PM EDT [facility] Swab POSTERIOR NARES / Unknown Non Blood / Unknown 07/05/2024 3:38 PM EDT 07/05/2024 5:22 PM EDT Elena Rich PA-C LABORATORY Final Result [facility] [address] [facility] [address] [place] [address], [place] * XR CHEST 1V FRONTAL PORT (07/05/2024 3:31 PM EDT) Anatomical Region Laterality Modality Chest Radiographic Fátima ging 07/05/2024 3:31 PM EDT Impressions 07/05/2024 4:17 PM EDT IMPRESSION: See result. Superintendent [employer]: GRAY Transcribe Date/Time: Jul 05 2024 4:13P Dictated by : ELVIA CHÁEVZ MD This examination was interpreted and the report reviewed and electronically signed by: ELVIA CHÁVEZ MD on Jul 05 2024 4:15PM EST Narrative 07/05/2024 4:17 PM EDT * * *Final Report* * * DATE OF EXAM: Jul 05 2024 3:31PM ADRIANNA [id number] - XR CHEST 1V FRONTAL PORT / PROCEDURE REASON: Evaluate tube, line, or lead position * * * * Physician Interpretation * * * * EXAMINATION: CHEST RADIOGRAPH (PORTABLE SINGLE VIEW AP) Exam Date/Time: 07/05/2024 3:31 PM Clinical History: Evaluate tube, line, or lead position MQ: XCPMC_6 Comparison: AP and lateral CXR 05/28/2024 RESULT: Lines, tubes, and devices: Interval intubation. The tip of the ET tube is 3 cm proximal to ofe. An enteric tube courses below the diaphragm. A percutaneous gastrostomy tube is incidentally noted. Lungs and pleura: There are symmetric bilateral perihilar heterogeneous opacities, worse in the mid to lower lungs and most commonly secondary to pulmonary edema. No pleural effusion or pneumothorax is identified. Cardiomediastinal silhouette: Stable cardiomediastinal silhouette. Status post median sternotomy. No acute process identified. Procedure Note Provider, [facility] - 07/05/2024 * * *Final Report* * * DATE OF EXAM: Jul 05 2024 3:31PM ADRIANNA [id number] - XR CHEST 1V FRONTAL PORT / PROCEDURE REASON: Evaluate tube, line, or lead position * * * * Physician Interpretation * * * * EXAMINATION: CHEST RADIOGRAPH (PORTABLE SINGLE VIEW AP) Exam Date/Time: 07/05/2024 3:31 PM Clinical History: Evaluate tube, line, or lead position MQ: XCPMC_6 Comparison: AP and lateral CXR 05/28/2024 RESULT: Lines, tubes, and devices: Interval intubation. The tip of the ET tube is 3 cm proximal to ofe. An enteric tube courses below the diaphragm. A percutaneous gastrostomy tube is incidentally noted. Lungs and pleura: There are symmetric bilateral perihilar heterogeneous opacities, worse in the mid to lower lungs and most commonly secondary to pulmonary edema. No pleural effusion or pneumothorax is identified. Cardiomediastinal silhouette: Stable cardiomediastinal silhouette. Status post median sternotomy. No acute process identified. IMPRESSION IMPRESSION: See result. Superintendent Landfill Operations: GRAY Transcribe Date/Time: Jul 05 2024 4:13P Dictated by : ELVIA CHÁVEZ MD This examination was interpreted and the report reviewed and electronically signed by: ELVIA CHÁVEZ MD on Jul 05 2024 4:15PM EST Carole Elizondo PA-C RAD[facility] Final Result * DX-XR Abdomen 1 View IMPORT (07/04/2024) Anatomical Region Laterality Modality Other 07/04/2024 Narrative 07/05/2024 11:46 AM EDT Images were obtained outside of [facility] Images were obtained outside of [facility] Provider RADIOLOGY Final Result * CT-CT Chest w/ Contrast IMPORT (07/04/2024) Anatomical Region Laterality Modality Other 07/04/2024 Narrative 07/05/2024 11:47 AM EDT Images were obtained outside of [facility]/05/2024 Images were obtained outside of [facility] Provider RADIOLOGY Final Result * CT-CT Head or Brain w/o Contrast IMPORT (07/04/2024) Anatomical Region Laterality Modality Other 07/04/2024 Narrative 07/05/2024 11:46 AM EDT Images were obtained outside of [facility] Procedure Note Provider, [facility] - 07/05/2024 Images were obtained outside of [facility] Provider RADIOLOGY Final Result * DX-XR Chest Single View IMPORT (07/03/2024) Anatomical Region Laterality Modality Other 07/03/2024 Narrative 07/04/2024 9:19 AM EDT Images were obtained outside of [facility] Procedure Note Provider, [facility] - 07/04/2024 Images were obtained outside of [facility] Provider RADIOLOGY Final Result * DX-XR Chest Single View IMPORT (07/03/2024) Anatomical Region Laterality Modality Other 07/03/2024 Narrative 07/04/2024 9:18 AM EDT Images were obtained outside of [facility] Procedure Note Provider, [facility] - 07/04/2024 Images were obtained outside of [facility] Provider RADIOLOGY Final Result * DX-XR Abdomen 1 View IMPORT (07/03/2024) Anatomical Region Laterality Modality Other 07/03/2024 Narrative 07/04/2024 9:18 AM EDT Images were obtained outside of [facility] Procedure Note Provider, [facility] - 07/04/2024 Images were obtained outside of [facility] Provider RADIOLOGY Final Result * DX-XR Chest Single View IMPORT (07/02/2024) Anatomical Region Laterality Modality Other 07/02/2024 Narrative 07/04/2024 9:19 AM EDT Images were obtained outside of [facility] Procedure Note Provider, [facility] - 07/04/2024 Images were obtained outside of [facility] Provider RADIOLOGY Final Result * DX-XR Chest Single View IMPORT (07/01/2024) Anatomical Region Laterality Modality Other 07/01/2024 Narrative 07/04/2024 9:18 AM EDT Images were obtained outside of [facility] Procedure Note Provider, [facility] - 07/04/2024 Images were obtained outside of [facility] Provider RADIOLOGY Final Result from Last 3 Months Insurance [place] Member Subscriber Plan / Payer (Ef fective 2024-Present) Name:Jian Moscoso Relation to Subscriber:Self Name:Jian Moscoso Payer ID:Not on file Group ID:Not on file Type:Medicaid Address: [address] DUAL COMPLETE HMO POS SNP Advance Directives * Full Code (Latest Code Status on File) Date Activated Date Inactivated Comments 07/05/2024 4:23 PM 07/11/2024 7:11 PM Question Answer Comments Full Code Order Discussed With: Surrogate Decisi on Maker Surrogate Decision Maker Name: Colleen Surrogate Decision Maker Relationship: Parents Care Teams Icing Machine Operator Relationship Specialty Start Date End Date Crispin Mendez DO [address] [place] [address] PCP - General 07/26/00 Crispin Mendez DO [address] [place] [address] Referring Internal Medicine 01/14/24 Justyn Tobar MD [address] [place] [id number] Referring Cardiovascular Surgery 03/10/24
[2024-09-16 15:08] LABS: Basophils Absolute Auto 0.1 10^3/uL (0.0-0.1); Basophils Percent Auto 1.1 % (0.2-2.0); Eosinophils Absolute Auto 0.5 10^3/uL (0.0-0.7); Eosinophils Percent Auto 5.4 % (0.9-7.0); Hemoglobin 12.9 g/dL (14.0-18.0); Immature Granulocytes Abs Auto 0.02 10^3/uL (0.00-0.03); Immature Granulocytes Pct Auto 0.2 % (0.0-0.5); Lymphocytes Percent Auto 21.4 % (20.5-60.0); Mean Corpuscular HGB Conc 33.9 g/dL (29.9-35.2); Mean Corpuscular Hemoglobin 28.2 pg (25.9-34.0); Mean Platelet Volume 10.4 fL (9.5-13.5); Monocytes Absolute Auto 0.7 10^3/uL (0.3-0.8); Monocytes Percent Auto 7.6 % (1.7-12.0); Neutrophils Percent Auto 64.3 % (43.0-75.0); Platelet Count 388 10^3/uL (150-450); Red Blood Count 4.58 10^6/uL (4.70-6.10); Red Cell Distribution Width 13.2 % (11.0-15.0); White Blood Count 9.3 10^3/uL (4.0-11.0)
[2024-09-16 15:28] LABS: Anion Gap 15.2; BUN Creatinine Ratio 33.9; Calcium 8.8 mg/dL (8.5-10.1); Carbon Dioxide 25.4 mmol/L (21.0-32.0); Chloride 105 mmol/L (98-107); Estimated GFR (African America >60 (>=60 mL/min/1.73m^2); Estimated GFR (Non-African Ame >60 (>=60 mL/min/1.73m^2); Glucose 122 mg/dL (74-106); Potassium 4.6 mmol/L (3.5-5.1); Sodium 141 mmol/L (136-145)
[2024-09-17 06:09] LABS: Vitamin B12 651 pg/mL (232-1245)
== END 2024-09-16 14:27 | disposition home or self-care (01) ==
LOC: LAB 14:28
PROVIDERS: PCP Internal Medicine; Visit Provider Internal Medicine
DX: D64.9 Anemia, unspecified (principal); R80.0 Isolated proteinuria
CPT/HCPCS: 36415; 80048; 82570; 82607; 82728; 82746; 84156; 85025